=== PATIENT | female | born 1965 | race Caucasian/White ===

== ENCOUNTER 2018-11-06 15:42 | Outpatient (REF) | payer BC, SELFPAY ==
--- NOTE | 2018-11-06 15:00 | PAPFT_PTH ---
PATIENT: Juana Mann LOC: N U#:[id number] AGE/SX: 53/F ROOM: RE11/06/[address]: Chrystal Carey, PhD TYRE FITTER : 1965 BED: DIS: 11/06/2018 SPEC #: [id number] RECD: 11/07/18 13:08 STATUS: HIRAM REQ #: [id number] JERSON: 11/06/18 15:[address]: Chrystal Carey DEPT: COUNTS INCLUDE 234 BEDS AT THE [facility] Cytology RECD BY: Flakita Melo ENTERED: 11/07/18 13:08 SP TYPE: PAPFT OTHR DR: Iris Lee MD, DC Tissues: 1 - CX/ENDOCX FOR PAP SMEARS Procedures: PAP THIN PREP/UVM Screening HPV DNA PROBE Comments: [id number]
== END 2018-11-06 16:02 ==
LOC: LBN 15:42
PROVIDERS: PCP Family Medicine; Visit Provider Nurse Practitioner
DX: Z12.4 Encounter for screening for malignant neoplasm of cervix (principal); Z11.51 Encounter for screening for human papillomavirus (HPV)
CPT/HCPCS: 88142; 87624

== ENCOUNTER 2019-01-05 07:21 | Outpatient (CLI) | payer BC, SELFPAY ==
[2019-01-05 13:03] LABS: Abs Immature Grans 0.01 k/cumm (0.0-0.09); Absolute Basophil Count 0.05 k/cumm (0.0-0.2); Absolute Eosinophil Count 0.09 k/cumm (0.0-0.7); Absolute Lymphocyte Count 1.97 k/cumm (1.2-3.4); Absolute Monocyte Count 0.55 k/cumm (0.11-0.7); Absolute Neutrophil Count 4.85 k/cumm (1.2-6.7); Basophils % 0.7; Eosinophils % 1.2; HCT 44.5 % (36.0-46.0); Immature Grans % 0.1; Lymphocytes % 26.2; Mean Corp. HGB Concentration 33.7 g/dL (32.0-36.0); Mean Corpuscular Hemoglobin 30.2 pg (27.0-33.0); Mean Corpuscular Volume 89.5 fL (80-95); Mean Platelet Volume 9.2 fL (8.0-11.0); Monocytes % 7.3; Neutrophils % 64.5; Platelet Count 296 x1000/uL (130-400); RBC 4.97 m/cumm (4.00-5.20); RBC Distribution Width 13.3 % (11.7-14.6); White Blood Cell Count 7.52 k/cumm (4.4-10.8)
[2019-01-05 13:42] LABS: ESR 16 mm/hr (0-30)
[2019-01-05 14:08] LABS: ALT 54 U/L (14-59); AST 25 U/L (15-37); Albumin 4.3 g/dL (3.4-5.0); Alkaline Phosphatase 67 U/L (46-116); Bilirubin, Total 0.3 mg/dL (0.2-1.0); C-Reactive Protein 0.22 mg/dL (0.0-0.3); TSH 1.64 uIU/mL (0.36-3.74); Total Protein 7.9 g/dL (6.4-8.2); Uric Acid 5.9 mg/dL (2.6-6.0)
[2019-01-05 14:22] LABS: Cholesterol 259 mg/dL (50-200); Triglyceride 227 mg/dL (30-150); Vitamin D 25 Total 23.9 ng/ml (30-100)
[2019-01-05 14:23] LABS: Calculated LDL 167 mg/dL; HDL Cholesterol 47 mg/dL (40-60)
[2019-01-06 10:01] LABS: Measles IgG Antibody Positive
[2019-01-06 10:56] LABS: Rheumatoid Factor 8 IU/mL (<12.5)
[2019-01-06 16:00] LABS: ANA Interpretation Negative (NEGAT)
== END 2019-01-05 07:41 ==
PROVIDERS: PCP Nurse Practitioner; Visit Provider Nurse Practitioner
DX: Z00.00 Encounter for general adult medical examination without abnormal findings
CPT/HCPCS: 36415; 80061; 80076; 82306; 85027; 85652; 84443; 84550; 85025; 86038; 86140; 86431; 86765

== ENCOUNTER 2019-03-31 00:48 | Outpatient (CLI) | payer BC, SELFPAY ==
--- NOTE | 2019-03-31 16:27 | DI.DEXA_ITS ---
EXAM: XR DEXA BONE DENSITY W/WO DARNELL INDICATION: menopause Z78.0. COMPARISON: DEXA BONE DENSITY WITH DARNELL from 09/06/2015 TECHNIQUE: Lateral DARNELL image of the spine and bone mineral density measurements of the spine, left h ip and left wrist were performed. FINDINGS: The DARNELL image shows no evidence of compression fractures. The bone mineral density measurements of the lumbar spine correspond a total T-score of -1.1, in the osteopenic range. This is not significantly changed from the previous exam. The bone mineral density measurements of the left hip correspond to a total T-score of -0.7 and a fem oral neck T-score of -1.7. Total T-score has increased 8.1 percent since 2016. The bone mineral density measurements of the left wrist correspond to a total T-score of -0.6 and a T -score of the distal 3rd of -0.5. This represents a 4.7 percent decrease when compared with 2016. IMPRESSION: Stable osteopenia of the lumbar spine. Osteopenia of the left hip with stable femoral neck T-score. The total T-score has increased which could be secondary to degenerative changes around the hip. No rmal forearm bone mineral density.
== END 2019-03-31 01:08 ==
PROVIDERS: PCP Nurse Practitioner; Visit Provider Nurse Practitioner
DX: M85.88 Other specified disorders of bone density and structure, other site (principal); Z78.0 Asymptomatic menopausal state
CPT/HCPCS: 77080

== ENCOUNTER 2019-11-30 03:08 | Outpatient (CLI) | payer BC, SELFPAY ==
[2019-11-30 08:18] LABS: Hemoglobin A1C 5.5 % (<5.7)
== END 2019-11-30 03:28 ==
PROVIDERS: PCP Nurse Practitioner; Visit Provider Nurse Practitioner
DX: Z13.1 Encounter for screening for diabetes mellitus (principal)
CPT/HCPCS: 36415; 83036

== ENCOUNTER 2020-01-15 01:53 | Outpatient (CLI) | payer BC, SELFPAY ==
[2020-01-15 12:26] LABS: ALT 69 U/L (14-59); AST 29 U/L (15-37); Albumin 4.1 g/dL (3.4-5.0); Alkaline Phosphatase 68 U/L (46-116); Bilirubin, Direct 0.05 mg/dL (0.00-0.20); Bilirubin, Total 0.3 mg/dL (0.2-1.0); Total Protein 7.3 g/dL (6.4-8.2)
== END 2020-01-15 02:13 ==
PROVIDERS: PCP Nurse Practitioner; Visit Provider Dentist Oral and Maxillofacial Surgery
DX: M06.9 Rheumatoid arthritis, unspecified (principal); D89.89 Other specified disorders involving the immune mechanism, not elsewhere classified
CPT/HCPCS: 36415; 80076

== ENCOUNTER 2020-03-15 02:30 | Outpatient (CLI) | payer BC, SELFPAY ==
[2020-03-15 15:53] LABS: ALT 65 U/L (14-59); AST 34 U/L (15-37); Albumin 4.1 g/dL (3.4-5.0); Alkaline Phosphatase 74 U/L (46-116); Bilirubin, Total 0.3 mg/dL (0.2-1.0); Total Protein 7.5 g/dL (6.4-8.2)
[2020-03-15 15:58] LABS: Bilirubin, Direct < 0.05 mg/dL (0.00-0.20)
== END 2020-03-15 02:50 ==
PROVIDERS: PCP Nurse Practitioner; Visit Provider Dentist Oral and Maxillofacial Surgery
DX: M06.9 Rheumatoid arthritis, unspecified (principal); D89.89 Other specified disorders involving the immune mechanism, not elsewhere classified
CPT/HCPCS: 36415; 80076

== ENCOUNTER 2020-05-13 02:57 | Outpatient (CLI) | payer BC, SELFPAY ==
[2020-05-13 13:11] LABS: Abs Immature Grans 0.01 10^3/uL (0.0-0.06); Absolute Basophil Count 0.05 10^3/uL (0.0-0.2); Absolute Eosinophil Count 0.23 10^3/uL (0.0-0.7); Absolute Lymphocyte Count 2.29 10^3/uL (1.2-3.4); Absolute Monocyte Count 0.84 10^3/uL (0.1-0.8); Absolute Neutrophil Count 2.85 10^3/uL (1.2-6.7); Basophils % 0.8; Eosinophils % 3.7; HGB 13.5 g/dL (11.2-15.7); Immature Grans % 0.2; Lymphocytes % 36.5; MCH 29.6 pg (27.0-33.0); MCHC 33.8 % (32.0-36.0); MCV 87.7 fL (80-95); MPV 9.2 fL (8.0-11.0); Monocytes % 13.4; Neutrophils % 45.4; Nucleated RBC 0 %; Platelet Count 221 10^3/uL (130-400); RBC 4.56 10^6/uL (3.93-5.22); RDW 12.4 % (11.7-14.6); RDW-SD 39.7 fL; WBC 6.27 10^3/uL (4.4-10.8)
[2020-05-13 13:13] LABS: Bilirubin Negative (Negative); Blood Negative (Negative); Clarity Clear (Clear); Glucose Negative (Negative); Ketones Negative (Negative); Leukocyte Esterase Negative (Negative); Nitrite Negative (Negative); Specific Gravity 1.025 (1.005-1.025); Urobilinogen 0.2 EU/dL (Up TO 0.2)
[2020-05-13 13:21] LABS: Hemoglobin A1C 5.7 % (<5.7)
[2020-05-13 13:55] LABS: Magnesium 2.1 mg/dL (1.8-2.4)
== END 2020-05-13 02:58 | disposition home or self-care (01) ==
LOC: LBO 02:57
PROVIDERS: Naturopath; PCP Nurse Practitioner; Visit Provider Dentist Oral and Maxillofacial Surgery
DX: M26.629 Arthralgia of temporomandibular joint, unspecified side (principal); E78.5 Hyperlipidemia, unspecified; Z13.0 Encounter for screening for diseases of the blood and blood-forming organs and certain disorders involving the immune mechanism
CPT/HCPCS: 36415; 81003; 83036; 83735; 85025

== ENCOUNTER 2020-05-13 15:37 | Outpatient (CLI) | payer BC, SELFPAY ==
--- NOTE | 2020-05-13 15:30 | RT.EKG_ITS ---
APPROVED REPORT Exam: Resting ECG Patient Location: O HR:58 bpm ECG Measurements Heart Rate 58 AXIS MD 190 P 41 QRSd 90 QRS 25 QT 413 T 39 QTc 406 Conclusion Sinus bradycardia...rate< 60
== END 2020-05-13 15:38 | disposition home or self-care (01) ==
LOC: DI.CM 15:37
PROVIDERS: PCP Nurse Practitioner; Visit Provider Nurse Practitioner
DX: R01.1 Cardiac murmur, unspecified (principal)
CPT/HCPCS: 93010

== ENCOUNTER 2020-07-11 03:22 | Outpatient (CLI) | payer BC, SELFPAY ==
[2020-07-11 11:22] LABS: Abs Immature Grans 0.01 10^3/uL (0.0-0.06); Absolute Basophil Count 0.04 10^3/uL (0.0-0.2); Absolute Eosinophil Count 0.06 10^3/uL (0.0-0.7); Absolute Lymphocyte Count 1.77 10^3/uL (1.2-3.4); Absolute Monocyte Count 0.44 10^3/uL (0.1-0.8); Absolute Neutrophil Count 3.86 10^3/uL (1.2-6.7); Basophils % 0.6; HGB 13.4 g/dL (11.2-15.7); Immature Grans % 0.2; Lymphocytes % 28.6; MCH 29.5 pg (27.0-33.0); MCHC 33.5 % (32.0-36.0); MCV 87.9 fL (80-95); Monocytes % 7.1; Neutrophils % 62.5; Nucleated RBC 0 %; Platelet Count 265 10^3/uL (130-400); RBC 4.55 10^6/uL (3.93-5.22); RDW 12.4 % (11.7-14.6); RDW-SD 39.5 fL; WBC 6.18 10^3/uL (4.4-10.8)
[2020-07-11 11:52] LABS: Iron 83 ug/dL (50-170); Total Iron Binding Capacity 289 ug/dL (250-450); Transferrin Sat 29 % (15-50)
[2020-07-11 12:15] LABS: ALT 36 U/L (14-59); AST 24 U/L (15-37); Albumin 3.9 g/dL (3.4-5.0); Alkaline Phosphatase 80 U/L (46-116); Anion Gap 10.6 mmol/L (3-11); BUN 8 mg/dL (7-18); Bilirubin, Total 0.5 mg/dL (0.2-1.0); CO2 27.4 mmol/L (21.0-32.0); CREATININE 0.8 mg/dL (0.55-1.02); Calcium 9.6 mg/dL (8.5-10.1); Chloride 102 mmol/L (98-107); FREE T4 0.97 ng/dL (0.76-1.46); Glucose 137 mg/dL (74-106); Magnesium 1.9 mg/dL (1.8-2.4); Potassium 3.9 mmol/L (3.5-5.1); Sodium 140 mmol/L (136-145); TSH 1.02 uIU/mL (0.36-3.74); Total Protein 7.7 g/dL (6.4-8.2)
[2020-07-11 12:58] LABS: Ferritin 244 ng/mL (8-252); Folate 16.7 ng/mL (8.6-20.0); Vitamin B12 1528 pg/mL (193-986)
[2020-07-11 21:32] LABS: T3,Free 3.5 pg/mL (2.8-5.3)
== END 2020-07-11 03:23 | disposition home or self-care (01) ==
LOC: LBO 03:22
PROVIDERS: PCP Nurse Practitioner; Visit Provider Naturopath
DX: R00.0 Tachycardia, unspecified (principal); R53.83 Other fatigue
CPT/HCPCS: 36415; 80053; 82607; 82728; 82746; 83540; 83550; 83735; 84439; 84443; 84481; 85025

== ENCOUNTER 2020-10-14 02:47 | Outpatient (CLI) | payer BC, SELFPAY ==
[2020-10-14 12:10] LABS: ALT 69 U/L (14-59); AST 43 U/L (15-37); Albumin 4.1 g/dL (3.4-5.0); Alkaline Phosphatase 67 U/L (46-116); Bilirubin, Direct 0.1 mg/dL (0.0-0.2); Bilirubin, Total 0.4 mg/dL (0.2-1.0); Total Protein 7.4 g/dL (6.4-8.2)
== END 2020-10-14 02:48 | disposition home or self-care (01) ==
PROVIDERS: PCP Nurse Practitioner; Visit Provider Dentist Oral and Maxillofacial Surgery
DX: M06.9 Rheumatoid arthritis, unspecified (principal); D89.89 Other specified disorders involving the immune mechanism, not elsewhere classified
CPT/HCPCS: 36415; 80076

== ENCOUNTER 2020-12-09 10:02 | Outpatient (CLI) | payer BC, SELFPAY ==
[2020-12-09 12:39] LABS: Calculated LDL 121 mg/dL (<100); Cholesterol 191 mg/dL (<200); HDL Cholesterol 52 mg/dL (40-60); Triglyceride 90 mg/dL (<150)
== END 2020-12-09 10:03 | disposition home or self-care (01) ==
LOC: LOS 10:02
PROVIDERS: PCP Nurse Practitioner; Visit Provider Nurse Practitioner
DX: Z00.00 Encounter for general adult medical examination without abnormal findings (principal); E78.5 Hyperlipidemia, unspecified
CPT/HCPCS: 36415; 80061

== ENCOUNTER 2021-07-25 03:20 | Outpatient (CLI) | payer BC, SELFPAY ==
[2021-07-25 15:24] LABS: Abs Immature Grans 0.03 10^3/uL (0.0-0.06); Absolute Basophil Count 0.05 10^3/uL (0.0-0.2); Absolute Eosinophil Count 0.08 10^3/uL (0.0-0.7); Absolute Lymphocyte Count 2.83 10^3/uL (1.2-3.4); Absolute Monocyte Count 0.54 10^3/uL (0.1-0.8); Absolute Neutrophil Count 4.24 10^3/uL (1.2-6.7); Basophils % 0.6; HGB 13.4 g/dL (11.2-15.7); Immature Grans % 0.4; Lymphocytes % 36.4; MCH 29.5 pg (27.0-33.0); MCHC 33.5 % (32.0-36.0); MCV 88 fL (80-95); MPV 9.3 fL (8.0-11.0); Monocytes % 6.9; Neutrophils % 54.7; Platelet Count 231 10^3/uL (130-400); RBC 4.54 10^6/uL (3.93-5.22); RDW 12.2 % (11.7-14.6); RDW-SD 39.3 fL; WBC 7.77 10^3/uL (4.4-10.8)
[2021-07-25 15:39] LABS: ESR 14 mm/hr (0-30)
[2021-07-25 16:11] LABS: Iron 98 ug/dL (50-170); Total Iron Binding Capacity 335 ug/dL (250-450)
[2021-07-25 16:24] LABS: ALT 172 U/L (14-59); AST 119 U/L (15-37); Albumin 4.1 g/dL (3.4-5.0); Alkaline Phosphatase 83 U/L (46-116); Anion Gap 11.1 mmol/L (3-11); BUN 13 mg/dL (7-18); Bilirubin, Total 0.3 mg/dL (0.2-1.0); CO2 27.9 mmol/L (21.0-32.0); CREATININE 0.7 mg/dL (0.55-1.02); Calcium 9.1 mg/dL (8.5-10.1); Chloride 102 mmol/L (98-107); Ferritin 448 ng/mL (8-252); Glucose 91 mg/dL (74-106); Potassium 3.5 mmol/L (3.5-5.1); Sodium 141 mmol/L (136-145); Total Protein 7.5 g/dL (6.4-8.2)
[2021-07-25 16:41] LABS: Hemoglobin A1C 5.6 % (<5.7)
[2021-07-27 10:26] LABS: Insulin 7.6 uIU/mL (<29.0)
== END 2021-07-25 03:21 | disposition home or self-care (01) ==
LOC: LBO 03:20
PROVIDERS: PCP Nurse Practitioner; Visit Provider Naturopath
DX: M26.629 Arthralgia of temporomandibular joint, unspecified side (principal); R53.83 Other fatigue; R73.09 Other abnormal glucose
CPT/HCPCS: 36415; 80053; 85652; 82728; 83036; 83525; 83540; 83550; 85025

== ENCOUNTER 2021-09-14 14:07 | Outpatient (CLI) | payer BC, SELFPAY ==
[2021-09-14 08:57] LABS: ALT 230 U/L (14-59); AST 133 U/L (15-37); Albumin 3.7 g/dL (3.4-5.0); Alkaline Phosphatase 70 U/L (46-116); Bilirubin, Direct 0.1 mg/dL (0.0-0.2); Bilirubin, Total 0.4 mg/dL (0.2-1.0); Total Protein 7.4 g/dL (6.4-8.2)
--- OUTSIDE RECORDS SUMMARY | 2021-09-14 14:13 | XMS_ITS | Encounter Summary ---
:1965 Author Organization [facility] [place] [address] Care Team Providers Name Role Phone Iris Lee MD Primary Care Provider Reason for Referral Diagnostic Test (Routine) - Closed Specialty Diagnoses / Procedures Referred By Contact Refer red To Contact Radiology Diagnoses Encounter for screening mammogram for breast cancer Chrystal Carey APRN [facility] Rad Mammography Procedures Mammo Screening Cad and Jay Bilateral [address] [place] [address] [place] [address] Phone: Referral ID Status Reason Start Date Expiration Date Visits V isits Requested Authorized [id number] Closed Specialty 10/06/2020 04/08/2022 1 1 Service Requested Reason for Visit Diagnostic Test (Routine) - Closed Specialty Diagnoses / Procedures Referred By Contact Refer red To Contact Radiology Diagnoses Encounter for screening mammogram for breast cancer Chrystal Carey APRN [facility] Rad Mammography Procedures Mammo Screening Cad and Jay Bilateral [address] [place] [address] [place] [address] Phone: Referral ID Status Reason Start Date Expiration Date Visits V isits Requested Authorized [id number] Closed Specialty 10/06/2020 04/08/2022 1 1 Service Requested Encounter Details Date Type Department Care Team Description 02/14/2021 [facility] L, 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 [address] [address] [phone] Social History Tobacco Use Types Packs/Day Years Used Date Never Smoker Smokeless Tobacco: Never Used Alcohol Use Standard Drinks/Week Comments Yes 0 (1 standard drink = 0.6 oz pure alcoho l) Sex Assigned at Date Recorded Not on file documented as of this encounter Medications at Time of Discharge Medication Sig Dispensed Refills Start Date End Date Miscellaneous Medical Supply 0 016 MiscIndications: Chronic jaw pain, Cervicalgia cyclobenzaprine (FLEXERIL) 5 0 016 mg TabletIndications: TMJ arthritis OXYcodone (ROXICODONE) 5 mg Take 1-2 tablets by 30 tablet 0 03/21/2011 immediate release tablet mouth every 4 hours as needed for Pain. dvxrgmbtnp-pkmdbcyfhygad-hnr Take 1 tablet by 0 feine (FIORICET, ESGIC) per mouth every 4 hours tablet as needed. meclizine (ANTIVERT) 25 mg 25m.5-1 tab 0 05/02 tablet Tablet(s), PO, Three times daily PRN diaZEPam (VALIUM) 2 mg 2MG = 1 Tablet(s), 0 05/13 tablet PO, Three times daily,PRN documented as of this encounter Plan of Treatment Not on filedocumented as of this encounter Procedures Procedure Name Priority Date/Time Associated Diagnosis Comme nts MAMMO SCREENING CAD Routine 02/14/2021 1:06 PM Encounter for R esults for this AND JAY BILATERAL EST screening mammogram pr ocedure are in for breast cancer the result s section. documented in this encounter Results Mammo Screening Cad and Jay Bilateral (02/14/2021 1:06 PM EST) Anatomical Region Laterality Modality Breast Bilateral Mammography Specimen (Source) Anatomical Location Collection Method / Collectio n Time Received Time / Laterality Volume Narrative 02/14/2021 2:02 PM EST BILATERAL MAMMOGRAPHY REASON FOR EXAM: Screening TECHNIQUE: CC and MLO views were obtaine d of each breast using standard 2-D mammography as well as 3-D tomosynth esis. Computer aided detection was used. This is compared with prior images . FINDINGS: ??The breasts are heterogeneou sly dense, which may obscure small masses. There are no suspicious microcal cifications, masses, or areas of distortion. The pattern is stable. CONCLUSION: No mammographic evidence of malignancy. RECOMMENDATION: Regular screening mammograms starting be tween age 40 and 50 reduces the risk of from breast cancer. All screening tests have both risks and benefits. These risks and benefits should be assessed for each individual p atient through discussion with their provider to determine their prefer red breast cancer screening schedule. Women should report any breast changes t o a health care provider right away. Some women, because of their family hist ory, a genetic tendency, or other factors, should be screened with annual breast MRI as well as with mammograms. (The number of women who fal l into this category is very small). Patients and health care provide rs should discuss each patient? s history to decide if earlier screening a nd/or breast MRI are appropriate. Screening should continue as long as a w jason is in good health and is expected to live 10 years or longer. Screening mammography may not detect 10- 15% of breast cancers. A result letter has been sent to this pa alina by [facility]. BIRADS CATEGORY 1: NEGATIVE Electronically signed by: LEATHA LAGUNA MD Chrystal Carey APRN IMG MAMMO ORDERABLES documented in this encounter Visit Diagnoses Diagnosis Encounter for screening mammogram for br east cancer documented in this encounter Care Teams Metal Room Dental Technician Relationship Specialty Start Date End Date Iris Lee MD PCP - General 01/23/[address] [place] [address] documented as of this encounter
--- OUTSIDE RECORDS SUMMARY | 2021-09-14 14:13 | XMS_ITS | Encounter Summary ---
:1965 [place] [address] Care Team Providers Name Role Phone Iris Lee MD Primary Care Provider Encounter Details Date Type Department Care Team Description 10/11/2015 Hospital Encounter XRay at [facility] Ailin Butler, TMJ arthritis [address] [place] [address] Dr Pringle [facility] [address] RHEUMATOLOGY [place], [place] [address] (Wo rk) Social History Tobacco Use Types Packs/Day Years Used Date Never Smoker Smokeless Tobacco: Never Used Alcohol Use Standard Drinks/Week Comments Yes 0 (1 standard drink = 0.6 oz pure alcoho l) Sex Assigned at Date Recorded Not on file documented as of this encounter Medications at Time of Discharge Medication Sig Dispensed Refills Start Date End Date cyclobenzaprine (FLEXERIL) 0 6 5 mg TabletIndications: TMJ arthritis OXYcodone (ROXICODONE) 5 mg Take 1-2 tablets 30 tablet 0 immediate release tablet by mouth every 4 hours as needed for Pain. hlvytrzhpm-ixsrwrukzvusd-fq Take 1 tablet by 0 ffeine (FIORICET, ESGIC) mouth every 4 per tablet hours as needed. meclizine (ANTIVERT) 25 mg 25m.5-1 tab 0 05/02 tablet Tablet(s), PO, Three times daily PRN diaZEPam (VALIUM) 2 mg 2MG = 1 Tablet(s), 0 05/13 tablet PO, Three times daily,PRN amitriptyline (ELAVIL) 10 Take 20 mg by 0 11/16/2015 mg tablet mouth nightly. documented as of this encounter Plan of Treatment Not on filedocumented as of this encounter Procedures Procedure Name Priority Date/Time Associated Diagnosis Comme nts XR TMJ JOINTS Routine 10/11/2015 11:10 AM TMJ arthritis Result s for this EDT procedure are i n the results section . documented in this encounter Results XR TMJ Joints (Generic) (10/11/2015 11:10 AM EDT) Anatomical Region Laterality Modality N/A Digital Radiography Specimen (Source) Anatomical Location Collection Method / Collectio n Time Received Time / Laterality Volume Impressions 10/11/2015 3:22 PM EDT Closed mouth view suggests that there is incomplete reduction of the temporomandibular joint on the right lik ayde secondary to disc dislocation. The disc would be better evaluated directly with MRI. I do not see radiographic evidence of in flammatory disease. Narrative 10/11/2015 3:22 PM EDT EXAMINATION: XR TMJ JOINTS/BILAT CLINICAL HISTORY: pt w hx of tmj and rig ht sided tendon and disclocation of the disc and con't pain and stiffness bl, as sess for inflamm arthritis TECHNIQUE: Lateral images of the TMJ wer e acquired bilaterally with the mouth both open and closed. In addition Pravin view was acquired. COMPARISON: None FINDINGS: No fracture. No erosion of bone is seen. In the open mouth position there is norm al excursion of the condyle bilaterally. With close mouth positioning. There is n ormal reduction of the condyle on the left but the reduction is incomplete on the left likely related to the patient's known disc pathology. Procedure Note Maikol Walton MD - 10/11/2015Forma tting of this note might be different from the original. EXAMINATION: XR TMJ JOINTS/BILAT CLINICAL HISTORY: pt w hx of tmj and rig ht sided tendon and disclocation of the disc and con't pain and stiffness bl, as sess for inflamm arthritis TECHNIQUE: Lateral images of the TMJ wer e acquired bilaterally with the mouth both open and closed. In addition Pravin view was acquired. COMPARISON: None FINDINGS: No fracture. No erosion of bone is seen. In the open mouth position there is norm al excursion of the condyle bilaterally. With close mouth positioning. There is n ormal reduction of the condyle on the left but the reduction is incomplete on the left likely related to the patient's known disc pathology. IMPRESSION Closed mouth view suggests that there is incomplete reduction of the temporomandibular joint on the right lik ayde secondary to disc dislocation. The disc would be better evaluated directly with MRI. I do not see radiographic evidence of in flammatory disease. Ailin Butler DO IMG DX ORDERABLES documented in this encounter Visit Diagnoses Diagnosis TMJ arthritis Other specified temporomandibular joint disorders documented in this encounter Care Teams Sprayer Hand Relationship Specialty Start Date End Date Iris Lee MD PCP - General 01/23/[address] [place] [address] documented as of this encounter
--- OUTSIDE RECORDS SUMMARY | 2021-09-14 14:13 | XMS_ITS | Encounter Summary ---
:1965 Author Organization [facility] Address [address] [place] [address] Care Team Providers Name Role Phone Unavailable Primary Care Provider Unavailable Encounter Details Date Type Department Care Team Description 04/24/2006 - Hospital Encounter [facility] Chace Crouch, 04/25/2006 General Surgery Unit DMD [address] [facility] [address] [place] [address] [address] [place] [address] (Wo rk) Social History Tobacco Use Types Packs/Day Years Used Date Never Assessed Sex Assigned at Date Recorded Not on file documented as of this encounter Discharge Disposition Disposition Code Departure Means Destination Home or Self Care documented in this encounter OR Notes OR Surgeon - Chace Crouch DMD - 04/24/2006 0000 EST PROCEDURE REPORT PT TYPE: IP PT LOC: [id number] SERVICE DATE: 04/24/2006 SURGEON: Chace Crouch DMD SHERIFF'S OFFICER: Derick Parsons DMD PREOPERATIVE DIAGNOSES: 1. Anteriorly displaced disk, nonreducing, right temporomandibular joint. 2. Anteriorly displaced disk, reducing, left temporomandibular joint with joint arthralgia. 3. Bilateral temporalis tendonitis. POSTOPERATIVE DIAGNOSES: 1. Anteriorly displaced disk, nonreducing, right temporomandibular joint. 2. Anteriorly displaced disk, reducing, left temporomandibular joint with joint arthralgia. 3. Bilateral temporalis tendinitis. PROCEDURE: 1. Steroid injection, temporalis tendons bilaterally. 2. Arthroscopy, left temporomandibular joint, with lysis of adhesions, lavage of joint, and placement of intracapsular steroids. 3. Open arthroplasty with disk plication, right temporomandibular joint. ANESTHESIA: General. INDICATIONS: This 40-year-old female has had a longstanding history of temporomandibular joint problems. She was seen and evaluated by Dr. Adithya Shaw in the year 1999 and entered splint therapy, as well as other treatment modalities. She did well until July 2005, when she developed acute pain in her right temporomandibular joint and significant loss of range of motion. MRIs done at [facility] showed an anteriorly displaced disk that would not reduce in the right temporomandibular joint. In addition, the left temporomandibular joint showed a slightly anteriorly displaced disk. Due to clinical findings consisting of bilateral TMJ arthralgia, limited range of motion, and pain in hertemporalis tendon, it was decided to do an open arthroplasty of the right temporomandibular joint, do an arthroscopic procedure on the left TMJ, as well as place steroids in the temporalis tendon attachments. NARRATIVE: Under general anesthesia with nasoendotracheal intubation, attention was first directed to intraorally where 20 mg of Depo-Medrol mixed with 0.5% Marcaine without epinephrine was injected into the temporalis tendon area at the coronoid processes bilaterally. The patient was then prepped anddraped in the standard manner for preauricular approaches to the temporomandibular joints. Her left lower abdomen was also prepped in the standard manner, should a dermal harvest be necessary. Attention was first directed to the patient's left side, where 1 cc of 0.5% Marcaine without epinephrine wasinjected into the superior joint space. Using an 11-blade, a small skin incision was made at the posterolateral aspect of the TMJ, then blunt dissection carried down to the temporomandibular joint capsule. Using a 14-gauge needle attached to a syringecontaining heparinized lactated Ringer's, the needle was inserted into the superior joint space and then the joint space expanded. The arthroscopic sheath with the sharp trocar was then introduced through the blunt dissection site and with the condyle detracted anteriorly and inferiorly, the joint capsule was punctured. A blunt probe was placed in the sheath and the sheath further advanced in the joint space. The arthroscope was then placed into position, ujylcde-cuq-ozxqjew flow was established. Inspection of the joint showed normal-appearingsynovial tissues at the posterior aspect. The disk itself appeared relatively normal, although there was some evidence of some minor adhesions, both on the disk surface and along the articular remnants. Examination of the anterior compartment showed some small adhesions and the lateral pterygoid shadow was easily identified. A blunt probe was placed into the arthroscopic sheath and passed along the superior aspect of the glenoid fossa, lysing any minor adhesions. The arthroscope was then replaced inthe sheath, ddugvwl-nmp-ywyhqxv flow reestablished, and the joint thoroughly irrigated. Then, the arthroscope and 14-gauge needle were removed. The puncture sites each then had a single 6-0 Prolene suture placed. Attention was then directed to the patient's right side, where the preauricular incision was marked.The subcutaneous tissues were infiltrated with 0.5% Marcaine with 1:200,000 epinephrine. Then, usinga 15-blade, an incision was made in the preauriculararea. Small bleeders were clamped and coagulated, as well as using the electrocautery. Small bleeders coagulated directly. The skin was undermined anteriorly approximately 1.5 cm. At the superior aspect of the wound, blunt dissection was then carrieddown to the level of the temporalis fascia and then dissection carried along that plane to the area of the external auditory canal. Blunt dissection was also carried down at the posterior border of the parotideomasseteric plane, along the anterior border of the external auditory canal. A straight clamp was introduced from the superior blunt dissection site to the inferior blunt dissection site and then at its posterior border. It should be noted that when this tissue was clamped, there were no facial nerve movements. Further blunt dissection site was then used to expose the temporomandibular joint capsule. The superior temporal vein was ligated at the superior aspect of the wound, , and tied with 3-0 Vicryl ties. Transverse vessels inthe area of the joint capsule were , clamped, and coagulated. Marcaine 0.5%, 1 cc, was then injected into the superior joint space. Using a 15-blade, a horizontal incision was made along the lateral aspect of the glenoid fossa. Using tenotomyscissors, the superior joint space was entered. It was noted that the disk was markedly anteriorly and medially displaced. A Lacombe elevator was further used to break up these adhesions. Then, usingtenotomy scissors, the lateral capsular tissues were undermined, a vertical releasing incision made,and the tissue marked for later closure. Using a 15- blade, a horizontal incision was made on the condylar neck, and then using a combination of the Lacombe periosteal elevator and tenotomy scissors, the i nferiorjoint space was entered. It was noted that the condylar head was fairly intermittent. There was a small exostosis on the lateral border. Then, the disk was carefully inspected. It was noted thatthere was a distinct tear through the junctional tissuesat the posterior border. A straight clamp was introduced. A section of tissue was then removed. Using a 15-blade, an anterior capsulotomy was then completed, allowing the disk to be retracted posteriorly and laterally. Using 4-0 Vicryl sutures inan interrupted fashion, the disk was then sutured posteriorly and laterally, and then junctional sutures also placed in the tissues reapproximating the lateral attachment of the disk. With completion of closure of the inferior joint space, the mandible was rotated and translated, and the disk-condylarrelationship appeared normal and satisfactory. The joint was then thoroughly irrigated. The lateral capsular tissues reapproximated and closed with 4-0 Vicryl in an interrupted fashion. The marking suture hadbeen removed. The parotideomasseteric plane was closed using interrupted 4-0 Vicryl suture in an interrupted fashion, as well as in a continuous interlocking fashion. Subcutaneous closure was with 4-0 Vicryl in an inverted, interrupted fashion, and thenskin closed with 6-0 Prolene in a continuous noninterlocking fashion. Attention was then redirected to the patient's left side, where 20 mg of Depo- Medrol mixed with 0.5%Marcaine was injected into the superior joint space. The external auditory canal was irrigated free of all debris, then the right external auditory canal irrigated free of all debris. Triple-antibioticointment and Telfa were placed over the right preauricular excision, and following extubation, the patient returned to the recovery room in satisfactory condition, where a Jobst fascioplasty dressing was placed. I was present for the entire surgical procedure. ESTIMATED BLOOD LOSS: 10-15 cc. COMPLICATIONS: There were no complications. Signed by Chace Crouch DMD 05/20/2006 08:58 Annalise Mahoney, IVIS Chace Crouch DMD - Chace Crouch DMD P - SS Job ID: [id number] Document ID: [id number] cc: KETTY William, IVIS Parsons, KEILA Palacios cc: KETTY William, IVIS Parsons, KEILA Palacios documented in this encounter Plan of Treatment Not on filedocumented as of this encounter Visit Diagnoses Not on filedocumented in this encounter
--- OUTSIDE RECORDS SUMMARY | 2021-09-14 14:13 | XMS_ITS | Encounter Summary ---
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 kykfvqzrqs-aatraiiwafonz-jav Take 1 tablet by 0 feine (FIORICET, [...] Diagnosis Comme nts MAMMO SCREENING CAD Routine 10/05/2019 3:47 PM Encounter for R esults for this AND JAY BILATERAL EDT screening mammogram pr ocedure are in for breast cancer the result s section. documented in this encounter Results Mammo Screening Cad and Jay Bilateral (10/05/2019 3:47 PM EDT) Anatomical Region Laterality Modality Breast Bilateral Mammography Specimen (Source) Anatomical Location Collection Method / Collectio n Time Received Time / Laterality Volume Narrative 10/06/2019 8:15 AM EDT BILATERAL MAMMOGRAPHY REASON FOR EXAM: Screening TECHNIQUE: [...] letter has been sent to this pa tient by the [facility]. BIRADS CATEGORY 1: NEGATIVE Chrystal Carey APRN IMG MAMMO ORDERABLES documented in this encounter Visit Diagnoses Diagnosis Encounter for screening mammogram for br east cancer documented in this encounter Care Teams Envelope Stuffer Relationship Specialty Start Date End Date Iris Lee MD PCP - General 01/23/11 [address] [place] [address] documented as of this encounter
--- OUTSIDE RECORDS SUMMARY | 2021-09-14 14:13 | XMS_ITS | Encounter Summary ---
:1965 [address] Organization [facility] [place] [address] Care Team Providers Name Role Phone Iris Lee MD Primary Care Provider Reason for Referral Diagnostic Test (Routine) - Closed Specialty Diagnoses / Procedures Referred By Contact Refer red To Contact Radiology Diagnoses Bilateral temporomandibular joint pain Ailin Butler DO [facility] Rad Mri Procedures MRI TMJ wo Contrast (Generic) [facility] [place] [address] [place] [address] Phone: Referral ID Status Reason Start Date Expiration Date Visits V isits Requested Authorized [id number] Closed Specialty 12/14/2015 01/12/2016 1 1 Service Requested Encounter Details Date Type Department Care Team Description 12/13/2015 Orders Only Rheumatology at [facility] Ailin Butler Bilateral [facility] DO [place] temporomandibular joint [place], [place] [id number] RHEUMATOLOGY DEPT [phone] [place], [place] [address] Social History Tobacco Use Types Packs/Day Years Used Date Never Smoker Smokeless Tobacco: Never Used Alcohol Use Standard Drinks/Week Comments Yes 0 (1 standard drink = 0.6 oz pure alcoho l) Sex Assigned at Date Recorded Not on file documented as of this encounter Plan of Treatment Not on filedocumented as of this encounter Results MRI TMJ wo Contrast (Generic) (12/15/2015 9:00 AM EDT) Anatomical Region Laterality Modality Head Magnetic Resonance Specimen (Source) Anatomical Location Collection Method / Collectio n Time Received Time / Laterality Volume Impressions 12/16/2015 4:08 PM EDT IMPRESSION: 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 No intravenous contrast. COMPARISON: MRI of face of 11/25/2015. FINDINGS: There is loss of joint space and flatten ing of the condylar surface bilaterally, more extensive on the left. There is abn ormal T1 hypointense signal within the left occipital condyle consistent with t he abnormalities evident on the prior study and likely representing marrow roberto ma On the right there is anterior dislocati on of the disc with the mouth in closed position. The disc is not recaptured wit h opening of the mouth. Disc morphology is mildly abnormal taking a slightly alise bular appearance. On the left at the condyle lies along th e dorsal aspect of the disc and there is recapturing of the disc with mouth openi ng. However the disc morphology is more markedly abnormal taking a lobular appea delmi and containing internal hyperintense signal consistent with dege neration. No proliferative synovial process is dale dent Procedure Note Grabiel Ribeiro MD - 12/16/2015Format ting of this note might be different from the original. EXAMINATION: MRI TMJ WO CONTRAST (GENERI C) CLINICAL HISTORY: Pt has TMJ pain and qu estion disc dislocation, pls assess for TMJ synovitis or disc dislocation TECHNIQUE: MRI of the temporal mandibula r joints is obtained per standard protocol. No intravenous contrast. COMPARISON: MRI of face of 11/25/2015. FINDINGS: There is loss of joint space and flatten ing of the condylar surface bilaterally, more extensive on the left. There is abn ormal T1 hypointense signal within the left occipital condyle consistent with t he abnormalities evident on the prior study and likely representing marrow roberto ma On the right there is anterior dislocati on of the disc with the mouth in closed position. The disc is not recaptured wit h opening of the mouth. Disc morphology is mildly abnormal taking a slightly alise bular appearance. On the left at the condyle lies along th e dorsal aspect of the disc and there is recapturing of the disc with mouth openi ng. However the disc morphology is more markedly abnormal taking a lobular appea delmi and containing internal hyperintense signal consistent with dege neration. 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
--- OUTSIDE RECORDS SUMMARY | 2021-09-14 14:13 | XMS_ITS | Encounter Summary ---
:1965 Author Organization [facility] Address [address] [place] [address] Care Team Providers Name Role Phone Iris Lee MD Primary Care Provider Encounter Details Date Type Department Care Team Description 07/25/2021 Lab Requisition [facility] Outr Resulting Lab, Pathology & Laboratory Provider [facility] [address], [place] [id number] Social History Tobacco Use Types Packs/Day Years Used Date Never Assessed Sex Assigned at Date Recorded Not on file documented as of this encounter Plan of Treatment Not on filedocumented as of this encounter Procedures Procedure Name Priority Date/Time Associated Diagnosis Comme nts INSULIN Routine 07/25/2021 14:47 EDT Results for this procedure are i n the results section . documented in this encounter Results INSULIN (07/25/2021 14:47 EDT) Pathologist Sig nature Insulin 7.6 <29.0 uIU/mL [facility] Comment: LABORATORY SERVICES Displayed Reference Range applies to fasting specimens only. Specimen Blood - Venous blood (substance) Performing Organization Address City/State/ZIP Code Phon e Number [facility] [address] [place] [address] SERVICES documented in this encounter Visit Diagnoses Not on filedocumented in this encounter Care Teams Recovery Rn Relationship Specialty Start Date End Date Iris Lee MD PCP - General 11/04/14 [address] [place], [place] [address] documented as of this encounter
--- OUTSIDE RECORDS SUMMARY | 2021-09-14 14:13 | XMS_ITS | Encounter Summary ---
:1965 Author Organization [facility] [place] [address] Care Team Providers Name Role Phone Iris Lee MD Primary Care Provider Reason for Visit Consultation (Routine) - Specialty Diagnoses / Procedures Referred By Contact Refer red To Contact Rheumatology Diagnoses FATIGUE, JOINT PAIN Bertha Sauer, [facility] Rheumatology 5c Procedures CONSULT ND [address] [address] [address] [place], [place] [address] Referral ID Status Reason Start Date Expiration Date Visits V isits Requested Authorized [id number] 09/06/2015 09/05/2016 1 1 Encounter Details Date Type Department Care Team Description 10/11/2015 Office Visit Rheumatology [place] [facility] Ailin Butler, TMJ arthritis; [facility] Monico pepe [place] [address] [facility] [phone] RHEUMATOLOGY DEP [place], [place] [address] (Wo rk) Social History Tobacco Use Types Packs/Day Years Used Date Never Smoker Smokeless Tobacco: Never Used Alcohol Use Standard Drinks/Week Comments Yes 0 (1 standard drink = 0.6 oz pure alcoho l) Sex Assigned at Date Recorded Not on file documented as of this encounter Last Filed Vital Signs Vital Sign Reading Time Taken Comments Blood Pressure 116/74 10/11/2015 8:41 AM EDT Pulse 69 10/11/2015 8:41 AM EDT Temperature 36.7 ??C (98.1 ??F) 10/11/2015 8:41 AM EDT Respiratory Rate 18 10/11/2015 8:41 AM EDT Oxygen Saturation 100% 10/11/2015 8:41 AM EDT Inhaled Oxygen Concentration - - Weight 66.7 kg (147 lb) 10/11/2015 8:41 AM EDT Height 160 cm (5' 3) 10/11/2015 8:41 AM EDT Body Mass Index 26.04 10/11/2015 8:41 AM EDT documented in this encounter Progress Notes Ailin Butler, DO - 10/11/2015 9:00 AM EDT Rheumatology Outpatient Consultation Note Reason for Consult: The patient is seen at the request of Dr. IRIS LEE MD/Dr Shaw for evaluation and treatment of fatigue and joint pain History of Present Illness: Juana Mann is a 50 y.o. female who presents today for evaluation of fatigue, joint pain . 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 She finally got to the point wherethe jaw pain was severe enough that she sought care. She has been followed by Dr Shaw for many years and repeated imaging has shown progressive deterioration of the joint and he was concerned aboutunderlying rheumatic disesae. She also notes in 2007, she developed a tendon rupture of the right tmj w a dislocated disc and required surgery. She then presented to her naturopathic physician for further evaluation. She had labs done showing alow titer juan carlos andwas referred here. She notes aching in the am in her hands, and feet. She notes it goes away in an hour. Denies any swelling of the joints. The pip joints of the hands seem to bother her, no pain or swellin gin the MCPS She has had arthritis in her left shoulder in her 30s, she had OA, no prior injury. She notes pain in her ankles and toes, 2nd toe ip joint She notes pain in her left elbow, which is all day and worse at night. She has some lateral hip pain and hurts to lie on them. She notes some mid-back pain after her br reduction surgery, she has done massage PT and chiropracter and injections, she started accupuncture and this has helped. Meds: shay works the best Steroid cream did work but she developed rash She was on oral steroids before her surgery but this did not work, but was at the tendon rupture Rheumatic history (x) means positive Iritis Dactylitis Pleuritis Pericarditis Oral / Nasal Ulcers PE/DVT Spontaneous Discoid SLE STD Raynaud???s Psoriasis Seizures Anemia Leucopenia Thrombocytopenia Psychosis from a medical condition Health Care Maintenance Date Next Due Influenza vaccine Pneumonia vaccine TB Screen (PPD/QGA) DXA 2016-t score -0.9, HCQ Eye Exam Viral Hepatitis Screen Review of Systems: X = positive response. Comments are only made for responses that are changed fromprevious, not discussed in HPI, or otherwise require clarification. Systemic Comments 1. Generalized pain 2. Fatigue/tiredness x 3. Fevers 4. Chills 5. Night sweats X menopuase 6. Recent weight loss 7. Recent Weight gain X 10 lbs Head and neck 8. Headaches X migraines 9. Neck pain/stiffness 10. Lymphadenopathy 11. 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 Gritty eyes 14. Eye pain 15. Photophobia 16. Oral sores 17. Xerostomia 18. Jaw claudication Cardiopulmonary 19. Chest discomfort 20. Dyspnea 21. Cough 22. Hemoptysis Gastrointestinal 23. Dysphagia 24. Heartburn 25. Nausea 26. Emesis 27. Abdominal pain 28. Hematochezia 29. Diarrhea 30. Constipation Genitourinary 31. Hematuria 32. Dysuria X burning intermittent Musculoskeletal 33. Muscle weakness 34. Myalgia 35. Shoulder pain x 36. Raynaud's Neuropsychiatric 37. Paresthesia x 38. Dysesthesia 39. Dizziness/vertigo X w the jaw 40. Anxiety 41. Depression 42. Cognitive problems 43. Initial insomnia 44. Night awakenings x 45. Nonrestorative sleep x Dermatologic 46. Xerosis cutis 47. Photosensitivity 48. Rash PMHX hpl Migraine tmj bppv Depression Chicken pox -no rash, affected her kidneys (she was 5), she does not recall anything else She had recurrent UTI and pyelo until her 20s Urinary incontinence on occ Lyme disease in her 20s SurgHX Left rotator cuff br reduction bl tmj Ablation for heavy menses/fibroids Family Hx: M: mi at 41, cabg at 50, htn, dm, ashd F: htn, bladder cancer Pgm: thyroid cancer, colon cancer siblings: (-)RA, (-)lupus, (-)scleroderma, (-)sjogren's, (-)gout Social Hx: Social History Social History ??? Marital status: Spouse name: N/A ??? Number of children: N/A ??? Years of education: N/A Social History Main Topics ??? Smoking status: Never Smoker ??? Smokeless tobacco: Never Used ??? Alcohol use Yes 0 Glasses of wine, 0 Cans of beer per week ??? Drug use: No ??? Sexual activity: Not Asked Other Topics Concern ??? Exercise: Patient Reported No ??? 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 Well developed and nourished. The patient did not appear distressed or uncomfortable. The patient ambulated without difficulty or assistance. Head: Scalp: Appeared normal. Eyes: PERRL. Extraocular muscles were intact. External Eye: No hyperemia of the conjunctiva noted Sclera: Not red. Oral cavity: Buccal Mucosa showed no ulcer. Tongue did not have an ulcer. Salivary Glands: No xerostomia was observed. No parotid swelling noted. limitd opening of the oral aperature d/t pain in the tmj Pharynx: Pharynx did not have an ulcer. Lymph Nodes: Cervical, supraclavicular, submandibular, preauricular, posterior auricular and submental lymph nodes were non-palpable. Lungs: Respiration rhythm and depth was normal. Clear to auscultation without rales or wheezing. Work of breathing was not increased. Cardiovascular system: Heart Rate and Rhythm: Normal. Heart Sounds: Normal. Murmurs: No murmurs were heard. Lower Extremity Edema: Not present. Musculoskeletal system: (???NML?? means normal; No swelling, warmth, tenderness, loss of range of motion, or deformity as applicable) Hands: MCP???s: NML PIP???s: NML DIP???s: NML, full fist and claw Wrists: NML Elbows: ttp over the lateral epicondyle on the left Shoulders: NML but crepitus w motion Cervical Spine: paraspinal mm spasm Hips: ttp over bl greater trochanters Knees: NML, but crepitus w rom Ankles: NML Feet: NML, neg mtp compression Nails: No nail pitting, onycholysis or periungual erythema noted. Neurologic: gait nl, from all ext Skin: No rash seen Laboratory Data: Cbc nl crp 0.7 JUAN CARLOS 1:160 Studies: Impression/Recommendations : Juana Mann is a 50 y.o. female who presents today with tmj pain, arthralgias of the pips and a +JUAN CARLOS. She does not have any evidence of an JUAN CARLOS associated disease such as SLE, no photosens rashes, oral ulcerations, cytopenias, pg complications, serositis. Will repeat JUAN CARLOS, COLBY panel, and renal function. She denies any sicca symptoms for sjogrens, but will check ssa/b. Don't believe she has RA based on lack of synovitis and mcp and wrist involvement, but will further evaluate with RF/CCP/ESR (had nl CRP w PCM) as well as plain films of her hands. TMJ: dicussed w her inflamm diseases that can affect the TMJ include RA (usua severe, polyarticular disease, TONY, spondys-psa/reactive/as). She has lacks any enthesitis, dactylitis, iritis, IBD, inflammatory back pain. May consider HLA b27 testing depending on the evaluation. Alternatively, could simply represent OA from prior dislocation and long standing TMJ. Repeat Imaging, and will request images from Dr Shaw. Pt wishes to avoid medications, but is willing to trial supplements, will start glucosamien and chondroitin,con't omega 3. CC: IRIS LEE MD documented in this encounter Plan of Treatment Not on filedocumented as of this encounter Procedures Procedure Name Priority Date/Time Associated Comments Diagnosis EXTRACTABLE NUCLEAR Routine 10/11/2015 10:27 TMJ arthritis Res ults for this ANTIGEN (COLBY) AB AM EDT procedure a re in the results section. ANTI-CYCLIC Routine 10/11/2015 10:27 TMJ arthritis Results fo r this CITRULLINATED PEPTIDE AM EDT proced ure are in AB the results section. SEDIMENTATION RATE Routine 10/11/2015 10:27 TMJ arthritis Resu lts for this AM EDT procedure are i n the results section. RHEUMATOID FACTOR, Routine 10/11/2015 10:27 TMJ arthritis Resu lts for this QUANT AM EDT procedure are i n the results section. JUAN CARLOS Routine 10/11/2015 10:27 TMJ arthritis Results fo r this AM EDT procedure are i n the results section. TSH Routine 10/11/2015 10:27 TMJ arthritis Results fo r this AM EDT procedure are i n the results section. COMPREHENSIVE Routine 10/11/2015 10:27 TMJ arthritis Results f or this METABOLIC PANEL AM EDT procedure ar e in (NON-FASTING) the results section. documented in this encounter Results XR Shoulder Left (GENERIC) (10/11/2015 11:12 AM EDT) Anatomical Region Laterality Modality Shoulder Left Digital Radiography Specimen (Source) Anatomical Location Collection Method / Collectio n Time Received Time / Laterality Volume Impressions 10/11/2015 1:47 PM EDT Separation of the acromioclavicular joint. Narrative 10/11/2015 1:47 PM EDT EXAMINATION: XR SHOULDER LEFT CLINICAL HISTORY: pt with left shoulder pain and hx of oa at a young age nontraumatic requiring surgery, pls asse ss for any evidence of inflamm arthritis TECHNIQUE: AP, Grashey, scapular Y and a xillary of the left shoulder COMPARISON: None FINDINGS: No fracture or dislocation is seen. There is separation of the acromioclavic ular joint. Bony irregularity at the lateral aspect of the clavicle is presen t. The glenohumeral joint is intact. No ero sions are seen. Procedure Note Kenroy Kilpatrick MD - 10/11/2015 EXAMINATION: XR SHOULDER LEFT CLINICAL HISTORY: pt with left shoulder pain and hx of oa at a young age nontraumatic requiring surgery, pls asse ss for any evidence of inflamm arthritis TECHNIQUE: AP, Grashey, scapular Y and a xillary of the left shoulder COMPARISON: None FINDINGS: No fracture or dislocation is seen. There is separation of the acromioclavic ular joint. Bony irregularity at the lateral aspect of the clavicle is presen t. The glenohumeral joint is intact. No ero sions are seen. IMPRESSION Separation of the acromioclavicular join t. Ailin Butler DO IMG DX ORDERABLES XR TMJ Joints (Generic) (10/11/2015 11:10 AM [...] disease. Ailin Butler DO IMG DX ORDERABLES XR Bilateral Hands Minimum 3 Views (10/11/2015 11:10 AM EDT) Anatomical Region Laterality Modality Hand Bilateral Digital Radiography Specimen (Source) Anatomical Location Collection Method / Collectio n Time Received Time / Laterality Volume Impressions 10/11/2015 1:37 PM EDT 1. ??No arthropathy. 2. ??Benign-appearing lesion in the prox imal phalanx of the right ring finger most likely represents an enchondroma. Narrative 10/11/2015 1:37 PM EDT EXAMINATION: XR BILATERAL HANDS MINIMUM 3 VIEWS/BILAT CLINICAL HISTORY: pt with pip joint pain and an JUAN CARLOS pls assess for damage TECHNIQUE: PA, oblique, lateral and Norg aard of both hands COMPARISON: None FINDINGS: The joint spaces are intact bilaterally. No erosions are seen. There is a somewhat lobular well demarca veronica lesion located distal aspect of the proximal phalanx of the right ring finge r. There is slight endosteal scalloping but no cortical breakthrough, no periost eal reaction and no soft tissue mass is seen. This lesion does not extend all th e way to the articular surface. The matrix is fairly featureless. Procedure Note Kenroy Kilpatrick MD - 10/11/2015 EXAMINATION: XR BILATERAL HANDS MINIMUM 3 VIEWS/BILAT CLINICAL HISTORY: pt with pip joint pain and an JUAN CARLOS pls assess for damage TECHNIQUE: PA, oblique, lateral and Norg aard of both hands COMPARISON: None FINDINGS: The joint spaces are intact bilaterally. No erosions are seen. There is a somewhat lobular well demarca veronica lesion located distal aspect of the proximal phalanx of the right ring finge r. There is slight endosteal scalloping but no cortical breakthrough, no periost eal reaction and no soft tissue mass is seen. This lesion does not extend all th e way to the articular surface. The matrix is fairly featureless. IMPRESSION 1. No arthropathy. 2. Benign-appearing lesion in the proxim al phalanx of the right ring finger most likely represents an enchondroma. Ailin Butler DO IMG DX ORDERABLES TSH (10/11/2015 10:27 AM EDT) athologist Signature TSH 1.99 0.27 - 4.20 [facility] mcIU/mL [facility] Specimen Anatomical Collection Method Collection Time Receive d Time (Source) Location / / Volume Laterality Blood specimen 10/11/2015 10:27 6 (specimen) AM EDT 10:44 AM EDT Resulting Agency Comment Spec In Lab Ailin Butler DO CHEMISTRY ORDERABLES Performing Organization Address City/State/Z[place] [address] (ABNORMAL) Comprehensive metabolic panel (non-fasting) (10/11/2015 10:27 AM EDT) athologist Signature Glucose Lvl 101 65 - 199 [facility] mg/dL [facility] Comment: Diabetes: >=200 mg/dL plus symp toms BUN 15 8 - 18 mg/dL [facility] Creatinine 0.68 (L) 0.70 - 1.20 mg/dL [facility] Comment: Please note that the pediatric reference intervals supplied above were not validated at [facility]. Results from pediatri c patients should be interpreted in conjunction to the patient's age, height and muscle mass. Sodium 141 135 - 145 mmol/L [facility] Potassium 4.1 3.5 - 5.0 mmol/L [facility] Comment: Please note: ??Patients with WBC >100,00 0 may have falsely elevated Potassium levels. ??For accurate Potassium quantif ication in these patients send serum separator tube (gold top) for subsequent determinations. ??Contact the Clinical Chemistry Laboratory if there are any qu estions. Chloride 101 98 - 107 mmol/L [facility] CO2 22 22 - 31 mmol/L [facility] Anion Gap 18 (H) 5 - 15 mmol/L [facility] Calcium 9.3 8.5 - 10.5 mg/dL [facility] Total Protein 7.3 6.1 - 8.0 gm/dL [facility] Albumin 4.5 3.2 - 5.2 gm/dL [facility] AST 14 0 - 30 unit/L [facility] ALT 11 0 - 30 unit/L [facility] Alk Phos 49 40 - 104 unit/L [facility] Total Bilirubin 0.2 0.2 - 1.3 mg/dL [facility] Bili, Direct 0.1 0.0 - 0.3 mg/dL [facility] Estimated GFR >60 >=60 [facility] Comment: This estimated GFR (eGFR) value was calc ulated using the MDRD equation which has been validated on patients between t he ages of 18 and 70. The MDRD should not be used to assess kidney function in patients < 18 years of age or in patients with extremes of body mass, or in patients with acute kidney failure. This value should be multiplied by 1.2 f or patients. For further information please copy and past e the following links into your internet browser. http://[employer]/DHnkdep http://[employer]/DHMCnkf Specimen Anatomical Collection Method Collection Time Receive d Time (Source) Location / / Volume Laterality Blood specimen 10/11/2015 10:27 6 (specimen) AM EDT 10:44 AM EDT Resulting Agency Comment Spec In Lab Ailin Butler DO CHEMISTRY ORDERABLES Performing Organization Address City/State/Z[place] [address] Cyclic Citrullinated Peptide (10/11/2015 10:27 AM EDT) athologist Signature Anti-Cyc Cit <8.0 <=17.0 [facility]/mL [facility] Specimen Anatomical Collection Method Collection Time Receive d Time (Source) Location / / Volume Laterality Blood specimen 10/11/2015 10:27 6 (specimen) AM EDT 10:44 AM EDT Resulting Agency Comment Spec In Lab Ailin Butler DO CHEMISTRY ORDERABLES Performing Organization Address City/[facility]/ZIP Code Phon e Number [address] Rheumatoid factor, quant (10/11/2015 10:27 AM EDT) P athologist Signature RF <10 <=14 IU/mL [facility] Specimen Anatomical Collection Method Collection Time Receive d Time (Source) Location / / Volume Laterality Blood specimen 10/11/2015 10:27 6 (specimen) AM EDT 10:44 AM EDT Resulting Agency Comment Spec In Lab Ailin Butler DO IMMUNOLOGY ORDERABLES Performing Organization Address City/[facility]/ZIP Code Phon e Number [address] Sedimentation rate (10/11/2015 10:27 AM EDT) P athologist Signature Sed Rate 8 0 - 20 [facility] T[facility]LER mm/hr [facility] Specimen Anatomical Collection Method Collection Time Receive d Time (Source) Location / / Volume Laterality Blood specimen 10/11/2015 10:27 6 (specimen) AM EDT 10:44 AM EDT Resulting Agency Comment Spec In Lab Ailin Butler DO HEMATOLOGY ORDERABLES Performing Organization Address City/[facility]/ZIP Code Phon e Number [address] Extractable Nuclear Antigen (COLBY) Ab (10/11/2015 10:27 AM EDT) Patholo gist Method Time Signature COLBY Ab DOREEN TAYLER Test ?Result ?Flag ??Unit ??RefValue [facility] Ab to Extractable Nuclear Ag [facility] LABORATORY ??SS-A/Ro Ab, IgG, S ?<0.2 ?U -- REFERENCE VALUE -- <1.0 (Negative) ??SS-B/La Ab, IgG, S ?<0.2 ?U -- REFERENCE VALUE -- <1.0 (Negative) ??Sm Ab, IgG, S ? <0.2 ? U -- REFERENCE VALUE -- <1.0 (Negative) ??MANDREL PULLER Ab, IgG, S ?0.7 ? U -- REFERENCE VALUE -- <1.0 (Negative) ??Scl 70 Ab, IgG, S ? <0.2 ?U -- REFERENCE VALUE -- <1.0 (Negative) ??Svetlana 1 Ab, IgG, S ? <0.2 ?U -- REFERENCE VALUE -- <1.0 (Negative) Test Performed by: [address] [id number] Automation Driver: Alejandro Sharma II, M.D., Ph.D. Specimen Anatomical Collection Method Collection Time Receive d Time (Source) Location / / Volume Laterality Blood specimen 10/11/2015 10:27 6 1:19 (specimen) AM EDT PM EDT Resulting Agency Comment Spec In Lab Ailin Butler DO IMMUNOLOGY ORDERABLES Performing Organization Address City/State/ZIP [place] [address] JUAN CARLOS (10/11/2015 10:27 AM EDT) P athologist Signature JUAN CARLOS Neg Neg [facility] Specimen Anatomical Collection Method Collection Time Receive d Time (Source) Location / / Volume Laterality Blood specimen 10/11/2015 10:27 6 1:39 (specimen) AM EDT PM EDT Resulting Agency Comment Spec In Lab Ailin Butler DO IMMUNOLOGY ORDERABLES Performing Organization Address City/State/[place] [address] documented in this encounter Visit Diagnoses Diagnosis TMJ arthritis Other specified temporomandibular joint disorders JUAN CARLOS positive Other and unspecified nonspecific immuno logical findings TMJ arthritis Other specified temporomandibular joint disorders TMJ arthritis Other specified temporomandibular joint disorders TMJ arthritis Other specified temporomandibular joint disorders documented in this encounter Care Teams Manager Telecom Relationship Specialty Start Date End Date Iris Lee MD PCP - General 01/23/[address] [place] [address] documented as of this encounter
--- OUTSIDE RECORDS SUMMARY | 2021-09-14 14:13 | XMS_ITS | Encounter Summary ---
:1965 Author Organization [facility] [place] [address] Care Team Providers Name Role Phone Iris Lee MD Primary Care Provider Reason for Referral Physical Therapy (Routine) - Specialty Diagnoses / Procedures Referred By Contact Refer red To Contact Physical Therapy Diagnoses Chronic jaw pain Cervicalgia Ailin Butler DO [facility] D R [place] [address] Referral ID Status Reason Start Date Expiration Date Visits V isits Requested Authorized [id number] Evaluate and 11/16/2015 05/14/2016 12 12 Treat Diagnostic Test (Routine) - Closed Specialty Diagnoses / Procedures Referred By Contact Refer red To Contact Radiology Diagnoses Chronic jaw pain Cervicalgia Ailin Butler DO [facility] Rad Mri Procedures MRI Face With/WO Contrast [facility] [place] [address] [place] [address] Referral ID Status Reason Start Date Expiration Date Visits V isits Requested Authorized [id number] Closed Specialty 11/18/2015 12/17/2015 1 1 Service Requested Encounter Details Date Type Department Care Team Description 11/16/2015 Office Visit Rheumatology at [facility] Ailin Butler Chronic jaw pain; [facility] DO [place] [address] RHEUMATOLOGY DEP [place], [place] [address] (Wo rk) Social History Tobacco Use Types Packs/Day Years Used Date Never Smoker Smokeless Tobacco: Never Used Alcohol Use Standard Drinks/Week Comments Yes 0 (1 standard drink = 0.6 oz pure alcoho l) Sex Assigned at Date Recorded Not on file documented as of this encounter Last Filed Vital Signs Vital Sign Reading Time Taken Comments Blood Pressure 115/78 11/16/2015 10:59 AM EDT Pulse 68 11/16/2015 10:59 AM EDT Temperature 36.6 ??C (97.8 ??F) 11/16/2015 10:59 AM EDT Respiratory Rate 18 11/16/2015 10:59 AM EDT Oxygen Saturation 99% 11/16/2015 10:59 AM EDT Inhaled Oxygen Concentration - - Weight 64.4 kg (142 lb) 11/16/2015 10:59 AM EDT Height 160 cm (5' 3) 11/16/2015 10:59 AM EDT Body Mass Index 25.15 11/16/2015 10:59 AM EDT documented in this encounter Progress Notes LukeAilin dalal DO Monico - 11/16/2015 11:00 AM EDT HPI: She does not have an appt upcoming visit with dental. She last mri of her jaw was several years ago.She does have continued pain in the jaw. She also notes left shoulder pain. She notes her lateral hip pain has improved with stretches. She notes no change in low back w accupuncture and chiropracter for this. She notes aleve is working which she takes on time at night and she takes one ES tylenol during the day. She also notes neck pain for which PT was helping, but . She is using it at night. She also takes estylenol during gthe day. She does have some aching in the bl hands and feet in the am lasting several minutes. She denies anysig joint or swelling. History of Present Illness: Juana Mann is [...] She had labs done showing alow titer moise andwas referred here. She notes aching in [...] started accupuncture and this has helped. Meds: aleromel works the best Steroid cream did work [...] Rare glass of wine Physical Examination: BP 115/78 Pulse 68 Temp 36.6 ??C (97.8 ??F) Resp 18 Ht 160 cm (5' 3) Wt 64.4 kg (142 lb) SpO2 99% BMI 25.15 kg/m2 General: Alert and oriented. Well developed and nourished. The patient did not appear distressed or uncomfortable. The patient ambulated without difficulty or assistance. Head: Scalp: Appeared normal. Eyes: PERRL. Extraocular muscles were intact. External Eye: No hyperemia of the conjunctiva noted Sclera: Not red. Lungs: Respiration rhythm and depth was normal. [...] NML, full fist and claw Wrists: NML Shoulders: mild decr rom in abduction but crepitus w motion Cervical Spine: paraspinal mm spasm Knees: NML, but crepitus w rom Ankles: NML Feet: NML, neg mtp compression, some altered sensation locally over the first mtp bl Nails: No nail pitting, onycholysis or periungual erythema noted. Neurologic: gait nl, from all ext Skin: No rash seen Laboratory Data: Cbc nl crp 0.7 MOISE 1:160, repeat neg Studies: Impression/Recommendations : Juana Mann is a 50 y.o. female who presents today with tmj pain, arthralgias of the pips and a +MOISE at outside facility repeat here was negative. She does not have evidence of an active rheumatic disease at this time. She does seem to have con't tmj, related neck pain and shoulder pain. MRI of the face to further assess for changes of the TMJ given the dislocation that was reported on the x-rays. she may benefit from referral back to Oral surgery. Also placed a referral to PT for consideration of a TENS unit. She does have ac separation: refer to PT for strengthening and rom exercises Unclear as to the etiology of her hand and foot pain which is not involving the joints for a few minutes in the am. She has a normal physical exam and negative tinel and phalen's testing. She has a negssa. 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 TMJ joint space edema/enhancement repres enting nonspecific synovitis. If there is persistent clinical concern for discal displacement, arrangements can be made for the patient to return fo r additional imaging at no charge. This can be arranged by sending the a message through [facility]. Narrative 11/25/2015 1:56 PM EDT EXAMINATION: MRI FACE WITH/WO CONTRAST CLINICAL HISTORY: Patient with bl tmj pa in and recurrent dislocation and swelling wiht pain on eating, has had church rgery hx, on the right, unclear if she is still discolated or if there is any s ynoviitis or other anl there TECHNIQUE: MRI the face with and without contrast. 7 cc gadolinium was administered. COMPARISON: Plain films of the TMJ dated 10/11/2015. FINDINGS: The examination was performed as an MRI face, so dynamic imaging of the TMJ was not performed which unfortun ately precludes evaluation of disc dislocation. Bilateral TMJ osteoarthritis with joint space narrowing and subchondral edema is noted worse on the left side. There is a ssociated nonspecific edema and enhancement within the bilateral joint s paces, more prominent on the left. The condylar heads are well-seated within th e condylar fossa. No significant paranasal sinus disease. The visualized brain appears normal. Procedure Note Denny Nunez MD - 11/25/2015Formatti ng of this note might be different from the original. EXAMINATION: MRI FACE WITH/WO CONTRAST CLINICAL HISTORY: Patient with bl tmj pa in and recurrent dislocation and swelling wiht pain on eating, has had church rgery hx, on the right, unclear if she is still discolated or if there is any s ynoviitis or other anl there TECHNIQUE: MRI the face with and without contrast. 7 cc gadolinium was administered. COMPARISON: Plain films of the TMJ dated 10/11/2015. FINDINGS: The examination was performed as an MRI face, so dynamic imaging of the TMJ was not performed which unfortun ately precludes evaluation of disc dislocation. Bilateral TMJ osteoarthritis with joint space narrowing and subchondral edema is noted worse on the left side. There is a ssociated nonspecific edema and enhancement within the bilateral joint s paces, more prominent on the left. The condylar heads are well-seated within th e condylar fossa. No significant paranasal sinus disease. The visualized brain appears normal. IMPRESSION There is bilateral TMJ osteoarthritis wo rse on the left side with joint space narrowing and subchondral edema. TMJ joint space edema/enhancement repres enting nonspecific synovitis. If there is persistent clinical concern for discal displacement, arrangements can be made for the patient to return fo r additional imaging at no charge. This can be arranged by sending the a message through [facility]. Ailin Butler DO IMG MRI ORDERABLES documented in this encounter Visit Diagnoses Diagnosis Chronic jaw pain Jaw pain Cervicalgia Chronic jaw pain Jaw pain Cervicalgia documented in this encounter Care Teams Financial Services Sales Representative Relationship Specialty Start Date End Date Iris Lee MD PCP - General 01/23/[address] [place] [address] documented as of this encounter
--- OUTSIDE RECORDS SUMMARY | 2021-09-14 14:13 | XMS_ITS | Encounter Summary ---
:1965 Author Organization [facility] [place] [address] Care Team Providers Name Role Phone Iris Lee MD Primary Care Provider Encounter Details Date Type Department Care Team Description 07/25/2015 Hospital Encounter Mammography at [facility] Iris Lee, Visit for screening [facility] MD mammogram Drive [address] [place] [address] [address] [facility] 1 [address] [place], [place] [phone] [id number] Social History Tobacco Use Types Packs/Day Years [...] every 4 hours as needed for Pain. haiquicwbt-rjldwkgdxscck-ra Take 1 tablet by 0 ffeine (FIORICET, ESGIC) mouth every 4 per tablet hours as needed. meclizine (ANTIVERT) 25 mg 25m.5-1 tab 0 05/02 tablet Tablet(s), PO, Three times daily PRN diaZEPam (VALIUM) 2 mg 2MG = 1 Tablet(s), 0 05/13 tablet PO, Three times daily,PRN topiramate (TOPAMAX) 25 mg Take 25 mg by 0 10/11/2015 tablet mouth 2 times daily. ibuprofen (ADVIL;MOTRIN) Take 1 tablet by 30 tablet 12 03/2110/11/2015 800 mg tablet mouth every 8 hours. amitriptyline (ELAVIL) 10 Take 20 mg by 0 11/16/2015 mg tablet mouth nightly. SUMAtriptan (IMITREX) 100 Take 100 mg by 0 10/11/2015 mg tablet mouth as needed. ibuprofen (ADVIL;MOTRIN) 0 05/13/2009 10/11/2015 200 mg tablet cyclobenzaprine (FLEXERIL) 10MG = 1 0 0 10/11/2015 10 mg tablet Tablet(s), PO, Three times daily,PRN losartan (COZAAR) 100 mg 0 05/13/2009 10/11/2015 tablet Omeprazole 20 mg TbEC 0 05/13/200911/2015 documented as of this encounter Plan of Treatment Not on filedocumented as of this encounter Procedures Procedure Name Priority Date/Time Associated Diagnosis Comme nts MAMMO SCREENING CAD Routine 07/25/2015 2:40 PM Visit for paris allison Results for this AND MADELYN BILATERAL EDT mammogram procedure are in the results section. documented in this encounter Results Mammo Digital Bilateral Screening With CAD and Tomosynthesis (07/25/2015 2:40 PM EDT) Anatomical Region Laterality Modality Breast Bilateral Mammography Specimen (Source) Anatomical Location Collection Method / Collectio n Time Received Time / Laterality Volume Narrative 07/26/2015 12:11 PM EDT BILATERAL MAMMOGRAPHY REASON FOR EXAM: Screening [...] areas of distortion. The pattern is stable. Posts urgical changes following bilateral breast reduction are noted. CONCLUSION: No mammographic evidence of malignancy. RECOMMENDATION: The [employer] and The Society of Breast Imaging recommend annual screenin g beginning at age 40 for the general female population. Screening lenny uld continue as long as a woman is in good health and is expected to live 1 0 more years or longer. All women should be familiar with the known benefi ts, limitations, and potential harms linked to breast cancer screening. They should also know how their breasts normally look and feel and repor t any breast changes to a health care provider right away. Some women - b ecause of their family history, a genetic tendency, or certain other facto rs - should be screened with MRIs along with mammograms. (The number of wo men who fall into this category is very small.) The patient and health care provider should discuss the patient history and decide if earlier sc reening and breast MRI are appropriate. A result letter has been sent to this jasmyn fuller by the [facility]. BIRADS CATEGORY 1: NEGATIVE Iris Lee MD IMG MAMMO ORDERABLES documented in this encounter Visit Diagnoses Diagnosis Visit for screening mammogram Other screening mammogram documented in this encounter Care Teams World Designer Relationship Specialty Start Date End Date Iris Lee MD PCP - General 01/23/[address] [place] [address] documented as of this encounter
--- OUTSIDE RECORDS SUMMARY | 2021-09-14 14:13 | XMS_ITS | Encounter Summary ---
:1965 Author Organization [facility] Address [address] [place] [address] Care Team Providers Name Role Phone Unavailable Primary Care Provider Unavailable Encounter Details Date Type Department Care Team Description 07/17/2006 Results Only [facility] - Iris Lee MD Maple conversion [address] [facility] [address] [place] [address] [place], [place] [phone] (Wo rk) Social History Tobacco Use Types Packs/Day Years Used Date Never Assessed Sex Assigned at Date Recorded Not on file documented as of this encounter Plan of Treatment Not on filedocumented as of this encounter Procedures Procedure Name Priority Date/Time Associated Diagnosis Comme nts CYTOPATHOLOGY Routine 07/17/2006 0:00 EDT Results for this procedure are i n the results section . documented in this encounter Results CYTOPATHOLOGY (07/17/2006 0:00 EDT) Pathology Report: CYTOPATHOLOGY REPORT [facility] Reports generated via electronic interface contain zelda ginal data; however they are lacking the format of the original re port. Caution should be taken when reading/interpreting unfo rmatted reports. Name: ? SALVADOR MANN ? Accession #: ? [id number] : ? 1965 (Age: 40) ??F ?Collect Date: ? 07/02 Location: ? [facility] ? Receive Date : ? 07/19/2006 Provider: ?IRIS LEE MD Copy to: ? Specimen/Source: ?ThinPrep Pap Test, E ndocervix, processed on Kizoom ThinPrep Imaging System, with manual evaluation Last Menstrual Period: ? 07/11/06 Other: ? HPVA - HPV testing requested if ASC-US on the current ThinPrep Pap test. ? SPECIMEN ADEQUACY ? Satisfactory for Evaluation - transformation zone component present GENERAL CATEGORIZATION ? Other, see interpretation INTERPRETATION ? Endometrial cells present in a woman equal to o r greater than age 40. Negative for Intraepithelial Lesion. EDUCATIONAL NOTES/RECOMMENDATIONS ? Benign appearing endometrial cells on Pap tests are usually a normal finding in women with regular menstrual cycles, especially if the Pap test was collected during the first half of the menstrual cycle . There is data showing that e ndometrial cells on Pap tests may be associated with endometrial/uterine abnormal ities in post menopausal women or in perimenopausal women with abnormal bleeding. There is limited data on the significance of robyn ign endometrial cells in post menopausal women on HRT. ??Clinical correlation is rec ommended. Note: ??The Pap test is not an accurate test for the screening of endometrial lesions and should not be used as a follow up in patie nts with clinical suspicion of endometrial pathology. ? Document reviewed and electronically signed by: ? ELINA Cabrera(ASCP) ? Report Date: ??07/23/2006 11:54 End of Report Specimen Performing Organization Address City/State/ZIP Code Phon e Number [facility] [address] [place] [address] SERVICES [facility] [address] [place] [address] documented in this encounter Visit Diagnoses Not on filedocumented in this encounter
--- OUTSIDE RECORDS SUMMARY | 2021-09-14 14:13 | XMS_ITS | Encounter Summary ---
:1965 Author Organization [place] [address] Care Team Providers Name Role Phone Iris Lee MD Primary Care Provider Reason for Referral Consultation (Routine) - Canceled Specialty Diagnoses / Procedures Referred By Contact Refer red To Contact Maxillofacial Surgery Diagnoses TMJ disorder involving articular disc abnormality Ailin Butler, [facility] Maxillo Surg DO [address] [place] [address] D [facility] [place] [address] [place] [address] Phone: Fax: Referral ID Status Reason Start Date Expiration Date Visits V isits Requested Authorized [id number] Canceled Consult, 12/23/2015 12/22/2016 3 3 Test & Treat Encounter Details Date Type Department Care Team Description 12/23/2015 Orders Only Rheumatology at [facility] Ailin Butler TMJ disorder [facility] D, DO involving articular [facility] [place] [address] RHEUMATOLOGY DEP [place], [place] [address] (Wo rk) Social History Tobacco Use Types Packs/Day Years Used Date Never Smoker Smokeless Tobacco: Never Used Alcohol Use Standard Drinks/Week Comments Yes 0 (1 standard drink = 0.6 oz pure alcoho l) Sex Assigned at Date Recorded Not on file documented as of this encounter Plan of Treatment Scheduled Referrals Name Type Priority Associated Order Schedule Diagnoses Referral to Outpatient Referral Routine TMJ disorder Ordered: Maxillofacial Surgery involving articular 12/23/2015 disc abnormality documented as of this encounter Visit Diagnoses Diagnosis TMJ disorder involving articular disc ab normality 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
--- OUTSIDE RECORDS SUMMARY | 2021-09-14 14:13 | XMS_ITS | Encounter Summary ---
:1965 Author Organization [facility] Address [address] [place] [address] Care Team Providers Name Role Phone Iris Lee MD Primary Care Provider Encounter Details Date Type Department Care Team Description 09/07/2017 Historical Results [facility] - Marco A Ortega, Only [facility] Lab - Main [facility] PA-C [address] [facility] [address] [place] [address] [place], [place] [phone] Social History Tobacco Use Types Packs/Day Years Used Date Never Assessed Sex Assigned at Date Recorded Not on file documented as of this encounter Plan of Treatment Not on filedocumented as of this encounter Procedures Procedure Name Priority Date/Time Associated Comments Diagnosis PHARYNGITIS SCREEN - Routine 09/07/2017 12:18 Res ults for this [facility] EDT procedure are i n the results section. documented in this encounter Results PHARYNGITIS SCREEN - [facility] (09/07/2017 12:18 EDT) PHARYNGITIS SCREEN - [facility] PHARYNGITIS SCREEN - NO GROUP A STREP [facility] Specimen Performing Organization Address City/State/ZIP Code Phon e Number [facility] [address] [place], [place] [id number] [place] [address] LAB documented in this encounter Visit Diagnoses Not on filedocumented in this encounter Care Teams Director Of Laboratory Operations Relationship Specialty Start Date End Date Iris Lee MD PCP - General 11/04/14 [address] [place] [address] documented as of this encounter
--- OUTSIDE RECORDS SUMMARY | 2021-09-14 14:13 | XMS_ITS | Encounter Summary ---
:1965 Author Organization [facility] Address [address] [place] [address] Care Team Providers Name Role Phone Unavailable Primary Care Provider Unavailable Encounter Details Date Type Department Care Team Description 10/22/2005 Hospital Encounter [facility] - Colin, Adithya Hightower, [facility] DDS [id number] [place] [phone] (Wo rk) Social History Tobacco Use Types Packs/Day Years Used Date Never Assessed Sex Assigned at Date Recorded Not on file documented as of this encounter Discharge Disposition Disposition Code Departure Means Destination Auto Discharge documented in this encounter Plan of Treatment Not on filedocumented as of this encounter Procedures Procedure Name Priority Date/Time Associated Diagnosis Comme nts SURGICAL PATHOLOGY Routine 09/12/2007 0:00 EDT Re sults for this procedure are i n the results section. SURGICAL PATHOLOGY Routine 09/12/2007 0:00 EDT Re sults for this procedure are i n the results section. MR TMJ 10/22/2005 16:57 Results for this EDT procedure are i n the results section. documented in this encounter Results SURGICAL PATHOLOGY (09/12/2007 0:00 EDT) Pathology Report: SURGICAL PATHOLOGY REPORT [facility] Reports generated via electronic interface contain zelda ginal data; LAB however they are lacking the format of the original re port. Caution should be taken when reading/interpreting unfo rmatted reports. Name: ? FRANCISCO MANN ? Accession #: ? [id number] ? : ? 1965 (Age: 41) ??F ? Collect Date: ? 09/12/2007 ? Location: ? [facility] ? Receive Date: ? 008 ? Provider: DIANNE BRITTON MD Copy to: GORGE MOJICA MD ? Final Pathologic Diagnosis: ? Endometrium, curettage: 1. ?Secretory endometrium. 2. ? No cytologic atypia. ??See comment. Comment: ? The specimen shows ab undant secretory endometrium without cytologic atypia. Rare fragments show prominent vascular structur es raising the possibility of functional endometrial polyp s versus vigorous curettage of basalis endometrium. (Dr. Clayton)/[facility] Document reviewed and electronically signed by: GIANNA CLAYTON MD Report ??Date: 09/15/2007 17:39 By the signature above, the attending physician certif ies that he/she has personally conducted a gross and/or microscopic examin ation of the described specimens and rendered or confirmed the above diagnosi s. Specimen(s) Received: ? Endometrial curettings Clinical History: ? Menorrhagia Gross Description: ? Received in formalin labelled Latimer and endometrial curettings is a 4.0 x 2.0 x 0.5 cm aggregate of wright-white soft tissue fragments admixed with scant brown mucinous material. ??The spe cimen is entirely submitted as (A1) to (A3). ??(Poli Rose)/lgk End of Report Specimen Performing Organization Address City/State/ZIP Code Phon e Number [facility] [address] [place] [address] SERVICES [facility] [address] [place] [address] SURGICAL PATHOLOGY (09/12/2007 0:00 EDT) Pathology Report: SURGICAL PATHOLOGY REPORT ? [facility] Reports generated via electr onEyesBot interface contain original data; ? LAB however they are lacking the format of the original report. ? Caution should be taken when reading/interpreting unformatted reports. ? Name: ? FRANCISCO MANN CHEO ? Accession #: ? [id number] ? : ? 1965 (Age: 41) ??F ? Collec t Date: ? 09/12/2007 ? Location: ? [facility] ? R eceive Date: ? 09/12/2007 ? Provider: DIANNE REBA MD ? Copy to: GORGE M DOBBERTIN M D ? Final Pathologic Diagnosis: ? Endometrium, curettag e: ? 1. ?Secretory e ndometrium. ? 2. ? No cytologic atypia . ??See comment. ? Comment: ? The specimen shows ab undant secretory endometrium without cytologic atypia. Rare fragments show promine nt vascular structures raising the possibility of ?? functional endometrial polyp s versus vigorous curettage of basalis endometrium. (Dr. Clayton)/mpl ? Document reviewed and electr onically signed by: ? Gianna Clayton, ? Report ??Date: 09/15/2007 17 :39 ? By the signature above, the attending physician certifies that he/she has ? personally conducted a gross and/or microscopic examination of the described ? specimens and rendered or co nfirmed the above diagnosis. ? Specimen(s) Received: ? Endometrial curetting s ? Clinical History: ? Menorrhagia ? Gross Description: ? Received in formalin labelled Latimer and endometrial curettings is a 4.0 x 2.0 x 0.5 cm aggregate of wright-white soft tissue fragments admixed with ? scant brown mucinous materia l. ??The specimen is entirely submitted as (A1) to ?? (A3). ??(Poli Rose)/lgk ? End of Report ? Specimen Performing Organization Address City/State/ZIP Code Phon e Number [facility] [address] [place] [address] SERVICES [facility] [address] [place] [address] MR TMJ (10/22/2005 16:57 EDT) Anatomical Region Laterality Modality Other Specimen Narrative [facility] - 09/18/2008 12 :58 EDT PAIN, LIMITED ROM, JOINT SOUNDS B TMJS, RECENT EXACERLATION TEMPOROMANDIBULAR JOINTS WITHOUT CONTRAS T: ?? 10/22/05 CLINICAL HISTORY: ??Pain and limited ran ge of motion, joint sounds in bilateral temporomandibular joints. ??Re cent exacerbation. TECHNIQUE: ??Sagittal oblique T2 and pro ton density closed and open mouth views of the temporomandibular yared nts were obtained. FINDINGS: Examination of the left side shows norm al appearance of the mandibular condyle. ??The articular disc is displaced medially within the joint. ??This is best appreciated on the coronal proton density sequence. ??On open mouth views on the l eft side the disc assumes a normal position with recapture. ??On the right side the disc is anteriorly displaced on the closed mouth views; it does not recapture on open mouth views. ??The mandible cond yle is normal in appearance on the right side. ??No fluid is seen in th e temporomandibular joints. CONCLUSIONS: ??Left temporomandibular rony int disc is displaced medially on closed mouth views but recaptures in normal position on the open mouth view. ??On the right the disc is a nteriorly and medially displaced and does not recapture. D: ??10/22/05 T: ??10/23/05 /kyle Procedure Note Alfredito Olson MD - 09/18/2008 PAIN, LIMITED ROM, JOINT SOUNDS B TMJS, RECENT EXACERLATION TEMPOROMANDIBULAR JOINTS WITHOUT CONTRAS CLINICAL HISTORY: Pain and limited range of motion, joint sounds in bilateral temporomandibular joints. Rece nt exacerbation. TECHNIQUE: Sagittal oblique T2 and diana n density closed and open mouth views of the temporomandibular yared nts were obtained. FINDINGS: Examination of the left side shows norm al appearance of the mandibular condyle. The articular disc i s displaced medially within the joint. This is best appreciated on t he coronal proton density sequence. On open mouth views on the lef t side the disc assumes a normal position with recapture. On the r ight side the disc is anteriorly displaced on the closed mouth views; it does not recapture on open mouth views. The mandible condyl e is normal in appearance on the right side. No fluid is seen in the temporomandibular joints. CONCLUSIONS: Left temporomandibular join t disc is displaced medially on closed mouth views but recaptures in normal position on the open mouth view. On the right the disc is ant eriorly and medially displaced and does not recapture. /kyle Performing Organization Address City/State/ZIP Code Phon e Number [facility] [address] [facility] [address] [facility] [address] [place], [place] [address] documented in this encounter Visit Diagnoses Not on filedocumented in this encounter
--- OUTSIDE RECORDS SUMMARY | 2021-09-14 14:13 | XMS_ITS | Clinical Summary ---
:1965 Author Organization [facility] Address [address] [place] [address] Care Team Providers Name Role Phone Iris Lee MD Primary Care Provider Encounters Date Type Specialty Care Team Description 07/25/2021 Lab Requisition Clinical Laboratory Outr Resulting Lab , Provider from Last 3 Months Social History Tobacco Use Types Packs/Day Years Used Date Never Assessed Sex Assigned at Date Recorded Not on file Plan of Treatment Not on file Procedures Procedure Name Priority Date/Time Associated Diagnosis Comme nts INSULIN Routine 07/25/2021 14:47 EDT Results for this procedure are i n the results section . from Last 3 Months Results INSULIN (07/25/2021 14:47 EDT) Pathologist Sig nature Insulin 7.6 <29.0 uIU/mL [facility] Comment: LABORATORY SERVICES Displayed Reference Range applies to fasting specimens only. Specimen Blood - Venous blood (substance) Performing Organization Address City/State/ZIP Code Phon e Number [facility] [address] [place] [address] SERVICES from Last 3 Months Care Teams Supervisor Telephone Clerks Relationship Specialty Start Date End Date Iris Lee MD PCP - General 11/04/14 [address] [place] [place], [place] [address]
--- OUTSIDE RECORDS SUMMARY | 2021-09-14 14:13 | XMS_ITS | Encounter Summary ---
:1965 [place] [address] Care Team Providers Name Role Phone Iris Lee MD Primary Care Provider Encounter Details Date Type Department Care Team Description 06/06/2015 External Results Radiology Library at [facility] Provider, [place] [address] Social History Tobacco Use Types Packs/Day Years Used Date Never Smoker Smokeless Tobacco: Never Used Alcohol Use Standard Drinks/Week Comments Yes 0 (1 standard drink = 0.6 oz pure alcoho l) Sex Assigned at Date Recorded Not on file documented as of this encounter Plan of Treatment Not on filedocumented as of this encounter Procedures Procedure Name Priority Date/Time Associated Diagnosis Comme nts MAMMOGRAM SCAN Routine 12/26/2012 MAMMOGRAM SCAN Routine 10/27/2008 MAMMOGRAM SCAN Routine 10/20/2008 MAMMOGRAM SCAN Routine 03/18/2008 MAMMOGRAM SCAN Routine 09/16/2007 MAMMOGRAM SCAN Routine 09/09/2007 documented in this encounter Results Scan Doc: Mammogram (12/26/2012) Anatomical Region Laterality Modality Other Narrative This result has an attachment that is no t available. Scanning Provider MEDIA MGR SCAN EXT ORDR/RSLT Scan Doc: Mammogram (10/27/2008) Anatomical Region Laterality Modality Other Narrative This result has an attachment that is no t available. Scanning Provider MEDIA MGR SCAN EXT ORDR/RSLT Scan Doc: Mammogram (10/20/2008) Anatomical Region Laterality Modality Other Narrative This result has an attachment that is no t available. Scanning Provider MEDIA MGR SCAN EXT ORDR/RSLT Scan Doc: Mammogram (03/18/2008) Anatomical Region Laterality Modality Other Narrative This result has an attachment that is no t available. Scanning Provider MEDIA MGR SCAN EXT ORDR/RSLT Scan Doc: Mammogram (09/16/2007) Anatomical Region Laterality Modality Other Narrative This result has an attachment that is no t available. Scanning Provider MEDIA MGR SCAN EXT ORDR/RSLT Scan Doc: Mammogram (09/09/2007) Anatomical Region Laterality Modality Other Narrative This result has an attachment that is no t available. Scanning Provider MEDIA MGR SCAN EXT ORDR/RSLT documented in this encounter Visit Diagnoses Not on filedocumented in this encounter Care Teams Icing Coater Relationship Specialty Start Date End Date Iris Lee MD PCP - General 01/23/[address] [place] [address] [address] [place] [address] documented as of this encounter
--- OUTSIDE RECORDS SUMMARY | 2021-09-14 14:13 | XMS_ITS | Encounter Summary ---
:1965 [place] [address] Care Team Providers Name Role Phone Iris Lee MD Primary Care Provider Encounter Details Date Type Department Care Team Description 06/01/2015 External Results Radiology [place] [facility] [place], [place] [address] Social History Tobacco Use Types Packs/Day [...] MAMMOGRAM SCAN Routine 12/26/2012 MAMMOGRAM SCAN Routine 04/03/2010 documented in this encounter Results Scan Doc: Mammogram (12/26/2012) Anatomical Region Laterality Modality Other Narrative This result has an attachment that is no t available. Scanning Provider MEDIA MGR SCAN EXT ORDR/RSLT Scan Doc: Mammogram (04/03/2010) Anatomical Region Laterality Modality Other Narrative This result has an attachment that is no t available. Scanning Provider MEDIA MGR SCAN EXT ORDR/RSLT documented in this encounter Visit Diagnoses Not on filedocumented in this encounter Care Teams Information Technology Intern Relationship Specialty Start Date End Date Iris Lee MD PCP - General 01/23/11 [address] [place] [address] documented as of this encounter
--- OUTSIDE RECORDS SUMMARY | 2021-09-14 14:13 | XMS_ITS | Clinical Summary ---
:1965 Author Organization [facility] [place] [address] Care Team Providers Name Role Phone Iris Lee MD Primary Care Provider Allergies Active Allergy Reactions Severity Noted Date Comments Penicillins CIS - Unknown Promethazine Hcl CIS - Unkno wn Sulfa (Sulfonamide Antibiotics) CIS - Unknown Medications Medication Sig Dispensed Refills Start Date End Date Status meclizine (ANTIVERT) 25m.5-1 tab 0 05/13/2009 Active 25 mg tablet Tablet(s), PO, Three times daily PRN diaZEPam (VALIUM) 2 mg 2MG = 1 Tablet(s), 0 05/14/19 10 Active tablet PO, Three times daily,PRN butalbital-acetaminoph Take 1 tablet by 0 Active en-caffeine (FIORICET, mouth every 4 ESGIC) per tablet hours as needed. OXYcodone (ROXICODONE) Take 1-2 tablets 30 tablet 0 03/21/2011 Active 5 mg immediate release by mouth every 4 tablet hours as needed for Pain. Additional Information Patient not taking. Reported on 10/11/2015 cyclobenzaprine (FLEXERIL) 5 mg TabletIndications: TMJ 0 06/06/2015 Active arthritis Miscellaneous Medical Supply MiscIndications: Chronic jaw 0 10/17/2015 Active pain, Cervicalgia Active Problems Problem Noted Date S/P reduction mammoplasty 04/11/2011 Family History Medical History Relation Comments Breast Cancer Neg Hx Social History Tobacco Use Types Packs/Day Years Used Date Never Smoker Smokeless Tobacco: Never Used Alcohol Use Standard Drinks/Week Comments Yes 0 (1 standard drink = 0.6 oz pure alcoho l) Sex Assigned at Date Recorded Not on file Last Filed Vital Signs Vital Sign Reading [...] Mass Index 25.15 11/16/2015 10:59 AM EDT Plan of Treatment Health Maintenance Due Date Last Done Comments Covid-19 Vaccine (#1) 1970 HIV screen 09/25/1983 Hepatitis C Screening 09/25/1983 Tdap adult 1984 Tetanus vaccine 1984 HPV test 09/25/1995 PAP Smear 09/25/1995 Breast Cancer Share Decision 2005 Needed Colonoscopy 2010 Zoster vaccine (1 of 2) 09/25/2015 Advance Directive 2020 Influenza (Flu) vaccine (1 of 1 - 11/02/2021 Influenza standard series) Breast Cancer screening 02/14/2023 02/14/2021, 10/05/2019, 03/05/2017, Additional history exists Insurance Payer Benefit Plan / Subscriber ID Effective Dates Phone Addre ss Type Group [id number] 2012-Presen [phone] [address] [employer] [place] P[place] t [address] [place], [place] [address] Care Teams Director Of Integrated Marketing Relationship Specialty Start Date End Date Iris Lee MD PCP - General 11/22/[address] [facility] [address] [place] [address]
--- OUTSIDE RECORDS SUMMARY | 2021-09-14 14:13 | XMS_ITS | Encounter Summary ---
:1965 Author Organization [facility] [place] [address] Care Team Providers Name Role Phone Iris Lee MD Primary Care Provider Reason for Visit Reason Onset Date Comments Referral 12/23/2015 Encounter Details Date Type Department Care Team Description 12/23/2015 Telephone Rheumatology at [facility] [place] [address] Social History Tobacco Use Types Packs/Day Years Used Date Never Smoker Smokeless Tobacco: Never Used Alcohol Use Standard Drinks/Week Comments Yes 0 (1 standard drink = 0.6 oz pure alcoho l) Sex Assigned at Date Recorded Not on file documented as of this encounter Miscellaneous Notes Telephone Encounter - Dorcas Shaikh - 12/23/2015 9:53 AM EDT Juana is calling re: referral to oral surgery. States that the MRI showed disc degeneration. She's hoping we can put in a referral to oral surgery so she can be seen. documented in this encounter Plan of Treatment Not on filedocumented as of this encounter Visit Diagnoses Not on filedocumented in this encounter Care Teams Automotive Salesperson Relationship Specialty Start Date End Date Iris Lee MD PCP - General 01/23/[address] [place] [address] documented as of this encounter
--- OUTSIDE RECORDS SUMMARY | 2021-09-14 14:13 | XMS_ITS | Encounter Summary ---
:1965 [place] [address] Care Team Providers Name Role Phone Iris Lee MD Primary Care Provider Encounter Details Date Type Department Care Team Description 10/11/2015 Hospital Encounter XRay at [facility] Ailin Butler, TMJ arthritis [address] [place] [address] Dr [address] [facility] [phone] RHEUMATOLOGY [place], [place] [address] (Wo rk) Social History Tobacco [...] every 4 hours as needed for Pain. sxqdoibpbw-jywqfllcimhqk-ip Take 1 tablet by 0 ffeine (FIORICET, [...] Priority Date/Time Associated Diagnosis Comme nts XR SHOULDER LEFT Routine 10/11/2015 11:12 AM TMJ arthritis Res ults for this EDT procedure are i n [...] t. 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
--- OUTSIDE RECORDS SUMMARY | 2021-09-14 14:13 | XMS_ITS | Encounter Summary ---
:1965 [place] [address] Care Team Providers Name Role Phone Iris Lee MD Primary Care Provider Encounter Details Date Type Department Care Team Description 07/06/2015 External Results Radiology Library at [facility] Provider, [place] [address] Social History Tobacco Use Types Packs/Day [...] Diagnosis Comme nts MAMMOGRAM SCAN Routine 12/26/2012 documented in this encounter Results Scan Doc: Mammogram (12/26/2012) Anatomical Region Laterality Modality Other Narrative This result has an attachment that is no t available. Scanning Provider MEDIA MGR SCAN EXT ORDR/RSLT documented in this encounter Visit Diagnoses Not on filedocumented in this encounter Care Teams Supercharger Mechanic Relationship Specialty Start Date End Date Iris Lee MD PCP - General 01/23/[address] [place], [place] [address] documented as of this encounter
--- OUTSIDE RECORDS SUMMARY | 2021-09-14 14:13 | XMS_ITS | Encounter Summary ---
:1965 [place] [address] Care Team Providers Name Role Phone Iris Lee MD Primary Care Provider Encounter Details Date Type Department Care Team Description 10/11/2015 Hospital Encounter X[place] [facility] Ailin Butler, TMJ arthritis [address] [place] [address] Dr Pringle [facility] [phone] RHEUMATOLOGY [place], [place] [address] (Wo rk) Social History Tobacco [...] every 4 hours as needed for Pain. wjzgrkwcsl-vuuquliquzlkf-ie Take 1 tablet by 0 ffeine (FIORICET, [...] Priority Date/Time Associated Diagnosis Comme nts XR HANDS MIN 3 Routine 10/11/2015 11:10 AM TMJ arthritis Resul ts for this VIEWS BILAT EDT procedure are i n the results section. documented in this encounter Results XR Bilateral Hands Minimum 3 Views (10/11/2015 [...] enchondroma. 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
--- OUTSIDE RECORDS SUMMARY | 2021-09-14 14:13 | XMS_ITS | Encounter Summary ---
:1965 Author Organization [facility] [place] [address] Care Team Providers Name Role Phone Iris Lee MD Primary Care Provider Reason for Referral Diagnostic Test (Routine) - Closed Specialty Diagnoses / Procedures Referred By Contact Refer red To Contact Radiology Diagnoses Chronic jaw pain Cervicalgia Ailin Butler DO [facility] Rad Mri Procedures MRI Face With/WO Contrast [facility] [place] [address] [place] [address] Referral ID Status Reason Start Date Expiration Date Visits V isits Requested Authorized [id number] Closed Specialty 11/18/2015 12/17/2015 1 1 Service Requested Reason for Visit Diagnostic Test (Routine) - Closed Specialty Diagnoses / Procedures Referred By Contact Refer red To Contact Radiology Diagnoses Chronic jaw pain Cervicalgia Ailin Butler DO [facility] Rad Mri Procedures MRI Face With/WO Contrast [facility] [place] [address] [place] [address] Referral ID Status Reason Start Date Expiration Date Visits V isits Requested Authorized [id number] Closed Specialty 11/18/2015 12/17/2015 1 1 Service Requested Encounter Details Date Type Department Care Team Description 11/25/2015 Hospital Encounter MRI at [facility] Ailin Butler Chronic jaw pain; [facility] D, [place] [address] RHEUMATOLOGY DEPT [phone] [place], [place] [address] Social History Tobacco Use Types [...] every 4 hours as needed for Pain. sfigymqkin-bludipatkryix-tow Take 1 tablet by 0 feine (FIORICET, [...] Name Priority Date/Time Associated Diagnosis Comme nts MRI FACE WITH/WO Routine 11/25/2015 11:44 AM Chronic jaw pain Results for this CONTRAST EDT Cervicalgia procedure are i n the results section. documented in this encounter Results MRI Face With/WO Contrast [...] arranged by sending the a message through eD. Ailin Butler DO IMG MRI ORDERABLES documented in this encounter Visit Diagnoses Diagnosis Chronic jaw pain Jaw pain Cervicalgia documented in this encounter Administered Medications Inactive Administered Medications - up to 3 most recent administrations Medication Order MAR Action Action Date Dose Rate Site gadobutrol (GADAVIST) 1 mMol/mL Given 11/25/2015 11:18 AM EDT 7 mLs injection 7 mL 7 mL, Intravenous, ONCE PRN, 1 dose, Starting on Sat11/25/15 at 1030, Until Sat11/25/15 at 1118, Per Protocol, Routine documented in this encounter Care Teams Sheet Taker Relationship Specialty Start Date End Date Iris Lee MD PCP - General 01/23/[address] [place] [address] documented as of this encounter
--- OUTSIDE RECORDS SUMMARY | 2021-09-14 14:13 | XMS_ITS | Encounter Summary ---
:1965 [place] [address] Care Team Providers Name Role Phone Iris Lee MD Primary Care Provider Encounter Details Date Type Department Care Team Description 06/02/2015 External Results Radiology Library at [facility] Provider, [place] [address] Social History Tobacco Use Types Packs/Day [...] Associated Diagnosis Comme nts MAMMOGRAM SCAN Routine 09/05/2006 MAMMOGRAM SCAN Routine 09/03/2005 MAMMOGRAM SCAN Routine 07/11/2001 documented in this encounter Results Scan Doc: Mammogram (09/05/2006) Anatomical Region Laterality Modality Other Narrative This result has an attachment that is no t available. Scanning Provider MEDIA MGR SCAN EXT ORDR/RSLT Scan Doc: Mammogram (09/03/2005) Anatomical Region Laterality Modality Other Narrative This result has an attachment that is no t available. Scanning Provider MEDIA MGR SCAN EXT ORDR/RSLT Scan Doc: Mammogram (07/11/2001) Anatomical Region Laterality Modality Other Narrative This result has an attachment that is no t available. Scanning Provider MEDIA MGR SCAN EXT ORDR/RSLT documented in this encounter Visit Diagnoses Not on filedocumented in this encounter Care Teams Powder Press Operator Relationship Specialty Start Date End Date Iris Lee MD PCP - General 01/23/[address] [place] [address] documented as of this encounter
--- OUTSIDE RECORDS SUMMARY | 2021-09-14 14:13 | XMS_ITS | Encounter Summary ---
:1965 Author Organization [facility] Address [address] [place] [id number] Care Team Providers Name Role Phone Unavailable Primary Care Provider Unavailable Encounter Details Date Type Department Care Team Description 04/02/2011 Results Only [facility] Svetlana Lee MD Laboratory Services - [address] [place] [address] [address] [place] [address] [phone] (Wo rk) Social History Tobacco Use Types Packs/Day Years Used Date Never Assessed Sex Assigned at Date Recorded Not on file documented as of this encounter Plan of Treatment Not on filedocumented as of this encounter Procedures Procedure Name Priority Date/Time Associated Diagnosis Comme nts PAP TEST- RESULT Routine 04/02/2011 0:00 EST Resu lts for this ONLY procedure are i n the results section. documented in this encounter Results PAP TEST- RESULT ONLY (04/02/2011 0:00 EST) Pathology Report: CYTOPATHOLOGY REPORT [facility] Reports generated via electronic interface contain zelda ginal data; however they are lacking the format of the original re port. Caution should be taken when reading/interpreting unfo rmatted reports. Name: ? FRANCISCO MANN ? Accession #: ? [id number] ? : ? 1965 (Age: 45) ??F ?Collect Da te: ? 04/02/2011 ? Location: ? [facility] ? Receive Date: ? 012 ? Provider: GORGE LEE MD Copy to: ? Final Report SPECIMEN ADEQUACY ? Satisfactory for Evaluation - transformation zone component present GENERAL CATEGORIZATION ? Negative for Intraepithelial Lesion or Malignan cy ?? Last Menstural Period: 03/13/2011 Specimen/Source: ??Pap Test, Endocervix, ThinPrep Imag ing System with manual evaluation Document reviewed and electronically signed by: ? Alonzo López, CT(ASCP) ? Report ??Date: 04/04/2011 14:02 HPV with Pap Test ? Date Ordered: ? 04/04/2011 ? Status: ?? Signed Out ?Date Complete: ? 04/09/2011 ? By: ??S ystem Interface ? Date Reported: ? 04/09/2011 ? Interpretation RESULT: Negative for HPV types 16, 18, 31, 33, 35, 39, 45, 51, 52, 56, 58, 59, and 68. Comments Document reviewed and electronically signed by: ? System Interface ? Report date: 04/09/2011 By the signature above, the attending physician certif ies that he/she has personally conducted a gross and/or microscopic examin ation of the described specimens and rendered or confirmed the above diagnosi s. End of Report Specimen Performing Organization Address City/State/ZIP Code Phon e Number [facility] [address] [place] [address] SERVICES [facility] [address] [place] [address] documented in this encounter Visit Diagnoses Not on filedocumented in this encounter
--- OUTSIDE RECORDS SUMMARY | 2021-09-14 14:13 | XMS_ITS | Encounter Summary ---
:[address] [facility] Address [address] [place] [address] Care Team Providers Name Role Phone Unavailable Primary Care Provider Unavailable Encounter Details Date Type Department Care Team Description 07/29/2007 Results Only [facility] - Iris Lee MD Maple conversion [address] [facility] [address] [place] [address] [place], [place] [phone] (Wo rk) Social History Tobacco Use Types Packs/Day Years Used Date Never Assessed Sex Assigned at Date Recorded Not on file documented as of this encounter Plan of Treatment Not on filedocumented as of this encounter Procedures Procedure Name Priority Date/Time Associated Comments Diagnosis HPV DETECTION, HIGH Routine 07/29/2007 11:08 Resu lts for this RISK TYPES EDT procedure are i n the results section. CYTOPATHOLOGY Routine 07/29/2007 0:00 Results for this EDT procedure are i n the results section. documented in this encounter Results HUMAN PAPILLOMA VIRUS DNA TEST (07/29/2007 11:08 EDT) Specimen Description Cervix, ThinPrep [facility] vial Result Negative for HPV [facility] types 16, 18, 31, 33, 35, 39, 45, 51, 52, 56, 58, 59, and 68. Report Status Final [facility] [id number] Specimen Performing Organization Address City/State/ZIP Code Phon e Number [facility] [address] [place] [address] SERVICES [facility] [address] [place] [address] CYTOPATHOLOGY (07/29/2007 0:00 EDT) Pathology Report: CYTOPATHOLOGY REPORT [facility] Reports generated via electronic interface contain zelda ginal data; however they are lacking the format of the original re port. Caution should be taken when reading/interpreting unfo rmatted reports. Name: ? SALVADOR MANN ? Accession #: ? [id number] : ? 1965 (Age: 41) ??F ?Collect Date: ? 07/03 Location: ? [facility] ? Receive Date : ? 07/31/2007 Provider: ?IRIS LEE MD Copy to: ? Specimen/Source: ?ThinPrep Pap Test, E ndocervix, processed on Desigual ThinPrep Imaging System, with manual evaluation Last Menstrual Period: ? 07/21/07 Other: ? HPVDX - HPV testing requested regardless of diag nosis on current ThinPrep Pap test. ? SPECIMEN ADEQUACY [...] reviewed and electronically signed by: ? ELINA Baker(ASCP) ? Report Date: ??08/01/2007 15:09 End of Report Specimen Performing Organization Address City/State/ZIP Code Phon e Number [facility] [address] [place] [address] SERVICES [facility] [address] [place] [address] documented in this encounter Visit Diagnoses Not on filedocumented in this encounter
--- OUTSIDE RECORDS SUMMARY | 2021-09-14 14:13 | XMS_ITS | Encounter Summary ---
:1965 Author Organization [facility] [place] [address] Care Team Providers Name Role Phone rIis Lee MD Primary Care Provider Reason for Referral Diagnostic Test (Routine) - Closed Specialty Diagnoses / Procedures Referred By Contact Refer red To Contact Radiology Diagnoses Bilateral temporomandibular joint pain Ailin Butler DO [facility] Rad Mri Procedures MRI TMJ wo Contrast (Generic) [facility] [address] Re[address] [facility] RHEUMATOLOGY [address] [address] Phone: Referral ID Status Reason Start Date Expiration Date Visits V isits Requested Authorized [id number] Closed Specialty 12/14/2015 01/12/2016 1 1 Service Requested Reason for Visit Diagnostic Test (Routine) - Closed Specialty Diagnoses / Procedures Referred By Contact Refer red To Contact Radiology Diagnoses Bilateral temporomandibular joint pain Ailin Butler DO [facility] Rad Mri Procedures MRI TMJ wo Contrast (Generic) [facility] DR Rebollar [facility] RHEUMATOLOGY [address] [phone] Phone: Referral ID Status Reason Start Date Expiration Date Visits V isits Requested Authorized [id number] Closed Specialty 12/14/2015 01/12/2016 1 1 Service Requested Encounter Details Date Type Department Care Team Description 12/15/2015 [place] [facility] [place], Bilateral Encounter [facility] Ailin Marc DO temporomandibular joint [address] [facility] pain [place], [place] [facility] [address] RHEUMATOLOGY [phone] [place] [address] Social History Tobacco Use Types Packs/Day Years [...] every 4 hours as needed for Pain. [id number]-mazkzfijktiqq-uos Take 1 tablet by 0 feine (FIORICET, [...] Priority Date/Time Associated Diagnosis Comme nts MRI TMJ WO Routine 12/15/2015 9:00 Bilateral Results for this CONTRAST AM EDT temporomandibular joint proc edure are in pain the results section. documented in this encounter Results MRI TMJ wo Contrast [...] greater on the left Ailin Butler DO IM[facility] MRI ORDERABLES documented in this encounter Visit Diagnoses Diagnosis Bilateral temporomandibular joint pain Arthralgia of temporomandibular joint documented in this encounter Care Teams Master Printer Relationship Specialty Start Date End Date Iris Lee MD PCP - General 01/23/[address] [place] [address] documented as of this encounter
--- OUTSIDE RECORDS SUMMARY | 2021-09-14 14:13 | XMS_ITS | Encounter Summary ---
:1965 Author Organization [facility] Address [facility] [place] [address] Care Team Providers Name Role Phone Iris Lee MD Primary Care Provider Encounter Details Date Type Department Care Team Description 03/05/2017 Hospital Encounter Mamm[place] [facility] [place] Iris Lee, Encounter for [facility] screening mammogram [address] [place] [address] for breast cancer [place], [place] [address] [facility] 1 [phone] [place], [place] [phone] [address] Social History Tobacco Use Types Packs/Day Years [...] every 4 hours as needed for Pain. nkxysvdqal-jmiempzmjblmy-ebg Take 1 tablet by 0 feine (FIORICET, [...] Diagnosis Comme nts MAMMO SCREENING CAD Routine 03/05/2017 10:56 AM Encounter for Results for this AND JAY BILATERAL EST screening mammogram pr ocedure are in for breast cancer the result s section. documented in this encounter Results Mammo Screen CAD and Jay Bilat (Generic) (03/05/2017 10:56 AM EST) Anatomical Region Laterality Modality Breast Bilateral Mammography Specimen (Source) Anatomical Location Collection Method / Collectio n Time Received Time / Laterality Volume Narrative 03/05/2017 11:04 AM EST BILATERAL MAMMOGRAPHY REASON FOR EXAM: Screening [...] No mammographic evidence of malignancy. RECOMMENDATION: [employer] and The Society of [...] cancer documented in this encounter Care Teams Plasma Center Nurse Relationship Specialty Start Date End Date Iris Lee MD PCP - General 01/23/[address] [place] [address] documented as of this encounter
--- OUTSIDE RECORDS SUMMARY | 2021-09-14 14:14 | XMS_ITS | Encounter Summary ---
:1965 Author Organization [facility] [place] [address] Care Team Providers Name Role Phone Unavailable Primary Care Provider Unavailable Encounter Details Date Type Department Care Team Description 03/18/2008 Hospital Encounter Radiology [place] [facility] [place] Agustín [place] [phone] Social History Tobacco Use Types Packs/Day Years Used Date Never Assessed Sex Assigned at Date Recorded Not on file documented as of this encounter Plan of Treatment Not on filedocumented as of this encounter Procedures Procedure Name Priority Date/Time Associated Diagnosis Comme nts FILM LIBRARY Routine 03/18/2008 12:00 AM Screening Results for this STORAGE ONLY MAMMO EST procedure are in the results section. documented in this encounter Results Film Library- Storage only Mammo (03/18/2008 12:00 AM EST) Specimen (Source) Anatomical Location Collection Method / Collectio n Time Received Time / Laterality Volume Narrative REECE - 07/06/2015 9:03 AM EDT This exam is for storage only and is aut o-finalizing. [facility] ORDERABLES Performing Organization Address City/State/ZIP Code Phon e Number [place], [place] documented in this encounter Visit Diagnoses Diagnosis Screening Screening for unspecified condition documented in this encounter
--- OUTSIDE RECORDS SUMMARY | 2021-09-14 14:14 | XMS_ITS | Encounter Summary ---
:1965 Author Organization [facility] [place] [address] Care Team Providers Name Role Phone Iris Lee MD Primary Care Provider Encounter Details Date Type Department Care Team Description 03/21/2011 Hospital Encounter Outpatient Surgery Shiv Ng MD Macromastia [facility] [place] [address] [place] [address] [phone] Social History Tobacco Use Types Packs/Day Years Used Date Never Smoker Smokeless Tobacco: Never Used Alcohol Use Standard Drinks/Week Comments Yes 0 (1 standard drink = 0.6 oz pure alcoho l) Sex Assigned at Date Recorded Not on file documented as of this encounter Last Filed Vital Signs Vital Sign Reading Time Taken Comments Blood Pressure 131/80 03/21/2011 4:00 PM EST Pulse 64 03/21/2011 4:00 PM EST Temperature 36.2 ??C (97.2 ??F) 03/21/2011 3:17 PM EST Respiratory Rate 18 03/21/2011 4:00 PM EST Oxygen Saturation 98% 03/21/2011 4:00 PM EST Inhaled Oxygen Concentration - - Weight 74.8 kg (165 lb) 03/21/2011 10:18 AM EST Height - - Body Mass Index 29.23 01/23/2011 10:08 AM EST documented in this encounter Discharge Instructions Discharge Milagros Jody M, RN - 03/21/2011 3:29 PM EST General Anesthesia Discharge Instructions Go home and rest. You may be sleepy for several hours. Take it easy as sudden position changes may cause nausea. Be careful on stairs, as you may be unsteady on your feet. Do not smoke if you are alone. Follow a light to regular diet as tolerated today. If nausea occurs, start with clear liquids, and progress slowly to a regular diet. Do not drive, operate machinery, drink alcoholic beverages, or make important decisions for 24 hoursafter having general anesthesia. The medications given may change your reaction time or judgement without your awareness. IV site -- slight redness is normal, you can use warm compresses. If tenderness and redness increases or foul drainage occurs, please contact your M.D. Patients who have had endotracheal tubes. (this tube, used by the anesthesia department, is passed down your throat after you are asleep, to ensure safe air passage during your operation). A sore throat is normal due to the tube. Cold liquids or soothing lozenges will help ease the discomfort. The generalized muscle aches are due to the medication given to you just before the tube is inserted. As the medication wears off, you may develop muscle soreness, which usually goes away in 12 - 24 hours. Narcotic pain medications can cause constipation, please ask the surgeons office what they recommendfor prevention of this. Some non-pharmaceutical means of constipation prevention include increasing intake of fluids, eating more fruits and vegetables as well as fruit juices. Outpatient Surgery [place] 8:00-5:30 [facility] 24/09 ask for your doctor lubrication servicer documented in this encounter Medications at Time of Discharge Medication Sig Dispensed Refills Start Date End Date OXYcodone (ROXICODONE) 5 mg Take 1-2 tablets 30 tablet 0 immediate release tablet by mouth every 4 hours as needed for Pain. csghbqkeme-jyrovvunctmby-nt Take 1 tablet by 0 ffeine (FIORICET, ESGIC) mouth every 4 per tablet hours as needed. meclizine (ANTIVERT) 25 mg 25m.5-1 tab 0 05/02 tablet Tablet(s), PO, Three times daily PRN diaZEPam (VALIUM) 2 mg 2MG = 1 Tablet(s), 0 05/13 tablet PO, Three times daily,PRN ibuprofen (ADVIL;MOTRIN) Take 1 tablet by 30 [...] 0 05/13/200911/2015 documented as of this encounter Progress Notes Jody Mendoza RN - 03/21/2011 4:17 PM EST D/C instructions given to and reviewed with pt and pt : both demonstrate good understanding of D/C plans and follow-up; all questions answered. Pt and returned demonstration of care/stripping and emptying of KATELYN drains...documented on flow sheet. Jody Mendoza RN - 03/21/2011 3:55 PM EST Pt denies need for pain medication Jody Mendoza RN - 03/21/2011 3:55 PM EST at bedside documented in this encounter H&P Notes Daniel Ng MD - 03/21/2011 12:25 PM EST No new issues. Cleared for Or by PCP- H&P in chart. Pulm: clear CV: reg Bilateral breast hypertrophy. BBR today. Risks and benefits reviewed. documented in this encounter Miscellaneous Notes Miscellaneous - Provider, Scanning - 03/21/2011 9:25 PM EST Miscellaneous - Provider, Scanning - 03/21/2011 9:23 PM EST Op Note - Daniel Ng MD - 03/21/2011 3:05 PM EST [facility] Operative Note Patient Name: Juana Mann : [id number] MR#: [id number] Case Date: 03/21/2011 Surgeon: Surgeon(s) and Role: * DANIEL NG MD - Primary Pre-Operative Diagnosis: Macromastia Post-Operative Diagnosis: As above Proposed Procedures: Reduction Mammoplasty, Bilateral /Bilateral/Vertical Incision, Superomedial pedicle Actual Procedures: Reduction Mammoplasty, Bilateral Surgeons: Destiny Lowe Specimens, Sites, Dispositions: Specimen: Right Breast Tissue 440 g. Site: Rt Breast Disposition: Surg Path Specimen: Left Breast Tissue 410 g. Site: Lt Breast Disposition: Surg Path Complications: None EBL: 150 cc Drains: 15-James SS x 2 Indications: Juana Mann is a 45 y.o. female is a 45 y.o. year-old woman with symptomatic breast hypertrophy. She presents for reduction mammoplasty. In the holding area she was marked for a vertical incsion pattern reduction mammaplasty. All questions were answered and consent signed. Procedure: She was given a single prophylactic dose of antibiotics. The patient was brought to the Main Operating Room where she was placed supine on the Operating Room table. After the induction of general endotracheal anesthesia, the chest wall was prepared and draped. Through small stab wounds, thebreasts were infiltrated with tumescent solution of saline, epinephrine and xylocaine. The precise outline of the medial pedicle was designed and the areolar diameter was marked using a 42 mm template.Methylene blue was tattooed (using a 25 gauge needle) into the thomas anatomic landmarks and quadrants of the areolar diameter. A tourniquet was then wrapped around the base of each breast and the pediclewas deepithelialized. The remainder of the incisions were made through skin and superficial subcutaneous tissue. Beginning inferiorly, the tissue to be excised was from the pectoralis fascia and then developed contiguously with the lateral pole of the breast and a superior extension. The breast was thus lifted off of the pectoralis, with excision of excess breast tissue then superiorly, laterally, inferiorly and posteriorly. The breast wounds were then irrigated with normal saline. Hemostasis was achieved with Bovie cautery. Bilateral 19 James drains were placed and brought out through lateral stab wound incisions. Closurewas first begun by approximating the 12 o'clock position of the new NAC with a deep dermal stitch of4-0 PDS. The rest of the wound closure was achieved with buried 3-0 Vicryl and deep dermal 4-0 PDS and then a running subcuticular of 4-0 PDS followed by Dermabond. Dressings consisted of sterile gauzeand fluffs. The breasts were symmetrical at the end of the case and there was good color/perfusion of the NAC complex bilaterally. Sponge and needle counts were all correct at the end of the case. There were no intraoperative complications. The patient was awakened from anesthesia without any difficulties. OR Attestation - Daniel Ng MD - 03/21/2011 3:04 PM EST Attestation: Case Date: 03/21/2011 I performed this procedure without the involvement of a resident. DANIEL NG MD 03/21/2011 Miscellaneous - Tano Cabello - 03/21/2011 11:36 AM EST documented in this encounter Plan of Treatment Not on filedocumented as of this encounter Procedures Procedure Name Priority Date/Time Associated Diagnosis Comme nts SURGICAL PATHOLOGY Routine 03/21/2011 2:41 PM Res ults for this REPORT EST procedure are i n the results section. SPECIMEN TO Routine 03/21/2011 2:11 PM Results f or this PATHOLOGY EST procedure are i n the results section. SPECIMEN TO Routine 03/21/2011 2:10 PM Results f or this PATHOLOGY EST procedure are i n the results section. MODIFIER VERTICAL 03/21/2011 12:23 PM macromastia EST REDUCTION 03/21/2011 12:23 PM macromastia MAMMOPLASTY, JORDY EST (WRVU 16.03) documented in this encounter Results SURGICAL PATHOLOGY REPORT (03/21/2011 2:41 PM EST) [facility] Method Time Signature Surgical CERNER Pathology ? [facility] Report ? Provider: ?? DANIEL NG ? Pt. N monik: ?? JUANA MANN ? Acc #: ?[id number] ?Pt. MRN: ?[id number] ? Col Date: ?? 2 ? /Sex: ?1965,(45 years),Female ? Rec Date: ?? 03/21/2011 ? LOC: ?[facility] ? SURGICAL PATHOLOGY ? ---Pathologic Diagnosis--- ? A - Left breast, reduction mammoplasty (410 grams): ? Benign breast tissue with fibrocyst ic changes including apocrine ? cysts and fibrosis. ? B - Right breast, reduction mammoplasty (440 grams): ? Benign breast t issue with fibrocystic changes including apocrine cysts ? and fibrosis. ? CR-0 ? 03/22/11 ? OSORIO ? 03/22/11 Verified by: ? Catalina BINGHAMDonavan ? Pathologist ? (Electronic Si gnature) ? The attending pathologist whose signature appears o n this report has ? reviewed all diagnostic slides and has edited the emmanuelle ss and/or ? microscopic portion of the report in rendering the fi nal pathologic ? diagnosis. ? ---Microscopic Description--- ? Slides reviewed, microscopic description not recorded . ? ---Gross Description--- ? A - Labeled/Fixative: Left breast tissue 410 g total, fresh. ? Qty/Size/Weight: ?Multiple, 18.0 x 13.0 x 6.0 cm, 410 g. ? Tissue Description: ? ? Fibrofatty breast tissue and attached and detached, ? wright-pink skin. ?Skin: ?Unremarkable. ?Sectioning: ?Adipose and dense, davis-white, fibrous tissue. ? Sections/Processing: ??(R3) ? B - Labeled/Fixative: Right breast tissue, 440 g tota l; fresh. ? Qty/Size/Weight: ?21.0 x 16.0 x 4.0 cm, 440 g. ? Tissue Description: ? ? Fibrofatty breast tissue and attached and detached, ? wright-pink skin. ?Skin: ?Unremarkable. ?Sectioning: ?Adipose and dense, davis-white, fibrous tissue. ? Sections/Processing: ??(R3) jesse/SNS ? [facility] ? Provider: ?? DANIEL NG ? Pt. N monik: ?? JUANA MANN ? Acc #: ?[id number] ?Pt. MRN: ?[id number] ? Col Date: ?? 2 ? /Sex: ?1965,(45 years),Female ? Rec Date: ?? 03/21/2011 ? [facility] SURGICAL [facility]Y ? ---Clinical Information--- ? Specimen Submitted: ? A - Left breast tissue ? B - Right breast tissue ? Clinical History/Diagnosis: ? BBR Specimen (Source) Anatomical Collection Method Collection Time Re ceived Time Location / / Volume Laterality 03/21/2011 2:41 PM EST Daniel Ng MD PATHOLOGY/CYTOLOGY ORDERABLE S Performing Organization Address [facility]/[place] [address] CERNER MILLENNIUM Specimen to Pathology (surgical or derm) (03/21/2011 2:11 PM EST) Specimen Anatomical Collection Method Collection Time Receive d Time (Source) Location / / Volume Laterality AP Specimen 03/21/2011 2:11 PM 2 2:11 EST PM EST Narrative CERNER MILLENNIUM - 03/21/2011 2:[address] Specimen requisition ordered. ??Separate Pathology report to follow Daniel Ng MD PATHOLOGY/CYTOLOGY ORDERABLE S Performing Organization Address City/[facility]/[place] [address] CERNER MILLENNIUM Specimen to Pathology (surgical or derm) (03/21/2011 2:10 PM EST) Specimen Anatomical Collection Method Collection Time Receive d Time (Source) Location / / Volume Laterality AP Specimen 03/21/2011 2:10 PM 2 2:10 EST PM EST Narrative EWELINA LORENZANA - 03/21/2011 2:[address] Specimen requisition ordered. ??Separate Pathology report to follow Daniel Ng MD PATHOLOGY/CYTOLOGY ORDERABLE S Performing Organization Address City/State/[place] [address] EWELINA LORENZANA documented in this encounter Visit Diagnoses Diagnosis Macromastia Hypertrophy of breast documented in this encounter Administered Medications Inactive Administered Medications - up to 3 most recent administrations Medication Order MAR Action Action Date Dose Rate Site lactated ringers infusion New Bag 03/21/2011 10:30 AM 1,000 mLs 1 00 mL/hr 1,000 mL EST 1,000 mL, at 100 mL/hr, Intravenous, CONTINUOUS, Starting on Sat03/21/11 at 1030, Until Sat03/21/11 at 1922, Day of Surgery (Day of Procedure) documented in this encounter Active and Recently Administered Medications Times are shown in EST. Continuous Medication Order 03/19/2011 03/20/2011 03/21/2011 lactated ringers infusion 1,000 mL (CANCELED) 1030 (New Bag - Provider: Jody Mendoza RN) 1,000 mL, at 100 mL/hr, Intravenous, CON TINUOUS, Starting Sat03/21/11 at 1030, Until Sat03/21/11 at 1922, Day of Surgery (Day of Procedure) PRN Medication Order 03/19/2011 03/20/2011 03/21/2011 BUpivacaine (PF) (MARCAINE) 0.5 % (5 mg/mL) injection (CANCELED) 1255 (Given - Provider: Daniel Ng MD - Comment: in tumescent mixture - used ~ 300ml) ONCE PRN, Starting Sat03/21/11 at 1255, Until Sat03/21/11 at 1922, Intra- Operative (Intra-Procedure), Routine epiNEPHrine (PF) injection Soln (CANCELED) 1257 (Given - Provider: Daniel Ng MD - Comment: In tumescent mixture - used ~300ml) ONCE PRN, Starting Sat03/21/11 at 1257, Until Sat03/21/11 at 1922, Intra- Operative (Intra-Procedure), Routine methylene blue 1 % injection (CANCELED) 1500 (Given - Provider: Daniel Ng MD - Comment: used to tattoo markings) ONCE PRN, Starting Sat03/21/11 at 1500, Until Sat03/21/11 at 1921, Intra- Operative (Intra-Procedure), Routine sodium bicarbonate 8.4 % IV solution (CANCELED) 1254 (Given - Provider: Daniel Ng MD - Comment: in tumescent mixture - used ~300ml) ONCE PRN, Starting Sat03/21/11 at 1254, Until Sat03/21/11 at 1921, Intra- Operative (Intra-Procedure), Routine documented in this encounter Care Teams Captain Room Service Relationship Specialty Start Date End Date Iris Lee MD PCP - General 01/23/[address] [place] [address] [address] [place] [address] documented as of this encounter
--- OUTSIDE RECORDS SUMMARY | 2021-09-14 14:14 | XMS_ITS | Encounter Summary ---
:1965 Author Organization [facility] [place] [address] Care Team Providers Name Role Phone Iris Lee MD Primary Care Provider Reason for Visit Reason Comments Follow Up Surgery BBR Encounter Details Date Type Department Care Team Description 03/22/2011 Clinical Support Plastic Surgery at NURSE, PLASTIC [place] pat aftercare [facility] [place] SURGERY (Primary Dx) [place] [address] Social History Tobacco Use Types Packs/Day Years Used Date Never Smoker Smokeless Tobacco: Never Used Alcohol Use Standard Drinks/Week Comments Yes 0 (1 standard drink = 0.6 oz pure alcoho l) Sex Assigned at Date Recorded Not on file documented as of this encounter Last Filed Vital Signs Vital Sign Reading Time Taken Comments Blood Pressure - - Pulse - - Temperature - - Respiratory Rate - - Oxygen Saturation - - Inhaled Oxygen Concentration - - Weight - - Height 160 cm (5' 3) 03/22/2011 11:12 AM EST Body Mass Index - - documented in this encounter Progress Notes Lianna Christian RN - 03/22/2011 12:10 PM EST Reason for Visit: Postoperative Evaluation s/p bbr yesterday pt here for drain removal Subjective: Feeling well no complains of pain at present Objective: Noted both drains meet criteria for removal today. All incision lines well approximated. Mild bruising and swelling. Complications: none Assessment: No signs of infection, seroma, or hematoma. Plan: Reviewed post op instructions, including activity limitations, increase protein in the diet, signs of infection and correct phone numbers to call us for concerns. Supplies given: none VNA: none documented in this encounter Plan of Treatment Not on filedocumented as of this encounter Visit Diagnoses Diagnosis Surgery aftercare - Primary Other specified aftercare following surg juan ramon documented in this encounter Care Teams Education Trainer Relationship Specialty Start Date End Date Iris Lee MD PCP - General 01/23/[address] [place] [address] documented as of this encounter
--- OUTSIDE RECORDS SUMMARY | 2021-09-14 14:14 | XMS_ITS | Encounter Summary ---
:1965 [place] [address] Care Team Providers Name Role Phone Unavailable Primary Care Provider Unavailable Encounter Details Date Type Department Care Team Description 09/03/2005 Hospital Encounter Radiology Library at [facility] [address], [address] [place] [address] Social History Tobacco Use Types Packs/Day Years Used Date Never Assessed Sex Assigned at Date Recorded Not on file documented as of this encounter Plan of Treatment Not on filedocumented as of this encounter Procedures Procedure Name Priority Date/Time Associated Diagnosis Comme nts FILM LIBRARY Routine 09/03/2005 12:00 AM Pain Results for this STORAGE ONLY MAMMO EDT procedure are in the results section. documented in this encounter Results Film Library- Storage only Mammo (09/03/2005 12:00 AM EDT) Specimen (Source) Anatomical Location Collection Method / Collectio n Time Received Time / Laterality Volume Narrative REECE - 06/02/2015 10:19 AM EDT See PACS for result report. Dr Agustín Clemons Emani FILM LIBRARY ORDERABLES Performing Organization Address City/State/ZIP Code Phon e Number [place], [place] documented in this encounter Visit Diagnoses Diagnosis Pain Generalized pain documented in this encounter
--- OUTSIDE RECORDS SUMMARY | 2021-09-14 14:14 | XMS_ITS | Encounter Summary ---
:1965 Author Organization [facility] [place] [address] Care Team Providers Name Role Phone Thelma Coombs MD Primary Care Provider Encounter Details Date Type Department Care Team Description 04/03/2010 Hospital Encounter Radiology Library at [facility], [address] [place] [address] Social History Tobacco Use Types Packs/Day Years Used Date Never Assessed Sex Assigned at Date Recorded Not on file documented as of this encounter Medications at Time of Discharge Medication Sig Dispensed Refills Start Date End Date meclizine (ANTIVERT) 25 mg 25m.5-1 tab 0 05/02 tablet Tablet(s), PO, Three times daily PRN diaZEPam (VALIUM) 2 mg 2MG = 1 0 05/13/2009 tablet Tablet(s), PO, Three times daily,PRN ibuprofen (ADVIL;MOTRIN) 200 0 010 10/11/2015 mg tablet cyclobenzaprine (FLEXERIL) 10MG = 1 0 0 10/11/2015 10 mg tablet Tablet(s), PO, Three times daily,PRN losartan (COZAAR) 100 mg 0 05/13/2009 10/11/2015 tablet Omeprazole 20 mg TbEC 0 05/13/200911/2015 documented as of this encounter Plan of Treatment Not on filedocumented as of this encounter Procedures Procedure Name Priority Date/Time Associated Diagnosis Comme nts FILM LIBRARY Routine 04/03/2010 12:00 AM Pain Results for this STORAGE ONLY MAMMO EST procedure are in the results section. documented in this encounter Results Film Library- Storage only Mammo (04/03/2010 12:00 AM EST) Specimen (Source) Anatomical Location Collection Method / Collectio n Time Received Time / Laterality Volume Narrative [facility] - 06/01/2015 4:46 PM EDT See PACS for result report. Dr [facility] FILM LIBRARY ORDERABLES Performing Organization Address City/State/[facility] Code Phon e Number [place], [place] documented in this encounter Visit Diagnoses Diagnosis Pain Generalized pain documented in this encounter Care Teams Supervisor Mails Relationship Specialty Start Date End Date Thelma Coombs MD PCP - General 01/24/10 01/22/11 [address] [place] [address] documented as of this encounter
--- OUTSIDE RECORDS SUMMARY | 2021-09-14 14:14 | XMS_ITS | Encounter Summary ---
:1965 [place] [address] Care Team Providers Name Role Phone Iris Lee MD Primary Care Provider Encounter Details Date Type Department Care Team Description 03/21/2011 Anesthesia Event Outpatient Surgery Juana Momin MD [facility] [place] [address] [place] Aden Blackburn MD [facility] [place] [address] [place] [address] Anesthesia Record Procedure Summary Procedure Name Responsible Anesthesia Start Anesthesia Stop Time Anesthesiologist Time REDUCTION Juana Momin MD 03/21/11 1226 03/21 1521 MAMMOPLASTY, JORDY (WRVU 16.03) (Bilateral Breast) Events Date Time Event Comment 03/21/2011 1148 1226 Start 1521 Stop No medications on file. Agents No agents on file. Blood No blood administrations on file. Lines, Drains, and Airways Type Details Placement Removal Incision 03/21/11; breast 03/21/11 0000 by Sierra Coats RN PIV 03/21/11; 1100; 03/21/11; 03/21/11 1100 by Citlali 03/21/11 1708 by Reji 1708 Tana Chou RN Jody Soni RN documented in this encounter Social History Tobacco Use Types Packs/Day Years Used Date Never Smoker Smokeless Tobacco: Never Used Alcohol Use Standard Drinks/Week Comments Yes 0 (1 standard drink = 0.6 oz pure alcoho l) Sex Assigned at Date Recorded Not on file documented as of this encounter OR Notes Anesthesia Postprocedure Evaluation - Jauna Momin MD - 03/21/2011 5:07 PM EST Patient: Juana Mann Procedure(s) Performed: REDUCTION MAMMOPLASTY, JORDY; MODIFIER VERTICAL Patient location: PACU Post-op pain: Adequate analgesia Post-op nausea: no nausea or vomiting Last Vitals: Filed Vitals: 03/21/11 1600 BP: 131/80 Pulse: 64 Temp: Resp: 18 Post-op cardiovascular and respiratory status: is stable Level of consciousness: awake Complications: no apparent complications Fluid Status: normal Anesthesia Preprocedure Evaluation - Juana Momin MD - 03/21/2011 11:49 AM EST Anesthesia Evaluation Patient summary reviewed and Nursing notes reviewed No hx of anesthetic complications (Previous shoulder and jaw surgeries- GAs without complications per patient.) Airway Mallampati: II TM distance: >3 FB Neck ROM: full Comment: Limited mouth opening secondary to TMJ pain. No concern about airway. Dental Comment: Dental appliance removed. Pulmonary - normal exam Cardiovascular - normal exam (+) hypertension well controlled, Rhythm: regular Rate: normal Neuro/Psych (+) headaches, GI/Hepatic/Renal Endo/Other Abdominal Other findings: PMHx: HTN TMJ Migraine HAs HLD Macromastia Depression GERD: occasionally (PRN Tums) URI: no Tobacco: no Appropriately NPO: yes Anesthesia Plan ASA 2 General with intravenous induction Plan GA with RM- LMA. Will be gentle with opening patient's mouth secondary to TMJ pain. Plans and risks reviewed. Questions answered. Anesthetic plan and risks discussed with patient and spouse. Plan discussed with DRAINAGE DESIGN COORDINATOR and attending. documented in this encounter Miscellaneous Notes Addendum Note - Alba Schaefer - 03/22/2011 11:24 AM EST Addendum created 03/22/11 1124 by Alba Schaefer Modules edited:Anesthesia Events, Anesthesia Responsible Staff documented in this encounter Plan of Treatment Not on filedocumented as of this encounter Visit Diagnoses Not on filedocumented in this encounter Care Teams Storage Administrator Relationship Specialty Start Date End Date Iris Lee MD PCP - General 01/23/[address] [place] [address] documented as of this encounter
--- OUTSIDE RECORDS SUMMARY | 2021-09-14 14:14 | XMS_ITS | Encounter Summary ---
:1965 [place] [address] Care Team Providers Name Role Phone Iris Lee MD Primary Care Provider Encounter Details Date Type Department Care Team Description 03/21/2011 Surgery Outpatient Surgery Daniel Ng MD REDUCTION MAMMOPLASTY, [facility] JORDY (WRVU 16.03) [facility] PLASTIC SURGE [place] [id number] [place] [id number] [phone] Social History Tobacco Use Types Packs/Day Years [...] documented in this encounter Discharge Instructions Discharge InstructionsJody Mendoza RN - 03/21/2011 3:29 PM EST General [...] as well as fruit juices. [facility] 8:00-5:30 [facility] 24/09 ask for your doctor reception centre manager documented in this encounter Medications at Time of Discharge Medication Sig Dispensed Refills Start Date End Date OXYcodone (ROXICODONE) 5 mg Take 1-2 tablets 30 tablet 0 immediate release tablet by mouth every 4 hours as needed for Pain. haidjxxyfz-ihwqbiokycmpb-vy Take 1 tablet by 0 ffeine (FIORICET, [...] Ng MD - 03/21/2011 3:05 PM EST [facility] Operative Note Patient Name: Juana Mann : [id number] MR#: [id number] Case Date: 03/21/2011 Surgeon: Surgeon(s) and Role: [...] SURGICAL PATHOLOGY REPORT (03/21/2011 2:41 PM EST) [facility] Method Time Signature Surgical CERNER Pathology ? [facility] Report ? Provider: ?? DANIEL NG ? Pt. N monik: ?? JUANA MANN ? Acc #: ?[id number] ?Pt. MRN: ?[id number] ? Col Date: ?? 2 ? /Sex: [...] OSORIO ? 03/22/11 Verified by: ? Catalina BINGHAM, Donavan Marc ? Pathologist ? (Electronic Si gnature) ? [...] dense, davis-white, fibrous tissue. ? Sections/Processing: ??(R3) aje/SNS ? [facility] ? Provider: ?? DANIEL NG ? Pt. N monik: ?? JUANA MANN ? Acc #: ?[id number] ?Pt. MRN: ?[id number] ? Col Date: ?? 2 ? /Sex: [...] MD PATHOLOGY/CYTOLOGY ORDERABLE S Performing Organization Address City/[facility]/ZIP Code Phon e Number [address] CERNER MILLENNIUM Specimen to Pathology [...] MD PATHOLOGY/CYTOLOGY ORDERABLE S Performing Organization Address [facility]/[place] [address] CERNER MILLENNIUM Specimen to [...] Organization Address City/State/[place] [address] EWELINA LORENZANA documented in this encounter Visit Diagnoses Not on filedocumented in this encounter Administered Medications Inactive Administered Medications - up to 3 most recent administrations Medication Order MAR Action Action Date Dose Rate Site BUpivacaine (PF) (MARCAINE) 0.5 % Given 03/21/2011 12:55 PM EST 50 mLs (5 mg/mL) injection ONCE PRN, Starting on Sat03/21/11 at 1255, Until Sat03/21/11 at 1922, Intra-Operative (Intra-Procedure), Routine epiNEPHrine (PF) injection Soln Given 03/21/2011 12:57 PM EST 1 mL ONCE PRN, Starting on Sat03/21/11 at 1257, Until Sat03/21/11 at 1922, Intra-Operative (Intra-Procedure), Routine lactated ringers infusion 1,000 New Bag 03/21/2011 10:30 AM ES T 1,000 mLs 100 mL/hr mL 1,000 mL, at 100 mL/hr, Intravenous, CONTINUOUS, Starting on Sat03/21/11 at 1030, Until Sat03/21/11 at 1922, Day of Surgery (Day of Procedure) methylene blue 1 % injection Given 03/21/2011 3:00 PM EST 1 mL ONCE PRN, Starting on Sat03/21/11 at 1500, Until Sat03/21/11 at 1922, Intra-Operative (Intra-Procedure) sodium bicarbonate 8.4 % IV solution Given 03/21/2011 12:54 PM EST 12.5 mEq ONCE PRN, Starting on Sat03/21/11 at 1254, Until Sat03/21/11 at 1922, Intra-Operative (Intra-Procedure), Routine documented in this encounter Active and Recently Administered Medications Times are shown in EST. Continuous Medication Order 03/19/2011 03/20/2011 03/21/2011 lactated ringers infusion 1,000 mL (CANCELED) 1030 (New Bag - Provider: Jody Mendoza, RN) 1,000 mL, at 100 mL/hr, Intravenous, [...] Starting Sat03/21/11 at 1500, Until Sat03/21/11 at 1922, Intra- Operative (Intra-Procedure), Routine sodium bicarbonate 8.4 % IV solution (CANCELED) 1254 (Given - Provider: Daniel Ng MD - Comment: in tumescent mixture - used ~300ml) ONCE PRN, Starting Sat03/21/11 at 1254, Until Sat03/21/11 at 1922, Intra- Operative (Intra-Procedure), Routine documented in this encounter Care Teams Continuous Improvement Black Belt Relationship Specialty Start Date End Date Iris Lee MD PCP - General 01/23/[address] [place] [address] documented as of this encounter
--- OUTSIDE RECORDS SUMMARY | 2021-09-14 14:14 | XMS_ITS | Encounter Summary ---
:1965 Author Organization [facility] [place] [address] Care Team Providers Name Role Phone Unavailable Primary Care Provider Unavailable Encounter Details Date Type Department Care Team Description 09/09/2007 Hospital Encounter Radiology Library at [facility] [address] Agustín [place] [address] Social History Tobacco Use Types Packs/Day Years Used Date Never Assessed Sex Assigned at Date Recorded Not on file documented as of this encounter Plan of Treatment Not on filedocumented as of this encounter Procedures Procedure Name Priority Date/Time Associated Diagnosis Comme nts FILM LIBRARY Routine 09/09/2007 12:00 AM Screening Results for this STORAGE ONLY MAMMO EDT procedure are in the results section. documented in this encounter Results Film Library- Storage only Mammo (09/09/2007 12:00 AM EDT) Specimen (Source) Anatomical Location Collection Method / Collectio n Time Received Time / Laterality Volume Narrative [facility] - 07/06/2015 9:07 AM EDT This exam is for storage only and is aut o-finalizing. Dr Agustín Clemons [facility] FILM LIBRARY ORDERABLES Performing Organization Address City/State/ZIP Code Phon e Number [place], [place] documented in this encounter Visit Diagnoses Diagnosis Screening Screening for unspecified condition documented in this encounter
--- OUTSIDE RECORDS SUMMARY | 2021-09-14 14:14 | XMS_ITS | Encounter Summary ---
:1965 Author Organization [facility] Address [address] [place] [address] Care Team Providers Name Role Phone Iris Lee MD Primary Care Provider Encounter Details Date Type Department Care Team Description 12/26/2012 Hospital Encounter Radiology Library at [facility], [address] [place] [address] Social History Tobacco Use Types Packs/Day [...] every 4 hours as needed for Pain. nevaesvlud-pczouncmjyeky-ca Take 1 tablet by 0 ffeine (FIORICET, [...] Associated Diagnosis Comme nts FILM LIBRARY Routine 12/26/2012 12:00 AM Pain Results for this STORAGE ONLY MAMMO EDT procedure are in the results section. documented in this encounter Results Film Library- Storage only Mammo (12/26/2012 12:00 AM EDT) Specimen (Source) Anatomical Location Collection Method / Collectio n Time Received Time / Laterality Volume Narrative [facility] - 06/01/2015 4:45 PM EDT See PACS for result report. Dr Randolph [facility] FILM LIBRARY ORDERABLES Performing Organization Address City/State/ZIP Code Phon e Number [place], [place] documented in this encounter Visit Diagnoses Diagnosis Pain Generalized pain documented in this encounter Care Teams Scale And Skip Car Operator Relationship Specialty Start Date End Date Iris Lee MD PCP - General 01/23/[address] [place] [address] documented as of this encounter
--- OUTSIDE RECORDS SUMMARY | 2021-09-14 14:14 | XMS_ITS | Encounter Summary ---
:1965 Author Organization [facility] [place] [address] Care Team Providers Name Role Phone Iris Lee MD Primary Care Provider Reason for Visit Reason Comments Follow Up Surgery BBR Encounter Details Date Type Department Care Team Description 04/11/2011 Office Visit Plastic Surgery at Daniel Rios MD S/P reduction [facility] mammoplasty [facility] DR Monique PLASTIC SURGERY [place], [place] [phone] Social History Tobacco Use Types Packs/Day Years Used Date Never Smoker Smokeless Tobacco: Never Used Alcohol Use Standard Drinks/Week Comments Yes 0 (1 standard drink = 0.6 oz pure alcoho l) Sex Assigned at Date Recorded Not on file documented as of this encounter Patient Instructions Patient InstructionsRe Green RN - 04/11/2011 10:21 AM EST Please review your breast reduction brochure for guidance regarding post op activity restrictions. Continue taping for up to six weeks post op --> May 02. Dr. Rios would like to see you back for follow up in six weeks. Please call our office if you have any questions or concerns. The nurses line: [phone] Saturday through Saturday 8 - 5 The secretaries line: [phone] For emergencies at night or on the weekend: Call the main hospital number [phone] and ask for the Plastic Surgeon sulfonator operator. Welcome to Fanzy, your secure online access to your electronic medical record at [facility]. Using Fanzy you will be able to send messages to your providers, view your test results, renew prescriptions, schedule appointments, and much more. Follow these instructions to enter your personal Fanzy account for the first time: 1. Start your internet browser. Go to [email or web address] and click on the Fanzy link. 2. Click SIGN UP NOW to go to the NEW MEMBER SIGN UP page. 3. Enter your Fanzy Access Code exactly as it appears below. (You will not need this access code after you have completed the sign-up process.) ?? Your Fanzy Access Code: [email or web address] ?? Expires: 05/26/11 10:21 AM ?? IMPORTANT: This Access Code will on the above mentioned date. If you do not sign up beforethis date, you will need to request a new Access Code number. 4. Enter your Date of (mm/dd/yyyy) and zip code click SUBMIT to go to the next page. 5. Create a Fanzy identification (ID). This will be your Fanzy login ID and cannot be changed, so think of one that is secure and easy to remember. 6. Create a password which you can change at any time. Your password must contain six (6) letters and two (2) numbers. 7. Enter your Password Reset Question and Answer. This will be used if you forget your password. 8. Enter your e-mail address. This is used to let you know when new information is available in Fanzy. 9. Click SIGN UP to complete the process. You can now view your electronic medical record. If you have any questions about Fanzy or your Access Code, please call for [place], for [place] or for [place]. If you need technical support, please e-mail [email or web address]. Remember, myD-H is NOT for urgent needs! Always dial 911 for medical emergencies. documented in this encounter Progress Notes [facility] - 04/11/2011 10:04 AM EST PLASTIC SURGERY POST OP NOTE Daniel Rios MD Primary Care Physician: IRIS LEE MD Reason for visit: F/U status post procedure Date of surgery: 01/20/12 Procedure(s): Reduction Mammoplasty, Bilateral /Bilateral/Vertical Incision, Superomedial pedicle Complications: None reported Interval History: 3 weeks S/P BBR. She reports that she has not has any pain issues and is doing well. She has been having migraines in the past few weeks. She is very happy with the results. She notesfatigue at times. Her neck and jaw pain has improved post surgery. Meds: Current outpatient prescriptions ordered prior to encounter Medication Sig Dispense Refill ??? OXYcodone (ROXICODONE) 5 mg immediate release tablet Take 1-2 tablets by mouth every 4 hours as needed for Pain. 30 tablet 0 ??? ibuprofen (ADVIL;MOTRIN) 800 mg tablet Take 1 tablet by mouth every 8 hours. 30 tablet 12 ??? amitriptyline (ELAVIL) 10 mg tablet Take 20 mg by mouth nightly. ??? SUMAtriptan (IMITREX) 100 mg tablet Take 100 mg by mouth as needed. ??? xtgldvbesk-pzkavafkdtfnp-htgexmjr (FIORICET, ESGIC) per tablet Take 1 tablet by mouth every 4 hours as needed. ??? meclizine (ANTIVERT) 25 mg tablet 25m.5-1 tab Tablet(s), PO, Three times daily PRN ??? ibuprofen (ADVIL;MOTRIN) 200 mg tablet ??? cyclobenzaprine (FLEXERIL) 10 mg tablet 10MG = 1 Tablet(s), PO, Three times daily,PRN ??? diaZEPam (VALIUM) 2 mg tablet 2MG = 1 Tablet(s), PO, Three times daily,PRN ??? losartan (COZAAR) 100 mg tablet ??? Omeprazole 20 mg TbEC All: Penicillins, Sulfa (sulfonamide antibiotics) and Promethazine hcl Examination: Gen: WDWN, NAD Neuro: Alert, oriented, follows, Ambulates. Breasts: Incision: CDI, healing well. Symmetric. The L breast inferior incision is redundant with a dogear. There is no palpable fat necrosis. The nipples are viable. No collection, no erythema, no evidence of cellulitis. Some mild skin irritation from tape. Impression: Juana Mann is a 45 y.o. female was seen today for follow-up after the above procedure. Please see the operative note for details. She is doing well without complaints. She has a small fold ofskin under the left breast that should settle down but it can be removed in the future if it becomesproblematic for her. She has good symmetry and is healing well. 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 She does heavy lifting and to this end should refrain from this until 6 weeks. Plan: 1. F/U in 6 weeks 2. Photos will be taken at next visit I, Heaven Goodwin am acting as scribe for Dr Rios. All work documented was performed by Dr Rios. documented in this encounter Plan of Treatment Not on filedocumented as of this encounter Visit Diagnoses Diagnosis S/P reduction mammoplasty Other plastic surgery for unacceptable c osmetic appearance documented in this encounter Care Teams Children'S Nursery Assistant Relationship Specialty Start Date End Date Iris Lee MD PCP - General 01/23/[address] [place] [address] documented as of this encounter
--- OUTSIDE RECORDS SUMMARY | 2021-09-14 14:14 | XMS_ITS | Encounter Summary ---
:1965 [place] [address] Care Team Providers Name Role Phone Unavailable Primary Care Provider Unavailable Encounter Details Date Type Department Care Team Description 09/05/2006 Hospital Encounter Radiology Library [place] [facility], [address] [place] [address] Social History Tobacco Use Types Packs/Day Years Used Date Never Assessed Sex Assigned at Date Recorded Not on file documented as of this encounter Plan of Treatment Not on filedocumented as of this encounter Procedures Procedure Name Priority Date/Time Associated Diagnosis Comme nts FILM LIBRARY Routine 09/05/2006 12:00 AM Pain Results for this STORAGE ONLY MAMMO EDT procedure are in the results section. documented in this encounter Results Film Library- Storage only Mammo (09/05/2006 12:00 AM EDT) Specimen (Source) Anatomical Location Collection Method / Collectio n Time Received Time / Laterality Volume Narrative [facility] - 06/02/2015 10:17 AM EDT See PACS for result report. Dr Agustín Clemons E[facility] FILM LIBRARY ORDERABLES Performing Organization Address City/State/ZIP Code Phon e Number [place], [place] documented in this encounter Visit Diagnoses Diagnosis Pain Generalized pain documented in this encounter
--- OUTSIDE RECORDS SUMMARY | 2021-09-14 14:14 | XMS_ITS | Encounter Summary ---
:1965 Author Organization [facility] Address [address] [place] [place] [address] Care Team Providers Name Role Phone Iris Lee MD Primary Care Provider Encounter Details Date Type Department Care Team Description 05/04/2015 Hospital Encounter Radiology Library at [facility], [place] [address] [place] [address] Social History Tobacco Use Types Packs/Day [...] every 4 hours as needed for Pain. cwkeaehhbp-nzhkouddhasfp-vi Take 1 tablet by 0 ffeine (FIORICET, [...] Associated Diagnosis Comme nts FILM LIBRARY Routine 05/04/2015 12:00 AM Pain Results for this STORAGE ONLY MR EST procedure ar e in BREAST the results section. documented in this encounter Results Film Library- Storage only MR Breast (05/04/2015 12:00 AM EST) Specimen (Source) Anatomical Location Collection Method / Collectio n Time Received Time / Laterality Volume Narrative [facility] - 06/01/2015 9:51 PM EDT See PACS for result report. Dr Agustín Clemons [facility] FILM LIBRARY ORDERABLES Performing Organization Address City/State/ZIP Code Phon e Number [place], [place] documented in this encounter Visit Diagnoses Diagnosis Pain Generalized pain documented in this encounter Care Teams Bulk Station Agent Relationship Specialty Start Date End Date Iris Lee MD PCP - General 01/23/[address] [place] [address] documented as of this encounter
--- OUTSIDE RECORDS SUMMARY | 2021-09-14 14:14 | XMS_ITS | Encounter Summary ---
:1965 Author Organization [place] [address] Care Team Providers Name Role Phone Unavailable Primary Care Provider Unavailable Encounter Details Date Type Department Care Team Description 10/27/2008 Hospital Encounter Radiology Library at [facility] [address] [place]ustín [place] [address] Social History Tobacco Use Types Packs/Day Years Used Date Never Assessed Sex Assigned at Date Recorded Not on file documented as of this encounter Plan of Treatment Not on filedocumented as of this encounter Procedures Procedure Name Priority Date/Time Associated Diagnosis Comme nts FILM LIBRARY Routine 10/27/2008 12:00 AM Screening Results for this STORAGE ONLY MAMMO EDT procedure are in the results section. documented in this encounter Results Film Library- Storage only Mammo (10/27/2008 12:00 AM EDT) Specimen (Source) Anatomical Location Collection Method / Collectio n Time Received Time / Laterality Volume Narrative [facility] - 07/06/2015 8:58 AM EDT This exam is for storage only and is aut o-finalizing. Dr Agustín Clemons [facility] FILM LIBRARY ORDERABLES Performing Organization Address City/State/ZIP Code Phon e Number [place], [place] documented in this encounter Visit Diagnoses Diagnosis Screening Screening for unspecified condition documented in this encounter
--- OUTSIDE RECORDS SUMMARY | 2021-09-14 14:14 | XMS_ITS | Encounter Summary ---
:1965 Author Organization [facility] [address] Care Team Providers Name Role Phone Unavailable Primary Care Provider Unavailable Encounter Details Date Type Department Care Team Description 09/16/2007 Hospital Encounter Radiology Library at [facility] Dr Agustín [place] [address] Social History Tobacco Use Types Packs/Day Years Used Date Never Assessed Sex Assigned at Date Recorded Not on file documented as of this encounter Plan of Treatment Not on filedocumented as of this encounter Procedures Procedure Name Priority Date/Time Associated Diagnosis Comme nts FILM LIBRARY Routine 09/16/2007 12:00 AM Screening Results for this STORAGE ONLY MAMMO EDT procedure are in the results section. documented in this encounter Results Film Library- Storage only Mammo (09/16/2007 12:00 AM EDT) Specimen (Source) Anatomical Location Collection Method / Collectio n Time Received Time / Laterality Volume Narrative [facility] - 07/06/2015 9:04 AM EDT This exam is for storage only and is aut o-finalizing. Dr Agustín Clemons IME[facility] FILM LIBRARY ORDERABLES Performing Organization Address City/State/ZIP Code Phon e Number [place], [place] documented in this encounter Visit Diagnoses Diagnosis Screening Screening for unspecified condition documented in this encounter
--- OUTSIDE RECORDS SUMMARY | 2021-09-14 14:14 | XMS_ITS | Encounter Summary ---
:1965 Author Organization [facility] [place] [address] Care Team Providers Name Role Phone Iris Lee MD Primary Care Provider Reason for Visit Reason Comments Advice Only BBR Encounter Details Date Type Department Care Team Description 01/23/2011 Office Visit Plastic Surgery at [facility], MD Kelsey Levi (Primary [facility] Dx) [facility] [place] PLASTIC SURGERY [place] [phone] Social History Tobacco Use Types Packs/Day Years Used Date Never Smoker Smokeless Tobacco: Never Used Alcohol Use Standard Drinks/Week Comments Yes 0 (1 standard drink = 0.6 oz pure alcoho l) Sex Assigned at Date Recorded Not on file documented as of this encounter Last Filed Vital Signs Vital Sign Reading Time Taken Comments Blood Pressure 130/84 01/23/2011 10:08 AM EST Pulse - - Temperature - - Respiratory Rate - - Oxygen Saturation - - Inhaled Oxygen Concentration - - Weight 74.8 kg (165 lb) 01/23/2011 10:08 AM EST Height 160 cm (5' 3) 01/23/2011 10:08 AM EST Body Mass Index 29.23 01/23/2011 10:08 AM EST documented in this encounter Patient Instructions Patient InstructionsGianna Louis RN - 01/23/2011 10:59 AM EST Welcome to [employer], your secure online access to your electronic medical record at [facility]. Using [employer] you will be able to send messages to your providers, view your test results, renew prescriptions, schedule appointments, and much more. Follow these instructions to enter your personal [employer] account for the first time: 1. Start your internet browser. Go to [email or web address] and click on the [employer] link. 2. Click SIGN UP NOW to go to the NEW MEMBER SIGN UP page. 3. Enter your [employer] Access Code exactly as it appears below. (You will not need this access code after you have completed the sign-up process.) ?? Your [employer] Access Code: [email or web address] ?? Expires: 03/09/11 10:59 AM ?? IMPORTANT: This Access Code will on the above mentioned date. If you do not sign up beforethis date, you will need to request a new Access Code number. 4. Enter your Date of (mm/dd/yyyy) and zip code click SUBMIT to go to the next page. 5. Create a [employer] identification (ID). This will be your [employer] login ID and cannot be changed, so [...] know when new information is available in [employer]. 9. Click SIGN UP to complete the process. You can now view your electronic medical record. If you have any questions about [employer] or your Access Code, please call for [place], for [place] or for [place]. If you need technical support, please e-mail [email or web address]. Remember, [employer] is NOT for urgent needs! Always dial 911 for medical emergencies. Written and verbal preoperative instructions were given at this visit. Please review the written information prior to your procedure and contact us with any questions. documented in this encounter Progress Notes Daniel Rios MD - 01/23/2011 11:23 AM EST PLASTIC SURGERY CONSULTATION PCP: IRIS LEE MD Referring Physician: None Reason for office visit: Symptomatic macromastia HPI: Juana Mann is a 45 y.o. female is a 45 y.o. old woman who presents today for evaluation of symptomatic macromastia. She is unaccompanied for today???s visit. She reports that she has thefollowing physical or psychosocial symptoms: neck pain and shoulder pain. She notes getting fatigues and deep shoulder grooves. She has been dealing with this for years and only after her mother and sisters had surgery did she consider it. She has tried the following conservative measures, for at least 6 months, to help alleviate her symptoms: xx Physical therapy xx Weight loss Custom bras xx NSAID's Chiropractice treatment Narcotic pain meds xx Other-massage xx Pilates Her most recent mammogram was 03/2010 in [facility] and was normal. Past Medical History Diagnosis Date ??? TMJ arthritis ??? HTN (hypertension) ??? Migraines ??? Back pain Past Surgical History Procedure Date ??? Shoulder surgery ??? Temporomandibular joint surgery History Social History ??? Marital Status: Spouse Name: N/A Number of Children: N/A ??? Years of Education: N/A Occupational History ??? Not on file. Social History Main Topics ??? Smoking status: Never Smoker ??? Smokeless tobacco: Never Used ??? Alcohol Use: No ??? Drug Use: No ??? Sexually Active: Not on file Other Topics Concern ??? Not on file Social History Narrative ??? No narrative on file FH: no fam history of breast cancer. Notes several family members with macromastia. 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 meclizine (ANTIVERT) 25 mg tablet 25m.5-1 tab Tablet(s), PO, Three times daily PRN ??? ibuprofen (ADVIL;MOTRIN) 200 mg tablet ??? cyclobenzaprine (FLEXERIL) 10 mg tablet 10MG = 1 Tablet(s), PO, Three times daily,PRN ??? diaZEPam (VALIUM) 2 mg tablet 2MG = 1 Tablet(s), PO, Three times daily,PRN ??? losartan (COZAAR) 100 mg tablet ??? Omeprazole 20 mg TbEC Allergies: Penicillins, Sulfa (sulfonamide antibiotics) and Promethazine hcl (She was cautioned to avoid taking aspirin or NSAIDs for at least two weeks prior to surgery if possible to lessen the risk of bleeding. If an analgesic were required, Tylenol would be the drug of choice.) EXAMINATION: Vitals 01/23/2011 SYSTOLIC 130 DIASTOLIC 84 HEIGHT 5' 3 WEIGHT 165 lb BODY MASS INDEX 29.24 kg/m2 Bra size: 38 DD Goal cup size: B-C General: On my examination today, the patient appears to be in good health. Her emotional outlook ispositive and she asked appropriate questions throughout the visit. Musculoskeletal: Her back is straight without evidence of kyphosis. BREAST MEASUREMENTS RIGHT LEFT Ptosis III III SN-N (cm) 32.5 32 IMF-N (cm) 15 15 NAC elevat (cm) 6.5 5.5 Masses - - Shoulder grooves + + Rash - - Axillary rolls + + Surgical Scars - - Breast Vol (estimate in cc) 950 950 Resection (estimate in gms) 450 450 Resp: Regular rate, no stridor, no tachypnea, no wheezing Abd: Rotund, soft NTND Extrem: wwp, no c/e/e ASSESSMENT: Symptomatic bilateral breast hypertrophy with significant neck pain and shoulder pain. Refractory toconservative therapy. Recent diagnosis of HTN, will ask for medical clearance. PLAN: Bilateral breast reduction is indicated for relief of her breast-related symptoms. We spent 40 minutes of this 45 minute visit discussing her treatment options and possible complications. She was provided with an ASPS brochure and informed consent on breast reduction. The procedure of breast reductionwas discussed in detail and it was emphasized that I cannot guarantee a specific requested size. Shewatched the informational video that included graphic images of excellent, average and poor results.It reviews the surgical risks, alternate skin incisions and pedicle versus free nipple graft techniques. It also discusses the option of volume reduction by liposuction alone, which does not alter the nipple-areolar complex position. It talks about the impact of this surgery on decreasing breast cancer risk. We reviewed the timing of surgery relative to weight fluctuations and I've advised that surgery is best done at a realistic chcf stable weight. We talked about the outpatient nature of the surgery,drains, postoperative recovery, and time required off work. She has been referred to [email or web address] online and provided with my e-mail address. The following risks were reviewed in the video or in our discussion: Liposuction: minimal risks but swelling for several months is to be expected. Disadvantage is that not as much lifting is achieved. We talked about the sometimes need to increase the length of the inframammary fold incision and do a direct excision of tissue if we cannot meet our planned volume of resection. Surgical Risks which are greater with open reduction: bleeding with risk of hematoma (<5%); numbness, which may be temporary or permanent; scarring, including abnormal scarring; infection (5-10%); fat necrosis resulting in a breast mass and possible need for revision. I stressed the likelihood of minor problems with delayed wound healing (~30%) and the rare complication of nipple areolar necrosis.She is also aware that there may be some residual pain after the surgery and that there may possiblybe some asymmetry. Vertical or Lollipop Incision: Less scarring on breast, but slightly greater risk for delayed healing and desire for scar revision. (She was informed that her insurer might not cover secondary revisions for scarring or asymmetry.) [place] or [place] Pattern Incision: More scarring on breast, but lower risk for scar revision. (She wasinformed that her insurer might not cover secondary revisions for scarring or asymmetry.) Pedicle Technique: volume of reduction may be limited by need to provide an adequate blood supply tothe nipple. There is a very small risk of nipple loss. Most women (~60%) will be able to breast-feed. Free Nipple Graft: The grafts will initially have no sensation and once fully healed may not respondto temperature and touch as they do now. She has also a been informed that they may not look entirely normal and may have patchy hypopigmentation. She will not be able to breast feed with this technique. After fully discussing the options, she has opted to pursue a: XXX Bilateral Breast Reduction Vertical Pedicle Bilateral Breast Reduction Villalba Pedicle Bilateral Breast Reduction Villalba FNG She would like to proceed with surgery and I will inform her PCP of this plan. Gianna Louis, RN - 01/23/2011 11:14 AM EST Pre-Op Teaching for Surgery Surgery:BBR Written and verbal pre-operative instructions given and reviewed with patient. Patient was advised to discontinue use of NSAIDS and aspirin products 14 days prior to surgery unless otherwise advised by patient's PCP/Security Advisor for cardiac symptoms, to perform the pre-op scrub, and coordinate ride home following surgery. Discussed and answered all questions including post op course and activity limitations. Photos taken with signed consent. Patient was told to call the clinic for any questions or concerns prior to surgery. documented in this encounter Miscellaneous Notes Miscellaneous - Garcia Palomo - 04/19/2011 5:41 PM EST Miscellaneous - Garcia Palomo - 01/31/2011 9:09 AM EST documented in this encounter Plan of Treatment Not on filedocumented as of this encounter Visit Diagnoses Diagnosis Macromastia - Primary Hypertrophy of breast documented in this encounter Care Teams Oracle Sql Developer Relationship Specialty Start Date End Date Iris Lee MD PCP - General 01/23/[address] [place] [address] documented as of this encounter
--- OUTSIDE RECORDS SUMMARY | 2021-09-14 14:14 | XMS_ITS | Encounter Summary ---
:1965 Author Organization [facility] [place] [address] Care Team Providers Name Role Phone Iris Lee MD Primary Care Provider Encounter Details Date Type Department Care Team Description 01/23/2011 Clinical Support Plastic Surgery at [facility] [place] [facility] ([facility]ERY Cancelled) [place] [address] Social History Tobacco Use Types Packs/Day Years [...] on filedocumented in this encounter Care Teams Professional Security Officer Relationship Specialty Start Date End Date Iris Lee MD PCP - General 01/23/[address] [place] [address] documented as of this encounter
--- OUTSIDE RECORDS SUMMARY | 2021-09-14 14:14 | XMS_ITS | Encounter Summary ---
:1965 Author Organization [facility] [place] [address] Care Team Providers Name Role Phone Unavailable Primary Care Provider Unavailable Encounter Details Date Type Department Care Team Description 10/20/2008 Hospital Encounter Radiology Library at [facility] Dr Agustín [place] [phone] Social History Tobacco Use Types Packs/Day Years Used Date Never Assessed Sex Assigned at Date Recorded Not on file documented as of this encounter Plan of Treatment Not on filedocumented as of this encounter Procedures Procedure Name Priority Date/Time Associated Diagnosis Comme nts FILM LIBRARY Routine 10/20/2008 12:00 AM Screening Results for this STORAGE ONLY MAMMO EDT procedure are in the results section. documented in this encounter Results Film Library- Storage only Mammo (10/20/2008 12:00 AM EDT) Specimen (Source) Anatomical Location Collection Method / Collectio n Time Received Time / Laterality Volume Narrative REECE - 07/06/2015 9:00 AM EDT This exam is for storage only and is aut o-finalizing. Dr Agustín Clemons IMEmani FILM LIBRARY ORDERABLES Performing Organization Address City/State/ZIP Code Phon e Number [place], [place] documented in this encounter Visit Diagnoses Diagnosis Screening Screening for unspecified condition documented in this encounter
--- OUTSIDE RECORDS SUMMARY | 2021-09-14 14:15 | XMS_ITS ---
:1965 External Reference #:[id number] Author Care Team Providers Name Role Phone Bertha Sauer Primary Care Provider Unavailable Allergies None recorded. Medications Name Status Start Date Stop Date ? ? azithromycin 200 mg/5 mL oral suspension Active ? Not available lmpctrxviu-sqavblcvoiuru-ivvetgye 50 mg-325 mg-40 mg Completed ? 04/22/2020 tablet carisoprodol 250 mg tablet Completed ? 05/10 carisoprodol 350 mg tablet Active ? Not a vailable TAKE 1 TABLET BY MOUTH THREE TIMES DAILY AND AT BEDTIME compound drug Completed ? 12/06/2015 compounded medication Active ? Not availa ble cardio-vh 1 cap at noght Crestor 20 mg tablet Completed ? 04/22/2020 Take 1 tablet every day by oral route for 90 days. I am Rx Crestor instead of Statin to av oid possible glucose impairment side effect- it is pending at [address] based on lipid levels in 6 weeks. cyclobenzaprine 10 mg tablet Active ? Not available TAKE ONE TABLET BY MOUTH THREE TIMES A DAY NEEDED FOR MUSCLE SPASM cyclobenzaprine 5 mg tablet Completed ? 04/04 diazepam 2 mg tablet Completed ? 04/18/2016 doxepin 10 mg capsule Completed ? 04/28/2020 TK 1 C PO HS doxycycline hyclate 100 mg capsule Active ? Not available doxycycline hyclate 50 mg capsule Active ? Not available estradiol 10 mcg vaginal tablet Active ? Not available Estring 2 mg (7.5 mcg/24 hour) vaginal ring Completed ? 04/28/2020 INSERT 1 RING VAGINALLY EVERY 3 MONTHS fluconazole 150 mg tablet Completed ? 2015 losartan 50 mg tablet Completed ? 07/14/2015 meclizine 25 mg tablet Active ? Not avail able ondansetron 4 mg disintegrating tablet Active ? Not available oxycodone 5 mg tablet Completed ? 04/18/2016 oxycodone 5 mg/5 mL oral solution Active ? Not available piroxicam 20 mg capsule Active ? Not avai lable TAKE ONE CAPSULE BY MOUTH EVERY DAY ropinirole 1 mg tablet Completed ? 1 TAKE 1 TABLET BY MOUTH EVERY NIGHT 2 TO 3 HOURS BEFORE BEDTIME simvastatin 20 mg tablet Active ? Not kervin ilable sumatriptan 100 mg tablet Active ? Not av ailable TAKE 1 TABLET BY MOUTH 1 TIME sumatriptan 50 mg tablet Completed ? 021 tramadol 50 mg tablet Completed ? 04/22/2020 trazodone 50 mg tablet Completed ? 1 TK 1 T PO QHS PRF [employer] zolpidem 5 mg tablet Completed ? 04/28/2020 TK 1 TO 2 TS PO THE NIGHT OF THE SLEEP STUDY IF NEEDED Notes: most Rx are as needed Problems Name Status Onset Date Source ? Migraine Active 08/05/2000 ? 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 Hyperlipoproteinemia Active 08/05/2009 ? Benign Hypertension Active 08/06/2015 ? Nausea Active 08/04/2020 ? Dietary Management Surveillance Active 08/04/2020 ? Heart Murmur Active 08/02/2021 ? Elevated Liver Enzymes Level Active 08/02/2021 ? Procedures Date Name Performed by ? 03/14/2011 Breast Surgery Information not avai lable 04/23/2007 Arthroscopic Surgery Information not kervin ilable 07/14/2015 Bone Density Study Xray [facility] [address] [place], [place] [address] (Work Place) 08/09/2021 US, Echocardiogram Information not avai lable Results Lab Results Date Name Specimen Result Interpretation Description Value Range Status Address ? 04/26/2016 Magnesium, RBCs ? Magnesium, 1.7 1.5-3.1 Fin al [facility] RBC RBCs mmol/L mmol/L Diagnostic s: [address] [place], [facility] 04/26/2016 Iron + serum ? Iron 174 50-212 Final [facility] Total ug/dL ug/dL Diagnostic s: Iron-bindin [address] [place], ([place]), [facility] rel Serum ? ? serum ? Transferrin 269.5 203.0-[address] mg/dL 2.0 Diagnostic s: mg/dL [address] [place], [facility] ? ? serum ? Tibc 385.4 250.0-45 [facility] ug/dL 0.0 Diagnostic s: ug/dL [address] [place] ? ? serum ? Uibc 211.4 155.0-35 [facility] ug/dL 5.0 Diagnostic s: ug/dL [address] [place], [place] ? ? serum ? %Saturation 45.1 % 14.0-50. Final [facility] 0 % Diagnostic s: [address] [place], [place] 04/26/2016 Lipid serum High Chol 254 <200 [facility] Panel, mg/dL mg/dL Diagnostic s: Serum [address] [place], [place] ? ? serum ? Trig 97 <149 [facility] mg/dL mg/dL Diagnostic s: [address] [place], [place] ? ? serum High Ldl 184.2 <99.0 [facility] mg/dL mg/dL Diagnostic s: [address] [place], [facility] [place] ? ? serum ? Hdl 50 >39 [facility] mg/dL mg/dL Diagnostic s: [address] [place], [place] ? ? serum ? LDL/HDL 3.7 ? [facility] ratio Diagnostic s: [address] [place], [place] ? ? serum ? Trig/hdl 1.9 <2.0 [facility] ratio ratio Diagnostic s: [address] [place], [facility] [place] ? ? serum ? Chol/hdl 5.1 ? [facility] ratio Diagnostic s: [address] [place], [facility] [place] ? ? serum ? Vldl 19.4 <30.0 [facility] mg/dL mg/dL Diagnostic s: [address] [place], [facility] [place] 04/26/2016 Progesteron serum ? Progesterone 1.49 ? F inal [facility] e, Serum NG/mL Diagnost ics: [address] [place], [facility] [place] 04/26/2016 Testosteron serum Low Testosterone 3.6 9.0-55.0 [facility] e, Free + NG/dL NG/dL Diagnos tics: Total, [address] [place], [place] ? ? serum ? Shbg 110.8 30.0-135 [facility] nmol/L .0 Diagnostic s: nmol/L [address] [place], [facility] ? ? serum Low Testosterone, 0.03 0.11-0.5 [facility] Free (C) NG/dL 8 NG/dL Diagnos tics: [address] [place], [facility] 04/26/2016 TSH, Serum serum ? Tsh 2.41 0.27-4.2 [facility] or Plasma uIU/mL 0 uIU/mL Diagn ostics: [address] [place], [facility] 04/26/2016 T3, Free, serum ? Free T3 2.65 2.00-4.9 [facility] Serum or pg/mL 0 pg/mL Diagnos tics: Plasma [address] [place], [facility] 04/26/2016 T4, Total, serum ? Total T4 7.9 5.0-12.5 [place] [facility] Serum ug/dL ug/dL Diagnostic s: [address] [place], [facility] 04/26/2016 T3, Total, serum ? Total T3 1.23 0.80-1.8 [place] [facility] Serum NG/mL 0 NG/mL Diagnosti cs: [address] [place], [facility] 04/26/2016 Dhea, Serum Serum ? Dehydroepiand 1.410 0.630-4 . [facility] rosterone by NG/mL 700 Diag nostics: Tms NG/mL [address] [place], [facility] 04/26/2016 Estrogen Serum ? Estradiol by 48.2 ? [place] [facility] Fraction Tms pg/mL Diagnost ics: Panel, [address] [place] , Plasma [facility] ? ? Serum ? Estrone by 27.3 ? [facility] Tms pg/mL Diagnostic s: [address] [place], [facility] ? ? Serum ? Estrogens 75.5 ? Final [facility] Total pg/mL Diagnostic s: Calculation [address] [place] [address], [facility] 04/26/2016 HbA1C wholebloo ? Hgb a1C 5.1 % 4.0-5.7 [facility] (Hemoglobin d % Diagn ostics: a1C), Blood [address] [place] [address], [facility] 04/26/2016 CBC W/ Auto wholebloo ? White Blood 6.8 4.0-10 .5 [facility] Diff d Cell Count 10^3/uL 10^3/uL Diag nostics: [address] [place], [place] ? ? wholebloo ? Red Blood 4.85 4.20-5.4 Final [facility] d Cell Count 10^6/uL 0 Diagn ostics: 10^6/uL [address] [place], [place] ? ? wholebloo ? Hemoglobin 14.7 12.5-16. [facility] d g/dL 0 g/dL Diagnostic s: [address] [place], [place] ? ? wholebloo ? Hematocrit 43.7 % 37.0-47. [facility] d 0 % Diagnostic s: [address] [place], [place] ? ? wholebloo ? Mean Cell 90 fL 78-100 Final [facility] d Volume fL Diagnostic s: [address] [place], [place] ? ? wholebloo ? Mean Cell 30.2 pg 27.0-31. [facility] d Hemoglobin 0 pg Diagno stics: [address] [place], [place] ? ? wholebloo ? Mean Cell 33.6 32.0-36. Final [facility] d Hemoglobin g/dL 0 g/dL Diagno stics: Concentration [address] [place], [place] ? ? wholebloo ? Red Cell 13.3 % 11.5-14. Final [facility] d Distribution 0 % Diag nostics: Width [address] [place], [place] ? ? wholebloo ? Platelet 297 150-450 Final [facility] d Count 10^3/uL 10^3/uL Diagnost ics: [address] [place], [place] ? ? wholebloo ? Mean Platelet 8.3 fL 6.8-10.2 [place] [facility] d Volume fL Diagnostic s: [address] [place], [place] ? ? wholebloo ? Neutrophil 60.9 % 50.0-70. [facility] d Percent 0 % Diagnosti cs: [address] [place], [place] ? ? wholebloo ? Absolute 4.1 1.5-6.6 Final [facility] d Neutrophil 10^3/uL 10^3/uL Diag nostics: [address] [place], [place] ? ? wholebloo ? Lymphocyte 30.2 % 18.0-42. [facility] Percent 0 % Diagnosti cs: [address] [place], [place] ? ? wholebloo ? Absolute 2.1 0.8-4.8 Final [facility] Lymphocyte 10^3/uL 10^3/uL Diag nostics: [address] [place], [place] ? ? wholebloo ? Monocyte 6.8 % 2.0-11.0 Final [facility] d Percent % Diagnosti cs: [address] [place], [place] ? ? wholebloo ? Absolute 0.50 0.00-0.9 Final [facility] d Monocyte 10^3/uL 0 Diagnos tics: 10^3/uL [address] [place], [place] ? ? wholebloo ? Eosinophil 1.4 % 0.0-5.0 Final M [facility] d Percent % Diagnosti cs: [address] [place], [place] ? ? wholebloo ? Absolute 0.1 0.0-0.5 Final [facility] d Eosinophil 10^3/uL 10^3/uL Diag nostics: [address] [place], [place] ? ? wholebloo ? Basophil 0.7 % 0.0-2.0 Final [facility] d Percent % Diagnosti cs: [address] [place], [place] ? ? wholebloo ? Basophil 0.00 0.00-0.3 Final Me [facility]cy d Absolute 10^3/uL 0 Diagnos tics: 10^3/uL [address] [place], [place] Past Encounters 08/02/2021 Heart Murmur; Elevated Liver Enzymes Lev el; Benign Hypertension Bertha Sauer, ND: [address] [facility] [place] [address], Ph. [phone] 05/11/2021 Temporomandibular Utwep-lzzb-yselubznbhg Syndrome; Fatigue; Vaginal Dryness Bertha Sauer ND: [address] [place] [address], Ph. [phone] 07/27/2020 Nausea; Dietary Management Surveillance; High Hemoglobin a1C Level; Hyperlipoproteinemia Bertha Sauer, ND: [address] [facility], [place] [address], Ph. [phone] 07/07/2020 Tachycardia; Fatigue; Hyperlipidemia Bertha Sauer, ND: [address] [place] [place] [address], Ph. [phone] 04/28/2020 Dietary Management Surveillance; Temporo mandibular Orpma-dvgi-xqphkyzlwqv Syndrome; Hyperlipidemia Bertha Sauer, ND: [address] [place] [place] [address], Ph. [phone] Social History Tobacco Smoking Status Never Smoker Vaccine List Vaccine Type Hep A, adult 09/01/2012 09/15/2012 Td (adult) 09/01/2012 09/16/2019 Plan of Care Patient Instructions 1. stop statin- elevated liver enzymes 2. Ip6 1 [id number] 3. lipotropic complex 1 cap 3xday 4. continue with htn px at night with 1 magnesium- and take another magnesium in am 5. echocardiogram for heart murmur- prob need pror apprival- they will call to schedule 6. BP less than 105 /60 then reduce dose of rauwolfia 7. retest in 6 weeks- ferritin, lipid, l iver panel 8. puregenomics b complex 1/day with sherman d not at night 9. abdominal ultrasound if pain or liver enxymes continue to be high 1. wobenzyme -PS 1 tab 2-3 times a day 2. osteopenia- bone builder 1 cap 3xday 3. cbc ointment level 5- rub into jaw an d neck daily 4. Magnesium taurate 60-180 cap bottles- 1 cap 2xday 5. lower ferritin if still elevated- 6. Doctors Data hormone testing- read in structions in kit- collect on suggested days- if still questions call and leave a message at the office [place]- find another alternative- do f ood elimination- DAIRY FREE to start: new shake- soy, bone broth, rice, almond ? vanilla- blend with 1 tsp flax oil, strawberry, avacado, other berries? fres h are starting to come out at stores/4 corners has strawberries DAIRY free-protein powder: pure paleomea l vanilla herb tincture- liver suport berberine 1 cap in am and pm for blood s ugar support- best with a little food/shake retest a1c, - 2-3 months pay attention to carbs- in diet LABS- FASTING FROM NIGHT BEFORE start hypericum 30c 2-3 pellets 2-3 mauricio es a day until finish bottle try mixing some powders into ensure- get ensure plus- with ifber or try gluce rna talk to Dr. Goins about Doxy and heart racing and nausea- RECHARGE- for eletrolyte Rj- drops for nausea test heartrate- when you feel it racing ther-biotic complete 2 caps in evening o r break it up = continue A and D drops, fish oils, PRESURGERYPRE SURGERY PROTOCOL 1-2 WEEK PREP: ? HIGH PROTEIN DIET: may want to get thi s through cool whey/pea protein powder 30gms 2 xday *If you were already eating a large plan t based diet with adequate nutrition for at least 1 month prior to surgery you may not need this extra supplementation. It aims to reduce the time it takes to heal ? Vitamin C- buffered c powder-2,000 mg/ day ? Liquid Zinc- 1 serving 3xday ? Vitamin A-mulsion 1 drop/day ? Flaxseed meal (freshly ground 1 tbsp/d ay) AVOID FOR ONE WEEK PRIOR : St.Mcallister Wort , Valerian, kava kava, ginseng (panax ginseng and panax cinquefolium), skullcap, passionflower, hops, melatonin, inositol, NO, 5HTP, Cannabis AVOID potential bleeding and clotting is sues ?: 1 week prior as well garlic, gingko, ginseng, bromelain, Mirella min K, alex, rehmannia, rj, ligusticum, atractylodes, reishi, cordyceps, co-enzyme q10, resveratrol, green tea EGCG Vitamin C and E at high does pose risk f or bleeding. SO IF YOU ARE TAKING HIGH DOSES FOR ANOTHER CONDITION 1 week proir cut back to 2000mg Vit C and no Vit E Avoid [place], licorice root POST SURGERY WOUND HEALING PLAN: Arnica, [place] 30c potency 2-3 harrison ets 3xday until finish bottles *Bromelain powder- take on EMPTY STOMACH not with protein powder- 45 minutes away from *Annatto E drops- 1 drops/serving 2xday *Vitamin a mulsion 4 drops/day for 2 wee ks then 2 drops a day for 1 week then 1 drop a day as a daily vitamin *Liquid Zinc 1 serving 3 xday for 2 week s then 1 serving 2xday for 2-3 month or as a daily *Pro-omega liquid- 1 tablespoon or servi ng size/2x day for 1 month or longer Vitamin C- 6,000 mg/day up to bowel tole delmi for 3 weeks- buffered powder form each scoop is more than 2000mg- decrease by 1000mg if diarrhea occurs- or call if diarrhea occurs to get advice on hot to make changes to this dose - Cool Whey Protein powder daily- 1-2 scoo ps--and healthy plant based, grain, fresh fruit diet, NO SALT- RESTRICTION FOLLOWED WILL SPE ED RECOVERY/HEALING of SURGERY WOUNDS this means no eating out as it is imposs ible to control salt intake in prepared foods--everything from scratch POST SURGERY WOUND HEALING PLAN: Arnica, [place] 30c potency 2-3 harrison ets 3xday until finish bottles enzflame- powder for bromelain and infla mmation *Ultra gamma E 1 cap/day *Vitamin a mulsion 4 drops/day for 2 wee ks then 2 drops a day for 1 week then 1 drop a day as a daily vitamin *liquid zinc pure encap-\caps 2xday for 2 weeks then 1 cap 2xday for 2-3 month or as a daily pro-omega liquid Vitamin C- 2,000mg- 6,000 mg/day up to b owel tolerance for 3 weeks- buffered powder form gets higher doses or use capsule of 1000mg each - Protein powder WHEY COOL-has lowest amou nt of sodium compared to all other brands!! daily- 1-2 scoops--and healthy plant based, grain, fresh fruit diet, SALT- RESTRICTION -IF FOLLOWED WILL SP EED RECOVERY/HEALING of SURGERY WOUNDS this means no eating out as it is imposs ible to control salt intake in prepared foods--everything from scratch, no added salt, choose products for liquid diet that are no sodium or very low Reminders Provider Appointments None recorded. ? ? Lab None recorded. ? ? Referral None recorded. ? ? Procedures None recorded. ? ? Surgeries None recorded. ? ? Imaging None recorded. ? ? Vitals 08/02/2021 12:15PM ESTABLISHED PATIENT 45 Height Blood Pressure 5 ft 4 in 130/80 mm[Hg] 05/11/2021 12:30PM ESTABLISHED PATIENT 45 Height Weight BMI Blood Pressure 5 ft 4 in 158 lbs 15.52 oz 27.3 kg/m2 130/88 mm[Hg] 07/07/2020 11:15AM ESTABLISHED PATIENT 45 Height Weight BMI 5 ft 4 in 156 lbs 26.8 kg/m2 04/28/2020 11:00AM ESTABLISHED PATIENT 60 Height Weight BMI Blood Pressure 5 ft 4 in 168 lbs 16 oz 29 kg/m2 112/78 mm[Hg] 07/18/2016 11:15AM ESTABLISHED PATIENT 45 Height Weight BMI Blood Pressure 5 ft 4 in 167 lbs 28.7 kg/m2 120/84 mm[Hg] 04/18/2016 01:30PM ESTABLISHED PATIENT 45 Height Weight BMI 5 ft 4 in 160 lbs 16 oz 27.6 kg/m2 12/06/2015 09:00AM ESTABLISHED PATIENT 45 Height Weight BMI Blood Pressure 5 ft 4 in 140 lbs 16 oz 24.2 kg/m2 (1) 110/88 mm[H g] (2) 108/78 mm[Hg ] 10/04/2015 01:45PM ESTABLISHED PATIENT 45 Height Weight BMI Blood Pressure 5 ft 4 in 147 lbs 25.2 kg/m2 100/70 mm[Hg] 08/04/2015 02:15PM ESTABLISHED PATIENT 45 Height Weight BMI Blood Pressure 5 ft 4 in 139 lbs 16 oz 24 kg/m2 120/70 mm[Hg] 07/14/2015 12:30PM NEW PATIENT 90 Height Weight BMI Blood Pressure 5 ft 4 in 140 lbs 16 oz 24.2 kg/m2 140/90 mm[Hg]
--- OUTSIDE RECORDS SUMMARY | 2021-09-14 14:15 | XMS_ITS | Encounter Summary ---
:1965 External Reference #:[id number] Author Reason for Visit None recorded. Assessment and Plan Assessment Note I spent a total of 45 minutes face to f precious time with this patient and 35 of that time was spent in counseling and coordin ation of care with that patient as described in the progress note and /or: recommende d diagnostic studies, recommended diagnostic studies,for htn risk factor reduction, a nd instructions for treatment and follow-up. Review of 1. Heart murmur ? heart murmur: care instructions ? US, echocardiogram 2. Elevated liver enzymes level ? hepatic function panel, serum 3. Benign hypertension Discussion Note: None recorded. Plan of Care Patient Instructions 1. stop statin- elevated liver enzymes 2. Ip6 1 [id number] 3. lipotropic complex 1 cap 3xday 4. [...] or liver enxymes continue to be high Reminders Provider Appointments None recorded. ? ? Lab Hepatic Function Panel, 08/02/2021 [facility] Lab Referral None recorded. ? ? Procedures None recorded. ? ? Surgeries None recorded. ? ? Imaging US, Echocardiogram 08/09/2021 ? Medications Name Start Date ? ? azithromycin 200 mg/5 mL oral suspension ? carisoprodol 350 mg tablet ? TAKE 1 TABLET BY MOUTH THREE TIMES DAILY AND AT BEDTI ME compounded medication ? cardio-vh 1 cap at nog cyclobenzaprine 10 mg tablet ? TAKE ONE TABLET BY MOUTH THREE TIMES A DAY NEEDED FOR MUSCLE SPASM doxycycline hyclate 100 mg capsule ? TAKE ONE CAPSULE BY MOUTH EVERY DAY doxycycline hyclate 50 mg capsule ? TAKE ONE CAPSULE BY MOUTH EVERY DAY estradiol 10 mcg vaginal tablet ? INSERT TWO TABLETS IN VAGINALLY AT BEDTIME THREE TIME S PER WEEK meclizine 25 mg tablet ? ondansetron 4 mg disintegrating tablet ? oxycodone 5 mg/5 mL oral solution ? piroxicam 20 mg capsule ? TAKE ONE CAPSULE BY MOUTH EVERY DAY simvastatin 20 mg tablet ? TAKE ONE TABLET BY MOUTH EVERY DAY sumatriptan 100 mg tablet ? TAKE 1 TABLET BY MOUTH 1 TIME Notes: most Rx are as needed Medications Administered None recorded. Vitals Height Blood Pressure 5 ft 4 in 130/80 mm[Hg] Results Lab Results None recorded. Allergies None recorded. Problems Name Status Onset Date Source ? Migraine Active 08/05/2000 ? 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 Hyperlipoproteinemia Active 08/05/2009 ? Benign Hypertension Active 08/06/2015 ? Nausea Active 08/04/2020 ? Dietary Management Surveillance Active 08/04/2020 ? Heart Murmur Active 08/02/2021 ? Elevated Liver Enzymes Level Active 08/02/2021 ? Procedures Date Name Performed by ? 03/14/2011 Breast Surgery Information not avai lable 04/23/2007 Arthroscopic Surgery Information not kervin ilable Vaccine List Vaccine Type Hep A, adult 09/01/2012 09/15/2012 Td (adult) 09/01/2012 09/16/2019 Social History Tobacco Smoking Status Never Smoker What type of diet are you following? REGULAR Do you have difficulty walking or climbing N stairs? What is your parents' marital status? Are you currently employed? Y Are you able to care for yourself? Y Marital status Do you have any siblings? Three How much tobacco do you chew? none What is your relationship status? Animal exposure? Y What is your level of alcohol consumption? Occasional Education 12 Frequent air travel N Are you deaf or do you have serious difficulty N hearing? Are you passively exposed to smoke? N Number of sexual partners 1 Legally blind in one or both eyes? N What is the name of your school? [employer] Do you have difficulty dressing or bathing? N How many children do you have? 4 Are you blind or do you have difficulty seeing? N Do you have difficulty doing errands alone? N General stress level Medium What is your exercise level? Moderate Have there been any changes to your family or N social situation? Live alone or with others? with others Are you sexually active? Y Do you have difficulty concentrating, N remembering or making decisions? What types of sporting activities do you Biking, hiking, sno wshoe, Pilates participate in? Hard of hearing or deaf in one or both ears? N What is your level of caffeine consumption? 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 Past Encounters 08/02/2021 Heart Murmur; Elevated Liver Enzymes Lev el; Benign Hypertension Bertha Sauer, [place]: [address] , [place] [address], Ph. [phone] History of Present Illness Note: <div>her bp suddenly went up- </div><div>she had an appt in [facility] emergency room and that set everything off- </div><div> statin drug</div><div> she wakes with having to urinate- she sleep well last night</div><div>
</div><div>she wakes at 2:#-right sided back pain </div><div>
</div><div>neurohome- </div><div> her liver enzymes are levated- </div><div>she has been on statin since surgery for bone growth and healing- </div><div>
</div><div>she has had some salt like taco salad- </div><div> doesnt eat just plain doritos- </div><div> some tenderness </div><div>no nausea no vomiting- </div><div>no pale stools</div><div>
</div><div>she has been on anti-inflaamatory diet and liked it- </div><div>
</div><div>on exam she has some abdominal tenderness on right side and referred pain down to appendix</div><div>
</div><div>cardio-vh has caused low plse 40's and she had to be really careful</div><div>she was taking 2 caps /day cardio-vh an dit was climbing htn was not coming- </div&gt ;<div>her numbers 157/110</div><div> she reports she has had EKG and stress test but no echo every done she hdoes have a murmur</div><div>
</div><div>no carotid in screening through [facility]</div><div>
</div> Review of Systems None recorded. Physical Exam ? General Adult Exam Reported By: Patient Constitutional: General Appearance: healthy- appearing, well-nourished, well-developed. Level of Dis tress: NAD. Ambulation: ambulating normally Psychiatric: Insight: good judgement. Men clyde Status: active and alert, normal mood, normal affect. Orienta tion: to time, to place, to person. Memory: recent memory normal , remote memory normal Head: Head: normocephalic, atrauma tic ENMT: Ears: no lesions on external ear, EACs clear, TMs clear, TM mobility normal. Hearing: no hearing loss. Nose: no lesions on external nose, nares patent, no septal geoff ation, nasal passages clear, no sinus tenderness, no nasal dischar ge. Lips, Teeth, and Gums: no mouth or lip ulcers, no bleeding gums , normal dentition. Oropharynx: moist mucous membranes, no erythem a, no exudates, tonsils not enlarged Neck: Neck: supple, trachea midlin e, no masses, FROM. Lymph Nodes: no cervical LAD, no supraclavic ular LAD, no axillary LAD, no inguinal LAD. Thyroid: no enlargement , non-tender, no nodules Lungs: Respiratory effort: no dyspn ea. Percussion: no dullness, flatness, or hyperresonance. Auscultation : breath sounds normal, good air movement, CTA except as note d, no wheezing, no rales/crackles, no rhonchi Cardiovascular: Heart Auscultation: RRR, mur mur. Neck vessels: no carotid bruits. Pulses including femoral / p edal: normal throughout Abdomen: Bowel Sounds: increased Notes: <div>heart murmur</div><div>
</div>
== END 2021-09-14 14:08 | disposition home or self-care (01) ==
LOC: LBO 14:09
PROVIDERS: PCP Nurse Practitioner; Visit Provider Naturopath
DX: R74.01 Elevation of levels of liver transaminase levels (principal)
CPT/HCPCS: 36415; 80076

== ENCOUNTER 2021-09-20 01:37 | Outpatient (CLI) | payer BC, SELFPAY ==
[2021-09-20 10:50] LABS: Iron 150 ug/dL (50-170); Total Iron Binding Capacity 350 ug/dL (250-450); Transferrin Sat 43 % (15-50)
[2021-09-20 14:11] LABS: Ferritin 283 ng/mL (8-252)
[2021-09-26 10:38] LABS: Specimen WB Whole Blood
== END 2021-09-20 01:38 | disposition home or self-care (01) ==
LOC: LBO 01:38
PROVIDERS: PCP Nurse Practitioner; Visit Provider Naturopath
DX: R77.8 Other specified abnormalities of plasma proteins (principal)
CPT/HCPCS: 36415; 81256; 82728; 83540; 83550

== ENCOUNTER 2021-10-31 15:23 | Outpatient (REF) | payer BC, SELFPAY | END 2021-10-31 15:24 | disposition home or self-care (01) | LOC: LBN 15:23 | PROVIDERS: PCP Nurse Practitioner; Visit Provider Nurse Practitioner Family | DX: J02.9 Acute pharyngitis, unspecified (principal) | CPT/HCPCS: 87070 ==

== ENCOUNTER 2022-06-01 01:40 | Outpatient (CLI) | payer BC, SELFPAY ==
[2022-06-01 10:26] LABS: Iron 148 ug/dL (50-170)
[2022-06-01 10:30] LABS: HCT 42.5 % (36.0-46.0); HGB 14.3 g/dL (11.2-15.7); MCHC 33.6 % (32.0-36.0); MCV 89 fL (80-95); Platelet Count 188 10^3/uL (130-400); RBC 4.77 10^6/uL (3.93-5.22); RDW 12.7 % (11.7-14.6); RDW-SD 41.9 fL; WBC 5.76 10^3/uL (4.4-10.8)
[2022-06-01 10:32] LABS: Hemoglobin A1C 5.7 % (<5.7)
[2022-06-01 10:37] LABS: ALT 211 U/L (14-59); AST 172 U/L (15-37); Albumin 4.1 g/dL (3.4-5.0); Alkaline Phosphatase 71 U/L (46-116); Anion Gap 8.1 mmol/L (3-11); BUN 13 mg/dL (7-18); Bilirubin, Total 0.6 mg/dL (0.2-1.0); CO2 27.9 mmol/L (21.0-32.0); CREATININE 0.8 mg/dL (0.55-1.02); Calcium 9.3 mg/dL (8.5-10.1); Calculated LDL 173 mg/dL (<100); Chloride 104 mmol/L (98-107); Cholesterol 238 mg/dL (<200); Estimated GFR 86.42 (mL/min/1.73m2); Ferritin 313 ng/mL (8-252); Glucose 104 mg/dL (74-106); HDL Cholesterol 48 mg/dL (40-60); Potassium 3.9 mmol/L (3.5-5.1); Sodium 140 mmol/L (136-145); Total Protein 7.9 g/dL (6.4-8.2); Triglyceride 85 mg/dL (<150)
[2022-06-01 12:13] LABS: Lab Add On Test DONE
[2022-06-01 12:37] LABS: Bilirubin, Direct 0.1 mg/dL (0.0-0.2)
== END 2022-06-01 01:41 | disposition home or self-care (01) ==
LOC: LOS 01:40
PROVIDERS: PCP Nurse Practitioner Family; Visit Provider Nurse Practitioner Family
DX: E78.5 Hyperlipidemia, unspecified (principal); R73.03 Prediabetes; R79.89 Other specified abnormal findings of blood chemistry
CPT/HCPCS: 36415; 80053; 80061; 85027; 82248; 82728; 83036; 83540

== ENCOUNTER 2022-07-31 04:18 | Outpatient (CLI) | payer BC, SELFPAY ==
[2022-07-31 12:46] LABS: ALT 195 U/L (14-59); AST 87 U/L (15-37); Alkaline Phosphatase 67 U/L (46-116); Anion Gap 6.1 mmol/L (3-11); BUN 13 mg/dL (7-18); Bilirubin, Total 0.6 mg/dL (0.2-1.0); CO2 27.9 mmol/L (21.0-32.0); CREATININE 0.8 mg/dL (0.55-1.02); Calcium 9.3 mg/dL (8.5-10.1); Chloride 104 mmol/L (98-107); Estimated GFR 86.42 (mL/min/1.73m2); Ferritin 202 ng/mL (8-252); Glucose 99 mg/dL (74-106); Potassium 3.9 mmol/L (3.5-5.1); Sodium 138 mmol/L (136-145); Total Protein 8.2 g/dL (6.4-8.2)
== END 2022-07-31 04:19 | disposition home or self-care (01) ==
LOC: LOS 04:18
PROVIDERS: PCP Nurse Practitioner Family; Visit Provider Naturopath
DX: R77.8 Other specified abnormalities of plasma proteins (principal); R74.01 Elevation of levels of liver transaminase levels
CPT/HCPCS: 36415; 80053; 82728

== ENCOUNTER 2022-11-07 11:10 | Outpatient (CLI) | payer BC, SELFPAY ==
[2022-11-07 12:33] LABS: ALT 70 U/L (14-59); AST 50 U/L (15-37); Albumin 4.1 g/dL (3.4-5.0); Alkaline Phosphatase 71 U/L (46-116); Amylase 35 U/L (25-115); Anion Gap 8.5 mmol/L (3-11); BUN 9 mg/dL (7-18); Bilirubin, Total 0.6 mg/dL (0.2-1.0); CO2 26.5 mmol/L (21.0-32.0); CREATININE 0.8 mg/dL (0.55-1.02); Calcium 9.3 mg/dL (8.5-10.1); Chloride 101 mmol/L (98-107); Estimated GFR 85.89 (mL/min/1.73m2); Glucose 94 mg/dL (74-106); Lipase 50 U/L (16-77); Potassium 3.9 mmol/L (3.5-5.1); Sodium 136 mmol/L (136-145); Total Protein 7.9 g/dL (6.4-8.2)
== END 2022-11-07 11:11 | disposition home or self-care (01) ==
LOC: LOS 11:10
PROVIDERS: PCP Nurse Practitioner Family; Referring Provider Family Medicine; Visit Provider Family Medicine
DX: K75.81 Nonalcoholic steatohepatitis (NASH) (principal); R10.12 Left upper quadrant pain; Z00.00 Encounter for general adult medical examination without abnormal findings
CPT/HCPCS: 36415; 80053; 83690; 82150

== ENCOUNTER 2023-04-17 15:23 | Emergency (ER) | payer BC, SELFPAY ==
[2023-04-17] VITALS (76 sets, daily range): BP systolic 67–183; BP diastolic 47–131; PULSE 61–118; RESP 10–26; TEMP 36.7; O2SAT 90–100
--- NOTE | 2023-04-17 15:30 | DI.CT_ITS ---
Exam(s) CT CHEST PE CTA EXAM: CT CHEST PE CTA CLINICAL HISTORY: chest pain, HTN, exogenous estrogen use. TECHNIQUE: Imaging Protocol: Axial CT angiography was performed with multi-slice acquisition and mu lti-planar and/or 3D reconstructions. CONTRAST MATERIAL: Intravenous: Omnipaque 350 contrast volume:63 mL COMPARISON: No exams were available for comparison FINDINGS: Tracheobronchial tree: Patent where visualized. Pulmonary parenchyma: There is poor inspiration. No focal consolidating infiltrates are present. No architectural distortion. Pulmonary Arteries: No evidence of filling defect to suggest pulmonary emboli. Mediastinum and Eva: No dominant adenopathy or fluid collection. The esophagus is unremarkable. Visualized thyroid gland: Unremarkable. Pleura: No effusion or pneumothorax. Heart: The heart is not dilated. Coronary artery calcification is present. There is a small pericard ial effusion. Aorta: Thoracic aorta non-dilated. No evidence of dissection. Mild atherosclerosis. Upper abdomen: Unremarkable. Soft tissues: Unremarkable. Bones: Within normal limits for the patient's age. IMPRESSION: 1. No evidence of pulmonary embolism, thoracic aortic dissection or aneurysm. 2. Findings were discussed with the emergency department at 4:24 p.m. on 04/17/2023. RADIATION DOSE DELIVERED: 410.18mGy.cm Total DLP DATA REPOSITORY: All CT scans at this facility are submitted to the National Radiology Data Registry (NRDR) Dose Index Registry (DIR) with the [employer] (ACR). RADIATION OPTIMIZATION: All CT scans at this facility use at least one of these dose optimization te chniques: automated exposure control; mA and/or kV adjustment per patient size (includes targeted exa ms where dose is matched to clinical indication); or iterative reconstruction.
--- NOTE | 2023-04-17 15:30 | RT.EKG_ITS ---
APPROVED REPORT Exam: Resting ECG Reason for Exam: Chest Pain Patient Location: E HR:105 bpm ECG Measurements Heart Rate 105 AXIS VA 171 P 55 QRSd 79 QRS 21 QT 345 T -23 QTc 456 Conclusion Sinus tachycardia...rate> 99 Nonspecific repol abnormality, diffuse leads...ST dep, T flat/neg, ant/lat/inf sinus tachycardia, normal axis, t wave inversions st depressions II III aVF, st depressions V3-V6
--- NOTE | 2023-04-17 15:49 | W.ED.GENAD ---
HPI General Date/Time Provider Initiated Documentation: 04/17/23 15:25. HPI Narrative: 57-year-old female history of hypertension, presents with 2 hours of nonexertional anterior chest pain rating to left arm, patient appears uncomfortable, took Shannen-[place] for aspirin content before arrival, denies nausea diaphoresis shortness of breath denies history of coronary disease or thromboembolic disease. Related Data Home Medications Medication Instructions Recorded Confirmed meclizine 25 mg tablet (Motion 25 mg PO BID PRN #50 tab-caps 06/06/15 04/17/23 Sickness (meclizine)) magnesium oxide 250 mg PO DAILY PRN 12/09/20 04/17/23 estradiol 0.01% (0.1 mg/gram) 0.25 appful vaginal .COMPLEX #42.5 01/23/22 04/17/23 vaginal cream grams estradiol 10 mcg vaginal tablet 10 mcg vaginal .COMPLEX #40 tabs 01/23/22 04/17/23 Previous Rx's Medication Instructions Recorded estradiol 0.01% (0.1 mg/gram) 0.25 appful vaginal .COMPLEX #42.5 01/23/22 vaginal cream grams estradiol 10 mcg vaginal tablet 10 mcg vaginal .COMPLEX #40 tabs 01/23/22 Allergies Allergy/AdvReac Type Severity Reaction Status Date / Time meperidine Allergy Severe Other (See Verified 04/17/23 16:13 Comment) promethazine Allergy Intermediate HIVES Verified 04/17/23 16:13 Penicillins Allergy Unknown Other (See Verified 04/17/23 16:13 Comment) Sulfa (Sulfonamide Allergy Unknown Other (See Verified 04/17/23 16:13 Antibiotics) Comment) lisinopril AdvReac Intermediate COUGH Verified 04/17/23 16:13 General Stated Complaint: Chest Pain COURTNEY: 2 Review of Systems Narrative: Review of Systems Constitutional: negative Eyes: negative ENT: negative Cardiovascular: Chest pain Respiratory: negative Gastrointestinal: negative : negative Musculoskeletal: negative Skin: negative Neurologic: negative Psych: negative Exam Narrative Exam Narrative: Physical Examination General: alert, awake, appears uncomfortable HEENT: normocephalic, atraumatic; PERRL, EOM intact, conjunctiva normal; no nasal discharge; moist mucous membranes, oral and pharyngeal mucosa normal, tolerating secretions Neck: supple, trachea midline; full ROM Chest: normal to inspection Respiratory: normal respiratory effort, speaking in full sentences, clear to auscultation, no wheezing, rales or rhonchi Cardiac: regular rate, regular rhythm, S1S2 intact, no murmurs rubs or gallops GI: abdomen soft, non-tender, non-distended; no palpable mass or hepatosplenomegaly Skin: no lesions, rashes or trauma appreciated Neuro: AAOx3, normal speech, moving all extremities Extremities: No peripheral edema Psych: Appropriate mood and affect Course Vital Signs Vital signs: Vital Signs Temperature 36.7 C 04/17/23 15:31 Pulse 111 H 04/17/23 15:31 Respiratory Rate 18 04/17/23 15:31 Blood Pressure 182/131 H 04/17/23 15:31 Pulse Oximetry 100 04/17/23 15:31 Temperature 36.7 C 04/17/23 15:31 Pulse 111 H 04/17/23 15:31 Respiratory Rate 18 04/17/23 15:31 Blood Pressure 182/131 H 04/17/23 15:31 Pulse Oximetry 100 04/17/23 15:31 Pain Level 7 04/17/23 15:31 Medical Decision Making 57-year-old female presents with acute onset chest pain approximately 2 hours ago nonexertional rating to left shoulder and arm, no associate diaphoresis nausea vomiting or shortness of breath, no to be tachycardic and hypertensive in arrival, appears uncomfortable, took Shannen-[place] for aspirin content before arrival, no history of coronary disease or thromboembolic disease; EKG sinus tachycardia normal axis normal intervals consider inferior l to inversions lead III aVF with ST depressions lateral leads, must consider ACS versus PE patient is on exogenous estrogen, versus aortic pathology; will obtain stat CT PE, labs, EKG, troponin, analgesia with fentanyl Zofran close reassessment of symptoms 16: 56 patient resting more comfortably. Blood pressure downtrending 150s/90s after analgesia. Did not want to administer nitroglycerin as patient has inferior lateral ischemic pattern. CT chest negative for PE or thoracic aortic pathology. High clinical suspicion for NSTEMI given initial presentation and initial troponin as well as EKG. Family has extensive family history of cardiac disease. Patient also is prediabetic with hypertension and hyperlipidemia. Discussed case with [facility] however they have expressed that they are at capacity but will run the case by medical office worker business applications developer. If denied [facility] will place call to [facility]. 17: 43 discussed case with cardiology team at [facility] who after reviewing availability has excepted patient for transfer tomorrow. Agrees with starting heparin loading Plavix and high-dose statin. Encouraged nitro as needed for pain. Will discuss with hospitalist plan to either admit until transfer or keep in emergency department until transfer. 18: 34 patient did have hypotensive event in response to nitro administration, as low as 60s systolic. Responded to Trendelenburg and 500 cc crystalloid bolus. Mentating normally. Chest pain-free. 19: 15 patient resting comfortably chest pain-free. Blood pressure 114/84 HR 69 20: 29 patient having increased chest pain. Stat EKG obtained showing biphasic ST segment in V2 T wave inversion V3; flattening of T waves inferior laterally with ST segment returning to baseline in inferior lateral leads. Touch base with [facility] cardiology team who is considering allowing patient to come ED to ED, checking with administrators on-call regarding such a transfer. 22: 33 patient still with chest pain, repeat EKG unchanged. Troponin now over 6000 again I called transfer center to close the loop regarding potential ED to ED transfer; I was alerted that they forgot to call me back and the transfer was approved at 9 PM. Patient will go emergency department emergency department accepting physician Dr. Zimmerman. Patient remains hemodynamically stable. Will continue with analgesia. Heparin running Quality:SDOH Health Related Social Needs: No Data to Display PFSH All Active Problems (Updated 04/17/23 @ 22:37 by Milo Cueto MD) Non-ST elevation AK (NSTEMI) (Acute) Gallbladder polyp (Acute) Nonalcoholic steatohepatitis (CAMARA) (Acute) Beau's lines of nails (Acute) left thumb Elevated ferritin (Acute) Pre-diabetes (Acute) Osteopenia (Acute) Benign paroxysmal positional vertigo (Acute) intermittent Essential hypertension (Acute 12/19/12) off meds after weight loss Hyperlipidemia (Acute) Migraine (Acute) only one in 2020 Vaginal atrophy (Acute 01/07/17) Medical History (Updated 04/17/23 @ 22:37 by Milo Cueto MD) COVID-19 (~02/13/22) Elevated C-reactive protein (11/17/07) Cardiac murmur Chondromalacia of patella Pilonidal cyst (12/06/14) TMJ (temporomandibular joint disorder) (11/19/13) [facility] now seeing Dr 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 Paternal Grandmother , age 94 No problems noted. Sister No problems noted. Son No problems noted. Son No problems noted. Daughter No problems noted. Daughter No problems noted. 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 Caregiver/Support person: No Household members: spouse and other Details: 2 clients live 1/2 the month with them Housing: house Communication Needs: None Do you need help understanding health information?: Never Pets and animals: Yes Pets and animals: cat(s), dog(s) and other Details: bunny Sexually active: Yes Do you think of yourself as: straight/heterosexual Current gender identity: female What is your relationship status?: How often do you talk on the phone with friends or family?: three or more times per week How often do you get together with friends or relatives?: three or more times per week How often do you attend latter-day or buddhist services?: 4 or more times per year Panel score (0-1 are the most socially isolated patients): 3 Dolly/Orthodoxy: Christianity Special dolly needs: No Seatbelt use: always Helmet use: Yes Helmet use: always Drive intox or ride w/intox bus driver school: No Discharge Plan Disposition Patient Disposition: Transfer-Acute Inpatient Care Specific Acute Inpt Facility: [facility] Condition: Stable Discharge Details Chief Complaint: Chest Pain Clinical Impression: Non-ST elevation AK (NSTEMI) Primary Care Provider: Ricardo Rdz ED Provider: Milo Cueto Home Meds and New Rx's Prescriptions: No Action estradiol 0.01 % (0.1 mg/gram) cream 0.25 appful vaginal .COMPLEX Qty: 42.5 2RF Rx Instructions: 0.25 appful vaginally three times weekly to your vulva; estradiol 10 mcg tablet 10 mcg vaginal .COMPLEX Qty: 40 3RF Rx Instructions: 10 mcg vaginally three times a week; meclizine [Motion Sickness (meclizine)] 25 MG tablet 25 mg PO BID PRNQty: 50 magnesium oxide 250 mg magnesium tablet 250 mg PO DAILY PRN
[2023-04-17 15:57] LABS: Abs Immature Grans 0.02 10^3/uL (0.0-0.06); Absolute Basophil Count 0.05 10^3/uL (0.0-0.2); Absolute Eosinophil Count 0.05 10^3/uL (0.0-0.7); Absolute Lymphocyte Count 3.13 10^3/uL (1.2-3.4); Absolute Monocyte Count 0.59 10^3/uL (0.1-0.8); Absolute Neutrophil Count 4.01 10^3/uL (1.2-6.7); Basophils % 0.6; Eosinophils % 0.6; HCT 39.8 % (36.0-46.0); HGB 13.7 g/dL (11.2-15.7); Immature Grans % 0.3; Lymphocytes % 39.9; MCH 28.7 pg (27.0-33.0); MCHC 34.4 % (32.0-36.0); MCV 83 fL (80-95); MPV 9.4 fL (8.0-11.0); Monocytes % 7.5; Neutrophils % 51.1; Platelet Count 212 10^3/uL (130-400); RBC 4.77 10^6/uL (3.93-5.22); RDW 13.2 % (11.7-14.6); RDW-SD 40.8 fL; WBC 7.85 10^3/uL (4.4-10.8)
[2023-04-17] MEDS: Omnipaque 350 MG/ML 100 ML BTL IJ (15:59)
[2023-04-17] MEDS: Normal Saline - Diluent 50 ML VIAL IJ (16:00)
[2023-04-17] MEDS: Ondansetron 4 MG/2 ML VIAL IVP (16:06)
[2023-04-17] MEDS: fentaNYL 100 MCG/2 ML VIAL 50 MCG IVP ×3 (16:06→22:45)
[2023-04-17 16:10] LABS: PTT Activated 26.8 sec (23.6-32.8); Prothrombin Time 10.3 sec (9.1-11.1)
[2023-04-17 16:20] LABS: ALT 40 U/L (14-59); AST 27 U/L (15-37); Albumin 4.2 g/dL (3.4-5.0); Alkaline Phosphatase 78 U/L (46-116); Anion Gap 15.8 mmol/L (3-11); BUN 10 mg/dL (7-18); Bilirubin, Total 0.5 mg/dL (0.2-1.0); CO2 24.2 mmol/L (21.0-32.0); CREATININE 0.7 mg/dL (0.55-1.02); Calcium 9.5 mg/dL (8.5-10.1); Chloride 100 mmol/L (98-107); Estimated GFR 100.81 (mL/min/1.73m2); Glucose 110 mg/dL (74-106); NT-proBNP 81 pg/mL (<300); Sodium 140 mmol/L (136-145); Total Protein 8.2 g/dL (6.4-8.2)
[2023-04-17 16:21] LABS: Potassium 2.9 mmol/L (3.5-5.1)
[2023-04-17 16:22] LABS: Troponin I 112 ng/L (< or =60)
[2023-04-17] MEDS: POTASSIUM CHLORIDE 10 MEQ/100 ML BAG 100 MEQ IVPB (16:46)
--- NOTE | 2023-04-17 17:15 | RT.EKG_ITS ---
APPROVED REPORT Exam: Resting ECG Reason for Exam: chest pain Patient Location: E HR:77 bpm ECG Measurements Heart Rate 77 AXIS WA 162 P 42 QRSd 81 QRS 10 QT 392 T 47 QTc 444 Conclusion Sinus rhythm...normal P axis, V-rate 60- 99 Nonspecific T abnormalities, anterior leads...T <-0.10mV, V2-V4 sinus rhythm, biphasic v2 flat ts v3 v4
[2023-04-17] MEDS: Atorvastatin 40 MG TAB 80 MG PO (17:45)
[2023-04-17] MEDS: nitroGLYcerin 0.4 MG TAB SL (17:45)
[2023-04-17] MEDS: Clopidogrel 300 MG TAB PO (17:45)
[2023-04-17] MEDS: Normal Saline 500 ML 1000 ML IV (18:25)
[2023-04-17] MEDS: Heparin in 0.45% NaCl 25,000 UNIT/250 ML BAG 7.75 UNIT IV (18:35)
[2023-04-17 19:18] LABS: Troponin I 2439 ng/L (< or =60)
--- NOTE | 2023-04-17 20:15 | RT.EKG_ITS ---
APPROVED REPORT Exam: Resting ECG Reason for Exam: chest pain Patient Location: E HR:84 bpm ECG Measurements Heart Rate 84 AXIS MT 159 P 42 QRSd 83 QRS 7 QT 403 T 40 QTc 476 Conclusion Sinus rhythm...normal P axis, V-rate 60- 99 Nonspecific T abnormalities, anterior leads...T <-0.10mV, V2-V4 sinu rhtyhm, normal axis, biphasic V2, t wave inver V3, flattened t waves laterally
--- NOTE | 2023-04-17 22:00 | NUR.NOTE ---
Nursing Note: Patient complaining of headache and pain in jaw. Provider aware.
--- NOTE | 2023-04-17 22:15 | RT.EKG_ITS ---
APPROVED REPORT Exam: Resting ECG Reason for Exam: chest pain Patient Location: E HR:87 bpm ECG Measurements Heart Rate 87 AXIS VT 167 P 34 QRSd 81 QRS 8 QT 380 T 46 QTc 457 Conclusion Sinus rhythm...normal P axis, V-rate 60- 99 sinus rhythm, biphasic v2, flattening of t waves lateral leads
[2023-04-17 22:29] LABS: Troponin I 6288 ng/L (< or =60)
== END 2023-04-17 23:48 | disposition short-term general hospital (02) ==
PROVIDERS: Emergency Provider Emergency Medicine; PCP Nurse Practitioner Family
DX: I21.4 Non-ST elevation (NSTEMI) myocardial infarction (principal); E87.6 Hypokalemia; I10 Essential (primary) hypertension; E78.5 Hyperlipidemia, unspecified
CPT/HCPCS: 71275; 80053; 93005; 96365; 96375; 96376; 99285; 83880; 84484; 85025; 85610; 85730; 93010; J1644; J2405; J3010; J3480; J3490

== ENCOUNTER 2023-04-23 22:17 | Observation (INO) | payer BC, SELFPAY ==
[2023-04-23] VITALS (39 sets, daily range): BP systolic 132–151; BP diastolic 92–105; PULSE 93–115; RESP 16–27; O2SAT 94–98
--- NOTE | 2023-04-23 22:15 | RT.EKG_ITS ---
APPROVED REPORT Exam: Resting ECG Reason for Exam: short of breath Patient Location: E HR:110 bpm ECG Measurements Heart Rate 110 AXIS OH 158 P 28 QRSd 82 QRS 7 QT 304 T [id number] QTc 412 Conclusion Sinus tachycardia...rate> 99 Probable left atrial enlargement...P >50mS, <-0.10mV V1 Probable left ventricular hypertrophy...multiple LVH criteria 5 days sp CABG after AMI Sinus tach, ST elevation in V1-V3 and T wave inversion in V4-V5 T wave flattening in II, aVL. slight st deprin I. Normal axis. Changed from previous but consistent with recent NM and bypass grafting.
--- NOTE | 2023-04-23 22:15 | DI.RAD_ITS ---
Exam(s) XR PORTABLE CHEST AP EXAM: XR PORTABLE CHEST AP CLINICAL HISTORY: shortness of breath. TECHNIQUE: 2D digital imaging was performed. COMPARISON: No exams were available for comparison FINDINGS: Single AP portable view. Sternotomy wires and evidence of CABG noted Heart size is upper normal. The mediastinum is not widened. There is infiltrate in the left lower lobe retrocardiac region. Also blunting of left costophrenic a ngle indicating small left pleural effusion. Right lung is clear. No pulmonary edema. IMPRESSION: Left lower lobe infiltrate and small left pleural effusion. Sternotomy. CABG. No pulmonary edema. DATA REPOSITORY: RADIATION DOSE DELIVERED:
[2023-04-23 22:53] LABS: Abs Immature Grans 0.05 10^3/uL (0.0-0.06); Absolute Basophil Count 0.05 10^3/uL (0.0-0.2); Absolute Eosinophil Count 0.21 10^3/uL (0.0-0.7); Absolute Lymphocyte Count 2.34 10^3/uL (1.2-3.4); Absolute Neutrophil Count 6.16 10^3/uL (1.2-6.7); Basophils % 0.5; Eosinophils % 2.2; HCT 34.4 % (36.0-46.0); HGB 11.6 g/dL (11.2-15.7); Immature Grans % 0.5; Lymphocytes % 24.3; MCH 28.8 pg (27.0-33.0); MCHC 33.7 % (32.0-36.0); MCV 85 fL (80-95); MPV 9.4 fL (8.0-11.0); Monocytes % 8.3; Neutrophils % 64.2; Platelet Count 260 10^3/uL (130-400); RBC 4.03 10^6/uL (3.93-5.22); RDW 13.9 % (11.7-14.6); RDW-SD 43.3 fL; WBC 9.61 10^3/uL (4.4-10.8)
--- NOTE | 2023-04-23 22:55 | ED.GENADUL_ITS ---
Discharge Plan Disposition Patient Disposition: Admit to [facility] Condition: Stable Discharge Details Clinical Impression: Shortness of breath, Essential hypertension, Vaginal atrophy, Pre-diabetes, Non-ST elevation WV (NSTEMI), Hyperlipidemia, Atelectasis of both lungs Admit Date/Time: 04/24/23 02:40 Admit Provider: Jose Ramos Attending Provider: Jose Ramos Primary Care Provider: Ricardo Rdz ED Provider: Pamela Gaston Discharge Data Discharge Date/Time-TO BE ENTERED AT DEPARTURE: 04/24/23 04:04 HPI General Mode of arrival: EMS . Date/Time Provider Initiated Documentation: 04/23/23 22:19 . Limitations to Documentation: no limitations . Information obtained by: patient, family (Daughter and ), EMS, RN notes reviewed and old records reviewed . HPI Narrative: Time seen was on arrival in bed 2. The patient is a 57-year-old female who was discharged from [facility] today after bypass grafting on the after presenting here with chest pain on 17 April. The patient tells me that she did have an WV and her symptoms were chest pain radiating to her neck. She states she has been short of breath since her surgery but she has had worsening shortness of breath since she was discharged today. She states she is not having any severe chest pain but her shortness of breath is worse with recumbency. She denies any unilateral leg swelling or pain. She has no history of thromboembolic disease. She has not had a productive cough fever or chills. No URI symptoms. She did have a small right-sided pleural effusion and did have a drain in the right posterior chest, which was removed prior to her discharge. She has no history of asthma or other pulmonary disease. She did tell me she was diagnosed with an acute myocardial infarction prior to her bypass grafting. On arrival her sats were 94% but her and daughter requested that she be placed on pacer pads and given supplemental oxygen. She has no history of syncope. No fevers or chills. No productive cough. Related Data Home Medications Medication Instructions Recorded Confirmed meclizine 25 mg tablet (Motion 25 mg PO BID PRN #50 tab-caps 06/06/15 04/24/23 Sickness (meclizine)) magnesium oxide 250 mg PO DAILY PRN 12/09/20 04/24/23 aspirin 81 mg chewable tablet 81 mg PO DAILY 04/24/23 04/24/23 atorvastatin 80 mg tablet 80 mg PO DAILY 04/24/23 04/24/23 estradiol 0.01% (0.1 mg/gram) 1 appful vaginal .2-3 times per 04/24/23 04/24/23 vaginal cream week isosorbide mononitrate 30 mg 30 mg PO DAILY 04/24/23 04/24/23 tablet,extended release 24 hr metoprolol tartrate 25 mg tablet 25 mg PO BID 04/24/23 04/24/23 tramadol 50 mg tablet 50 - 100 mg (1 - 2 x 50 mg) PO Q6H 04/24/23 PRN PRN pain #40 tabs Previous Rx's Medication Instructions Recorded tramadol 50 mg tablet 50 - 100 mg (1 - 2 x 50 mg) PO Q6H 04/24/23 PRN PRN pain #40 tabs Allergies Allergy/AdvReac Type Severity Reaction Status Date / Time meperidine Allergy Severe Other (See Verified 04/23/23 22:29 Comment) promethazine Allergy Intermediate HIVES Verified 04/23/23 22:29 Penicillins Allergy Unknown Other (See Verified 04/23/23 22:29 Comment) Sulfa (Sulfonamide Allergy Unknown Other (See Verified 04/23/23 22:29 Antibiotics) Comment) lisinopril AdvReac Intermediate COUGH Verified 04/23/23 22:29 General Stated Complaint: SOB COURTNEY: 2 Review of Systems Narrative: see hpi Exam Narrative Exam Narrative: The patient is a well-developed well-nourished female who is alert and oriented holding a red hard pillow to her chest. She appears mildly dyspneic at rest but is able to speak in full sentences. She is hypertensive and slightly tachycardic. Her respiratory rate was 16. Her room air O2 sat was 94%. Her GCS is 15. Const General: cooperative, well developed, well groomed, anxious, not diaphoretic, not ill appearing, does not appear intoxicated, not lethargic and well hydrated Nutritional Appearance: average body habitus and well nourished Orientation: alert, awake and oriented x3 HENMT Head: normal to inspection, normocephalic and atraumatic Ears: hearing grossly normal bilaterally and external ears normal General nose exam: external nose normal, nares normal and no nasal discharge Face and sinus: normal facial exam and face symmetric Mouth: oral mucosae normal and lip normal Throat: posterior oropharynx normal and uvula midline Eyes General: appearance normal, both eyes and all related structures Eyelids: eyelids normal Conjunctivae: conjunctival abnormality (Slightly pale) bilaterally Sclera: sclerae normal Cornea: corneas normal Pupils: PERRL EOM: EOM intact bilaterally and No nystagmus Other: Conjunctiva slightly pale Neck Neck: full ROM, no lymphadenopathy, no meningeal signs, trachea midline and supple Lymphatic: no lymphadenopathy noted Other: There is a area on her right neck which appears consistent with a right central IJ line. No JVD. Trachea is midline. No cricoid tenderness Chest Other: Her chest reveals a well-healing midline sternotomy scar, there are 2 sutures in the bilateral inferior anterior chest wall, consistent to chest tubes. There is a well-healing surgical incision with a suture in place on the right posterior thorax. All her wounds appear to be healing well, without discharge, erythema or fluctuance. Resp Other: The patient appears mildly dyspneic and tachypneic at rest. Her lungs are clear to auscultation without wheezing rales or rhonchi. There is no dullness to percussion. Cardio Jugular venous pressure: no JVD Palpation: normal PMI Rate: regular rate Rhythm: regular rhythm Heart Sounds: S1 normal, S2 normal, no gallops, no murmurs and no rubs Pulses: normal peripheral pulses GI Inspection: non-distended Palpation: soft, no hepatosplenomegaly, no guarding and nontender Auscultation: normal bowel sounds General: No CVA tenderness Back/Spine/Pelvis Back: no CVA tenderness and No back tenderness Cervical Spine: normal cervical lordosis, cervical ROM normal, No cervical muscular tenderness, No pain with cervical ROM, No cervical spinal tenderness and No step off deformity Thoracic/Lumbar Spine: thoracic and lumbar spine normal to inspection, No thoracic spinal tenderness and No lumbar spinal tenderness Skin General skin exam: no rashes or lesions noted, turgor normal, no petechiae and no purpura Lesions: no lesions Rashes: no rashes Other: See above her descriptions of her surgical incisions. Neuro General: patient alert, patient awake, patient oriented x3, moves all extremities, no meningeal signs, no focal motor deficits and CN's II-XI intact bilaterally Cranial Nerves: CN's II-XI intact bilaterally, PERRL, accommodation normal, EOM intact bilaterally, no nystagmus, facial strength normal, tongue midline, hearing normal and no nystagmus Cognition: normal cognition Speech: speech normal Motor: muscle tone normal throughout and strength 5/5 throughout Sensory Exam: no sensory deficits noted Pupils: Normal pupillary reactivity/response: bilateral Extrem General: normal to inspection, full ROM, capillary refill normal, no clubbing, cyanosis or edema and no calf tenderness Other: No Homans' sign to cords. No significant asymmetric swelling. Psych Appearance: grossly normal Affect: normal affect Attitude: cooperative Thought Process: normal Thought Content: normal Insight: insight good Judgment: judgment good Other: The patient appears to have capacity make medical decisions. Course 23:35 patient and her family were upset because the patient was left without a callbell by the nursing staff. She tells me she has had 2 syncopal episodes since she was here. She has been on a sample clerk throughout her stay and there was no arrhythmia or change in her blood pressure. It sounded as though her episodes lasted a few seconds. I explained to them that I have already spoken with her cardiothoracic surgeon Dr. Johnson and that he did not recommend a CT scan initially.. The daughter requested that the pacer pads be put on which the nursing staff complied with. She has been in a regular rhythm and has not gotten hypotensive since she has been here. The family was reque sting that she be transferred to [facility]. I explained that Dr. Johnson did not feel that was necessary at this time but I told him I would call him back after all the ancillary services had been resulted. I told them that he felt she could be discharged home if her workup was unremarkable and he would be able to follow-up with her this week at [facility]. Her daughter stated she did not feel comfortable with this and I advised that we get the workup complete and then I would contact Dr. Johnson and disposition would be determined thereafter. 23:44 PM the patient has very small pleural effusions not large enough to account for her shortness of breath and we will order a CT scan of her chest to rule out PE. I am concerned that her family is upset. I do not see an indication for external pacer pads which are very expensive and for which I do not see an indication at this time. The family also demanded that a crash cart be taken with the patient to CT scanning. The 1:30 AM I have reviewed the patient's results of the CT scan. The patient states she has been using her incentive spirometer but has not been able to use it effectively because she feels dyspneic. We do not have a respiratory therapist available to do pulmonary toilet here tonight. We will take her off her oxygen for 15 or 20 minutes to evaluate whether she has an oxygen requirement. If her sat is greater than 92% we will admit her overnight. Her daughter tells me she is not comfortable taking her home. I will update Dr. Johnson after that. 2:29 AM I have spoken with Dr. Johnson and told about the results of the CT and the O2 sat of 91%. He agreed with the plan to admit overnight with pulmonary toilet. He wanted her to get her Imdur and baby aspirin 3:36 AM I have spoken with Dr. Veloz on the hospitalist. He agreed with the plan to admit to telemetry. I told him that Dr. Johnson. Call him in between cases tomorrow morning with an update. I have updated the patient who agrees with the plan to admit. I will write admitting orders. Consultations Consultation #1: Dr. Johnson cardiothoracic surgery at [facility]. He said that she had a very small pleural effusion. He said she would have an abnormal troponin. He had no further recommendation but agreed with the workup for PE. I did speak with Dr. Johnson again after the patient's CT scan and blood work has been resulted. I informed him of my plan to admit the patient and he said he would call the hospitalist in the morning between cases to discuss her case. I spoke with the hospitalist who agreed to admit her and did write holding orders. Vital Signs Vital signs: Vital Signs Pulse 115 H 04/23/23 22:26 Respiratory Rate 16 04/23/23 22: Blood Pressure 148/105 H 04/23/23 22: Pulse Oximetry 94 04/23/23 22: Pulse 115 H 04/23/23 22:26 Respiratory Rate 16 04/23/23 22: Blood Pressure 148/105 H 04/23/23 22:26 Blood Pressure Position Sitting 04/23/23 22:26 Pulse Oximetry 94 04/23/23 22:26 Oxygen Delivery Method Room Air 04/23/23 22:26 Oxygen Flow Rate 0 04/23/23 22:26 Pain Level 2 04/23/23 22:26 Lab/Test Results Lab/Test Results: Laboratory Tests Range/Units 04/23/23 22:44 WBC (4.4-10.8) 10^3/uL 9.61 RBC (3.93-5.22) 10^6/uL 4.03 Hgb (11.2-15.7) g/dL 11.6 Hct (36.0-46.0) % 34.4 L MCV (80-95) fL 85 MCH (27.0-33.0) pg 28.8 MCHC (32.0-36.0) % 33.7 RDW (11.7-14.6) % 13.9 Plt Count (130-400) 10^3/uL 260 MPV (8.0-11.0) fL 9.4 Immature Gran % 0.5 Neutrophils % 64.2 Lymphocytes % 24.3 Monocytes % 8.3 Eosinophils % 2.2 Basophils % 0.5 Nucleated RBC % (0.0-0.3) % 0.0 Absolute Neutrophils (1.2-6.7) 10^3/uL 6.16 Absolute Lymphocytes (1.2-3.4) 10^3/uL 2.34 Absolute Monocytes (0.1-0.8) 10^3/uL 0.80 Absolute Eosinophils (0.0-0.7) 10^3/uL 0.21 Absolute Basophils (0.0-0.2) 10^3/uL 0.05 Medical Decision Making This is a 57-year-old female who recently had an acute myocardial infarction after experiencing chest pain radiating to her neck. She was seen here and transferred to [facility] on April 17 and is status post coronary artery bypass grafting with a ASHBY on April 19, who was discharged this afternoon and who presents with shortness of breath. She certainly could have a PE and I will obtain a D-dimer though this will likely be abnormal as will her troponin and EKG because of her recent surgery and WV. Other considerations are atelectasis. She has not been using her incentive spirometer because she finds it difficult to take a deep breath. She does not have pleuritic chest pain or asymmetric extremity pain or edema. We will also check her for COVID flu and RSV. I do not hear Rales and she does not have dullness to percussion but she certainly could have a recurrent pleural effusion or recurrent pneumothorax. She could also be anemic. She does appear quite anxious. I do not believe she had a syncopal episode in the emergency department though she endorses 2 of them. Since she has been on the monitor and has not had any arrhythmias or change in her blood pressure it seems unlikely that this was physiologic syncope. Her family has been challenging to deal with dictating her care while she is here. They seem to understand that we cannot transfer her without an accepting physician and there is no indication for that currently. We will check her CBC for leukocytosis anemia and left shift. We will check a complete metabolic panel to evaluate for electrolyte abnormality renal function, liver function and glucose. I will check a troponin though I believe it will be elevated. Her EKG is abnormal but that is to be expected following her recent WV and bypass grafting. I plan to consult cardiothoracic surgery at [facility] and send them copies of her EKG and radiographs. Differential Diagnosis Differential Diagnosis: PE, atelectasis, URI, pleural effusion, pneumothorax Medical Records Medical records reviewed: Yes I reviewed the patient's medical records. Imaging Data Radiologic Study: Imaging: CT Scan (CTA chest) Radiologist's impression: The rad impression: 1. no pulmonary embolism. 2. Bilateral small pleural effusions with lower lobe atelectasis, larger on the left side. 3. Post CABG Lab Data Lab results reviewed: Yes I reviewed the patient's lab results. Lab results narrative: Normal white count. Slightly decreased hematocrit at 34.4. Normal differential. Normal INR. Slightly elevated PTT. Elevated D-dimer. Normal electrolytes, normal renal function, mild elevation of glucose mild hypomagnesemia mild elevation of troponin consistent with recent anion bypass, negative COVID flu and RSV, normal proBNP. ECG Data Attestation: I personally reviewed and interpreted this ECG (s) as follows: Prior ECG tracings: available for review Quality:SDOH Health Related Social Needs: No Data to Display Critical Care Time Critical Care Time Critical Care Time: Yes Total Critical Care Time: 68 Attestation: This includes time at the bedside, including multiple reassessments and discussions with patient and patient's family. This includes review of labs and radiographs and interpretation of EKG. This includes consultation x 2 with cardiothoracic surgery at [facility] and with the hospitalist here. It also includes writing admission orders. PFSH All Active Problems Bilateral pleural effusion (Acute) Musculoskeletal chest pain (Acute) Atelectasis (Acute) Coronary artery disease (Chronic) S/P CABG (coronary artery bypass graft) (Acute) Atelectasis of both lungs (Acute) Shortness of breath (Acute) Non-ST elevation WV (NSTEMI) (Acute) Gallbladder polyp (Acute) Nonalcoholic steatohepatitis (CAMARA) (Acute) Beau's lines of nails (Acute) left thumb Elevated ferritin (Acute) Pre-diabetes (Acute) Osteopenia (Acute) Benign paroxysmal positional vertigo (Acute) intermittent Essential hypertension (Acute 12/19/12) off meds after weight loss Hyperlipidemia (Acute) Migraine (Acute) only one in 2020 Vaginal atrophy (Acute 01/07/17) Medical History COVID-19 (~02/13/22) Elevated C-reactive protein (11/17/07) Cardiac murmur Chondromalacia of patella Pilonidal cyst (12/06/14) TMJ (temporomandibular joint disorder) (11/19/13) July 2020-[facility]; s/p surgeries now seeing Dr Dari Noguera, 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 Paternal Grandmother , age 94 No problems noted. Sister No problems noted. Son No problems noted. Son No problems noted. Daughter No problems noted. Daughter No problems noted. 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 Caregiver/Support person: No Household members: spouse and other Details: 2 clients live 1/2 the month with them Housing: house Communication Needs: None Do you need help understanding health information?: Never Pets and animals: Yes Pets and animals: cat(s), dog(s) and other Details: bunny Sexually active: Yes Do you think of yourself as: straight/heterosexual Current gender identity: female What is your relationship status?: How often do you talk on the phone with friends or family?: three or more times per week How often do you get together with friends or relatives?: three or more times per week How often do you attend anabaptist or buddhist services?: 4 or more times per year Panel score (0-1 are the most socially isolated patients): 3 Dolly/Synagogue: [employer] Special dolly needs: No Seatbelt use: always Helmet use: Yes Helmet use: always Drive intox or ride w/intox hole digger truck driver: No
--- NOTE | 2023-04-23 23:09 | DI.VRAD_ITS ---
PROCEDURE INFORMATION: Exam: XR Chest Exam date and time: 04/23/2023 10:49 PM Age: 57 years old Clinical indication: Shortness of breath; Prior surgery; Surgery date: <1 month; Surgery type: Cabg 8 days ago; Patient HX: SOB TECHNIQUE: Imaging protocol: Radiologic exam of the chest. Views: 1 view. COMPARISON: CT CHEST PE CTA 04/17/2023 3:57 PM FINDINGS: Lungs: There is retrocardiac consolidation/collapse. Pleural spaces: Blunting of bilateral costophrenic angles suggestive of small bilateral effusions. Heart/Mediastinum: Post CABG. Mild cardiomegaly. Bones/joints: Mild degenerative disease of the right acromioclavicular joint. Post left distal claviculectomy. IMPRESSION: Post CABG. Retrocardiac consolidation/collapse. Small bilateral pleural effusions. Dictated and Authenticated by: Reg Gutiérrez MD. Ordering:GUS Santiago MD
[2023-04-23 23:12] LABS: ALT 30 U/L (14-59); AST 27 U/L (15-37); Albumin 3.5 g/dL (3.4-5.0); Alkaline Phosphatase 72 U/L (46-116); Anion Gap 12.4 mmol/L (3-11); BUN 8 mg/dL (7-18); Bilirubin, Total 0.5 mg/dL (0.2-1.0); CO2 23.6 mmol/L (21.0-32.0); CREATININE 0.7 mg/dL (0.55-1.02); Calcium 9.6 mg/dL (8.5-10.1); Chloride 104 mmol/L (98-107); Estimated GFR 100.81 (mL/min/1.73m2); Glucose 122 mg/dL (74-106); Magnesium 1.8 mg/dL (1.8-2.4); Potassium 3.5 mmol/L (3.5-5.1); Sodium 140 mmol/L (136-145)
[2023-04-23 23:17] LABS: Troponin I 296 ng/L (< or =60)
[2023-04-23 23:32] LABS: PTT Activated 22.3 sec (23.6-32.8); Prothrombin Time 9.9 sec (9.1-11.1)
[2023-04-23 23:49] LABS: D-Dimer 3976 ng/mlFEU (<500)
[2023-04-24] VITALS (112 sets, daily range): BP systolic 104–144; BP diastolic 71–95; PULSE 91–115; RESP 11–31; TEMP 37.3–37.6; O2SAT 90–97
--- NOTE | 2023-04-24 | DI.CT_ITS ---
Exam(s) CT CHEST PE CTA EXAM: CT CHEST PE CTA CLINICAL HISTORY: shortness of breath s/p CABG. TECHNIQUE: Imaging Protocol: CT angiography of the chest was performed using pulmonary embolus diana col. Multi planar reconstructions were performed. CONTRAST MATERIAL: Intravenous: Omnipaque 350 Contrast volume: 100 cc COMPARISON: CT CT CHEST PE CTA from 04/17/2023 FINDINGS: CHEST: PULMONARY ARTERIES: There are no intraluminal filling defects to suggest acute pulmonary emboli. LUNGS: Small bilateral pleural effusions are noted, left larger than right and associated with some v olume loss in the basal segments of the lower lobes bilaterally, more so on the left side.. Spina mi ld increased markings in the lung bases are noted. No findings in the trachea and mainstem bronchi. MEDIASTINUM: There is no hilar nor mediastinal adenopathy. CARDIAC: Recent appearing sternotomy.CABG. Diameter of thoracic aorta is within normal limits. No d issection. There is no significant shift of the interventricular septum. PARTIALLY VISUALIZED UPPERMOST ABDOMEN: No obvious findings OSSEOUS: Recent sternotomy. No fractures. No significant osseous lesions.. IMPRESSION: 1. No evidence of acute pulmonary emboli. No evidence of pulmonary infarction.Small pleural effusion s lung, left side larger than right side and there is bilateral volume loss in the basal segments of both lower lobes. 2. Recent sternotomy/CABG. 3. No evidence of aortic dissection nor pericardial effusion. RADIATION DOSE DELIVERED: 423.38mGy.cm Total DLP DATA REPOSITORY: All CT scans at this facility are submitted to the National Radiology Data Registry (NRDR) Dose Index Registry (DIR) with the [employer] (ACR). RADIATION OPTIMIZATION: All CT scans at this facility use at least one of these dose optimization te chniques: automated exposure control; mA and/or kV adjustment per patient size (includes targeted exa ms where dose is matched to clinical indication); or iterative reconstruction.
[2023-04-24 00:13] LABS: COVID-19 PCR Negative (Negative); Influenza A PCR Negative (Negative); Influenza B PCR Negative (Negative); RSV PCR Negative (Negative)
--- NOTE | 2023-04-24 00:13 | NUR.NOTE ---
Nursing Note:Family requested the pt have the code cart next to the pt and on the pacer pads, the family is concerned, Nursing equipment records supervisor spoke to family about there concerns. assisted to the bedside commode
[2023-04-24] MEDS: Normal Saline Flush 10 ML SYR IVP ×2 (00:28→08:19)
[2023-04-24 00:29] LABS: Troponin I 264 ng/L (< or =60)
[2023-04-24 00:29] LABS: Source Nasopharynx
[2023-04-24] MEDS: Omnipaque 350 MG/ML 100 ML BTL IJ (00:29)
[2023-04-24] MEDS: Normal Saline - Diluent 50 ML VIAL IJ (00:31)
--- NOTE | 2023-04-24 01:15 | DI.VRAD_ITS ---
PROCEDURE INFORMATION: Exam: CTA Chest With Contrast Exam date and time: 04/24/2023 12:32 AM Age: 57 years old Clinical indication: Shortness of breath; Prior surgery; Surgery date: 3-7 days post-operative; Patient HX: SOB S/P cabg TECHNIQUE: Imaging protocol: Computed tomographic angiography of the chest with contrast. Exam focused on the arteries. 3D rendering (Not supervised by radiologist): MIP and/or 3D reconstructed images were created by the technologist. Radiation optimization: All CT scans at this facility use at least one of these dose optimization techniques: automated exposure control; mA and/or kV adjustment per patient size (includes targeted exams where dose is matched to clinical indication); or iterative reconstruction. Contrast material: OMNIPAQUE 350; Contrast volume: 85 ml; Contrast route: INTRAVENOUS (IV); COMPARISON: CT CHEST PE CTA 04/17/2023 3:57 PM FINDINGS: Pulmonary arteries: Normal. No pulmonary emboli. Aorta: Unremarkable. No aortic aneurysm. No aortic dissection. Lungs: Calcified granulomas in the right upper lobe. Pleural spaces: There are bilateral pleural effusions with lower lobe atelectasis, larger on the left side. Heart: Unremarkable. No cardiomegaly. No pericardial effusion. Coronary arteries: Post CABG. There are moderate coronary calcifications. Lymph nodes: Unremarkable. No enlarged lymph nodes. Bones/joints: There is a minimal curvature of the upper thoracic spine convex to the left. Soft tissues: Unremarkable. IMPRESSION: 1. No pulmonary embolism. 2. Bilateral small pleural effusions with lower lobe atelectasis, larger on the left side. 3. Post CABG. Dictated and Authenticated by: Reg Gutiérrez MD. Ordering:GUS Santaigo MD
[2023-04-24 02:08] LABS: Troponin I 272 ng/L (< or =60)
--- NOTE | 2023-04-24 03:26 | NUR.NOTE ---
Nursing Note: Late entry The pts family member were upset with the lack of care that the pt was getting stating that she needed to be placed on the code cart at all times, the pt told staff that after she had x-ray they left her alone in the room and that she had been sitting on the side of the bed and passed out numerous times. Staff had spoken to the pt and the pt stated she felt weak and that she was feeling faint but she wanted to stay sitting on the side of the bed for her breathing. This nurse stated that the pt should be sitting up in the bed with rails up if she feels faint. the pt was anxious and stated that she could not take a deep breath and that [place] [facility] [place] to walk but she did not feel that she could walk far and decided that she should not walk anyplace. the pts family became concerned when the pt went to CT, they requested the code cart was to go with her. Staff reassured that the pt was stable and that there was a code cart in CT if needed and that she would be with an ICU nurse. This nurse stayed with the pt and family and reeducated the pt on incentive spirometer and the goals on how often to use it. The pts family member stated that she will not feel safe if the pt was to go home and that she would not take her home. The nursing cold rolling supervisor and MD spoke to the pt. POC: admit
--- NOTE | 2023-04-24 04:35 | W.PM.HP.N ---
Date of service: 04/24/23 Time of Service: 04:35 Assessment and Plan Assessment and plan (1) Shortness of breath: Status: Acute Assessment and plan: I agree with the assessment of Dr. Gaston in consultation with the CT surgery team that the shortness of breath is likely attributable to her atelectasis, though the reason progression in her symptoms after discharge isn't totally clear. CT is reassuring that no focal infection or PE, d-dimer elevated related to her surgery. Will monitor on telemetry and get pulmonary toilet when respiratory therapy available to help. (2) Coronary artery disease: Status: Chronic Assessment and plan: Continue aspirin, atorvastatin, isosorbide per CT surgery team. EKG does not suggest a new or evolving process. Troponins were high but not dynamic, which is attributable to her recent CABG. (3) S/P CABG (coronary artery bypass graft): Status: Acute Assessment and plan: As above, expect he surgeon to reach out ot hospitalist team during day to update any recommendations. (4) Nonalcoholic steatohepatitis (CAMARA): Status: Acute Assessment and plan: Her admission labs are not c/w active liver inflammation or fibrosis. (5) DVT prophylaxis: Status: Acute Assessment and plan: mechanical prophylaxis and ambulation (6) Discharge planning issues: Status: Acute Assessment and plan: discharge pending evolution of her symptoms, should make plan with her cardiac/CT surgery team prior to discharge. History of Present Illness History of Present Illness Chief Complaint: short of breath Narrative: 57 yo female who initially presented 04/17/23 with chest pain and was diagnosed with NSTEMI, underwent CABG at [facility] 04/19 and was discharged 04/23, presenting on the evening of her discharge with increasing difficulty breathing. She states she had been breathing better gradually, but was getting worse again at home. Feels like she just can't get a full breath. Worse lying back, better when sitting up with shoulders back. She states she had fluid drained from the right lower lung before she left but they didn't get a lot out, feels like this is the area of the problem. She hasn't had fevers, nasal congestion, cough or sputum production. No leg pain or swelling. She has pulling in her chest at the incision, but no increase in chest pain associated with the shortness of breath, no palpitaitons. There is note that the patient's family reported syncopal episodes in the ED but the patient does not endorse loosing consciousness, and no events were noted on cafeteria monitor or by nursing. She states she feels okay other than not being able to get a full breath. Review of Systems Constitutional Constitutional: Denies anorexia, Denies chills, Denies fever(s) and Denies poor appetite Eyes Eyes: Denies change in vision and Denies irritation ENT Ears, Nose, Mouth, and Throat: Denies dizziness, Denies nasal congestion, Denies nasal discharge and Denies sore throat Cardiovascular Cardiovascular: Denies leg edema, Denies palpitations and Reports orthopnea Respiratory Respiratory: Denies cough, Denies excessive phlegm production and Denies wheezing Gastrointestinal Gastrointestinal: Denies abdominal pain, Denies melena, Denies hematochezia, Denies heartburn, Reports loose stools, Denies nausea and Denies vomiting Genitourinary Genitourinary: Denies hematuria, Denies dysuria and Denies urinary incontinence Integumentary/Breasts Skin/Breast: Denies rash and Denies skin ulcer Neurologic Neurologic: Denies confusion, Denies dizziness, Denies localized weakness and Denies sensory deficit Psychiatric Psychiatric: Denies confusion and Denies mood swings Endocrine Endocrine: Denies palpitations Hematologic/Lymphatic Hematologic/Lymphatic: Denies easy bleeding Allergic/Immunologic Allergic/Immunologic: Denies wheezing PFSH All Active Problems (Updated 04/24/23 @ 05:01 by Jose Ramos) Discharge planning issues (Acute) DVT prophylaxis (Acute) Coronary artery disease (Chronic) S/P CABG (coronary artery bypass graft) (Acute) Atelectasis of both lungs (Acute) Shortness of breath (Acute) Non-ST elevation [place] (NSTEMI) (Acute) Gallbladder polyp (Acute) Nonalcoholic steatohepatitis (CAMARA) (Acute) Beau's lines of nails (Acute) left thumb Elevated ferritin (Acute) Pre-diabetes (Acute) Osteopenia (Acute) Benign paroxysmal positional vertigo (Acute) intermittent Essential hypertension (Acute 12/19/12) off meds after weight loss Hyperlipidemia (Acute) Migraine (Acute) only one in 2020 Vaginal atrophy (Acute 01/07/17) Medical History COVID-19 (~02/13/22) Elevated C-reactive protein (11/17/07) Cardiac murmur Chondromalacia of patella Pilonidal cyst (12/06/14) TMJ (temporomandibular joint disorder) (11/19/13) [facility] s[facility]p surgeries now seeing Dr Dari Noguera, 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 Paternal Grandmother , age 94 No problems noted. Sister No problems noted. Son No problems noted. Son No problems noted. Daughter No problems noted. Daughter No problems noted. 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 Caregiver/Support person: No Household members: spouse and other Details: 2 clients live 1/2 the month with them Housing: house Communication Needs: None Do you need help understanding health information?: Never Pets and animals: Yes Pets and animals: cat(s), dog(s) and other Details: bunny Sexually active: Yes Do you think of yourself as: straight/heterosexual Current gender identity: female What is your relationship status?: How often do you talk on the phone with friends or family?: three or more times per week How often do you get together with friends or relatives?: three or more times per week How often do you attend taoism or nondenominational services?: 4 or more times per year Panel score (0-1 are the most socially isolated patients): 3 Dolly/Anabaptist: Latter-Day Special dolly needs: No Seatbelt use: always Helmet use: Yes Helmet use: always Drive intox or ride w/intox 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 Meds Allergies and Home Medications Allergies Allergy/AdvReac Type Severity Reaction Status Date / Time meperidine Allergy Severe Other (See Verified 04/23/23 22:29 Comment) promethazine Allergy Intermediate HIVES Verified 04/23/23 22:29 Penicillins Allergy Unknown Other (See Verified 04/23/23 22:29 Comment) Sulfa (Sulfonamide Allergy Unknown Other (See Verified 04/23/23 22:29 Antibiotics) Comment) lisinopril AdvReac Intermediate COUGH Verified 04/23/23 22:29 Home Medications Medication Instructions Recorded Confirmed Type meclizine 25 mg tablet (Motion 25 mg PO BID PRN #50 tab-caps 06/06/15 04/24/23 History Sickness (meclizine)) magnesium oxide 250 mg PO DAILY PRN 12/09/20 04/24/23 History estradiol 10 mcg vaginal tablet 10 mcg vaginal .COMPLEX #40 tabs 01/23/22 04/17/23 Rx cyclobenzaprine 10 mg tablet 10 mg PO TID PRN muscle spasm #30 04/19/23 04/24/23 Rx tabs aspirin 81 mg chewable tablet 81 mg PO DAILY 04/24/23 04/24/23 History atorvastatin 80 mg tablet 80 mg PO DAILY 04/24/23 04/24/23 History estradiol 0.01% (0.1 mg/gram) 1 appful vaginal 04/24/23 History vaginal cream isosorbide mononitrate 30 mg 30 mg PO DAILY 04/24/23 04/24/23 History tablet,extended release 24 hr metoprolol tartrate 25 mg tablet 25 mg PO BID 04/24/23 04/24/23 History Exam Narrative Exam Narrative: GEN: Alert and oriented, pleasant and cooperative, gives linear history. Mildly dyspneic after speaking or moving in bed during the interview, but able to speak in full sentance and sit herself on the side of the bed. HEENT: Head atraumatic. Conjunctiva clear, no icterus. PEERL, EOMI. no rhinorrhea. MMM, OP benign. Neck is supple with no masses or lymphadenopathy, trachea midline LUNGS: Initially absent breath sounds right base more than left, after sitting up and breathing deep I heard some crackles in this area. No wheeze. effort as above CV: RRR with no murmurs, gallops, or rubs. ABD: +BS, soft, NT/ND EXT: no cyanosis, clubbing, or edema. no leg/calf tenderness with palpation. MSK: No joint redness or swelling NEURO: CN 2-12 grossly intact. Normal movement of 4 extremities. Normal speech and coordination SKIN: No rashes or open wounds. sternotomy scare clean, dry, intact PSYCH: slightly anxious mood and affect Results Imaging Chest x-ray: report reviewed (Post CABG. Retrocardiac consolidation/collapse. Small bilateral pleural effusions. ) and image reviewed CT scan - chest: report reviewed (1. No pulmonary embolism. 2. Bilateral small pleural effusions with lower lobe atelectasis, larger on the left side. 3. Post CABG. ) EKG: report reviewed and image reviewed (sinus tachycardia rate 110, LVH) Labs 04/23/23 22:44 04/23/23 22:44 Labs: Laboratory Results - last 24 hr 04/23/23 04/23/23 04/23/23 22:44 22:46 23:09 WBC 9.61 RBC 4.03 Hgb 11.6 Hct 34.4 L MCV 85 MCH 28.8 MCHC 33.7 RDW 13.9 Plt Count 260 MPV 9.4 Immature Gran % 0.5 Neutrophils % 64.2 Lymphocytes % 24.3 Monocytes % 8.3 Eosinophils % 2.2 Basophils % 0.5 Nucleated RBC % 0.0 Absolute Neutrophils 6.16 Absolute Lymphocytes 2.34 Absolute Monocytes 0.80 Absolute Eosinophils 0.21 Absolute Basophils 0.05 PT 9.9 INR 1.0 APTT 22.3 L D-Dimer 3976 H Sodium 140 Potassium 3.5 Chloride 104 Carbon Dioxide 23.6 Anion Gap 12.4 H BUN 8 Creatinine 0.7 Est GFR (CKD-EPI 2020) 100.81 Glucose 122 H Calcium 9.6 Magnesium 1.8 Total Bilirubin 0.5 AST 27 ALT 30 Alkaline Phosphatase 72 Troponin I 296 H* Total Protein 8.0 Albumin 3.5 COVID-19 Source Nasopharynx SARS-CoV-2 (PCR) Negative Influenza Type A (PCR) Negative Influenza Type B (PCR) Negative RSV (PCR) Negative 04/23/23 04/24/23 23:55 01:40 WBC RBC Hgb Hct MCV MCH MCHC RDW Plt Count MPV Immature Gran % Neutrophils % Lymphocytes % Monocytes % Eosinophils % Basophils % Nucleated RBC % Absolute Neutrophils Absolute Lymphocytes Absolute Monocytes Absolute Eosinophils Absolute Basophils PT INR APTT D-Dimer Sodium Potassium Chloride Carbon Dioxide Anion Gap BUN Creatinine Est GFR (CKD-EPI 2020) Glucose Calcium Magnesium Total Bilirubin AST ALT Alkaline Phosphatase Troponin I 264 H* 272 H* Total Protein Albumin COVID-19 Source SARS-CoV-2 (PCR) Influenza Type A (PCR) Influenza Type B (PCR) RSV (PCR) Last Vital Signs Temp 37.5 C 04/24/23 04:20 Pulse 99 H 04/24/23 04:20 Resp 18 04/24/23 04:20 BP 141/95 H 04/24/23 04:20 Pulse Ox 97 04/24/23 04:20 Time Spent Time spent with Patient: 55-74 minutes Time was spent: preparing to see the patient(eg.review tests), obtaining and/or reviewing separately otained hiistory, ordering medications,tests, procedures, referring, communicating with other health day care home mother, indepentently interpreting results and counseling the patient
[2023-04-24] MEDS: Acetaminophen 325 MG TAB PO ×2 (04:44→11:27)
[2023-04-24] MEDS: Metoprolol 25 MG TAB PO (08:18)
[2023-04-24] MEDS: Isosorbide Mononitrate 30 MG TABCR PO (08:18)
[2023-04-24] MEDS: Aspirin 81 MG CHEW PO (08:19)
--- NOTE | 2023-04-24 09:21 | PDOC.CMIN ---
Date of service: 04/24/23 Time of Service: 09:21 Care Management Initial Assmt Initial Assessment REASON FOR HOSPITALIZATION:: shortness of breath PREVIOUS FUNCTIONAL STATUS/SOCIAL/FAMILY SUPPORTS:: Juana lives in a single family home in [place], [place]. with her Aden. 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 She is independent at baseline and is able to perform her ADLs and IADLs. Juana was just discharged from [facility] yesterday following a CABG procedure and had home health ordered for wound care and PT but it had not been initiated yet. CURRENT FUNCTIONAL STATUS:: Juana was sitting up in a chair visiting with her family when CM met with her. She was pleasant and engaged well with CM. She informed CM that she is feeling much better and that her breathing is back to baseline. She is no longer requiring supplemental oxygen and will likely be discharged later today. Juana and her family reported an incident that occurred while she was in the ED last night. She was told that a report would be filed and requested to see the report. CM reported the incident to the Patient Experience Officer via voicemail. CM also informed the family that it was possible that they would not be able to receive a copy of the report as they are generally confidential but that they could discuss that with Patient Experience. ADVANCE DIRECTIVES:: On file. Aden BE Has patient been provided with info about the portal/API?: Yes Did the patient sign up for the portal?: Yes CODE STATUS:: Full Code INSURANCE COVERAGE / FINANCIAL ISSUES:: BC/BS out of state CURRENT HOME/COMMUNITY SERVICES/EQUIPMENT:: none PRIMARY CARE PHYSICIAN:: Ricardo Kumar POTENTIAL DISCHARGE NEEDS:: follow up with PCP and plan of care PATIENT/FAMILY EDUCATION NEEDS:: Review of discharge instructions, activity, limitations, follow up plan, discuss Ask Me Three TRANSPORTATION:: via private vehicle with family PLAN:: Anticipate Juana will be discharged home with no new services, She will follow up with her community providers and plan of care and transport with family. PFSH All Active Problems (Updated 04/24/23 @ 05:01 by Jose Ramos) Discharge planning issues (Acute) DVT prophylaxis (Acute) Coronary artery disease (Chronic) S/P CABG (coronary artery bypass graft) (Acute) Atelectasis of both lungs (Acute) Shortness of breath (Acute) Non-ST elevation [place] (NSTEMI) (Acute) Gallbladder polyp (Acute) Nonalcoholic steatohepatitis (CAMARA) (Acute) Beau's lines of nails (Acute) left thumb Elevated ferritin (Acute) Pre-diabetes (Acute) Osteopenia (Acute) Benign paroxysmal positional vertigo (Acute) intermittent Essential hypertension (Acute 12/19/12) off meds after weight loss Hyperlipidemia (Acute) Migraine (Acute) only one in 2020 Vaginal atrophy (Acute 01/07/17) Medical History COVID-19 (~02/13/22) Elevated C-reactive protein (11/17/07) Cardiac murmur Chondromalacia of patella Pilonidal cyst (12/06/14) TMJ (temporomandibular joint disorder) (11/19/13) July 2020-[facility]; s/p surgeries now seeing Dr Dari Noguera, 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 Surgical History History of mandibular surgery 06/22 Rotator Cuff Repair (~2004) LEFT Family History Mother Diabetes Essential hypertension Dementia Depression Heart disease Hyperlipidemia Myocardial infarction Father , age 72 Essential hypertension Hyperlipidemia Bladder cancer Sister Essential hypertension Endometrial cancer Brother Essential hypertension Maternal Grandfather , age 78 Essential hypertension Heart disease Paternal Grandfather Heart disease Maternal Grandmother , age 76 No problems noted. Paternal Grandmother , age 94 No problems noted. Sister No problems noted. Son No problems noted. Son No problems noted. Daughter No problems noted. Daughter No problems noted. 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 Caregiver/Support person: No Household members: spouse and other Details: 2 clients live 1/2 the month with them Housing: house Communication Needs: None Do you need help understanding health information?: Never Pets and animals: Yes Pets and animals: cat(s), dog(s) and other Details: bunny Sexually active: Yes Do you think of yourself as: straight/heterosexual Current gender identity: female What is your relationship status?: How often do you talk on the phone with friends or family?: three or more times per week How often do you get together with friends or relatives?: three or more times per week How often do you attend worship or episcopal services?: 4 or more times per year Panel score (0-1 are the most socially isolated patients): 3 Dolly/Adventist: Congregation Special dolly needs: No Seatbelt use: always Helmet use: Yes Helmet use: always Drive intox or ride w/intox charter and tour bus 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
[2023-04-24 12:19] LABS: Anion Gap 10.6 mmol/L (3-11); BUN 8 mg/dL (7-18); CO2 26.4 mmol/L (21.0-32.0); CREATININE 0.8 mg/dL (0.55-1.02); Calcium 9.7 mg/dL (8.5-10.1); Chloride 100 mmol/L (98-107); Estimated GFR 85.89 (mL/min/1.73m2); Glucose 129 mg/dL (74-106); Magnesium 1.7 mg/dL (1.8-2.4); Potassium 3.5 mmol/L (3.5-5.1); Sodium 137 mmol/L (136-145)
[2023-04-24] MEDS: Potassium Chloride 20 MEQ TABCR 40 MEQ PO (16:43)
[2023-04-24] MEDS: traMADol 50 MG TAB 100 MG PO (16:43)
[2023-04-24] MEDS: MAGNESIUM SULFATE 2 GM/50 ML BAG IVPB (16:53)
--- NOTE | 2023-04-24 17:46 | DSE_ITS ---
Date of service: 04/24/23 Time of Service: 17:47 DS: Diagnosis Discharge Diagnosis (1) Acute respiratory failure with hypoxia: Status: Resolved (2) Atelectasis: Status: Acute (3) Musculoskeletal chest pain: Status: Acute Asessment and Plan: post CABG (4) Bilateral pleural effusion: Status: Acute Asessment and Plan: small (5) Shortness of breath: Status: Acute (6) Coronary artery disease: Status: Chronic (7) S/P CABG (coronary artery bypass graft): Status: Acute (8) Nonalcoholic steatohepatitis (CAMARA): Status: Acute Discharge Plan Disposition Patient Disposition: Home W/Home Health Services Condition: Stable Discharge Details Reason For Visit: Shortness of breath, s/p CABG Admit Date/Time: 04/24/23 02:40 Admit Provider: Jose Ramos Attending Provider: Jose Ramos [facility]: Ms Mann is a 57 year old female with PMHx of recent CABG (04/15/23), d/c'ed from [facility] yesterday, as well as h/o HTN, hyperlipidemia, prediabetes, CAMARA, who was a patient on [facility] hospitalist service today for acute hypoxic respiratory failure associated with musculoskeletal chest pain and atelectasis following CABG. PE and pneumonia were ruled out. There was no clinical evidence of CHF. The patient worked with pulmonary toilet and was initiated on tramadol for pain control. She was able to weaned off of oxygen to RA and did not require oxygen on exercise oximetry. SHe is being discharged home today with instructions to astrid ray using IS. She should follow up with CT surgery as well as with her PCP on discharge. She is being discharged home with new home health nursing and PT. Care for patient as well as completion of her discharge summary on day of discharge took 45 minutes. Home Meds and New Rx's Prescriptions: New tramadol 50 mg Tablet 50 - 100 mg PO Q6H PRN MDD 400 mg PRN (Reason: pain) Qty: 40 0RF Continued meclizine [Motion Sickness (meclizine)] 25 MG tablet 25 mg PO BID PRNQty: 50 magnesium oxide 250 mg magnesium tablet 250 mg PO DAILY PRN aspirin 81 mg tablet,chewable 81 mg PO DAILY atorvastatin 80 mg tablet 80 mg PO DAILY isosorbide mononitrate 30 mg tablet extended release 24 hr 30 mg PO DAILY metoprolol tartrate 25 mg tablet 25 mg PO BID estradiol 0.01 % (0.1 mg/gram) cream 1 appful vaginal .2-3 times per week Hold Instructions: Pt Stopped/Never Started Rx Instructions: 2 g vaginally daily. Skips first week of the month. Discontinued cyclobenzaprine 10 mg tablet 10 mg PO TID PRN (Reason: muscle spasm) Qty: 30 0RF Discharge Instructions Instructions: Tramadol (By mouth), How to Use an Incentive Spirometer (DC), Atelectasis (DC) Additional Instructions: Continue to work with incentive spirometry. Return to the hospital with any fever, bleeding, chest pain, or worsening shortness of breath. Follow up with cardiothoracic surgery as scheduled. Follow up with your PCP In 1-2 weeks. Referrals: Ricardo Rdz MEDICAL PHYSICS PROFESSOR [Primary Care Provider] - Activity:: Activity as Tolerated Equipment/Supplies:: No Equipment Needed Diet:: heart healthy Discharge Orders Discharge Orders: Discharge Order (Routine); Ordered 04/24/23 Ordered By: Vannesa Marino DS: Summary Time Spent with Patient providing and/or coordinating discharge services: Greater than 30 minutes Status at Discharge Functional status at discharge: independent ambulation Overall status at discharge: patient is back to baseline Mental Status: mental status grossly normal Speech and Movement: speech and movement normal Mood: congruent mood Affect: normal affect Quality:SDOH Health Related Social Needs: No Data to Display Exam Narrative Exam Narrative: General: a pleasant middle-aged female who is working with IS, on RA, visibly uncomfortable HEENT: EOMI, MMM Heart: RRR, no m/r/g Lungs: Diminished breath sounds at B bases Abdomen: soft, nontender, nondistended Extremities: no edema BLEs Psych Mental Status: mental status grossly normal Speech and Movement: speech and movement normal Mood: congruent mood Affect: normal affect DS: Data Vitals/I&O Vitals and I&O: Vital Signs Temperature 37.6 C H 04/24/23 14:46 Temperature Source Tympanic 04/24/23 14:46 Pulse 107 H 04/24/23 14:46 Pulse Rhythm Regular 04/24/23 15:30 Respiratory Rate 16 04/24/23 14:46 Respiratory Effort Normal 04/24/23 15:30 Respiratory Depth Shallow 04/24/23 15:30 Respiratory Pattern Normal 04/24/23 15:30 Blood Pressure 104/71 04/24/23 14:46 Blood Pressure Position Sitting 04/23/23 22:26 Pulse Oximetry 94 04/24/23 14:46 Oxygen Delivery Method Room Air 04/24/23 14:46 Oxygen Flow Rate 0 04/24/23 14:46 Pain Level 8 04/24/23 16:43 Comment nurse notified about pulse and BP 04/24/23 07:32 Intake & Output 04/23/23 04/24/23 04/24/23 23:59 11:59 23:59 Intake Total 360 / 360 Output Total 925 / 925 Balance -925 / -565 360 / -565 Weight 65.272 kg 63.4 kg Intake: Oral 360 / 360 Output: Urine 925 / 925 Other: Urine Color Yellow Urine Appearance Clear Clear Urine Odor Normal Voiding Methods Toilet Data Completed and Pending Completed studies during hospitalization [Text1]: CXR: Left lower lobe infiltrate and small left pleural effusion. Sternotomy. CABG. No pulmonary edema. CTA chest: 1. No evidence of acute pulmonary emboli. No evidence of pulmonary infarction.Small pleural effusions lung, left side larger than right side and there is bilateral volume loss in the basal segments of both lower lobes. 2. Recent sternotomy/CABG. 3. No evidence of aortic dissection nor pericardial effusion. Labs on day of discharge: Labs from last 24 hours 04/24/23 04/24/23 04/24/23 12:05 02:50 01:40 WBC RBC Hgb Hct MCV MCH MCHC RDW Plt Count MPV Immature Gran % Neutrophils % Lymphocytes % Monocytes % Eosinophils % Basophils % Nucleated RBC % Absolute Neutrophils Absolute Lymphocytes Absolute Monocytes Absolute Eosinophils Absolute Basophils PT INR APTT D-Dimer Sodium 137 Potassium 3.5 Chloride 100 Carbon Dioxide 26.4 Anion Gap 10.6 BUN 8 Creatinine 0.8 Est GFR (CKD-EPI 2020) 85.89 Glucose 129 H Calcium 9.7 Magnesium 1.7 L Total Bilirubin AST ALT Alkaline Phosphatase Troponin I Cancelled 272 H* Total Protein Albumin COVID-19 Source SARS-CoV-2 (PCR) Influenza Type A (PCR) Influenza Type B (PCR) RSV (PCR) 04/23/23 04/23/23 04/23/23 23:55 23:09 22:46 WBC RBC Hgb Hct MCV MCH MCHC RDW Plt Count MPV Immature Gran % Neutrophils % Lymphocytes % Monocytes % Eosinophils % Basophils % Nucleated RBC % Absolute Neutrophils Absolute Lymphocytes Absolute Monocytes Absolute Eosinophils Absolute Basophils PT 9.9 INR 1.0 APTT 22.3 L D-Dimer 3976 H Sodium Potassium Chloride Carbon Dioxide Anion Gap BUN Creatinine Est GFR (CKD-EPI 2020) Glucose Calcium Magnesium Total Bilirubin AST ALT Alkaline Phosphatase Troponin I 264 H* Total Protein Albumin COVID-19 Source Nasopharynx SARS-CoV-2 (PCR) Negative Influenza Type A (PCR) Negative Influenza Type B (PCR) Negative RSV (PCR) Negative 04/23/23 22:44 WBC 9.61 RBC 4.03 Hgb 11.6 Hct 34.4 L MCV 85 MCH 28.8 MCHC 33.7 RDW 13.9 Plt Count 260 MPV 9.4 Immature Gran % 0.5 Neutrophils % 64.2 Lymphocytes % 24.3 Monocytes % 8.3 Eosinophils % 2.2 Basophils % 0.5 Nucleated RBC % 0.0 Absolute Neutrophils 6.16 Absolute Lymphocytes 2.34 Absolute Monocytes 0.80 Absolute Eosinophils 0.21 Absolute Basophils 0.05 PT INR APTT D-Dimer Sodium 140 Potassium 3.5 Chloride 104 Carbon Dioxide 23.6 Anion Gap 12.4 H BUN 8 Creatinine 0.7 Est GFR (CKD-EPI 2020) 100.81 Glucose 122 H Calcium 9.6 Magnesium 1.8 Total Bilirubin 0.5 AST 27 ALT 30 Alkaline Phosphatase 72 Troponin I 296 H* Total Protein 8.0 Albumin 3.5 COVID-19 Source SARS-CoV-2 (PCR) Influenza Type A (PCR) Influenza Type B (PCR) RSV (PCR) PFSH All Active Problems (Updated 04/24/23 @ 17:59 by Vannesa Marino MD) Bilateral pleural effusion (Acute) Musculoskeletal chest pain (Acute) Atelectasis (Acute) Discharge planning issues (Acute) DVT prophylaxis (Acute) Coronary artery disease (Chronic) S/P CABG (coronary artery bypass graft) (Acute) Atelectasis of both lungs (Acute) Shortness of breath (Acute) Non-ST elevation NM (NSTEMI) (Acute) Gallbladder polyp (Acute) Nonalcoholic steatohepatitis (CAMARA) (Acute) Beau's lines of nails (Acute) left thumb Elevated ferritin (Acute) Pre-diabetes (Acute) Osteopenia (Acute) Benign paroxysmal positional vertigo (Acute) intermittent Essential hypertension (Acute 12/19/12) off meds after weight loss Hyperlipidemia (Acute) Migraine (Acute) only one in 2020 Vaginal atrophy (Acute 01/07/17) Medical History COVID-19 (~02/13/22) Elevated C-reactive protein (11/17/07) Cardiac murmur Chondromalacia of patella Pilonidal cyst (12/06/14) TMJ (temporomandibular joint disorder) (11/19/13) July 2020-[facility]; s/p surgeries now seeing Dr Dari Noguera, 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, [place] 12/2020[facility] Surgical History History of mandibular surgery 06/22 Rotator Cuff Repair (~2004) LEFT Family History Mother Diabetes Essential hypertension Dementia Depression Heart disease Hyperlipidemia Myocardial infarction Father , age 72 Essential hypertension Hyperlipidemia Bladder cancer Sister Essential hypertension Endometrial cancer Brother Essential hypertension Maternal Grandfather , age 78 Essential hypertension Heart disease Paternal Grandfather Heart disease Maternal Grandmother , age 76 No problems noted. Paternal Grandmother , age 94 No problems noted. Sister No problems noted. Son No problems noted. Son No problems noted. Daughter No problems noted. Daughter No problems noted. 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 Caregiver/Support person: No Household members: spouse and other Details: 2 clients live 1/2 the month with them Housing: house Communication Needs: None Do you need help understanding health information?: Never Pets and animals: Yes Pets and animals: cat(s), dog(s) and other Details: bunny Sexually active: Yes Do you think of yourself as: straight/heterosexual Current gender identity: female What is your relationship status?: How often do you talk on the phone with friends or family?: three or more times per week How often do you get together with friends or relatives?: three or more times per week How often do you attend taoism or hinduism services?: 4 or more times per year Panel score (0-1 are the most socially isolated patients): 3 Dolly/Uatsdin: Synagogue Special dolly needs: No Seatbelt use: always Helmet use: Yes Helmet use: always Drive intox or ride w/intox electric lift truck driver: No Time Spent with Patient Time Spent with Patient: 45-69 minutes Time was spent: preparing to see the patient(eg.review tests), obtaining and/or reviewing separately otained hiistory, ordering medications,tests, procedures, referring, communicating with other health career consultant, indepentently interpreting results, counseling the patient and care coordination
--- NOTE | 2023-04-24 18:13 | PDOC.HHF2F_ITS ---
Home Health Referral Home Health Orders Clinical synopsis of why skilled professionals are needed: Ms Mann is a 57 year old female with PMHx of recent CABG (04/15/23), d/c'ed from [facility] yesterday, as well as h/o HTN, hyperlipidemia, prediabetes, CAMARA, who was a patient on [facility] hospitalist service today for acute hypoxic respiratory failure associated with musculoskeletal chest pain and atelectasis following CABG. PE and pneumonia were ruled out. There was no clinical evidence of CHF. The patient worked with pulmonary toilet and was initiated on tramadol for pain control. She was able to weaned off of oxygen to RA and did not require oxygen on exercise oximetry. SHe is being discharged home today with instructions to continue using IS. She should follow up with CT surgery as well as with her PCP on discharge. She is being discharged home with new home health nursing and PT. Medical diagnosis necessitation home health referral: CAD s/p CABG, deconditioning Registered Nurse: Check all that apply Instruct on new or changed medication(s)/assess compliance: Ordered Physical Therapist: Check all that apply Increase strength & endurance for safe mobility at home: Ordered To design/establish home maintenance program: Ordered Fall reduction therapy program for patient with history of frequent falls: Ordered Home safety evaluation and teaching/gait training including stair management (if applicable): Ordered Home Bound Status Requires the aid of supportive device (check all that apply): Other Assistance of another person (Describe assistance and medical necessity): currently on medical therapy preventing driving (tramadol), recovering from CABG Describe why leaving home would require a considerable and taxing effort: Requires frequent rest periods Encounter Date and Reason: I certify that a FTF encounter for this patient was performed on April 24, 2023 and that such encounter was related to the primary reason the patient requires home health services. The encounter was conducted in the following manner: * By me as the certifying physician, TUTOR COORDINATOR, PA or * By an inpatient physician, TUTOR COORDINATOR or PA during an inpatient stay who communicated findings to me, Certification And Authentication I certify that I composed the above information based on my clinical judgment relating to this patient's medical condition and, if applicable, clinical findings communicated to me by the NPP or inpatient physician who performed the FTF encounter. Name of Provider that will be monitoring home health services: Ricardo Kumar
--- NOTE | 2023-04-25 14:06 | W.ED.FU ---
Date of service: 04/24/23 Time of Service: 04:25 Follow Up Plan: I did not include on my original chart the portable chest x-ray which was done and in interpreted by Princess dahl. I reviewed it myself but the Princess dahl impression was: Post CABG. Retrocardiac consolidation/collapse. Small bilateral pleural effusions.
== END 2023-04-24 18:46 | disposition home health service (06) ==
LOC: ER 04-24 02:50 → MS 04-24 04:03
PROVIDERS: Internal Medicine; Admitting Provider Family Medicine; Emergency Provider Emergency Medicine Emergency Medical Services; PCP Nurse Practitioner Family; Visit Provider Family Medicine
DX: J98.11 Atelectasis (principal); J96.01 Acute respiratory failure with hypoxia; J90 Pleural effusion, not elsewhere classified; I25.10 Atherosclerotic heart disease of native coronary artery without angina pectoris; Z95.1 Presence of aortocoronary bypass graft; K75.81 Nonalcoholic steatohepatitis (NASH); I10 Essential (primary) hypertension; E78.5 Hyperlipidemia, unspecified; R73.03 Prediabetes; R07.89 Other chest pain; Z79.899 Other long term (current) drug therapy
CPT/HCPCS: 00123; 36415; 71275; 80048; 80053; 87637; 93005; 94618; 96365; 96366; 99285; 71045; 83735; 84484; 85025; 85379; 85610; 85730; 93010; 99234; G0378; J3475; J3490

== ENCOUNTER 2023-05-22 13:00 | Outpatient (RCR) | payer BC, SELFPAY ==
--- NOTE | 2023-05-24 14:42 | NUR.NOTE ---
Patient presented to CR today at 1300. She reported saying she had SOB since Saturday night but reports it was bothersome to seek out emergent care. On assessment, she was in no acute distress, was not diaphoretic. Vital Signs were 106/70, HR 116, and SpO2 90-92% on RA. Encouraged Olive to call her PCP as she did not want to go to the ED at this time. Her PCP did not answer so encouraged her to go to urgent care to be evaluated. She denies CP, dizziness, or any other symptoms at this time.
== END 2023-06-02 23:59 | disposition home or self-care (01) ==
LOC: CR 13:00
PROVIDERS: PCP Nurse Practitioner Family; Visit Provider Internal Medicine Cardiovascular Disease
DX: I25.10 Atherosclerotic heart disease of native coronary artery without angina pectoris (principal); Z51.89 Encounter for other specified aftercare
CPT/HCPCS: S9472

== ENCOUNTER 2023-05-24 13:41 | Outpatient (CLI) | payer BC, SELFPAY ==
--- NOTE | 2023-05-24 13:30 | RT.EKG_ITS ---
APPROVED REPORT Exam: Resting ECG Reason for Exam: pain Patient Location: O HR:115 bpm ECG Measurements Heart Rate 115 AXIS LA 157 P 24 QRSd 82 QRS 14 QT 309 T 171 QTc 428 Conclusion Sinus tachycardia...rate> 99 Abnrm T, consider ischemia, anterolateral lds...T <-0.20mV, I aVL V2-V6 No change compared to one from [facility] 05/21/2023
--- NOTE | 2023-05-27 09:12 | NUR.NOTE ---
Nursing Note: Patient called stating she would absent from CR. Notes she was diagnosed with a pericardial effusion in ED on 05/23/33. See ED note for more info. Patient notes she would like to wait until she has been seen by PCP to return to CR. Notes she has an apt on 06/04/23. Patient was given Dr. Smith office number to contact to establish cardiology F/U. Denies futher questions/concerns.
== END 2023-05-24 13:42 | disposition home or self-care (01) ==
LOC: DI.CM 13:42
PROVIDERS: PCP Nurse Practitioner Family; Visit Provider Physician Assistant
DX: R06.02 Shortness of breath (principal)
CPT/HCPCS: 93010

== ENCOUNTER 2023-05-24 14:06 | Emergency (ER) | payer BC, SELFPAY ==
--- NOTE | 2023-05-24 14:00 | RT.EKG_ITS ---
APPROVED REPORT Exam: Resting ECG Reason for Exam: Chest pain Patient Location: E HR:113 bpm ECG Measurements Heart Rate 113 AXIS AZ 154 P 70 QRSd 81 QRS 52 QT 343 T 126 QTc 470 Conclusion Sinus tachycardia...rate> 99 Abnrm T, consider ischemia, anterolateral lds...T <-0.20mV, I aVL V2-V6 ST elevation, consider inferior injury...ST >0.08mV, II III aVF
[2023-05-24 14:05] VITALS: BP 119/95; PULSE 120; RESP 16; TEMP 37.1; O2SAT 95
--- NOTE | 2023-05-24 14:15 | DI.CT_ITS ---
Exam(s) CT CHEST PE CTA EXAM: CT CHEST PE CTA CLINICAL HISTORY: chest pain and dyspnea, recent cabg. TECHNIQUE: Imaging Protocol: Axial CT angiography was performed with multi-slice acquisition and mu lti-planar reconstructions as well as axial, coronal and sagittal MIP reconstructions. CONTRAST MATERIAL: Intravenous: Omnipaque 350 Contrast volume:100 ml COMPARISON: CT CT CHEST PE CTA from 04/17/[address] CHEST PE CTA from 04/24/2023 FINDINGS: Pulmonary Arteries: No evidence of filling defect to suggest pulmonary emboli. Tracheobronchial tree: No mucous plugging. Mediastinum and Eva: No dominant adenopathy or fluid collection. Pulmonary parenchyma: No consolidation or dominant measurable mass. Mild respiratory motion and expir atory changes. Mild basilar atelectasis, improvement from prior. Pleura: Trace bilateral pleural effusions, decreasing from prior. Heart: Edwin small pericardial effusion, seen at the inferior right heart border, new from prior. The heart is mildly dilated. Status post CABG. Aorta: Thoracic aorta non-dilated. No dissection. Upper abdomen: No acute findings. Bones: Median sternotomy again noted. No surrounding hematoma. Tubes, Catheters, and Lines: None Soft tissues: Unremarkable. IMPRESSION: No evidence of pulmonary embolism. New small pericardial effusion. Status post recent CABG. Improvement in pleural effusions and basilar atelectasis. Findings called to Dr. Menendez of the emergency department. RADIATION DOSE DELIVERED: Total DLP DATA REPOSITORY: All CT scans at this facility are submitted to the National Radiology Data Registry (NRDR) Dose Index Registry (DIR) with the [employer] (ACR). RADIATION OPTIMIZATION: All CT scans at this facility use at least one of these dose optimization te chniques: automated exposure control; mA and/or kV adjustment per patient size (includes targeted exa ms where dose is matched to clinical indication); or iterative reconstruction.
[2023-05-24 14:16] LABS: Abs Immature Grans 0.08 10^3/uL (0.0-0.06); Absolute Basophil Count 0.07 10^3/uL (0.0-0.2); Absolute Eosinophil Count 0.01 10^3/uL (0.0-0.7); Absolute Lymphocyte Count 1.58 10^3/uL (1.2-3.4); Absolute Monocyte Count 1.17 10^3/uL (0.1-0.8); BE (Venous) 1 mmol/L (-2-3); Basophils % 0.5; Eosinophils % 0.1; HCO3 (Venous) 25 mmol/L (23-28); HCT 37.4 % (36.0-46.0); HGB 11.9 g/dL (11.2-15.7); Immature Grans % 0.6; Lymphocytes % 11.2; MCH 27.9 pg (27.0-33.0); MCHC 31.8 % (32.0-36.0); MCV 88 fL (80-95); MPV 9.1 fL (8.0-11.0); Monocytes % 8.3; Neutrophils % 79.3; O2 Sat (Venous) 47 %; Platelet Count 253 10^3/uL (130-400); RBC 4.27 10^6/uL (3.93-5.22); RDW 13.1 % (11.7-14.6); RDW-SD 42.3 fL; TCO2 (Venous) 23 mmol/L (24-29); pCO2 (Venous) 36 mmHg (41-51); pH (Venous) 7.45 (7.31-7.41); pO2 (Venous) 23 mmHg
[2023-05-24 14:17] LABS: Absolute Neutrophil Count 11.18 10^3/uL (1.2-6.7)
[2023-05-24 14:17] LABS: Source Nasal/Nares
--- NOTE | 2023-05-24 14:19 | ED.GENADUL_ITS ---
Discharge Plan Disposition Patient Disposition: Home Condition: Stable Discharge Details Clinical Impression: S/P CABG (coronary artery bypass graft), Chest pain Primary Care Provider: Ricardo Rdz ED Provider: Aden Menendez Home Meds and New Rx's Prescriptions: Continued tramadol 50 mg tablet 50 - 100 mg PO Q6H PRN MDD 400 mg PRN (Reason: pain) Qty: 40 0RF meclizine [Motion Sickness (meclizine)] 25 MG tablet 25 mg PO BID PRNQty: 50 magnesium oxide 250 mg magnesium tablet 250 mg PO DAILY PRN aspirin 81 mg tablet,chewable 81 mg PO DAILY atorvastatin 80 mg tablet 80 mg PO DAILY isosorbide mononitrate 30 mg tablet extended release 24 hr 30 mg PO DAILY metoprolol tartrate 25 mg tablet 25 mg PO BID estradiol 0.01 % (0.1 mg/gram) cream 1 appful vaginal .2-3 times per week Hold Instructions: Pt Stopped/Never Started Rx Instructions: 2 g vaginally daily. Skips first week of the month. Discharge Instructions Additional Instructions: Your blood work did not show any concerning findings. CAT scan showed improved atelectasis. You do have a's very small pericardial effusion which is an after bypass. This usually goes away on its own with time Follow-up with your primary care provider within 1 to 2 weeks symptoms continue If you feel more ill, have severe worsening pain or difficulty breathing return to the emergency department for reevaluation HPI General Date/Time Provider Initiated Documentation: 05/24/23 14:07 . Limitations to Documentation: no limitations . Information obtained by: patient . History of Present Illness 57 year old F presents to the emergency department with the chief complaint of Chest pain and shortness of breath, described as moderate, Quality is described as aching, and is localized to the chest. Patient reports radiation to back. Patient started experiencing this day(s) (2) and it has been intermittent. No relieving factors improve symptom(s), No exacerbating factors reported . Patient notes cough; denies fever/chills. Patient did receive the following treatments prior to arrival, none Related Data Home Medications Medication Instructions Recorded Confirmed meclizine 25 mg tablet (Motion 25 mg PO BID PRN #50 tab-caps 06/06/15 05/24/23 Sickness (meclizine)) magnesium oxide 250 mg PO DAILY PRN 12/09/20 05/24/23 aspirin 81 mg chewable tablet 81 mg PO DAILY 04/24/23 05/24/23 atorvastatin 80 mg tablet 80 mg PO DAILY 04/24/23 05/24/23 estradiol 0.01% (0.1 mg/gram) 1 appful vaginal .2-3 times per 04/24/23 05/24/23 vaginal cream week isosorbide mononitrate 30 mg 30 mg PO DAILY 04/24/23 05/24/23 tablet,extended release 24 hr metoprolol tartrate 25 mg tablet 25 mg PO BID 04/24/23 05/24/23 tramadol 50 mg tablet 50 - 100 mg (1 - 2 x 50 mg) PO Q6H 05/06/23 05/24/23 PRN PRN pain #40 tabs Previous Rx's Medication Instructions Recorded tramadol 50 mg tablet 50 - 100 mg (1 - 2 x 50 mg) PO Q6H 05/06/23 PRN PRN pain #40 tabs Allergies Allergy/AdvReac Type Severity Reaction Status Date / Time meperidine Allergy Severe Other (See Verified 05/24/23 14:50 Comment) promethazine Allergy Intermediate HIVES Verified 05/24/23 14:50 Penicillins Allergy Unknown Other (See Verified 05/24/23 14:50 Comment) Sulfa (Sulfonamide Allergy Unknown Other (See Verified 05/24/23 14:50 Antibiotics) Comment) lisinopril AdvReac Intermediate COUGH Verified 05/24/23 14:50 General Stated Complaint: Chest Pain COURTNEY: 3 Review of Systems All systems reviewed & are unremarkable except as noted in HPI and below Constitutional Constitutional: Denies chills, Denies fever(s) and Denies weakness Cardiovascular Cardiovascular: Reports chest pain and Reports dyspnea Respiratory Respiratory: Reports cough and Reports dyspnea Gastrointestinal Gastrointestinal: Denies abdominal pain, Denies nausea and Denies vomiting Musculoskeletal Musculoskeletal: Denies joint swelling Neurologic Neurologic: Denies weakness Exam Const General: no acute distress Orientation: alert HENKS Head: normal to inspection Ears: external ears normal General nose exam: external nose normal Mouth: moist mucous membranes Eyes General: appearance normal, both eyes and all related structures Neck Neck: normal visual inspection Resp Effort & Inspection: normal respiratory effort and able to speak in complete sentences Auscultation: clear to auscultation bilaterally Cardio Jugular venous pressure: no JVD Rate: regular rate Skin General skin exam: no rashes or lesions noted Neuro General: patient alert and patient oriented x3 Extrem General: normal to inspection Psych Mental Status: mental status grossly normal Course Vital Signs Vital signs: Vital Signs Temperature 37.1 C 05/24/23 14:05 Pulse 120 H 05/24/23 14:05 Respiratory Rate 16 05/24/23 14:05 Blood Pressure 119/95 H 05/24/23 14:05 Pulse Oximetry 95 05/24/23 14:05 Temperature 37.1 C 05/24/23 14:05 Temperature Source Tympanic 05/24/23 14:05 Pulse 120 H 05/24/23 14:05 Respiratory Rate 16 05/24/23 14:05 Respiratory Effort Short of Breath 05/24/23 14:10 Respiratory Depth Normal 05/24/23 14:10 Blood Pressure 119/95 H 05/24/23 14:05 Pulse Oximetry 95 05/24/23 14:05 Oxygen Delivery Method Nasal Cannula 05/24/23 14:05 Oxygen Flow Rate 2 05/24/23 14:05 Pain Level 1 05/24/23 14:05 Lab/Test Results Lab/Test Results: Laboratory Tests Range/Units 05/24/23 05/24/23 14:11 14:14 WBC (4.4-10.8) 10^3/uL 14.10 H RBC (3.93-5.22) 10^6/uL 4.27 Hgb (11.2-15.7) g/dL 11.9 Hct (36.0-46.0) % 37.4 MCV (80-95) fL 88 MCH (27.0-33.0) pg 27.9 MCHC (32.0-36.0) % 31.8 L RDW (11.7-14.6) % 13.1 Plt Count (130-400) 10^3/uL 253 MPV (8.0-11.0) fL 9.1 Immature Gran % 0.6 Neutrophils % 79.3 Lymphocytes % 11.2 Monocytes % 8.3 Eosinophils % 0.1 Basophils % 0.5 Nucleated RBC % (0.0-0.3) % 0.0 Absolute Neutrophils (1.2-6.7) 10^3/uL 11.18 H Absolute Lymphocytes (1.2-3.4) 10^3/uL 1.58 Absolute Monocytes (0.1-0.8) 10^3/uL 1.17 H Absolute Eosinophils (0.0-0.7) 10^3/uL 0.01 Absolute Basophils (0.0-0.2) 10^3/uL 0.07 VBG pH (7.31-7.41) 7.45 H VBG pCO2 (41-51) mmHg 36 L VBG pO2 mmHg 23 VBG HCO3 (23-28) mmol/L 25 VBG Total CO2 (24-29) mmol/L 23 L VBG O2 Saturation % 47 VBG Base Excess (-2-3) mmol/L 1 COVID-19 Source Nasal/Nares Medical Decision Making 57-year-old female who underwent CABG last month, it was admitted the following day at [facility] for shortness of breath and hypoxia in the setting of atelectasis, who comes in with several days of anterior chest wall pain and pain with deep breaths. Denies any high fevers, has a dry cough. She is alert and oriented x 4 speaking clear sentences on arrival, room air sat is 91%. She has clear lung sounds, no JVD, no leg swelling or calf tenderness. A bedside ultrasound has likely small pericardial effusion and has normal-appearing EF. Given her recent surgery and complaints will obtain CBC, CMP, troponin, and CTA of the chest to evaluate for PE, pneumonia, atelectasis, pneumothorax. Imaging shows improved pleural effusions and atelectasis seen on previous CT, has a very small pericardial effusion not unexpected after CABG. She is stable, on room air is 94%, heart rate is 98, she feels well otherwise and has a stable blood pressure. I suspect she was not taking deep breaths due to her likely musculoskeletal chest pain similar to when she was here last. Will obtain delta troponin. Patient stable and feels better, has been able to eat and feels significantly improved. Speaking in full sentences in no distress room air saturation 94%. Delta troponin negative discussed results with patient, given reassuring workup feel she is stable for discharge and can follow-up with her primary care provider, return precautions given Differential Diagnosis Differential Diagnosis: Chest wall pain, pneumonia, pneumothorax, pulmonary embolism Medical Records Medical records reviewed: Yes I reviewed the patient's medical records. Imaging Data Radiologic Study: Attestation: I personally reviewed and interpreted this imaging study as follows: Imaging: CT Scan Radiologist's impression: IMPRESSION: No evidence of pulmonary embolism. New small pericardial effusion. Status post recent CABG. Improvement in pleural effusions and basilar atelectasis. Lab Data Lab results reviewed: Yes I reviewed the patient's lab results. ECG Data Attestation: I personally reviewed and interpreted this ECG (s) as follows: Prior ECG tracings: available for review Interpretation: Sinus tachycardia, rate of 113, SD 154, no STEMI, stable T wave inversions from prior EKG. Quality:SDOH Health Related Social Needs: No Data to Display PFSH All Active Problems (Updated 05/24/23 @ 16:28 by Aden Menendez MD) Chest pain (Acute) Bilateral pleural effusion (Acute) Musculoskeletal chest pain (Acute) Atelectasis (Acute) Coronary artery disease (Chronic) S/P CABG (coronary artery bypass graft) (Acute) Atelectasis of both lungs (Acute) Non-ST elevation NH (NSTEMI) (Acute) Gallbladder polyp (Acute) Nonalcoholic steatohepatitis (CAMARA) (Acute) Beau's lines of nails (Acute) left thumb Elevated ferritin (Acute) Pre-diabetes (Acute) Osteopenia (Acute) Benign paroxysmal positional vertigo (Acute) intermittent Essential hypertension (Acute 12/19/12) off meds after weight loss Hyperlipidemia (Acute) Migraine (Acute) only one in 2020 Vaginal atrophy (Acute 01/07/17) Medical History COVID-19 (~02/13/22) Elevated C-reactive protein (11/17/07) Cardiac murmur Chondromalacia of patella Pilonidal cyst (12/06/14) TMJ (temporomandibular joint disorder) (11/19/13) July 2020-[facility]; s/p surgeries now seeing Dr Dari Noguera, [employer], [place]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 Paternal Grandmother , age 94 No problems noted. Sister No problems noted. Son No problems noted. Son No problems noted. Daughter No problems noted. Daughter No problems noted. 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 Caregiver/Support person: No Household members: spouse and other Details: 2 clients live 1/2 the month with them Housing: house Communication Needs: None Do you need help understanding health information?: Never Pets and animals: Yes Pets and animals: cat(s), dog(s) and other Details: bunny Sexually active: Yes Do you think of yourself as: straight/heterosexual Current gender identity: female What is your relationship status?: How often do you talk on the phone with friends or family?: three or more times per week How often do you get together with friends or relatives?: three or more times per week How often do you attend scientologist or yazdanism services?: 4 or more times per year Panel score (0-1 are the most socially isolated patients): 3 Dolly/Samaritan: Sabianist Special dolly needs: No Seatbelt use: always Helmet use: Yes Helmet use: always Drive intox or ride w/intox locomotive driver: No POCUS Exam (ED) Limited Cardiac Exam DATE OF EXAM: 05/24/23 TIME OF EXAM: 14:05 PROVIDER THAT PERFORMED THE STUDY: Aden Menendez REASON FOR EXAM: Dyspnea VISUALIZED STRUCTURES: Four Chambers VIEW OBTAINED: Parasternal long-axis PERTINENT FINDINGS/IMPRESSION: Pericardial effusion (small); No LV dysfunction and No RV dilation Exam complete
[2023-05-24 14:31] LABS: PTT Activated 28.7 sec (23.6-32.8); Prothrombin Time 10.4 sec (9.1-11.1)
[2023-05-24] MEDS: HYDROmorphone 2 MG/ML SYR 0.5 MG IVP (14:31)
[2023-05-24 14:49] LABS: ALT 24 U/L (14-59); AST 24 U/L (15-37); Albumin 3.7 g/dL (3.4-5.0); Alkaline Phosphatase 92 U/L (46-116); Anion Gap 12.3 mmol/L (3-11); BUN 13 mg/dL (7-18); CO2 22.7 mmol/L (21.0-32.0); CREATININE 0.7 mg/dL (0.55-1.02); Calcium 9.7 mg/dL (8.5-10.1); Chloride 99 mmol/L (98-107); Estimated GFR 100.81 (mL/min/1.73m2); Glucose 121 mg/dL (74-106); Lipase 34 U/L (16-77); Magnesium 1.9 mg/dL (1.8-2.4); NT-proBNP 235 pg/mL (<300); Potassium 4.2 mmol/L (3.5-5.1); Sodium 134 mmol/L (136-145); Total Protein 8.4 g/dL (6.4-8.2); Troponin I < 50 ng/L (< or =60)
[2023-05-24 14:58] LABS: COVID-19 PCR Negative (Negative)
[2023-05-24] MEDS: Normal Saline - Diluent 50 ML VIAL IJ (15:06)
[2023-05-24] MEDS: Omnipaque 350 MG/ML 100 ML BTL IJ (15:07)
[2023-05-24 17:09] LABS: Troponin I < 50 ng/L (< or =60)
== END 2023-05-24 18:03 | disposition home or self-care (01) ==
PROVIDERS: Emergency Provider Emergency Medicine; PCP Nurse Practitioner Family
DX: R07.9 Chest pain, unspecified (principal); R06.02 Shortness of breath; I10 Essential (primary) hypertension; I25.10 Atherosclerotic heart disease of native coronary artery without angina pectoris; Z95.1 Presence of aortocoronary bypass graft; Z11.52 Encounter for screening for COVID-19; Z79.82 Long term (current) use of aspirin; R00.0 Tachycardia, unspecified
CPT/HCPCS: 36415; 71275; 80053; 82805; 83690; 87635; 93005; 93308; 96374; 99285; 83735; 83880; 84484; 85025; 85610; 85730; 93010; 99284; J1170; J3490

== ENCOUNTER 2023-06-04 11:59 | Outpatient (REF) | payer BC, SELFPAY ==
--- NOTE | 2023-06-04 12:15 | PAPFT_PTH ---
PATIENT: Juana Mann LOC: [facility] U#:[id number] AGE/SX: 57/F ROOM: RE06/04/[address]: Ricardo Almonte DNP : 1965 BED: DIS: 06/04/2023 SPEC #: [id number] RECD: 06/05/23 12:56 STATUS: HIRAM REQ #: [id number] JERSON: 06/04/23 12:[address]: Ricardo Rdz DEPT: [facility] Cytology RECD BY: Flakita Melo Tissues: 1 - CX/ENDOCX FOR PAP SMEARS Procedures: PAP THIN PREP/UVM Screening HPV DNA PROBE Comments: [id number]
[2023-06-04 20:50] LABS: Hemoglobin A1C 5.8 % (<5.7)
[2023-06-04 21:00] LABS: Anion Gap 13.4 mmol/L (3-11); BUN 13 mg/dL (7-18); CO2 26.6 mmol/L (21.0-32.0); CREATININE 0.8 mg/dL (0.55-1.02); Calcium 9.3 mg/dL (8.5-10.1); Chloride 100 mmol/L (98-107); Estimated GFR 85.89 (mL/min/1.73m2); Glucose 90 mg/dL (74-106); Sodium 140 mmol/L (136-145); TSH (W/Ref FT4) 0.91 uIU/mL (0.36-3.74)
== END 2023-06-04 12:00 | disposition home or self-care (01) ==
LOC: LBN 11:59
PROVIDERS: PCP Nurse Practitioner Family; Visit Provider Nurse Practitioner Family
DX: R73.03 Prediabetes (principal); I10 Essential (primary) hypertension; E78.5 Hyperlipidemia, unspecified
CPT/HCPCS: 80048; 88142; 83036; 84443; 87624

== ENCOUNTER 2023-06-17 06:12 | Outpatient (CLI) | payer BC, SELFPAY ==
--- NOTE | 2023-07-30 12:55 | W.NUTRFU ---
Date of service: 06/17/23 Time of Service: 09:00 Nutrition Note NOTE: Had brief nutrition appt with Juana today regarding her referral for nutirtion mgt for predaibetes and CAMARA. We focused on a couple topics today: -ADDED Sugar - reviewed goal to keep consistently <40g per day (<30 ideally) for help with fatty liver - also suggested she discussed milk thistle with provider to help prevent scarring. We reviewed how to find and track added sugar intake and that 1tsp sweetener will be 4g added sugar. -Fiber - reviewed goal of substituting more plant protein for animal protein to decrease fiber and negative health effects of too much animal protein. Reviewed sources of fiber and how to get needs met throughout the day by planning for 3 meals and 1-2 PLANNED snacks per day. Reviewed refinement of starch and how less processed versions will result in lower glycemic index and more fiber. discussed carb counting and trying to limit carbs to 160g and that this is added sugar, natural sugar, fiber and starches together. We reviewed 15g servings sizes and goal to have about 10 servings per day. We looked at some easy ways to be consistent with menu planning to meed her carb and protein goals. She took my contact info should she like to get more into menu planning or need any further resources or follow up appts. Time Spent in Nutritional Counseling and Treatment: 30 minutes
== END 2023-06-17 06:13 | disposition home or self-care (01) ==
PROVIDERS: PCP Nurse Practitioner Family; Visit Provider Dietitian, Registered
DX: R73.03 Prediabetes (principal); K75.81 Nonalcoholic steatohepatitis (NASH); Z71.3 Dietary counseling and surveillance
CPT/HCPCS: 00123; 97802

== ENCOUNTER 2023-07-01 08:07 | Outpatient (RCR) | payer BC, SELFPAY | END 2023-07-02 23:59 | disposition home or self-care (01) | LOC: CR 08:07 | PROVIDERS: PCP Nurse Practitioner Family; Visit Provider Internal Medicine Cardiovascular Disease | DX: I25.10 Atherosclerotic heart disease of native coronary artery without angina pectoris (principal); Z51.89 Encounter for other specified aftercare | CPT/HCPCS: S9472 ==

== ENCOUNTER 2023-07-19 07:49 | Outpatient (RCR) | payer BC, SELFPAY | END 2023-08-02 23:59 | disposition home or self-care (01) | LOC: CR 07:49 | PROVIDERS: PCP Nurse Practitioner Family; Visit Provider Internal Medicine Cardiovascular Disease | DX: I25.10 Atherosclerotic heart disease of native coronary artery without angina pectoris (principal); Z95.1 Presence of aortocoronary bypass graft; Z51.89 Encounter for other specified aftercare | CPT/HCPCS: S9472 ==

== ENCOUNTER 2023-09-25 21:51 | Inpatient (IN) | payer BC, SELFPAY ==
[2023-09-25] VITALS (23 sets, daily range): BP systolic 137–152; BP diastolic 99–111; PULSE 87–97; RESP 10–22; TEMP 37.1; O2SAT 93–98
--- NOTE | 2023-09-25 21:45 | RT.EKG_ITS ---
APPROVED REPORT Exam: Resting ECG Reason for Exam: Patient Location: E HR:90 bpm ECG Measurements Heart Rate 90 AXIS CO 169 P 42 QRSd 78 QRS 37 QT 351 T 187 QTc 429 Conclusion Sinus rhythm...normal P axis, V-rate 60- 99 Repol abnrm suggests ischemia, diffuse leads...ST-T neg, ant/lat/inf Physician: inferior and lateral depressions appear new. No STEMI
--- NOTE | 2023-09-25 22:00 | DI.RAD_ITS ---
Exam(s) XR PORTABLE CHEST AP EXAM: XR PORTABLE CHEST AP CLINICAL HISTORY: left upper chest pain TECHNIQUE: 2D digital imaging was performed of the chest. One image was obtained. An AP view was ob tained. COMPARISON: CR,XR XR PORTABLE CHEST AP from 04/23/2023 FINDINGS: MEDIASTINUM: Normal. HEART: Normal. Status post CABG. PULMONARY VASCULATURE: Normal. LUNGS: No focal infiltrate. PLEURAL SPACE: No pleural effusion or pneumothorax. BONE:Within normal limits for the patient's age. OTHER FINDINGS:Normal. IMPRESSION: No focal consolidating infiltrates. DATA REPOSITORY: RADIATION DOSE DELIVERED:
[2023-09-25 22:21] LABS: Abs Immature Grans 0.03 10^3/uL (0.0-0.06); Absolute Basophil Count 0.06 10^3/uL (0.0-0.2); Absolute Eosinophil Count 0.13 10^3/uL (0.0-0.7); Absolute Lymphocyte Count 2.85 10^3/uL (1.2-3.4); Absolute Monocyte Count 0.53 10^3/uL (0.1-0.8); Absolute Neutrophil Count 4.83 10^3/uL (1.2-6.7); Basophils % 0.7 %; Eosinophils % 1.5 %; HCT 41.8 % (36.0-46.0); HGB 13.5 g/dL (11.2-15.7); Immature Grans % 0.4 %; Lymphocytes % 33.8 %; MCH 26.9 pg (27.0-33.0); MCHC 32.3 % (32.0-36.0); MCV 83 fL (80-95); MPV 9.4 fL (8.0-11.0); Monocytes % 6.3 %; Neutrophils % 57.3 %; Platelet Count 259 10^3/uL (130-400); RBC 5.02 10^6/uL (3.93-5.22); RDW 15.3 % (11.7-14.6); WBC 8.43 10^3/uL (4.4-10.8)
[2023-09-25] MEDS: nitroGLYcerin 2% 1 INCH/1 GM PKT 0.5 GM TP ×2 (22:26→23:15)
[2023-09-25] MEDS: Aspirin 81 MG CHEW 324 MG CH (22:26)
[2023-09-25 22:40] LABS: PTT Activated 26.6 sec (23.6-32.8); Prothrombin Time 9.6 sec (9.1-11.1)
[2023-09-25 22:42] LABS: ALT 43 U/L (14-59); AST 35 U/L (15-37); Albumin 4.1 g/dL (3.4-5.0); Alkaline Phosphatase 119 U/L (46-116); Anion Gap 11.6 mmol/L (3-11); BUN 14 mg/dL (7-18); Bilirubin, Total 0.39 mg/dL (0.2-1.0); CO2 28.4 mmol/L (21.0-32.0); Chloride 101 mmol/L (98-107); Glucose 145 mg/dL (74-106); Magnesium 1.8 mg/dL (1.8-2.4); NT-proBNP 112 pg/mL (<300); Potassium 3.2 mmol/L (3.5-5.1); Sodium 141 mmol/L (136-145); Total Protein 8.5 g/dL (6.4-8.2)
[2023-09-25 22:43] LABS: Troponin I 507 ng/L (< or =60)
--- NOTE | 2023-09-25 22:46 | ED.GENADUL_ITS ---
Discharge Plan Disposition Patient Disposition: Admit to [facility] Condition: Improving Discharge Details Chief Complaint: Chest Pain Clinical Impression: Unstable angina, Non-ST elevation AR (NSTEMI) Primary Care Provider: Ricardo Rdz ED Provider: Jaxon Gutierres Home Meds and New Rx's Prescriptions: No Action magnesium citrate 125 mg capsule 125 mg PO DAILY aspirin [Courtney Low Dose Aspirin] 81 mg tablet,delayed release (DR/EC) 81 mg PO DAILY lidocaine 5 % adhesive patch,medicated 1 patch topical DAILY Qty: 30 6RF Rx Instructions: leave on most painful area for up to 12 hrs meclizine [Motion Sickness (meclizine)] 25 MG tablet 25 mg PO BID PRNQty: 50 atorvastatin 80 mg tablet 80 mg PO DAILY isosorbide mononitrate 30 mg tablet extended release 24 hr 30 mg PO DAILY metoprolol tartrate 25 mg tablet 25 mg PO BID estradiol 0.01 % (0.1 mg/gram) cream 1 appful vaginal .2-3 times per week Rx Instructions: 2 g vaginally daily. Skips first week of the month. HPI General Date/Time Provider Initiated Documentation: 09/25/23 22:01 . HPI Narrative: 58-year-old female with a past medical history of TMJ, hypertension, high cholesterol, previous coronary artery disease with 2-3 vessel bypass about 6 months ago at [facility], who takes a daily aspirin, atorvastatin, and metoprolol, presents today for evaluation of chest discomfort. Patient states that about 1 week ago she developed a mild left-sided chest tightness, it was improved when she twisted around, or took a Flexeril, however throughout the week she gradually had worsening of this pain, it became achy, tight and notably heavy. It was worse with every bit of activity and physical exertion, and improved with rest. However over the last 24 to 36 hours the pain would not go away with rest and seem to be present at all times. She denies any tearing or ripping sensation. She does not smoke. She has been taking her daily aspirin. She states that this feels similar to her previous heart attack. No other complaints at this time. She denies any recent significant weight gain, she denies any long trips surgeries or procedures. No history of blood clots. Family history is positive for MIs. Related Data Home Medications ?Medication ?Instructions ?Recorded ?Confirmed meclizine 25 mg tablet (Motion 25 mg PO BID PRN #50 tab-caps 06/06/15 09/25/23 Sickness (meclizine)) atorvastatin 80 mg tablet 80 mg PO DAILY 04/24/23 09/25/23 estradiol 0.01% (0.1 mg/gram) 1 appful vaginal .2-3 times per 04/24/23 09/25/23 vaginal cream week isosorbide mononitrate 30 mg 30 mg PO DAILY 04/24/23 09/25/23 tablet,extended release 24 hr metoprolol tartrate 25 mg tablet 25 mg PO BID 04/24/23 09/25/23 magnesium citrate 125 mg capsule 125 mg PO DAILY 06/04/23 09/25/23 aspirin 81 mg tablet,delayed 81 mg PO DAILY 09/10/23 09/25/23 release (Courtney Low Dose Aspirin) lidocaine 5 % topical patch 1 patch topical DAILY #30 ea 09/10/23 09/25/23 Previous Rx's ?Medication ?Instructions ?Recorded lidocaine 5 % topical patch 1 patch topical DAILY #30 ea 09/10/23 Allergies Allergy/AdvReac Type Severity Reaction Status Date / Time meperidine Allergy Severe Other (See Verified 09/25/23 22:07 Comment) promethazine Allergy Intermediate HIVES Verified 09/25/23 22:07 Penicillins Allergy Unknown Other (See Verified 09/25/23 22:07 Comment) Sulfa (Sulfonamide Allergy Unknown Other (See Verified 09/25/23 22:07 Antibiotics) Comment) lisinopril AdvReac Intermediate COUGH Verified 09/25/23 22:07 General Stated Complaint: Chest Pain COURTNEY: 2 Review of Systems All systems reviewed & are unremarkable except as noted in HPI and below Exam Narrative Exam Narrative: 1.Const: Well-nourished, Well-developed, appearing stated age 2.Eyes: PERRL, no conjunctival injection, and symmetrical lids. 3.ENT: Atraumatic external nose and ears. Moist MM. Neck: Symmetric, trachea midline, No thyromegaly. 4.CVS: +S1/S2, No murmurs or gallops. Peripheral pulses 2+ and equal in all extremities. Brisk capillary refill in all extremities. No reproducible chest wall tenderness. No rash. No signs of trauma. Radial pulses +2 bilaterally. 5.RESP: Unlabored respiratory effort. Clear to auscultation bilaterally. No wheezes rales or rhonchi 6.GI: Soft, Nontender/Nondistended, No hepatosplenomegaly. No guarding or rebound. 7.MSK: Normocephalic/Atraumatic, Extremities w/o deformity or ttp No cyanosis or clubbing, Normal movement of all extremities. No calf tenderness or swelling or edema. 8.Skin: Warm, Dry. No rashes or lesions. 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 Sensation grossly intact, no focal neurologic deficits. 10.Psych: (AAO) x3. Appropriate mood and affect Course Vital Signs Vital signs: Vital Signs Temperature 37.1 C 09/25/23 21:53 Pulse 89 09/25/23 21:53 Respiratory Rate 12 09/25/23 21:53 Blood Pressure 152/109 H 09/25/23 21:53 Pulse Oximetry 98 09/25/23 21:53 Temperature 37.1 C 09/25/23 21:53 Temperature Source Tympanic 09/25/23 21:53 Pulse 89 09/25/23 21:53 Respiratory Rate 18 09/25/23 22:03 Respiratory Effort Normal, Non-Labored 09/25/23 22:03 Respiratory Depth Normal 09/25/23 22:03 Respiratory Pattern Normal 09/25/23 22:03 Blood Pressure 152/109 H 09/25/23 21:53 Blood Pressure Position Sitting 09/25/23 21:53 Pulse Oximetry 98 09/25/23 21:53 Oxygen Delivery Method Room Air 09/25/23 21:53 Oxygen Flow Rate 0 09/25/23 21:53 Pain Level 4 09/25/23 21:53 Lab/Test Results Lab/Test Results: Laboratory Tests Range/Units 09/25/23 21:59 WBC (4.4-10.8) 10^3/uL 8.43 RBC (3.93-5.22) 10^6/uL 5.02 Hgb (11.2-15.7) g/dL 13.5 Hct (36.0-46.0) % 41.8 MCV (80-95) fL 83 MCH (27.0-33.0) pg 26.9 L MCHC (32.0-36.0) % 32.3 RDW (11.7-14.6) % 15.3 H Plt Count (130-400) 10^3/uL 259 MPV (8.0-11.0) fL 9.4 Immature Gran % % 0.4 Neutrophils % % 57.3 Lymphocytes % % 33.8 Monocytes % % 6.3 Eosinophils % % 1.5 Basophils % % 0.7 Nucleated RBC % (0.0-0.3) % 0.0 Absolute Neutrophils (1.2-6.7) 10^3/uL 4.83 Absolute Lymphocytes (1.2-3.4) 10^3/uL 2.85 Absolute Monocytes (0.1-0.8) 10^3/uL 0.53 Absolute Eosinophils (0.0-0.7) 10^3/uL 0.13 Absolute Basophils (0.0-0.2) 10^3/uL 0.06 PT (9.1-11.1) sec 9.6 INR (0.9-1.1) 1.0 APTT (23.6-32.8) sec 26.6 Sodium (136-145) mmol/L 141 Potassium (3.5-5.1) mmol/L 3.2 L Chloride (98-107) mmol/L 101 Carbon Dioxide (21.0-32.0) mmol/L 28.4 Anion Gap (3-11) mmol/L 11.6 H BUN (7-18) mg/dL 14 Creatinine (0.55-1.02) mg/dL 1.0 Est GFR (CKD-EPI 2020) (mL/min/1.73m2) 65.30 Glucose (74-106) mg/dL 145 H Calcium (8.5-10.1) mg/dL 9.0 Magnesium (1.8-2.4) mg/dL 1.8 Total Bilirubin (0.2-1.0) mg/dL 0.39 AST (15-37) U/L 35 ALT (14-59) U/L 43 Alkaline Phosphatase (46-116) U/L 119 H Troponin I (< or =60) ng/L 507 H* NT-Pro-B Natriuret Pep (<300) pg/mL 112 Total Protein (6.4-8.2) g/dL 8.5 H Albumin (3.4-5.0) g/dL 4.1 Medical Decision Making 58-year-old female with a past medical history of TMJ, hypertension, high cholesterol, previous coronary artery disease with 2-3 vessel bypass about 6 months ago at [facility], who takes a daily aspirin, atorvastatin, and metoprolol, presents today for evaluation of chest discomfort. Patient states that about 1 week ago she developed a mild left-sided chest tightness, it was improved when she twisted around, or took a Flexeril, however throughout the week she gradually had worsening of this pain, it became achy, tight and notably heavy. It was worse with every bit of activity and physical exertion, and improved with rest. However over the last 24 to 36 hours the pain would not go away with rest and seem to be present at all times. She denies any tearing or ripping sensation. She does not smoke. She has been taking her daily aspirin. She states that this feels similar to her previous heart attack. No other complaints at this time. She denies any recent significant weight gain, she denies any long trips surgeries or procedures. No history of blood clots. Family history is positive for MIs. Exam demonstrates well-appearing female, vital signs stable aside for hypertension. No calf tenderness, pulses are equal bilaterally. Symptoms appear inconsistent with dissection. Symptoms appear unlikely to be related to pulmonary embolism. Differential is highest for unstable angina. She seems to have a gradual progression of her symptomatology and especially with her history this is very concerning for me. Patient is very hesitant for nitroglycerin use as she got significantly hypotensive on her last use at her previous visit. We will give a small amount of Nitropaste and gradually slowly monitor. I will evaluate for cardiac concerns, monitor closely and reassess. EKG does not show any evidence of STEMI but does show diffuse depressions in the lateral leads and some in the inferior leads which certainly could be secondary to a cardiac etiology of the acute nature. 11:33 PM Laboratory workup has returned, no white count bandemia or left shift. Platelets normal. Electrolytes stable, renal function normal, proBNP normal, troponin 507. Bedside POCUS was performed, patient does demonstrate evidence of notable hypokinesis at the apex, review of prior echo from [facility] reveals that this is a bit chronic. No evidence of significant other wall motion abno rmalities at this time though. With the patient's elevated troponin, her concerning history, we will give 600 Plavix, will heparinize, she does have improvement of her pain with the nitro ointment, we will transition to a titratable nitro drip. I did contact [facility] and discussed the case with , he agrees with the assessment and plan. He recommends transfer. Unfortunately they do not have beds and they are wait listing until tomorrow. Patient will be transferred at that time per [facility], under the admitting physician of . Will contact [facility] hospitalist for admission to the ICU here in the meantime. Patient remains hemodynamically stable. Discussed the case with the hospitalist Dr. Ramos, he agrees with the assessment and plan. I have extensively reviewed the treatment plan with the patient. I have addressed all patient concerns at this time. I have also discussed the plan with the admitting physician and they agree with the current assessment and plan and have agreed to assume responsibility for the patient. All parties demonstrate verbal understanding and agreement with our assessment and plan at this time. The documentation in this chart was dictated using [email or web address] dictation software. Please excuse any dictation errors. FINDINGS: Lungs: Mild hyperinflation without airspace consolidation. Pleural spaces: No pleural effusion. No pneumothorax. Heart/Mediastinum: CABG. No significant cardiomegaly. Bones/joints: Median sternotomy wires. Chronic appearing osteolysis of the distal left clavicle, similar to prior. IMPRESSION: 1. Mild hyperinflation without airspace consolidation. 2. Additional chronic findings as described. Thank you for allowing us to participate in the care of your patient. Dictated and Authenticated by: Lucero Thompson MD 09/25/2023 11:21 PM Eastern Time ([place] & [place]) Quality:SDOH Health Related Social Needs: No Data to Display Critical Care Time Critical Care Time Critical Care Time: Yes Total Critical Care Time: 45 Attestation: Upon my evaluation, this patient had a high probability of imminent or life- threatening deterioration, which required my direct attention, intervention, and personal management. I have personally provided 45 minutes of critical care time exclusive of time spent on separately billable procedures. Time includes review of laboratory data, radiology results, discussion with consultants, and monitoring for potential decompensation. Interventions were performed as documented. [facility] All Active Problems (Updated 09/25/23 @ 23:56 by Jaxon Gutierres DO) Non-ST elevation AR (NSTEMI) (Acute) Unstable angina (Acute) TMJ arthralgia (Acute) Bilateral pleural effusion (Acute) Musculoskeletal chest pain (Acute) Atelectasis (Acute) Coronary artery disease (Chronic) S/P CABG (coronary artery bypass graft) (Acute) Atelectasis of both lungs (Acute) Non-ST elevation AR (NSTEMI) (Acute) Gallbladder polyp (Acute) Nonalcoholic steatohepatitis (CAMARA) (Acute) Beau's lines of nails (Acute) left thumb Elevated ferritin (Acute) Pre-diabetes (Acute) Osteopenia (Acute) Benign paroxysmal positional vertigo (Acute) intermittent Essential hypertension (Acute 12/19/12) off meds after weight loss Hyperlipidemia (Acute) Migraine (Acute) only one in 2020 Vaginal atrophy (Acute 01/07/17) Medical History COVID-19 (~02/13/22) Elevated C-reactive protein (11/17/07) Cardiac murmur Chondromalacia of patella Pilonidal cyst (12/06/14) TMJ (temporomandibular joint disorder) (11/19/13) July 2020-[facility]; s/p surgeries now 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 Paternal Grandmother , age 94 No problems noted. Sister No problems noted. Son No problems noted. Son No problems noted. Daughter No problems noted. Daughter No problems noted. 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 Housing: house Communication Needs: None Do you need help understanding health information?: Never Pets and animals: Yes Pets and animals: cat(s), dog(s) and other Details: bunny Sexually active: Yes Do you think of yourself as: straight/heterosexual Current gender identity: female What is your relationship status?: How often do you talk on the phone with friends or family?: three or more times per week How often do you get together with friends or relatives?: three or more times per week How often do you attend advent or quaker services?: 4 or more times per year Panel score (0-1 are the most socially isolated patients): 3 Dolly/Jewish: Anabaptist Special dolly needs: No Seatbelt use: always Helmet use: Yes Helmet use: always Drive 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
--- NOTE | 2023-09-25 23:21 | DI.VRAD_ITS ---
PROCEDURE INFORMATION: Exam: XR Chest Exam date and time: 09/25/2023 22:28 Age: 58 years old Clinical indication: Pain; Left-sided; Additional info: Left upper chest pain TECHNIQUE: Imaging protocol: Radiologic exam of the chest. Views: 1 view. COMPARISON: CT CHEST PE CTA 05/24/2023 15:15 FINDINGS: Lungs: Mild hyperinflation without airspace consolidation. Pleural spaces: No pleural effusion. No pneumothorax. Heart/Mediastinum: CABG. No significant cardiomegaly. Bones/joints: Median sternotomy wires. Chronic appearing osteolysis of the distal left clavicle, similar to prior. IMPRESSION: 1. Mild hyperinflation without airspace consolidation. 2. Additional chronic findings as described. Dictated and Authenticated by: Lucero Thompson MD. Ordering:CHRISTINA Coates MD
[2023-09-25] MEDS: Clopidogrel 300 MG TAB PO ×2 (23:23→23:37)
[2023-09-25] MEDS: Ondansetron 4 MG/2 ML VIAL (23:23)
[2023-09-25] MEDS: Heparin in 0.45% NaCl 25,000 UNIT/250 ML BAG 8.5 UNIT IV (23:29)
[2023-09-26] VITALS (57 sets, daily range): BP systolic 73–140; BP diastolic 57–103; PULSE 67–113; RESP 12–27; TEMP 37–37.2; O2SAT 90–99
[2023-09-26] MEDS: nitroGLYcerin in D5W 50 MG/250 ML BTL 7.5 MG IV (00:07)
--- NOTE | 2023-09-26 00:08 | HPE_ITS ---
Date of service: 09/25/23 Time of Service: 11:40 Assessment and Plan Assessment and plan (1) Non-ST elevation DC (NSTEMI): Status: Acute Assessment and plan: Patient with known CAD presenting with classic pattern of unstable angina and assessment consistent with NSTEMI with ischemic EKG changes and elevated troponins along wih her pain. Case was reviewed with [facility] cardiology who agreed with heparin drip and high dose clopidogrel loading. She has been accepted by cardiology service Dr. Leyva but there will not be a bed available until tomorrow, admitting for initial medical management at [facility]. Per [facility] report, finding of apical hypokenesis not new. She still has some discomfort that initially imrpoved with NTG paste so starting NGT drip. Holding isosorbide orally. She doesn't tolerate morphine with itching, has tolerated fentanyl, I wrote for low dose if pain not improving on NTG drip Continue aspirin and high intensity statin. Monitor in ICU due to vasoactive infusion. (2) Essential hypertension: Status: Acute Assessment and plan: Continue outpatient medication. BP is a little high now but should improve with NTG drip. History of Present Illness History of Present Illness Chief Complaint: chest pain Narrative: 58 yo F with CAD s/p NSTEMI and CABG at [facility] in April 2023 who presented to the emergency room today with progressive chest pain and elevated blood pressure. Patient states the pain started about a week ago as she was going to bed. She thought it was muscular, took a flexiril and slept and felt better. During the course of the week she had recurrence of the pain, with the pain occuring regularly with exertion such as walking up the stairs. This morning she felt well and did pilates class, but the pain came on this afternoon and was not abetting despite rest, full dose aspirin, heat, and cyclobenzaprine. She took her blood pressure and found it was 140s/100s consistently, when it was running 120/80, and she decided to come in. The pain is left sided, feels like a muscle spasm with aching into the left neck and arm. This is similar to the pain she had with her DC in April. Pain lasting for 1-2 hours at a time. Rest and heat, acetaminophen, and aspirin seemed to help some. Pain made it difficult to take a breath, but is not associated with diaphoresis, nausea, palpitations, or lightheadedness. Of note she was seen by her PCP 09/09 and asked for lidocaine patches for left sided shoulder and jaw pain. She takes her medicaitons regularly on a phone alarm. She has not changed medication or suppluments. She has been trying to eat a Mediterranean diet. Today she was at her own birthday constitution party, smoked meats were served, but she didn't feel well enough to eat much. 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 Review of Systems All systems reviewed & are unremarkable except as noted in HPI and below Cardiovascular Cardiovascular: Reports as per HPI, Denies leg edema and Denies orthopnea Integumentary/Breasts Skin/Breast: Denies non-healing lesions and Reports rash (mild poisin danika left arm, itchy) Hematologic/Lymphatic Hematologic/Lymphatic: Denies easy bleeding PFSH All Active Problems (Updated 09/26/23 @ 00:32 by Jose Ramos) Non-ST elevation DC (NSTEMI) (Acute) Unstable angina (Acute) TMJ arthralgia (Acute) Musculoskeletal chest pain (Acute) Coronary artery disease (Chronic) S/P CABG (coronary artery bypass graft) (Acute) Non-ST elevation DC (NSTEMI) (Acute) Gallbladder polyp (Acute) Nonalcoholic steatohepatitis (CAMARA) (Acute) Beau's lines of nails (Acute) left thumb Elevated ferritin (Acute) Pre-diabetes (Acute) Osteopenia (Acute) Benign paroxysmal positional vertigo (Acute) intermittent Essential hypertension (Acute 12/19/12) off meds after weight loss Hyperlipidemia (Acute) Migraine (Acute) only one in 2020 Vaginal atrophy (Acute 01/07/17) Medical History COVID-19 (~02/13/22) Elevated C-reactive protein (11/17/07) Cardiac murmur Chondromalacia of patella Pilonidal cyst (12/06/14) TMJ (temporomandibular joint disorder) (11/19/13) July 2020-[facility]; s/p surgeries now seeing Dr Dari Noguera, hall coordinator, [place]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 Paternal Grandmother , age 94 No problems noted. Sister No problems noted. Son No problems noted. Son No problems noted. Daughter No problems noted. Daughter No problems noted. 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 Housing: house Communication Needs: None Do you need help understanding health information?: Never Pets and animals: Yes Pets and animals: cat(s), dog(s) and other Details: bunny Sexually active: Yes Do you think of yourself as: straight/heterosexual Current gender identity: female What is your relationship status?: How often do you talk on the phone with friends or family?: three or more times per week How often do you get together with friends or relatives?: three or more times per week How often do you attend religious or buddhist services?: 4 or more times per year Panel score (0-1 are the most socially isolated patients): 3 Dolly/Roman Catholic: Muslim Special dolly needs: No Seatbelt use: always Helmet use: Yes Helmet use: always Drive intox or ride w/intox car pick up driver: No Do you feel safe at home: Yes Do you feel safe in your relationship?: Yes Meds Allergies and Home Medications Allergies Allergy/AdvReac Type Severity Reaction Status Date / Time meperidine Allergy Severe Other (See Verified 09/25/23 22:07 Comment) promethazine Allergy Intermediate HIVES Verified 09/25/23 22:07 Penicillins Allergy Unknown Other (See Verified 09/25/23 22:07 Comment) Sulfa (Sulfonamide Allergy Unknown Other (See Verified 09/25/23 22:07 Antibiotics) Comment) lisinopril AdvReac Intermediate COUGH Verified 09/25/23 22:07 Home Medications ?Medication ?Instructions ?Recorded ?Confirmed ?Type meclizine 25 mg tablet (Motion 25 mg PO BID PRN #50 tab-caps 06/06/15 09/25/23 History Sickness (meclizine)) atorvastatin 80 mg tablet 80 mg PO DAILY 04/24/23 09/25/23 History estradiol 0.01% (0.1 mg/gram) 1 appful vaginal .2-3 times per 04/24/23 09/25/23 History vaginal cream week isosorbide mononitrate 30 mg 30 mg PO DAILY 04/24/23 09/25/23 History tablet,extended release 24 hr metoprolol tartrate 25 mg tablet 25 mg PO BID 04/24/23 09/25/23 History magnesium citrate 125 mg capsule 125 mg PO DAILY 06/04/23 09/25/23 History aspirin 81 mg tablet,delayed 81 mg PO DAILY 09/10/23 09/25/23 History release (Courtney Low Dose Aspirin) lidocaine 5 % topical patch 1 patch topical DAILY #30 ea 09/10/23 09/25/23 Rx Exam Narrative Exam Narrative: GEN: Alert and oriented x 4, pleasant and cooperative, gives linear history. No acute distress at rest. HEENT: Head atraumatic. Conjunctiva clear, no icterus. PEERL, EOMI. no rhinorrhea. MMM, OP benign. Neck is supple with no masses or lymphadenopathy, trachea midline LUNGS: CTAB with normal effort CV: RRR with no murmurs, gallops, or rubs. No elevatoin JVP ABD: active bowel sounds, soft, nontender and nondistended. No masses. EXT: no cyanosis, clubbing, or edema, legs not tender MSK: No joint redness or swelling NEURO: CN 2-12 grossly intact. Normal movement of 4 extremities. Normal speech and coordination. No tremor SKIN: Dry pink excoriated patches left arm (thinks this is poisin danika), othewise no rashes or open wounds. PSYCH: normal mood and affect, normal thought process Results Imaging Chest x-ray: report reviewed and image reviewed (No congestion or infiltrate, no cardiomegaly) Additional studies: See ED note re: cardiac POCUS, apical hypokenesis noted, similar to previous per report from [facility] EKG: report reviewed and image reviewed (NSR, nl axis, intervals, 1-[address] depression inferior (2,3,aVF) and lateral (V4-V6)) Labs 09/25/23 21:59 09/25/23 21:59 Labs: Laboratory Results - last 24 hr 09/25/23 21:59 WBC 8.43 RBC 5.02 Hgb 13.5 Hct 41.8 MCV 83 MCH 26.9 L MCHC 32.3 RDW 15.3 H Plt Count 259 MPV 9.4 Immature Gran % 0.4 Neutrophils % 57.3 Lymphocytes % 33.8 Monocytes % 6.3 Eosinophils % 1.5 Basophils % 0.7 Nucleated RBC % 0.0 Absolute Neutrophils 4.83 Absolute Lymphocytes 2.85 Absolute Monocytes 0.53 Absolute Eosinophils 0.13 Absolute Basophils 0.06 PT 9.6 INR 1.0 APTT 26.6 Sodium 141 Potassium 3.2 L Chloride 101 Carbon Dioxide 28.4 Anion Gap 11.6 H BUN 14 Creatinine 1.0 Est GFR (CKD-EPI 2020) 65.30 Glucose 145 H Calcium 9.0 Magnesium 1.8 Total Bilirubin 0.39 AST 35 ALT 43 Alkaline Phosphatase 119 H Troponin I 507 H* NT-Pro-B Natriuret Pep 112 Total Protein 8.5 H Albumin 4.1 Last Vital Signs Temp 37.1 C 09/25/23 21:53 Pulse 92 H 09/25/23 23:31 Resp 14 09/25/23 23:40 BP 137/104 H 09/25/23 23:31 Pulse Ox 97 09/25/23 23:40 Time Spent Time spent with Patient: 55-74 minutes Time was spent: preparing to see the patient(eg.review tests), obtaining and/or reviewing separately otained hiistory, ordering medications,tests, procedures, referring, communicating with other health career development facilitator, indepentently interpreting results, counseling the patient and care coordination
--- NOTE | 2023-09-26 00:41 | W.PCEDHO ---
Registration Status: Primary Language: Preferred Language: ED Information & Data Chief Complaint Chest Pain 09/25/23 22:49 Triage Note chest pain started approx 09/25/23 21:53 one week ago, comes and goes , worse with exertion. Center of chest, left arm, jaw. Has been treating with Flexeril (which she takes for muscle spasms of neck) and heating pad. Denies diaphoresis, dizziness. Hx of ND, states this feels the same Medical / Surgical History (Last Reviewed 09/26/23 @ 00:18 by Jose Ramos) COVID-19 (~02/13/22) Elevated C-reactive protein (11/17/07) Cardiac murmur Chondromalacia of patella Pilonidal cyst (12/06/14) TMJ (temporomandibular joint disorder) (11/19/13) (Last Reviewed 09/26/23 @ 00:18 by Jose Ramos) History of mandibular surgery Rotator Cuff Repair (~2004) Most Recent Vital Signs Temperature 37.1 C 09/25/23 21:53 Temperature Source Tympanic 09/25/23 21:53 Pulse 92 H 09/25/23 23:31 Pulse 87 09/25/23 23:40 Respiratory Rate 14 09/25/23 23:40 Respiratory Effort Normal, Non-Labored 09/25/23 22:03 Respiratory Depth Normal 09/25/23 22:03 Respiratory Pattern Normal 09/25/23 22:03 Blood Pressure 137/104 H 09/25/23 23:31 Blood Pressure Mean 113 09/25/23 23:31 Blood Pressure Position Sitting 09/25/23 21:53 Pulse Oximetry 97 09/25/23 23:40 Oxygen Delivery Method Room Air 09/25/23 21:53 Oxygen Flow Rate 0 09/25/23 21:53 Pain Level 4 09/25/23 21:53 Allergies meperidine Allergy (Severe, Verified 09/25/23 22:07) Other (See Comment) . promethazine Allergy (Intermediate, Verified 09/25/23 22:07) HIVES Penicillins Allergy (Unknown, Verified 09/25/23 22:07) Other (See Comment) When she was a child unknown reaction Sulfa (Sulfonamide Antibiotics) Allergy (Unknown, Verified 09/25/23 22:07) Other (See Comment) hives lisinopril Adverse Reaction (Intermediate, Verified 09/25/23 22:07) COUGH Precautions Isolation Standard precaution 09/25/23 22:03 Active Medications Generic Name Dose Route Start Last Admin Trade Name Roberto PRN Reason Stop Dose Admin Heparin Sodium/Sodium Chloride 25,000 unit in 250 mls @ 8.5 mls/hr 09/25/23 23:15 09/25/23 23:29 IV 850 units/hr INFUSION IVA 8.5 mls/hr Administration Protocol 850 UNITS/HR Nitroglycerin/Dextrose 50 mg in 250 mls @ 7.5 mls/hr 09/25/23 23:45 09/26/23 00:07 IV 25 mcg/min INFUSION IVA 7.5 mls/hr Administration Protocol 25 MCG/MIN IV IV Catheter Type [Left Peripheral IV Antecubital] IV Catheter Type [Right Peripheral IV Antecubital] IV Catheter Gauge [Left 18 Antecubital] IV Catheter Gauge [Right 18 Antecubital] Diet Orders Category Date Time Status Heart Healthy Eating [DIET] Nutrition 09/26/23 Breakfast Active Diagnostics 09/26/23 09/25/23 Range/Units 01:14 21:59 WBC 8.43 (4.4-10.8) 10^3/uL RBC 5.02 (3.93-5.22) 10^6/uL Hgb 13.5 (11.2-15.7) g/dL Hct 41.8 (36.0-46.0) % MCV 83 (80-95) fL MCH 26.9 L (27.0-33.0) pg MCHC 32.3 (32.0-36.0) % RDW 15.3 H (11.7-14.6) % Plt Count 259 (130-400) 10^3/uL MPV 9.4 (8.0-11.0) fL Immature Gran % 0.4 % Neutrophils % 57.3 % Lymphocytes % 33.8 % Monocytes % 6.3 % Eosinophils % 1.5 % Basophils % 0.7 % Nucleated RBC % 0.0 (0.0-0.3) % Absolute Neutrophils 4.83 (1.2-6.7) 10^3/uL Absolute Lymphocytes 2.85 (1.2-3.4) 10^3/uL Absolute Monocytes 0.53 (0.1-0.8) 10^3/uL Absolute Eosinophils 0.13 (0.0-0.7) 10^3/uL Absolute Basophils 0.06 (0.0-0.2) 10^3/uL PT 9.6 (9.1-11.1) sec INR 1.0 (0.9-1.1) APTT 26.6 (23.6-32.8) sec Sodium 141 (136-145) mmol/L Potassium 3.2 L (3.5-5.1) mmol/L Chloride 101 (98-107) mmol/L Carbon Dioxide 28.4 (21.0-32.0) mmol/L Anion Gap 11.6 H (3-11) mmol/L BUN 14 (7-18) mg/dL Creatinine 1.0 (0.55-1.02) mg/dL Est GFR (CKD-EPI 2020) 65.30 (mL/min/1.73m2) Glucose 145 H (74-106) mg/dL Calcium 9.0 (8.5-10.1) mg/dL Magnesium 1.8 (1.8-2.4) mg/dL Total Bilirubin 0.39 (0.2-1.0) mg/dL AST 35 (15-37) U/L ALT 43 (14-59) U/L Alkaline Phosphatase 119 H (46-116) U/L Troponin I Pending 507 H* (< or =60) ng/L NT-Pro-B Natriuret Pep 112 (<300) pg/mL Total Protein 8.5 H (6.4-8.2) g/dL Albumin 4.1 (3.4-5.0) g/dL Intake and Output - 24 Hour Total 09/25/23 21:51 thru 09/25/23 21:53 Weight 69.853 kg Falls Risk Assessment History of Falls No History 09/25/23 22:03 Contributing Factors No Factors 09/25/23 22:03 Ambulatory Aids Independent 09/25/23 22:03 Tubes/Lines None 09/25/23 22:03 Gait Evaluation No gait disturbance 09/25/23 22:03 Fall Total Score 0 09/25/23 22:03 Level of Risk Standard/Low Risk 09/25/23 22:03 v v v v v v v v v Sending and/or Receiving Nurses: Please use comment section below to note any information pertinent to the patient hand-off not included above. Information / Comments: Report received from: Valerie CORTÉS
[2023-09-26 01:26] LABS: Troponin I 2972 ng/L (< or =60)
[2023-09-26] MEDS: POTASSIUM CHLORIDE 10 MEQ/100 ML BAG 100 MEQ IVINF (02:07)
[2023-09-26] MEDS: fentaNYL 100 MCG/2 ML VIAL 25 MCG IVP (02:49)
[2023-09-26] MEDS: POTASSIUM CHLORIDE 20 MEQ, POTASSIUM CHLORIDE 10 MEQ 30 MEQ PO (04:07)
[2023-09-26 04:51] LABS: Troponin I 5999 ng/L (< or =60)
--- NOTE | 2023-09-26 06:15 | RT.EKG_ITS ---
APPROVED REPORT Exam: Resting ECG Reason for Exam: STEMI Patient Location: I HR:98 bpm ECG Measurements Heart Rate 98 AXIS LA 160 P 30 QRSd 79 QRS 16 QT 373 T 112 QTc 477 Conclusion Sinus rhythm...normal P axis, V-rate 60- 99 Nonspecific T abnrm, anterolateral leads...T <-0.10mV, I aVL V2-V6
[2023-09-26 06:51] LABS: PTT Activated 41.1 sec (23.6-32.8)
[2023-09-26 07:05] LABS: Anion Gap 9.1 mmol/L (3-11); BUN 12 mg/dL (7-18); CO2 26.9 mmol/L (21.0-32.0); CREATININE 0.9 mg/dL (0.55-1.02); Calcium 8.7 mg/dL (8.5-10.1); Chloride 105 mmol/L (98-107); Glucose 123 mg/dL (74-106); Potassium 3.5 mmol/L (3.5-5.1); Sodium 141 mmol/L (136-145)
[2023-09-26 07:06] LABS: Troponin I 7179 ng/L (< or =60)
[2023-09-26 07:17] LABS: Calculated LDL 55 mg/dL (<100); Cholesterol 108 mg/dL (<200); HDL Cholesterol 44 mg/dL (40-60); Triglyceride 49 mg/dL (<150)
[2023-09-26] MEDS: Acetaminophen 325 MG TAB PO (07:17)
[2023-09-26] MEDS: Aspirin E.C. 81 MG TABEC PO (08:18)
[2023-09-26] MEDS: Metoprolol 12.5 MG TAB 25 MG PO (08:18)
--- NOTE | 2023-09-26 09:51 | PDOC.CMIN ---
Date of service: 09/26/23 Time of Service: 09:51 Care Management Initial Assmt Advance Directives Advance Directives: Do you have an Advance Directive: Y 03/03/20 13:22 AD On File at [facility]: Y 03/03/20 13:22 Date Asked 09/25/23 09/25/23 22:01 AD Date Reviewed 04/24/23 04/24/23 07:55 COLST On File at [facility] COLST Date Scanned Code Status Resuscitation Status Full Code Care Team Visit Care Team Role Provider Type Ricardo Kumar NP Primary Care Provider NURSE PRACTITIONER Jaxon Gutierres DO Emergency Provider [facility] STAFF PHYSICIAN Jose Ramos Admit Provider [facility] STAFF PHYSICIAN Attending Provider [facility] All Active Problems (Updated 09/26/23 @ 00:32 by Jose Ramos) Non-ST elevation CT (NSTEMI) (Acute) Unstable angina (Acute) TMJ arthralgia (Acute) Musculoskeletal chest pain (Acute) Coronary artery disease (Chronic) S/P CABG (coronary artery bypass graft) (Acute) Non-ST elevation CT (NSTEMI) (Acute) Gallbladder polyp (Acute) Nonalcoholic steatohepatitis (CAMARA) (Acute) Beau's lines of nails (Acute) left thumb Elevated ferritin (Acute) Pre-diabetes (Acute) Osteopenia (Acute) Benign paroxysmal positional vertigo (Acute) intermittent Essential hypertension (Acute 12/19/12) off meds after weight loss Hyperlipidemia (Acute) Migraine (Acute) only one in 2020 Vaginal atrophy (Acute 01/07/17) Medical History COVID-19 (~02/13/22) Elevated C-reactive protein (11/17/07) Cardiac murmur Chondromalacia of patella Pilonidal cyst (12/06/14) TMJ (temporomandibular joint disorder) (11/19/13) July 2020-[facility]; s/p surgeries now seeing Dr Dari Noguera, academic registrar, [place]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 Paternal Grandmother , age 94 No problems noted. Sister No problems noted. Son No problems noted. Son No problems noted. Daughter No problems noted. Daughter No problems noted. 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 Housing: house Communication Needs: None Do you need help understanding health information?: Never Pets and animals: Yes Pets and animals: cat(s), dog(s) and other Details: bunny Sexually active: Yes Do you think of yourself as: straight/heterosexual Current gender identity: female What is your relationship status?: How often do you talk on the phone with friends or family?: three or more times per week How often do you get together with friends or relatives?: three or more times per week How often do you attend taoist or tenriism services?: 4 or more times per year Panel score (0-1 are the most socially isolated patients): 3 Dolly/Baptism: Latter-Day Special dolly needs: No Seatbelt use: always Helmet use: Yes Helmet use: always Drive intox or ride w/intox superintendent drivers: No Do you feel safe at home: Yes Do you feel safe in your relationship?: Yes SDOH(Care Management) Screening Will the Patient Participate in the Screening?: Yes Do you worry about having a steady place to live?: no Problems where you live: no known problems In the past 12 months, have you had to go without electric, gas, oil or water in your home?: no Have you or anyone in your house had to go without enough food to eat?: no Has lack of transportation kept you from medical appointments or from doing things needed for daily living?: no Has anyone in your support network made you feel unsafe for any reason?: no
--- NOTE | 2023-09-26 11:31 | DSE_ITS ---
Date of service: 09/26/23 Time of Service: 11:32 DS: Diagnosis Discharge Diagnosis (1) Non-ST elevation KS (NSTEMI): Status: Acute (2) Essential hypertension: Status: Acute Discharge Plan Disposition Patient Disposition: Transfer-Acute Inpatient Care Specific Acute Inpt Facility: [facility] Condition: Good Discharge Details Reason For Visit: Unstable angina Admit Date/Time: 09/26/23 00:20 Admit Provider: Jose Ramos Attending Provider: Jose Ramos Primary Care Provider: Ricardo Rdz Hospital Course Hospital Course: Patient initially presented with chest pain that was found to be secondary to an NSTEMI with elevated troponin as high as about [address] depressions in anterior lateral leads. [facility] cardiology was consulted and recommended initiation of 325 aspirin which was given upon arrival to the emergency department, heparin drip, and loading dose of Plavix. Additionally, patient did require nitro drip which did eventually result in resolution of chest pain. Ultimately was determined that she was stable for discharge to [facility] cardiology for left heart catheterization. Home Meds and New Rx's Prescriptions: No Action magnesium citrate 125 mg capsule 125 mg PO DAILY aspirin [Courtney Low Dose Aspirin] 81 mg tablet,delayed release (DR/EC) 81 mg PO DAILY lidocaine 5 % adhesive patch,medicated 1 patch topical DAILY Qty: 30 6RF Rx Instructions: leave on most painful area for up to 12 hrs meclizine [Motion Sickness (meclizine)] 25 MG tablet 25 mg PO BID PRNQty: 50 atorvastatin 80 mg tablet 80 mg PO DAILY isosorbide mononitrate 30 mg tablet extended release 24 hr 30 mg PO DAILY metoprolol tartrate 25 mg tablet 25 mg PO BID estradiol 0.01 % (0.1 mg/gram) cream 1 appful vaginal .2-3 times per week Rx Instructions: 2 g vaginally daily. Skips first week of the month. Discharge Instructions Activity:: Activity as Tolerated Equipment/Supplies:: No Equipment Needed Diet:: As Tolerated Discharge Orders Discharge Orders: Discharge Order (Routine); Ordered 09/26/23 Ordered By: Doug Peoples DS: Summary Time Spent with Patient providing and/or coordinating discharge services: Greater than 30 minutes Status at Discharge Functional status at discharge: independent ambulation Overall status at discharge: patient is back to baseline Mental Status: mental status grossly normal Speech and Movement: speech and movement normal Mood: congruent mood Affect: normal affect Quality:SDOH Health Related Social Needs: No Data to Display Exam Narrative Exam Narrative: well appearing female laying in bed in no acute distress, AOx4, heart RRR, lungs CTAB, abdomen soft, non-tender, non-distended Psych Mental Status: mental status grossly normal Speech and Movement: speech and movement normal Mood: congruent mood Affect: normal affect DS: Data Vitals/I&O Vitals and I&O: Vital Signs Temperature 99.0 F 09/26/23 10:52 Temperature Source Temporal Artery Scan 09/26/23 08:00 Pulse 79 09/26/23 10:52 Pulse 80 09/26/23 10:52 Respiratory Rate 17 09/26/23 10:52 Respiratory Effort Normal 09/26/23 08:00 Respiratory Depth Normal 09/26/23 08:00 Respiratory Pattern Normal 09/26/23 08:00 Blood Pressure 108/84 09/26/23 10:52 Blood Pressure Mean 92 09/26/23 10:52 Blood Pressure Position Sitting 09/25/23 21:53 Pulse Oximetry 95 09/26/23 10:52 Oxygen Delivery Method Room Air 09/26/23 08:00 Oxygen Flow Rate 0 09/26/23 08:00 Pain Level 2 09/26/23 08:00 Intake & Output 09/25/23 09/26/23 09/26/23 17:59 05:59 17:59 Intake Total 158.500 / 158.500 95.283 / 95.283 Output Total 800 / 800 750 / 750 Balance -641.500 / -641.500 -654.717 / -654.717 Weight 156 lb 11.979 oz Intake: IV 158.500 / 158.500 95.283 / 95.283 Output: Urine 800 / 800 750 / 750 Other: Urine Color Pale Pale Yellow Yellow Urine Appearance Clear Clear Urine Odor None None Voiding Methods Bedside Commode Bedside Commode Data Completed and Pending Labs on day of discharge: Labs from last 24 hours 09/26/23 09/26/23 09/26/23 13:00 05:40 03:50 WBC RBC Hgb Hct MCV MCH MCHC RDW Plt Count MPV Immature Gran % Neutrophils % Lymphocytes % Monocytes % Eosinophils % Basophils % Nucleated RBC % Absolute Neutrophils Absolute Lymphocytes Absolute Monocytes Absolute Eosinophils Absolute Basophils PT INR APTT Pending 41.1 H Sodium 141 Potassium 3.5 Chloride 105 Carbon Dioxide 26.9 Anion Gap 9.1 BUN 12 Creatinine 0.9 Est GFR (CKD-EPI 2020) 74.10 Glucose 123 H Calcium 8.7 Magnesium Total Bilirubin AST ALT Alkaline Phosphatase Troponin I 7179 H* 5999 H* NT-Pro-B Natriuret Pep Total Protein Albumin Triglycerides 49 Total Cholesterol 108 LDL Cholesterol, Calc 55 HDL Cholesterol 44 09/26/23 09/25/23 01:00 21:59 WBC 8.43 RBC 5.02 Hgb 13.5 Hct 41.8 MCV 83 MCH 26.9 L MCHC 32.3 RDW 15.3 H Plt Count 259 MPV 9.4 Immature Gran % 0.4 Neutrophils % 57.3 Lymphocytes % 33.8 Monocytes % 6.3 Eosinophils % 1.5 Basophils % 0.7 Nucleated RBC % 0.0 Absolute Neutrophils 4.83 Absolute Lymphocytes 2.85 Absolute Monocytes 0.53 Absolute Eosinophils 0.13 Absolute Basophils 0.06 PT 9.6 INR 1.0 APTT 26.6 Sodium 141 Potassium 3.2 L Chloride 101 Carbon Dioxide 28.4 Anion Gap 11.6 H BUN 14 Creatinine 1.0 Est GFR (CKD-EPI 2020) 65.30 Glucose 145 H Calcium 9.0 Magnesium 1.8 Total Bilirubin 0.39 AST 35 ALT 43 Alkaline Phosphatase 119 H Troponin I 2972 H* 507 H* NT-Pro-B Natriuret Pep 112 Total Protein 8.5 H Albumin 4.1 Triglycerides Total Cholesterol LDL Cholesterol, Calc HDL Cholesterol PFSH All Active Problems (Updated 09/26/23 @ 00:32 by Jose Ramos) Non-ST elevation KS (NSTEMI) (Acute) Unstable angina (Acute) TMJ arthralgia (Acute) Musculoskeletal chest pain (Acute) Coronary artery disease (Chronic) S/P CABG (coronary artery bypass graft) (Acute) Non-ST elevation KS (NSTEMI) (Acute) Gallbladder polyp (Acute) Nonalcoholic steatohepatitis (CAMARA) (Acute) Beau's lines of nails (Acute) left thumb Elevated ferritin (Acute) Pre-diabetes (Acute) Osteopenia (Acute) Benign paroxysmal positional vertigo (Acute) intermittent Essential hypertension (Acute 12/19/12) off meds after weight loss Hyperlipidemia (Acute) Migraine (Acute) only one in 2020 Vaginal atrophy (Acute 01/07/17) Medical History COVID-19 (~02/13/22) Elevated C-reactive protein (11/17/07) Cardiac murmur Chondromalacia of patella Pilonidal cyst (12/06/14) TMJ (temporomandibular joint disorder) (11/19/13) July 2020-[facility]; s/p surgeries now seeing Dr Dari Noguera, guidance counselor, [place] 12/2020- [facility] Surgical History History of mandibular surgery 06/22 Rotator Cuff Repair (~2004) LEFT Family History Mother Diabetes Essential hypertension Dementia Depression Heart disease Hyperlipidemia Myocardial infarction Father , age 72 Essential hypertension Hyperlipidemia Bladder cancer Sister Essential hypertension Endometrial cancer Brother Essential hypertension Maternal Grandfather , age 78 Essential hypertension Heart disease Paternal Grandfather Heart disease Maternal Grandmother , age 76 No problems noted. Paternal Grandmother , age 94 No problems noted. Sister No problems noted. Son No problems noted. Son No problems noted. Daughter No problems noted. Daughter No problems noted. 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 Housing: house Communication Needs: None Do you need help understanding health information?: Never Pets and animals: Yes Pets and animals: cat(s), dog(s) and other Details: bunny Sexually active: Yes Do you think of yourself as: straight/heterosexual Current gender identity: female What is your relationship status?: How often do you talk on the phone with friends or family?: three or more times per week How often do you get together with friends or relatives?: three or more times per week How often do you attend denominational or zoroastrianism services?: 4 or more times per year Panel score (0-1 are the most socially isolated patients): 3 Dolly/Buddhism: [employer] Special dolly needs: No Seatbelt use: always Helmet use: Yes Helmet use: always Drive intox or ride w/intox wagon driver: No Do you feel safe at home: Yes Do you feel safe in your relationship?: Yes Time Spent with Patient Time Spent with Patient: <45 minutes Time was spent: preparing to see the patient(eg.review tests), obtaining and/or reviewing separately otained hiistory, ordering medications,tests, procedures, referring, communicating with other health direct support professional caregiver, indepentently interpreting results, counseling the patient and care coordination
[2023-09-26 13:10] LABS: PTT Activated 84.1 sec (23.6-32.8)
--- NOTE | 2023-09-26 14:32 | CHAPLAIN ---
I met with Juana before she was transferred to [facility] with cardiac issues, and gave her a comfort shawl to take with her. Juana said her will follow her to [facility].
--- NOTE | 2023-09-26 16:11 | CMDISCH_ITS ---
Date of service: 09/26/23 Time of Service: 11:00 LACE Index Scoring Tool Questions: Length of Stay (in days): 1 Was the patient admitted via the E.D.?: Yes Comorbidities: Previous M.I. E.D. Visits: 4 Answers: Total Score: 9 Risk of Readmission: Low Risk Care Management Discharge Plan Reason for Hospitalization: Unstable Angina Discharge Plan: Patient transferred to [facility], transported via [facility]. Patient/Family Education Needs: Review transfer instructions. Discuss ask me three. SDOH Health Related Social Needs: No Data to Display
== END 2023-09-26 13:25 | disposition short-term general hospital (02) | DRG 282 ==
LOC: ER 09-26 00:35 → ICU 09-26 01:13
PROVIDERS: Family Medicine; Admitting Provider Family Medicine; Emergency Provider Student in an Organized Health Care Education/Training Program; PCP Nurse Practitioner Family; Visit Provider Family Medicine
DX: I21.4 Non-ST elevation (NSTEMI) myocardial infarction (principal); I10 Essential (primary) hypertension; I25.10 Atherosclerotic heart disease of native coronary artery without angina pectoris; Z95.1 Presence of aortocoronary bypass graft; K75.81 Nonalcoholic steatohepatitis (NASH); R73.03 Prediabetes; E78.5 Hyperlipidemia, unspecified; M85.80 Other specified disorders of bone density and structure, unspecified site
CPT/HCPCS: 00123; 36415; 80048; 80053; 80061; 93005; 93308; 96365; 96366; 96367; 96375; 99291; 71045; 83735; 83880; 84484; 85025; 85610; 85730; 93010; 99234; J1644; J2305; J2405; J3010; J3480; J3490

== ENCOUNTER → 2023-10-03 10:07 | Emergency (ER) | payer BC, SELFPAY ==
[2023-10-03] VITALS (20 sets, daily range): BP systolic 91–107; BP diastolic 61–90; PULSE 77–98; RESP 11–25; TEMP 36.9; O2SAT 97
--- NOTE | 2023-10-03 10:15 | DI.CT_ITS ---
Exam(s) CT LOWER EXTREMITY LT CTA EXAM: CT LOWER EXTREMITY LT CTA CLINICAL HISTORY: L groin pain at cath site, hematoma v aneurysm. TECHNIQUE: Imaging Protocol: Axial computed tomography images with coronal and sagittal reformatted images were created and reviewed. Images performed during arterial phase. Field of view includes mi dportion of kidneys through the upper tibia and fibula. CONTRAST MATERIAL: Intravenous: Omnipaque 350 Contrast volume:100 mL contrast route:IV - Oral: / no COMPARISON: No exams were available for comparison FINDINGS: Vasculature: Minimal atherosclerotic changes in the aorta and branch vessels. No evidence of aneurys m or significant stenosis. There no evidence left groin pseudoaneurysm or contrast extravasation. N o drainable fluid collection. Soft tissue edema in this region. Bladder: No gross wall thickening. No stones.No evidence of mass. Bowel: No obstruction or bowel wall thickening. Mild diverticulosis of the sigmoid. Peritoneal cavity: No ascites, collection or mesenteric inflammatory response. Reproductive: Unremarkable. Bones: No acute findings. Soft tissues: No left groin region thought tissue edema. No focal collection. IMPRESSION: Soft tissue edema in the left groin region. No evidence of hematoma or aneurysm. RADIATION DOSE DELIVERED: Total DLP DATA REPOSITORY: All CT scans at this facility are submitted to the National Radiology Data Registry (NRDR) Dose Index Registry (DIR) with the [employer] (ACR). RADIATION OPTIMIZATION: All CT scans at this facility use at least one of these dose optimization te chniques: automated exposure control; mA and/or kV adjustment per patient size (includes targeted exa ms where dose is matched to clinical indication); or iterative reconstruction.
--- NOTE | 2023-10-03 10:31 | W.ED.GENAD ---
Discharge Plan Disposition Patient Disposition: Home Condition: Improving Discharge Details Chief Complaint: Vascular Clinical Impression: Groin pain Primary Care Provider: Ricardo Rdz ED Provider: Milo Cueto Home Meds and New Rx's Prescriptions: No Action magnesium citrate 125 mg capsule 125 mg PO DAILY aspirin [Courtney Low Dose Aspirin] 81 mg tablet,delayed release (DR/EC) 81 mg PO DAILY lidocaine 5 % adhesive patch,medicated 1 patch topical DAILY Qty: 30 6RF Rx Instructions: leave on most painful area for up to 12 hrs meclizine [Motion Sickness (meclizine)] 25 MG tablet 25 mg PO BID PRNQty: 50 clopidogrel 75 mg tablet 75 mg PO DAILY Rx Instructions: [place] [facility] [place] dapagliflozin propanediol 10 mg tablet 10 mg PO DAILY Rx Instructions: [place] [facility] [place] losartan 25 mg tablet 25 mg PO DAILY Rx Instructions: per [facility] [place] metoprolol succinate 50 mg tablet extended release 24 hr 50 mg PO DAILY Rx Instructions: per [facility] [place] spironolactone 25 mg tablet 12.5 mg PO DAILY Rx Instructions: per [facility] [place] atorvastatin 80 mg tablet 80 mg PO DAILY estradiol 0.01 % (0.1 mg/gram) cream 1 appful vaginal .2-3 times per week Rx Instructions: 2 g vaginally daily. Skips first week of the month. Discharge Instructions Instructions: Cardiac Catheterization (DC), Wound Care for Arterial Puncture (DC) Additional Instructions: Please follow with your primary care and community support specialist. Please return to the emergency department any worsening symptoms HPI General Date/Time Provider Initiated Documentation: 10/03/23 10:15. HPI Narrative: 58-year-old female recent cardiac catheterization through left groin for NSTEMI with stent placement presents with left groin discomfort and palpable mass in her groin. Denies chest pain or shortness of breath. Related Data Home Medications ?Medication ?Instructions ?Recorded ?Confirmed meclizine 25 mg tablet (Motion 25 mg PO BID PRN #50 tab-caps 06/06/15 10/03/23 Sickness (meclizine)) atorvastatin 80 mg tablet 80 mg PO DAILY 04/24/23 10/03/23 estradiol 0.01% (0.1 mg/gram) 1 appful vaginal .2-3 times per 04/24/23 10/03/23 vaginal cream week magnesium citrate 125 mg capsule 125 mg PO DAILY 06/04/23 10/03/23 aspirin 81 mg tablet,delayed 81 mg PO DAILY 09/10/23 10/03/23 release (Courtney Low Dose Aspirin) lidocaine 5 % topical patch 1 patch topical DAILY #30 ea 09/10/23 10/03/23 clopidogrel 75 mg tablet 75 mg PO DAILY 10/02/23 10/03/23 dapagliflozin propanediol 10 mg 10 mg PO DAILY 10/02/23 10/03/23 tablet losartan 25 mg tablet 25 mg PO DAILY 10/02/23 10/03/23 metoprolol succinate 50 mg 50 mg PO DAILY 10/02/23 10/03/23 tablet,extended release 24 hr spironolactone 25 mg tablet 12.5 mg PO DAILY 10/02/23 10/03/23 Previous Rx's ?Medication ?Instructions ?Recorded lidocaine 5 % topical patch 1 patch topical DAILY #30 ea 09/10/23 Allergies Allergy/AdvReac Type Severity Reaction Status Date / Time meperidine Allergy Severe Other (See Verified 10/03/23 10:12 Comment) promethazine Allergy Intermediate HIVES Verified 10/03/23 10:12 Penicillins Allergy Unknown Other (See Verified 10/03/23 10:12 Comment) Sulfa (Sulfonamide Allergy Unknown Other (See Verified 10/03/23 10:12 Antibiotics) Comment) lisinopril AdvReac Intermediate COUGH Verified 10/03/23 10:12 General Stated Complaint: Vascular COURTNEY: 3 Exam Narrative Exam Narrative: Alert oriented interactive no acute distress Moist mucous membranes tongue secretions normal voice Lungs clear bilaterally no wheezes rales or rhonchi appreciated Normal heart sounds no murmurs rubs or gallops Abdomen soft nontender nondistended, noticeable ecchymosis in the lower abdominal wall Left lower extremity: Arterial puncture site clean dry intact, strong left femoral pulse, palpable mass subcutaneous medial to left femoral pulse tender to touch nonfluctuant, warm well-perfused extremity sensate mobile Alert oriented interactive moving all extremities without issue ambulatory without assistance Course Vital Signs Vital signs: Vital Signs Temperature 36.9 C 10/03/23 10:13 Pulse 98 H 10/03/23 10:13 Respiratory Rate 16 10/03/23 10:13 Blood Pressure 96/76 L 10/03/23 10:13 Pulse Oximetry 97 10/03/23 10:13 Temperature 36.9 C 10/03/23 10:13 Temperature Source Temporal Artery Scan 10/03/23 10:13 Pulse 98 H 10/03/23 10:13 Respiratory Rate 16 10/03/23 10:13 Respiratory Effort Normal, Non-Labored 10/03/23 10:16 Blood Pressure 96/76 L 10/03/23 10:13 Blood Pressure Position Sitting 10/03/23 10:13 Pulse Oximetry 97 10/03/23 10:13 Oxygen Delivery Method Room Air 10/03/23 10:13 Oxygen Flow Rate 0 10/03/23 10:13 Pain Level 8 10/03/23 10:13 Comment with movement/sitting 10/03/23 10:13 Medical Decision Making 58-year-old female presents with left groin pain after recent cardiac catheterization, arterial puncture site left groin, noticeable ecchymosis in region including left groin and left lower abdominal wall, palpable mass medial to strong left femoral pulse, nonfluctuant no purulence no induration no erythema no lymphangitic streaking, no crepitus, neurovascular exam of extremity intact no cardiopulmonary symptomatology at this time patient endorses that her blood pressure runs low at baseline, no chest pain or shortness of breath, no presyncope, consider localized hematoma versus aneurysm versus pseudoaneurysm of femoral artery lower suspicion for abscess. Will obtain CTA left lower extremity patient does not want any medication for analgesia or anti-inflammatory. 12: 19 resting comfortably no acute distress hemodynamically stable. No evidence of aneurysm or pseudoaneurysm. Likely localized edema secondary to recent catheterization. No evidence of infection. Patient follows up closely Quality:SDOH Health Related Social Needs: No Data to Display PFSH All Active Problems (Updated 10/03/23 @ 12:21 by Milo Cueto MD) Groin pain (Acute) Non-ST elevation [place] (NSTEMI) (Acute) Unstable angina (Acute) TMJ arthralgia (Acute) Musculoskeletal chest pain (Acute) Coronary artery disease (Chronic) S/P CABG (coronary artery bypass graft) (Acute) Non-ST elevation CA (NSTEMI) (Acute) Gallbladder polyp (Acute) Nonalcoholic steatohepatitis (CAMARA) (Acute) Beau's lines of nails (Acute) left thumb Elevated ferritin (Acute) Pre-diabetes (Acute) Osteopenia (Acute) Benign paroxysmal positional vertigo (Acute) intermittent Essential hypertension (Acute 12/19/12) off meds after weight loss Hyperlipidemia (Acute) Migraine (Acute) only one in 2020 Vaginal atrophy (Acute 01/07/17) Medical History COVID-19 (~02/13/22) Elevated C-reactive protein (11/17/07) Cardiac murmur Chondromalacia of patella Pilonidal cyst (12/06/14) TMJ (temporomandibular joint disorder) (11/19/13) [facility]p [facility] now seeing Dr Dari Noguera, rvda master certified rv technician, [place] 12/[address]- [facility] Surgical History History of mandibular surgery 06/22 Rotator Cuff Repair (~2004) LEFT Family History Mother Diabetes Essential hypertension Dementia Depression Heart disease Hyperlipidemia Myocardial infarction Father , age 72 Essential hypertension Hyperlipidemia Bladder cancer Sister Essential hypertension Endometrial cancer Brother Essential hypertension Maternal Grandfather , age 78 Essential hypertension Heart disease Paternal Grandfather Heart disease Maternal Grandmother , age 76 No problems noted. Paternal Grandmother , age 94 No problems noted. Sister No problems noted. Son No problems noted. Son No problems noted. Daughter No problems noted. Daughter No problems noted. 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 Housing: house Communication Needs: None Do you need help understanding health information?: Never Pets and animals: Yes Pets and animals: cat(s), dog(s) and other Details: bunny Sexually active: Yes Do you think of yourself as: straight/heterosexual Current gender identity: female What is your relationship status?: How often do you talk on the phone with friends or family?: three or more times per week How often do you get together with friends or relatives?: three or more times per week How often do you attend mandaen or yazdanism services?: 4 or more times per year Panel score (0-1 are the most socially isolated patients): 3 Dolly/Voodoo: Catholic Special dolly needs: No Seatbelt use: always Helmet use: Yes Helmet use: always Drive intox or ride w/intox class c driver: No Do you feel safe at home: Yes Do you feel safe in your relationship?: Yes
[2023-10-03 10:43] LABS: Abs Immature Grans 0.02 10^3/uL (0.0-0.06); Absolute Basophil Count 0.06 10^3/uL (0.0-0.2); Absolute Eosinophil Count 0.12 10^3/uL (0.0-0.7); Absolute Lymphocyte Count 1.59 10^3/uL (1.2-3.4); Absolute Monocyte Count 0.47 10^3/uL (0.1-0.8); Absolute Neutrophil Count 3.61 10^3/uL (1.2-6.7); HCT 38.3 % (36.0-46.0); HGB 12.4 g/dL (11.2-15.7); Immature Grans % 0.3 %; Lymphocytes % 27.1 %; MCH 27.4 pg (27.0-33.0); MCHC 32.4 % (32.0-36.0); MCV 85 fL (80-95); MPV 9.5 fL (8.0-11.0); Neutrophils % 61.6 %; Platelet Count 290 10^3/uL (130-400); RBC 4.53 10^6/uL (3.93-5.22); RDW 15.4 % (11.7-14.6); RDW-SD 47.1 fL; WBC 5.87 10^3/uL (4.4-10.8)
[2023-10-03 11:02] LABS: PTT Activated 25.2 sec (23.6-32.8); Prothrombin Time 9.8 sec (9.1-11.1)
[2023-10-03 11:03] LABS: ALT 43 U/L (14-59); AST 36 U/L (15-37); Albumin 4.1 g/dL (3.4-5.0); Alkaline Phosphatase 101 U/L (46-116); Anion Gap 8.6 mmol/L (3-11); BUN 12 mg/dL (7-18); Bilirubin, Total 0.69 mg/dL (0.2-1.0); CO2 28.4 mmol/L (21.0-32.0); Calcium 10.1 mg/dL (8.5-10.1); Chloride 102 mmol/L (98-107); Glucose 120 mg/dL (74-106); Potassium 3.7 mmol/L (3.5-5.1); Sodium 139 mmol/L (136-145); Total Protein 8.5 g/dL (6.4-8.2)
[2023-10-03] MEDS: Omnipaque 350 MG/ML 100 ML BTL IJ (11:11)
[2023-10-03] MEDS: Normal Saline - Diluent 50 ML VIAL IJ (11:22)
[2023-10-03] MEDS: Normal Saline Flush 10 ML SYR IVP (11:24)
== END | disposition home or self-care (01) ==
LOC: ER 12:21 → RED 12:33
PROVIDERS: Emergency Provider Emergency Medicine; PCP Nurse Practitioner Family
DX: R10.12 Left upper quadrant pain (principal); Z98.61 Coronary angioplasty status
CPT/HCPCS: 36415; 73706; 80053; 99285; 85025; 85610; 85730; 99283; J3490

== ENCOUNTER 2023-10-12 16:53 | Inpatient (IN) | payer BC, SELFPAY ==
[2023-10-12] VITALS (68 sets, daily range): BP systolic 96–122; BP diastolic 59–94; PULSE 63–97; RESP 10–28; TEMP 36.7; O2SAT 91–98
--- NOTE | 2023-10-12 16:45 | RT.EKG_ITS ---
APPROVED REPORT Exam: Resting ECG Reason for Exam: chest pain Patient Location: E HR:79 bpm ECG Measurements Heart Rate 79 AXIS DE 166 P 35 QRSd 84 QRS 29 QT 427 T 175 QTc 489 Conclusion Sinus rhythm...normal P axis, V-rate 60- 99 Abnrm T, probable ischemia, anterolateral lds...T <-0.50mV, I aVL V2-V6 sinus rhtyhm, normal axis, deep inverted t waves anterior lateral leads
--- NOTE | 2023-10-12 17:00 | DI.RAD_ITS ---
Exam(s) XR PORTABLE CHEST AP EXAM: XR PORTABLE CHEST AP CLINICAL HISTORY: chest pain. TECHNIQUE: 2D digital imaging was performed. COMPARISON: CR,XR XR PORTABLE CHEST AP from 09/25/2023 FINDINGS: Single AP portable view. Sternotomy wires/CABG again noted. Heart size is upper normal. The mediastinum is not widened. Lungs are clear. No infiltrates nor obvious pleural effusions. No pulmonary edema. IMPRESSION: No acute pulmonary findings on this single AP portable view of the chest. Previous sternotomy/CABG. No pulmonary edema. DATA REPOSITORY: RADIATION DOSE DELIVERED:
[2023-10-12] MEDS: Aspirin 81 MG CHEW 324 MG CH (17:11)
[2023-10-12 17:15] LABS: Abs Immature Grans 0.03 10^3/uL (0.0-0.06); Absolute Basophil Count 0.07 10^3/uL (0.0-0.2); Absolute Eosinophil Count 0.06 10^3/uL (0.0-0.7); Absolute Lymphocyte Count 2.24 10^3/uL (1.2-3.4); Absolute Neutrophil Count 6.87 10^3/uL (1.2-6.7); Basophils % 0.7 %; Eosinophils % 0.6 %; HCT 36.6 % (36.0-46.0); Immature Grans % 0.3 %; Lymphocytes % 22.9 %; MCH 27.9 pg (27.0-33.0); MCHC 32.8 % (32.0-36.0); MCV 85 fL (80-95); MPV 9.3 fL (8.0-11.0); Monocytes % 5.1 %; Neutrophils % 70.4 %; Platelet Count 279 10^3/uL (130-400); RDW 15.4 % (11.7-14.6); RDW-SD 48.1 fL; WBC 9.77 10^3/uL (4.4-10.8)
[2023-10-12 17:29] LABS: PTT Activated 25.9 sec (23.6-32.8); Prothrombin Time 10.1 sec (9.1-11.1)
--- NOTE | 2023-10-12 17:34 | ED.GENADUL_ITS ---
Discharge Plan Disposition Patient Disposition: Admit to [facility] Condition: Stable Discharge Details Chief Complaint: Chest Pain Clinical Impression: Unstable angina Primary Care Provider: Ricardo Rdz ED Provider: Milo Cueto Home Meds and New Rx's Prescriptions: No Action magnesium citrate 125 mg capsule 125 mg PO DAILY lidocaine 5 % adhesive patch,medicated 1 patch topical DAILY Qty: 30 6RF Rx Instructions: leave on most painful area for up to 12 hrs Zyrtec 10 mg capsule 10 mg PO DAILY PRN famotidine [Pepcid AC] 20 mg tablet 20 mg PO DAILY atorvastatin 80 mg tablet 80 mg PO DAILY Qty: 90 3RF clopidogrel 75 mg tablet 75 mg PO DAILY Qty: 90 3RF Rx Instructions: For 1 year dapagliflozin propanediol 10 mg tablet 10 mg PO DAILY Qty: 90 3RF losartan 25 mg tablet 25 mg PO DAILY Qty: 90 3RF metoprolol succinate 50 mg tablet extended release 24 hr 50 mg PO DAILY Qty: 90 3RF spironolactone 25 mg tablet 12.5 mg PO DAILY Qty: 45 3RF aspirin [Courtney Low Dose Aspirin] 81 mg tablet,delayed release (DR/EC) 81 mg PO DAILY Qty: 90 3RF meclizine [Motion Sickness (meclizine)] 25 MG tablet 25 mg PO BID PRNQty: 50 estradiol 0.01 % (0.1 mg/gram) cream 1 appful vaginal .2-3 times per week Rx Instructions: 2 g vaginally daily. Skips first week of the month. HPI General Date/Time Provider Initiated Documentation: 10/12/23 16:58 . HPI Narrative: 58-year-old female history of coronary disease multiple bypasses and stents in the past most recent stenting in September presents with anterior chest pain over the last day nonexertional. Slight lightheadedness. Related Data Home Medications ?Medication ?Instructions ?Recorded ?Confirmed meclizine 25 mg tablet (Motion 25 mg PO BID PRN #50 tab-caps 06/06/15 10/12/23 Sickness (meclizine)) estradiol 0.01% (0.1 mg/gram) 1 appful vaginal .2-3 times per 04/24/23 10/12/23 vaginal cream week magnesium citrate 125 mg capsule 125 mg PO DAILY 06/04/23 10/12/23 lidocaine 5 % topical patch 1 patch topical DAILY #30 ea 09/10/23 10/12/23 aspirin 81 mg tablet,delayed 81 mg PO DAILY #90 tabs 10/07/23 10/12/23 release (Courtney Low Dose Aspirin) atorvastatin 80 mg tablet 80 mg PO DAILY #90 tabs 10/07/23 10/12/23 cetirizine 10 mg capsule (Zyrtec) 10 mg PO DAILY PRN 10/07/23 10/12/23 clopidogrel 75 mg tablet 75 mg PO DAILY #90 tabs 10/07/23 10/12/23 dapagliflozin propanediol 10 mg 10 mg PO DAILY #90 tabs 10/07/23 10/12/23 tablet famotidine 20 mg tablet (Pepcid AC) 20 mg PO DAILY 10/07/23 10/12/23 losartan 25 mg tablet 25 mg PO DAILY #90 tabs 10/07/23 10/12/23 metoprolol succinate 50 mg 50 mg PO DAILY #90 tabs 10/07/23 10/12/23 tablet,extended release 24 hr spironolactone 25 mg tablet 12.5 mg (1/2 x 25 mg) PO DAILY #45 10/07/23 10/12/23 tabs Previous Rx's ?Medication ?Instructions ?Recorded lidocaine 5 % topical patch 1 patch topical DAILY #30 ea 09/10/23 aspirin 81 mg tablet,delayed 81 mg PO DAILY #90 tabs 10/07/23 release (Courtney Low Dose Aspirin) atorvastatin 80 mg tablet 80 mg PO DAILY #90 tabs 10/07/23 clopidogrel 75 mg tablet 75 mg PO DAILY #90 tabs 10/07/23 dapagliflozin propanediol 10 mg 10 mg PO DAILY #90 tabs 10/07/23 tablet losartan 25 mg tablet 25 mg PO DAILY #90 tabs 10/07/23 metoprolol succinate 50 mg 50 mg PO DAILY #90 tabs 10/07/23 tablet,extended release 24 hr spironolactone 25 mg tablet 12.5 mg (1/2 x 25 mg) PO DAILY #45 10/07/23 tabs Allergies Allergy/AdvReac Type Severity Reaction Status Date / Time meperidine Allergy Severe Other (See Verified 10/12/23 17:04 Comment) promethazine Allergy Intermediate HIVES Verified 10/12/23 17:04 Penicillins Allergy Unknown Other (See Verified 10/12/23 17:04 Comment) Sulfa (Sulfonamide Allergy Unknown Other (See Verified 10/12/23 17:04 Antibiotics) Comment) lisinopril AdvReac Intermediate COUGH Verified 10/12/23 17:04 General Stated Complaint: Chest Pain COURTNEY: 2 Exam Narrative Exam Narrative: Alert oriented interactive Moist mucous membranes tongue secretions normal speech Normal heart sounds no murmurs rubs or gallops Lungs clear bilaterally no wheezes rales or rhonchi No appreciable peripheral edema Alert oriented moving all extremities with out deficit Course Vital Signs Vital signs: Vital Signs Temperature 36.7 C 10/12/23 16:56 Pulse 83 10/12/23 16:56 Respiratory Rate 18 10/12/23 16:56 Blood Pressure 122/80 10/12/23 16:56 Pulse Oximetry 96 10/12/23 16:56 Temperature 36.7 C 10/12/23 16:56 Temperature Source Oral 10/12/23 16:56 Pulse 83 10/12/23 16:56 Respiratory Rate 18 10/12/23 16:56 Blood Pressure 122/80 10/12/23 16:56 Pulse Oximetry 96 10/12/23 16:56 Lab/Test Results Lab/Test Results: Laboratory Tests Range/Units 10/12/23 17:00 WBC (4.4-10.8) 10^3/uL 9.77 RBC (3.93-5.22) 10^6/uL 4.30 Hgb (11.2-15.7) g/dL 12.0 Hct (36.0-46.0) % 36.6 MCV (80-95) fL 85 MCH (27.0-33.0) pg 27.9 MCHC (32.0-36.0) % 32.8 RDW (11.7-14.6) % 15.4 H Plt Count (130-400) 10^3/uL 279 MPV (8.0-11.0) fL 9.3 Immature Gran % % 0.3 Neutrophils % % 70.4 Lymphocytes % % 22.9 Monocytes % % 5.1 Eosinophils % % 0.6 Basophils % % 0.7 Nucleated RBC % (0.0-0.3) % 0.0 Absolute Neutrophils (1.2-6.7) 10^3/uL 6.87 H Absolute Lymphocytes (1.2-3.4) 10^3/uL 2.24 Absolute Monocytes (0.1-0.8) 10^3/uL 0.50 Absolute Eosinophils (0.0-0.7) 10^3/uL 0.06 Absolute Basophils (0.0-0.2) 10^3/uL 0.07 PT (9.1-11.1) sec 10.1 INR (0.9-1.1) 1.0 APTT (23.6-32.8) sec 25.9 Medical Decision Making 58-year-old female history of coronary disease prior stenting and CABG presents with nonexertional anterior chest pain over the last day, EKG showing deep T wave inversions anterior leads concerning for ACS versus unstable angina most also consider vasospasm. Lower suspicion for aortic pathology PE pneumothorax or pneumonia. Stat chest x-ray, aspirin, patient is already taken her Plavix and statin, remains hemodynamically stable in no respiratory distress. Pending x-ray and initial troponin will consult with [facility] cardiology 18: 13 still with anterior chest discomfort left anterior chest wall, first troponin negative mildly elevated BNP to over 900, x-ray clear no respiratory distress, given ischemic pattern EKG change from most recent I have contacted [facility] for cardiology consultation awaiting callback 21: 03 discussed case with clinical nurse educator at [facility] who has accepted patient for transfer, currently listing until tomorrow, recommending starting heparin drip. Treating for presumptive unstable angina the plan will be to perform either provocative testing or cardiac catheterization when patient is transferred to [facility] tomorrow. Currently resting comfortably hemodynamically stable. Adjusted blood pressure cuff systolic blood pressure 102. 22: 27 rest comfortably no acute distress. Patient mated here at [facility], listed for transfer to [facility] when bed is available. Quality:[facility] Health Related Social Needs: No Data to Display [facility] All Active Problems (Updated 10/12/23 @ 22:28 by Milo Cueto MD) Unstable angina (Acute) Ischemic cardiomyopathy (Acute) Groin pain (Acute) Non-ST elevation [place] (NSTEMI) (Acute ~09/2023) 04/17/23 and 09/25/23 Unstable angina (Acute) TMJ arthralgia (Acute) Musculoskeletal chest pain (Acute) Coronary artery disease (Chronic) CABG x 3 04/2023, BONILLA to LAD 09/2023 Non-ST elevation NJ (NSTEMI) (Acute) Gallbladder polyp (Acute) Nonalcoholic steatohepatitis (CAMARA) (Acute) Beau's lines of nails (Acute) left thumb Elevated ferritin (Acute) Pre-diabetes (Acute) Osteopenia (Acute) Benign paroxysmal positional vertigo (Acute) intermittent Essential hypertension (Acute 12/19/12) off meds after weight loss Hyperlipidemia (Acute) Migraine (Acute) only one in 2020 Vaginal atrophy (Acute 01/07/17) Medical History (Updated 10/12/23 @ 22:28 by Milo Cueto MD) COVID-19 (~02/13/22) Elevated C-reactive protein (11/17/07) Cardiac murmur Chondromalacia of patella Pilonidal cyst (12/06/14) TMJ (temporomandibular joint disorder) (11/19/13) July 2020-[facility]; s/p surgeries now seeing Dr Dari Noguera, 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, [place] 12/2020- [facility] Surgical History (Updated 10/07/23 @ 11:01 by Daniela Fishman NP) S/P CABG x 3 (04/19/23) History of mandibular surgery 06/22 Rotator Cuff Repair (~2004) LEFT Family History Mother Diabetes Essential hypertension Dementia Depression Heart disease Hyperlipidemia Myocardial infarction Father , age 72 Essential hypertension Hyperlipidemia Bladder cancer Sister Essential hypertension Endometrial cancer Brother Essential hypertension Maternal Grandfather , age 78 Essential hypertension Heart disease Paternal Grandfather Heart disease Maternal Grandmother , age 76 No problems noted. Paternal Grandmother , age 94 No problems noted. Sister No problems noted. Son No problems noted. Son No problems noted. Daughter No problems noted. Daughter No problems noted. 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 Housing: house Communication Needs: None Do you need help understanding health information?: Never Pets and animals: Yes Pets and animals: cat(s), dog(s) and other Details: bunny Sexually active: Yes Do you think of yourself as: straight/heterosexual Current gender identity: female What is your relationship status?: How often do you talk on the phone with friends or family?: three or more times per week How often do you get together with friends or relatives?: three or more times per week How often do you attend episcopal or sabianist services?: 4 or more times per year Panel score (0-1 are the most socially isolated patients): 3 Dolly/Mu-Ism: Voodoo Special dolly needs: No Seatbelt use: always Helmet use: Yes Helmet use: always Drive 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
[2023-10-12 17:39] LABS: ALT 43 U/L (14-59); AST 42 U/L (15-37); Alkaline Phosphatase 91 U/L (46-116); Anion Gap 10.3 mmol/L (3-11); BUN 13 mg/dL (7-18); Bilirubin, Total 0.36 mg/dL (0.2-1.0); CO2 26.7 mmol/L (21.0-32.0); Calcium 9.1 mg/dL (8.5-10.1); Chloride 101 mmol/L (98-107); Glucose 132 mg/dL (74-106); Magnesium 2.1 mg/dL (1.8-2.4); NT-proBNP 909 pg/mL (<300); Potassium 3.9 mmol/L (3.5-5.1); Sodium 138 mmol/L (136-145); Total Protein 7.8 g/dL (6.4-8.2)
[2023-10-12 17:43] LABS: TSH (W/Ref FT4) 2.85 uIU/mL (0.36-3.74); Troponin I < 50 ng/L (< or =60)
[2023-10-12 19:29] LABS: *AMPHETAMINES SCREEN URINE Negative (Negative); *BARBITURATES SCREEN URINE Negative (Negative); *BENZODIAZEPINES SCREEN URINE Negative (Negative); Cannabinoids THC Negative (Negative); Cocaine Screen,Urine Negative (Negative); METHADONE URINE SCREEN Negative (Negative); OPIATES URINE SCREEN Negative (Negative)
[2023-10-12 19:30] LABS: Tricyclic Antidepressants Negative (Negative)
[2023-10-12 20:19] LABS: Troponin I < 50 ng/L (< or =60)
[2023-10-12] MEDS: Heparin in 0.45% NaCl 25,000 UNIT/250 ML BAG 8.65 UNIT IV (21:36)
[2023-10-13] VITALS (12 sets, daily range): BP systolic 100–116; BP diastolic 70–80; PULSE 57–74; RESP 12–20; TEMP 36.4–36.7; O2SAT 92–98
--- NOTE | 2023-10-13 00:05 | HPE_ITS ---
Date of service: 10/13/23 Time of Service: 00:05 Assessment and Plan Assessment and plan (1) Unstable angina: Start date: 10/13/23 Start time: 00:19 Status: Acute Assessment and plan: The patient is a 58 y/o C F w/ PMH CAD s/p CABG x3 (04/2023) w/ repeat stent x1 in failed bypass on 09/27/23 who comes to the ER today due to acute onset of persistent left sided chest pain at rest which began on 10/11/23 at 6pm which is concerning for unstable angina. She is hemodynamically stable. Her EKG does show deep TWI on V2/3/4/5 which was not present on prior EKG on 09/26/23. The ER has followed up w/ [facility] cardiology who did note that these TWI were present on her most recent discharge. Her troponin is negative x2. The plan is to transfer to [facility] Cardiology w/ the accepting physician being Dr. Waleska Ordonez. -Cont w/ ASA 81mg daily, Plavix 75mg daily, Metoprolol 50mg ER and Lipitor 80mg daily -Start Heparin gtt -Transfer to [facility] Cardiology is pending (2) Hyperlipidemia: Status: Acute Assessment and plan: -Cont w/ Lipitor 80mg daily (3) Hypertension: Status: Chronic Assessment and plan: Cont w/ Metoprolol 50mg ER Cont w/ Aldactone 25mg daily (4) Diabetes: Status: Chronic Assessment and plan: Cont w/ Dapagliflozine 10mg daily History of Present Illness History of Present Illness Chief Complaint: chest pain Narrative: The patient is a 58 y/o C F w/ PMH CAD s/p CABG x3 (04/2023) w/ repeat stent x1 in failed bypass on 09/27/23 who comes to the ER today due to acute onset of persistent left sided chest pain which began on 10/11/23 at 6pm. She recent got back from a vacation in [place] and was unpacking her luggage when her symptoms began w/ abrupt onset. It was located on the left side and did radiate up the ipsilateral neck. She described this as a constant achy heavy sensation which has continued to persist until her treatment in the ER. She did not have any symptoms radiating to her upper extremities. She did not take any NTG due to issues w/ hypotension but did take Tylenol PM and Lidocaine patch which brought temporary relief. She did not have any issues w/ palpitations, coughing, wheezing, dyspnea, orthopnea, dizziness, weight gain or lower extremity edema. She has taken her medications on a regular basis. Since her recent stent placement this has been the first episode of chest pain. Review of Systems Constitutional Constitutional: Denies fever(s), Denies headache(s), Denies night sweats and Denies weight loss Eyes Eyes: Denies diplopia and Denies eye pain ENT Ears, Nose, Mouth, and Throat: Denies dysphagia, Denies vertigo, Denies dizziness, Denies dry mouth, Denies headache(s), Denies nasal congestion, Denies tinnitus and Denies sore throat Cardiovascular Cardiovascular: Reports chest pain at rest, Denies syncope, Denies rapid heart rate, Denies irregular heart rhythm, Denies lightheadedness, Denies palpitations, Denies dyspnea, Denies dyspnea on exertion, Denies orthopnea and Denies paroxysmal nocturnal dyspnea Respiratory Respiratory: Denies cough, Denies dyspnea, Denies dyspnea on exertion and Denies wheezing Gastrointestinal Gastrointestinal: Denies abdominal pain, Denies melena, Denies hematochezia, Denies dysphagia and Denies vomiting Genitourinary Genitourinary: Denies dysuria and Denies pelvic pain Musculoskeletal Musculoskeletal: Denies arthralgias Neurologic Neurologic: Denies behavioral changes, Denies vertigo, Denies dizziness, Denies syncope, Denies headache(s), Denies localized weakness and Denies memory loss Psychiatric Psychiatric: Denies behavioral changes and Denies memory loss Endocrine Endocrine: Denies palpitations Allergic/Immunologic Allergic/Immunologic: Denies wheezing PFSH All Active Problems (Updated 10/13/23 @ 00:26 by Cecilio Duvall MD) Diabetes (Chronic) Hypertension (Chronic) Unstable angina (Acute) Ischemic cardiomyopathy (Acute) Groin pain (Acute) Non-ST elevation [place] (NSTEMI) (Acute ~09/2023) 04/17/23 and 09/25/23 Unstable angina (Acute) TMJ arthralgia (Acute) Musculoskeletal chest pain (Acute) Coronary artery disease (Chronic) CABG x 3 04/2023, BONILLA to LAD 09/2023 Non-ST elevation [place] (NSTEMI) (Acute) Gallbladder polyp (Acute) Nonalcoholic steatohepatitis (CAMARA) (Acute) Beau's lines of nails (Acute) left thumb Elevated ferritin (Acute) Pre-diabetes (Acute) Osteopenia (Acute) Benign paroxysmal positional vertigo (Acute) intermittent Essential hypertension (Acute 12/19/12) off meds after weight loss Hyperlipidemia (Acute) Migraine (Acute) only one in 2020 Vaginal atrophy (Acute 01/07/17) Medical History (Updated 10/13/23 @ 00:26 by Cecilio Duvall MD) COVID-19 (~02/13/22) Elevated C-reactive protein (11/17/07) Cardiac murmur Chondromalacia of patella Pilonidal cyst (12/06/14) TMJ (temporomandibular joint disorder) (11/19/13) July 2020-[facility]; s/p surgeries now seeing Dr Dari Noguera, research consultant, [place] 12/2020- [facility] Surgical History (Updated 10/07/23 @ 11:01 by Daniela Fishman NP) S/P CABG x 3 (04/19/23) History of mandibular surgery 06/22 Rotator Cuff Repair (~2004) LEFT Family History Mother Diabetes Essential hypertension Dementia Depression Heart disease Hyperlipidemia Myocardial infarction Father , age 72 Essential hypertension Hyperlipidemia Bladder cancer Sister Essential hypertension Endometrial cancer Brother Essential hypertension Maternal Grandfather , age 78 Essential hypertension Heart disease Paternal Grandfather Heart disease Maternal Grandmother , age 76 No problems noted. Paternal Grandmother , age 94 No problems noted. Sister No problems noted. Son No problems noted. Son No problems noted. Daughter No problems noted. Daughter No problems noted. 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 Housing: house Communication Needs: None Do you need help understanding health information?: Never Pets and animals: Yes Pets and animals: cat(s), dog(s) and other Details: bunny Sexually active: Yes Do you think of yourself as: straight/heterosexual Current gender identity: female What is your relationship status?: How often do you talk on the phone with friends or family?: three or more times per week How often do you get together with friends or relatives?: three or more times per week How often do you attend nondenominational or protestant services?: 4 or more times per year Panel score (0-1 are the most socially isolated patients): 3 Dolly/Congregational: Spiritism Special dolly needs: No Seatbelt use: always Helmet use: Yes Helmet use: always Drive intox or ride w/intox 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 Do you feel safe at home: Yes Do you feel safe in your relationship?: Yes Meds Allergies and Home Medications Allergies Allergy/AdvReac Type Severity Reaction Status Date / Time meperidine Allergy Severe Other (See Verified 10/12/23 17:04 Comment) promethazine Allergy Intermediate HIVES Verified 10/12/23 17:04 Penicillins Allergy Unknown Other (See Verified 10/12/23 17:04 Comment) Sulfa (Sulfonamide Allergy Unknown Other (See Verified 10/12/23 17:04 Antibiotics) Comment) lisinopril AdvReac Intermediate COUGH Verified 10/12/23 17:04 Home Medications ?Medication ?Instructions ?Recorded ?Confirmed ?Type meclizine 25 mg tablet (Motion 25 mg PO BID PRN #50 tab-caps 06/06/15 10/12/23 History Sickness (meclizine)) estradiol 0.01% (0.1 mg/gram) 1 appful vaginal .2-3 times per 04/24/23 10/12/23 History vaginal cream week magnesium citrate 125 mg capsule 125 mg PO DAILY 06/04/23 10/12/23 History lidocaine 5 % topical patch 1 patch topical DAILY #30 ea 09/10/23 10/12/23 Rx aspirin 81 mg tablet,delayed 81 mg PO DAILY #90 tabs 10/07/23 10/12/23 Rx release (Courtney Low Dose Aspirin) atorvastatin 80 mg tablet 80 mg PO DAILY #90 tabs 10/07/23 10/12/23 Rx cetirizine 10 mg capsule (Zyrtec) 10 mg PO DAILY PRN 10/07/23 10/12/23 History clopidogrel 75 mg tablet 75 mg PO DAILY #90 tabs 10/07/23 10/12/23 Rx dapagliflozin propanediol 10 mg 10 mg PO DAILY #90 tabs 10/07/23 10/12/23 Rx tablet famotidine 20 mg tablet (Pepcid AC) 20 mg PO DAILY 10/07/23 10/12/23 History losartan 25 mg tablet 25 mg PO DAILY #90 tabs 10/07/23 10/12/23 Rx metoprolol succinate 50 mg 50 mg PO DAILY #90 tabs 10/07/23 10/12/23 Rx tablet,extended release 24 hr spironolactone 25 mg tablet 12.5 mg (1/2 x 25 mg) PO DAILY #45 10/07/23 10/12/23 Rx tabs Exam Const General: cooperative, healthy appearing, comfortable, no acute distress and well developed Nutritional Appearance: average body habitus Orientation: awake and oriented x3 HENMT Head: normal to inspection and atraumatic Ears: hearing grossly normal bilaterally General nose exam: external nose normal Face and sinus: normal facial exam Mouth: oral mucosae normal Eyes General: appearance normal, both eyes and all related structures Alignment and Position: alignment normal Eyelids: eyelids normal Neck Neck: normal visual inspection, full ROM and no lymphadenopathy Chest Chest: normal inspection of the chest Resp Effort & Inspection: normal respiratory effort and able to speak in complete sentences Auscultation: clear to auscultation bilaterally Cardio Jugular venous pressure: no JVD Palpation: normal PMI Rate: regular rate Rhythm: regular rhythm Heart Sounds: S1 normal GI Inspection: normal to inspection Palpation: soft Percussion: normal to percussion Auscultation: normal bowel sounds Skin General skin exam: no rashes or lesions noted and elasticity normal Neuro General: patient alert, patient awake and patient oriented x3 Cranial Nerves: CN's II-XI intact bilaterally Cognition: normal cognition Speech: speech normal Extrem General: normal to inspection and full ROM Results Labs 10/12/23 17:00 10/12/23 17:00 Labs: Laboratory Results - last 24 hr 10/12/23 10/12/23 10/12/23 17:00 17:10 19:05 WBC 9.77 RBC 4.30 Hgb 12.0 Hct 36.6 MCV 85 MCH 27.9 MCHC 32.8 RDW 15.4 H Plt Count 279 MPV 9.3 Immature Gran % 0.3 Neutrophils % 70.4 Lymphocytes % 22.9 Monocytes % 5.1 Eosinophils % 0.6 Basophils % 0.7 Nucleated RBC % 0.0 Absolute Neutrophils 6.87 H Absolute Lymphocytes 2.24 Absolute Monocytes 0.50 Absolute Eosinophils 0.06 Absolute Basophils 0.07 PT 10.1 INR 1.0 APTT 25.9 Sodium 138 Potassium 3.9 Chloride 101 Carbon Dioxide 26.7 Anion Gap 10.3 BUN 13 Creatinine 1.0 Est GFR (CKD-EPI 2020) 65.30 Glucose 132 H Calcium 9.1 Magnesium 2.1 Total Bilirubin 0.36 AST 42 H ALT 43 Alkaline Phosphatase 91 Troponin I < 50 NT-Pro-B Natriuret Pep 909 H Total Protein 7.8 Albumin 4.0 TSH 2.85 Urine Opiates Screen Negative Urine Methadone Screen Negative Ur Barbiturates Screen Negative Ur Tricyclics Screen Negative Ur Amphetamines Screen Negative U Benzodiazepines Scrn Negative Urine Cocaine Screen Negative Ur THC Screen Negative ABO/Rh A Positive Antibody Screen NEGATIVE 10/12/23 19:57 WBC RBC Hgb Hct MCV MCH MCHC RDW Plt Count MPV Immature Gran % Neutrophils % Lymphocytes % Monocytes % Eosinophils % Basophils % Nucleated RBC % Absolute Neutrophils Absolute Lymphocytes Absolute Monocytes Absolute Eosinophils Absolute Basophils PT INR APTT Sodium Potassium Chloride Carbon Dioxide Anion Gap BUN Creatinine Est GFR (CKD-EPI 2020) Glucose Calcium Magnesium Total Bilirubin AST ALT Alkaline Phosphatase Troponin I < 50 NT-Pro-B Natriuret Pep Total Protein Albumin TSH Urine Opiates Screen Urine Methadone Screen Ur Barbiturates Screen Ur Tricyclics Screen Ur Amphetamines Screen U Benzodiazepines Scrn Urine Cocaine Screen Ur THC Screen ABO/Rh Antibody Screen Last Vital Signs Temp 36.7 C 10/12/23 16:56 Pulse 66 10/12/23 22:01 Resp 13 10/12/23 22:10 BP 100/74 10/12/23 22:01 Pulse Ox 96 10/12/23 22:10 Time Spent Time spent with Patient: 40-54 minutes Time was spent: preparing to see the patient(eg.review tests), obtaining and/or reviewing separately otained hiistory, ordering medications,tests, procedures, referring, communicating with other health healthcare architect and indepentently interpreting results
--- NOTE | 2023-10-13 00:53 | W.PC.ACHO ---
Registration Status: Primary Language: Preferred Language: ED Information & Data Chief Complaint Chest Pain 10/12/23 17:59 Chief Complaint Chest Pain 10/12/23 17:37 Triage Note left chest pain to the back, 10/12/23 16:56 fatigue HX MD Medical / Surgical History (Last Reviewed 09/26/23 @ 00:18 by Jose Ramos) COVID-19 (~02/13/22) Elevated C-reactive protein (11/17/07) Cardiac murmur Chondromalacia of patella Pilonidal cyst (12/06/14) TMJ (temporomandibular joint disorder) (11/19/13) (Last Updated 10/07/23 @ 11:01 by Dnaiela Fishman NP) S/P CABG x 3 (04/19/23) History of mandibular surgery Rotator Cuff Repair (~2004) Most Recent Vital Signs Temperature 36.7 C 10/12/23 16:56 Temperature Source Oral 10/12/23 16:56 Pulse 61 10/13/23 00:31 Pulse 73 10/13/23 00:40 Respiratory Rate 20 10/13/23 00:40 Respiratory Effort Normal 10/12/23 17:59 Respiratory Depth Normal 10/12/23 17:59 Respiratory Pattern Normal 10/12/23 17:59 Blood Pressure 100/70 10/13/23 00:31 Blood Pressure Mean 79 10/13/23 00:31 Pulse Oximetry 94 10/13/23 00:40 Allergies meperidine Allergy (Severe, Verified 10/12/23 17:04) Other (See Comment) . promethazine Allergy (Intermediate, Verified 10/12/23 17:04) HIVES Penicillins Allergy (Unknown, Verified 10/12/23 17:04) Other (See Comment) When she was a child unknown reaction Sulfa (Sulfonamide Antibiotics) Allergy (Unknown, Verified 10/12/23 17:04) Other (See Comment) hives lisinopril Adverse Reaction (Intermediate, Verified 10/12/23 17:04) COUGH Active Medications Generic Name Dose Route Start Last Admin Trade Name Freq PRN Reason Stop Dose Admin Heparin Sodium/Sodium Chloride 25,000 unit in 250 mls @ 8.65 mls/hr 10/12/23 21:00 10/12/23 21:51 IV 865 units/hr INFUSION IVA 8.65 mls/hr Titration Protocol 865 UNITS/HR IV IV Catheter Type [Right Saline Lock Antecubital] IV Catheter Gauge [Right 18 Antecubital] Diagnostics 10/12/23 10/12/23 10/12/23 Range/Units 19:57 19:05 17:10 WBC (4.4-10.8) 10^3/uL RBC (3.93-5.22) 10^6/uL Hgb (11.2-15.7) g/dL Hct (36.0-46.0) % MCV (80-95) fL MCH (27.0-33.0) pg MCHC (32.0-36.0) % RDW (11.7-14.6) % Plt Count (130-400) 10^3/uL MPV (8.0-11.0) fL Immature Gran % % Neutrophils % % Lymphocytes % % Monocytes % % Eosinophils % % Basophils % % Nucleated RBC % (0.0-0.3) % Absolute Neutrophils (1.2-6.7) 10^3/uL Absolute Lymphocytes (1.2-3.4) 10^3/uL Absolute Monocytes (0.1-0.8) 10^3/uL Absolute Eosinophils (0.0-0.7) 10^3/uL Absolute Basophils (0.0-0.2) 10^3/uL PT (9.1-11.1) sec INR (0.9-1.1) APTT (23.6-32.8) sec Sodium (136-145) mmol/L Potassium (3.5-5.1) mmol/L Chloride (98-107) mmol/L Carbon Dioxide (21.0-32.0) mmol/L Anion Gap (3-11) mmol/L BUN (7-18) mg/dL Creatinine (0.55-1.02) mg/dL Est GFR (CKD-EPI 2020) (mL/min/1.73m2) Glucose (74-106) mg/dL Calcium (8.5-10.1) mg/dL Magnesium (1.8-2.4) mg/dL Total Bilirubin (0.2-1.0) mg/dL AST (15-37) U/L ALT (14-59) U/L Alkaline Phosphatase (46-116) U/L Troponin I < 50 (< or =60) ng/L NT-Pro-B Natriuret Pep (<300) pg/mL Total Protein (6.4-8.2) g/dL Albumin (3.4-5.0) g/dL TSH (0.36-3.74) uIU/mL Urine Opiates Screen Negative (Negative) Urine Methadone Screen Negative (Negative) Ur Barbiturates Screen Negative (Negative) Ur Tricyclics Screen Negative (Negative) Ur Amphetamines Screen Negative (Negative) U Benzodiazepines Scrn Negative (Negative) Urine Cocaine Screen Negative (Negative) Ur THC Screen Negative (Negative) ABO/Rh A Positive Antibody Screen NEGATIVE 10/12/23 Range/Units 17:00 WBC 9.77 (4.4-10.8) 10^3/uL RBC 4.30 (3.93-5.22) 10^6/uL Hgb 12.0 (11.2-15.7) g/dL Hct 36.6 (36.0-46.0) % MCV 85 (80-95) fL MCH 27.9 (27.0-33.0) pg MCHC 32.8 (32.0-36.0) % RDW 15.4 H (11.7-14.6) % Plt Count 279 (130-400) 10^3/uL MPV 9.3 (8.0-11.0) fL Immature Gran % 0.3 % Neutrophils % 70.4 % Lymphocytes % 22.9 % Monocytes % 5.1 % Eosinophils % 0.6 % Basophils % 0.7 % Nucleated RBC % 0.0 (0.0-0.3) % Absolute Neutrophils 6.87 H (1.2-6.7) 10^3/uL Absolute Lymphocytes 2.24 (1.2-3.4) 10^3/uL Absolute Monocytes 0.50 (0.1-0.8) 10^3/uL Absolute Eosinophils 0.06 (0.0-0.7) 10^3/uL Absolute Basophils 0.07 (0.0-0.2) 10^3/uL PT 10.1 (9.1-11.1) sec INR 1.0 (0.9-1.1) APTT 25.9 (23.6-32.8) sec Sodium 138 (136-145) mmol/L Potassium 3.9 (3.5-5.1) mmol/L Chloride 101 (98-107) mmol/L Carbon Dioxide 26.7 (21.0-32.0) mmol/L Anion Gap 10.3 (3-11) mmol/L BUN 13 (7-18) mg/dL Creatinine 1.0 (0.55-1.02) mg/dL Est GFR (CKD-EPI 2020) 65.30 (mL/min/1.73m2) Glucose 132 H (74-106) mg/dL Calcium 9.1 (8.5-10.1) mg/dL Magnesium 2.1 (1.8-2.4) mg/dL Total Bilirubin 0.36 (0.2-1.0) mg/dL AST 42 H (15-37) U/L ALT 43 (14-59) U/L Alkaline Phosphatase 91 (46-116) U/L Troponin I < 50 (< or =60) ng/L NT-Pro-B Natriuret Pep 909 H (<300) pg/mL Total Protein 7.8 (6.4-8.2) g/dL Albumin 4.0 (3.4-5.0) g/dL TSH 2.85 (0.36-3.74) uIU/mL Urine Opiates Screen (Negative) Urine Methadone Screen (Negative) Ur Barbiturates Screen (Negative) Ur Tricyclics Screen (Negative) Ur Amphetamines Screen (Negative) U Benzodiazepines Scrn (Negative) Urine Cocaine Screen (Negative) Ur THC Screen (Negative) ABO/Rh Antibody Screen Intake and Output - 24 Hour Total 10/12/23 16:53 thru 10/12/23 21:51 Intake Total 2.163 Balance 2.163 Weight 71.894 kg Intake: IV 2.163 Falls Risk Assessment History of Falls No History 10/12/23 17:59 Contributing Factors No Factors 10/12/23 17:59 Ambulatory Aids Independent 10/12/23 17:59 Tubes/Lines None 10/12/23 17:59 Cognition No cognitive impairment 10/12/23 17:59 Fall Total Score 0 10/12/23 17:59 Level of Risk Standard/Low Risk 10/12/23 17:59 Problems (Last Reviewed 09/26/23 @ 00:18 by Jose Ramos) Diabetes (Chronic) Hypertension (Chronic) Unstable angina (Acute) Hyperlipidemia (Acute) v v v v v v v v v Sending and/or Receiving Nurses: Please use comment section below to note any information pertinent to the patient hand-off not included above. Information / Comments: Pt history of CAD is being admitted for chest pain, unstable angina. Pt is showing VT wave inversions. She is scheduled for transfer to [facility] for tomorrow. Hemodynamically stable. IV R AC. LOC x4, pleasant BP 100/70 at 0030, heart rate 62 Heparin running at 865 unit/hr Report received from:Tanika
[2023-10-13 03:50] LABS: PTT Activated 75.4 sec (23.6-32.8)
[2023-10-13] MEDS: Aspirin E.C. 81 MG TABEC PO (08:10)
[2023-10-13] MEDS: Losartan 25 MG TAB PO (08:10)
[2023-10-13] MEDS: Spironolactone 25 MG TAB 12.5 MG PO (08:10)
[2023-10-13] MEDS: Metoprolol CR 50 MG TABCR PO (08:10)
[2023-10-13] MEDS: Famotidine 20 MG TAB PO (08:10)
[2023-10-13] MEDS: Lidocaine 5% Patch 1 PATCH TP (08:11)
[2023-10-13] MEDS: Clopidogrel 75 MG TAB PO (08:19)
[2023-10-13 09:54] LABS: PTT Activated 51.7 sec (23.6-32.8)
--- NOTE | 2023-10-13 10:45 | RT.EKG_ITS ---
APPROVED REPORT Exam: Resting ECG Reason for Exam: unstable angina, ongoing intermittent pain Patient Location: I HR:68 bpm ECG Measurements Heart Rate 68 AXIS AZ 172 P 35 QRSd 74 QRS 20 QT 394 T 157 QTc 420 Conclusion Sinus rhythm...normal P axis, V-rate 60- 99 Abnrm T, consider ischemia, anterolateral lds...T <-0.20mV, I aVL V2-V6
[2023-10-13 11:37] LABS: Troponin I < 50 ng/L (< or =60)
[2023-10-13] MEDS: Acetaminophen 500 MG TAB 1000 MG PO (12:12)
[2023-10-13] MEDS: traMADol 50 MG TAB PO (14:33)
--- NOTE | 2023-10-13 14:33 | W.PM.DS.N ---
Date of service: 10/13/23 Time of Service: 14:33 DS: Diagnosis Discharge Diagnosis (1) Unstable angina: Status: Acute (2) Hyperlipidemia: Status: Acute (3) Hypertension: Status: Chronic (4) Diabetes: Status: Chronic Discharge Plan Disposition Patient Disposition: Transfer-Acute Inpatient Care Specific Acute Inpt Facility: [facility] Condition: Fair Discharge Details Reason For Visit: Unstable Angina Admit Date/Time: 10/13/23 00:03 Admit Provider: Cecilio Duvall Attending Provider: Cecilio Duvall Primary Care Provider: Ricardo Rdz Hospital Course Hospital Course: 58 yo F with known CAD s/p CABG x3 (04/2023) w/ repeat stent x1 in failed bypass on 09/27/23 who was admitted 10/11 due to acute onset of persistent left sided chest pain concerning for unstable angina. Her EKG showed diffuse T-wave inversions which were new since her last EKG here but similar to EKG at time of [place] [facility] [place]. Her troponins were not elevated. She was treated with heparin drip, ASA, clopidogrel. She was still getting intermittent pain off/on, though repeat EKG did not change 10/13/23 prior to transfer. Her pain was treated with acetaminophen and she did get a dose of tramadol. She was accepted [place] [facility] Gerard Ordonez on admission and was transferred 10/12 when a bed became available. Home Meds and New Rx's Prescriptions: No Action magnesium citrate 125 mg capsule 125 mg PO DAILY lidocaine 5 % adhesive patch,medicated 1 patch topical DAILY Qty: 30 6RF Rx Instructions: leave on most painful area for up to 12 hrs Zyrtec 10 mg capsule 10 mg PO DAILY PRN famotidine [Pepcid AC] 20 mg tablet 20 mg PO DAILY atorvastatin 80 mg tablet 80 mg PO DAILY Qty: 90 3RF clopidogrel 75 mg tablet 75 mg PO DAILY Qty: 90 3RF Rx Instructions: For 1 year dapagliflozin propanediol 10 mg tablet 10 mg PO DAILY Qty: 90 3RF losartan 25 mg tablet 25 mg PO DAILY Qty: 90 3RF metoprolol succinate 50 mg tablet extended release 24 hr 50 mg PO DAILY Qty: 90 3RF spironolactone 25 mg tablet 12.5 mg PO DAILY Qty: 45 3RF aspirin [Courtney Low Dose Aspirin] 81 mg tablet,delayed release (DR/EC) 81 mg PO DAILY Qty: 90 3RF meclizine [Motion Sickness (meclizine)] 25 MG tablet 25 mg PO BID PRNQty: 50 estradiol 0.01 % (0.1 mg/gram) cream 1 appful vaginal .2-3 times per week Rx Instructions: 2 g vaginally daily. Skips first week of the month. Discharge Instructions Activity:: Activity as Tolerated Equipment/Supplies:: No Equipment Needed Diet:: Low Sodium Discharge Orders Discharge Orders: Discharge Order (Routine); Ordered 10/13/23 Ordered By: Jose Ramos DS: Summary Time Spent with Patient providing and/or coordinating discharge services: Greater than 30 minutes Status at Discharge Functional status at discharge: independent ambulation Overall status at discharge: patient is not back to baseline Mental Status: mental status grossly normal Speech and Movement: speech and movement normal Mood: congruent mood Affect: normal affect Quality:SDOH Health Related Social Needs: No Data to Display Exam Narrative Exam Narrative: GEN: alert and oriented, NAD Lungs: CTAB, normal effort CV: RRR, no murmurs, gallops, or rubs EXT: no cyanosis or edema, non-tender Psych Mental Status: mental status grossly normal Speech and Movement: speech and movement normal Mood: congruent mood Affect: normal affect DS: Data Vitals/I&O Vitals and I&O: Vital Signs Temperature 36.5 C 10/13/23 07:24 Temperature Source Temporal Artery Scan 10/13/23 07:24 Pulse 71 10/13/23 07:24 Pulse Rhythm Regular 10/13/23 08:00 Pulse 73 10/13/23 00:40 Respiratory Rate 16 10/13/23 07:24 Respiratory Effort Normal, Non-Labored 10/13/23 08:00 Respiratory Depth Normal 10/13/23 08:00 Respiratory Pattern Normal 10/13/23 08:00 Blood Pressure 104/74 10/13/23 07:24 Blood Pressure Mean 79 10/13/23 00:31 Pulse Oximetry 98 10/13/23 07:24 Oxygen Delivery Method Room Air 10/13/23 08:00 Oxygen Flow Rate 0 10/13/23 08:00 Pain Level 5 10/13/23 12:12 Intake & Output 10/12/23 10/13/23 10/13/23 23:59 11:59 23:59 Intake Total 2.163 / 2.163 593.038 / 593.038 Balance 2.163 / 2.163 593.038 / 593.038 Weight 71.894 kg 68.45 kg Intake: IV 2.163 / 2.163 113.038 / 113.038 Oral 480 / 480 Other: Urine Color Yellow Urine Appearance Clear Urine Odor Normal Comment Pt voiding ad kristi in toilet. No hat. Pt denies /GI sx. Voiding Methods Toilet Data Completed and Pending Labs on day of discharge: Labs from last 24 hours 10/13/23 10/13/23 10/13/23 15:30 11:15 09:35 WBC RBC Hgb Hct MCV MCH MCHC RDW Plt Count MPV Immature Gran % Neutrophils % Lymphocytes % Monocytes % Eosinophils % Basophils % Nucleated RBC % Absolute Neutrophils Absolute Lymphocytes Absolute Monocytes Absolute Eosinophils Absolute Basophils PT INR APTT Pending 51.7 H Sodium Potassium Chloride Carbon Dioxide Anion Gap BUN Creatinine Est GFR (CKD-EPI 2020) Glucose Calcium Magnesium Total Bilirubin AST ALT Alkaline Phosphatase Troponin I < 50 NT-Pro-B Natriuret Pep Total Protein Albumin TSH Urine Opiates Screen Urine Methadone Screen Ur Barbiturates Screen Ur Tricyclics Screen Ur Amphetamines Screen U Benzodiazepines Scrn Urine Cocaine Screen Ur THC Screen ABO/Rh Antibody Screen 10/13/23 10/12/23 10/12/23 03:30 19:57 19:05 WBC RBC Hgb Hct MCV MCH MCHC RDW Plt Count MPV Immature Gran % Neutrophils % Lymphocytes % Monocytes % Eosinophils % Basophils % Nucleated RBC % Absolute Neutrophils Absolute Lymphocytes Absolute Monocytes Absolute Eosinophils Absolute Basophils PT INR APTT 75.4 H Sodium Potassium Chloride Carbon Dioxide Anion Gap BUN Creatinine Est GFR (CKD-EPI 2020) Glucose Calcium Magnesium Total Bilirubin AST ALT Alkaline Phosphatase Troponin I < 50 NT-Pro-B Natriuret Pep Total Protein Albumin TSH Urine Opiates Screen Negative Urine Methadone Screen Negative Ur Barbiturates Screen Negative Ur Tricyclics Screen Negative Ur Amphetamines Screen Negative U Benzodiazepines Scrn Negative Urine Cocaine Screen Negative Ur THC Screen Negative ABO/Rh Antibody Screen 10/12/23 10/12/23 17:10 17:00 WBC 9.77 RBC 4.30 Hgb 12.0 Hct 36.6 MCV 85 MCH 27.9 MCHC 32.8 RDW 15.4 H Plt Count 279 MPV 9.3 Immature Gran % 0.3 Neutrophils % 70.4 Lymphocytes % 22.9 Monocytes % 5.1 Eosinophils % 0.6 Basophils % 0.7 Nucleated RBC % 0.0 Absolute Neutrophils 6.87 H Absolute Lymphocytes 2.24 Absolute Monocytes 0.50 Absolute Eosinophils 0.06 Absolute Basophils 0.07 PT 10.1 INR 1.0 APTT 25.9 Sodium 138 Potassium 3.9 Chloride 101 Carbon Dioxide 26.7 Anion Gap 10.3 BUN 13 Creatinine 1.0 Est GFR (CKD-EPI 2020) 65.30 Glucose 132 H Calcium 9.1 Magnesium 2.1 Total Bilirubin 0.36 AST 42 H ALT 43 Alkaline Phosphatase 91 Troponin I < 50 NT-Pro-B Natriuret Pep 909 H Total Protein 7.8 Albumin 4.0 TSH 2.85 Urine Opiates Screen Urine Methadone Screen Ur Barbiturates Screen Ur Tricyclics Screen Ur Amphetamines Screen U Benzodiazepines Scrn Urine Cocaine Screen Ur THC Screen ABO/Rh A Positive Antibody Screen NEGATIVE PFSH All Active Problems (Updated 10/13/23 @ 00:26 by Cecilio Duvall MD) Diabetes (Chronic) Hypertension (Chronic) Unstable angina (Acute) Ischemic cardiomyopathy (Acute) Groin pain (Acute) Non-ST elevation DE (NSTEMI) (Acute ~09/2023) 04/17/23 and 09/25/23 Unstable angina (Acute) TMJ arthralgia (Acute) Musculoskeletal chest pain (Acute) Coronary artery disease (Chronic) CABG x 3 04/2023, BONILLA to LAD 09/2023 Non-ST elevation DE (NSTEMI) (Acute) Gallbladder polyp (Acute) Nonalcoholic steatohepatitis (CAMARA) (Acute) Beau's lines of nails (Acute) left thumb Elevated ferritin (Acute) Pre-diabetes (Acute) Osteopenia (Acute) Benign paroxysmal positional vertigo (Acute) intermittent Essential hypertension (Acute 12/19/12) off meds after weight loss Hyperlipidemia (Acute) Migraine (Acute) only one in 2020 Vaginal atrophy (Acute 01/07/17) Medical History (Updated 10/13/23 @ 00:26 by Cecilio Duvall MD) COVID-19 (~02/13/22) Elevated C-reactive protein (11/17/07) Cardiac murmur Chondromalacia of patella Pilonidal cyst (12/06/14) TMJ (temporomandibular joint disorder) (11/19/13) [facility] now seeing Dr Dari Noguera, material assembler, [place] 12/2020- doing great Surgical History (Updated 10/07/23 @ 11:01 by Daniela Fishman NP) S/P CABG x 3 (04/19/23) History of mandibular surgery 06/22 Rotator Cuff Repair (~2004) LEFT Family History Mother Diabetes Essential hypertension Dementia Depression Heart disease Hyperlipidemia Myocardial infarction Father , age 72 Essential hypertension Hyperlipidemia Bladder cancer Sister Essential hypertension Endometrial cancer Brother Essential hypertension Maternal Grandfather , age 78 Essential hypertension Heart disease Paternal Grandfather Heart disease Maternal Grandmother , age 76 No problems noted. Paternal Grandmother , age 94 No problems noted. Sister No problems noted. Son No problems noted. Son No problems noted. Daughter No problems noted. Daughter No problems noted. 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 Housing: house Communication Needs: None Do you need help understanding health information?: Never Pets and animals: Yes Pets and animals: cat(s), dog(s) and other Details: bunny Sexually active: Yes Do you think of yourself as: straight/heterosexual Current gender identity: female What is your relationship status?: How often do you talk on the phone with friends or family?: three or more times per week How often do you get together with friends or relatives?: three or more times per week How often do you attend uatsdin or mu-ism services?: 4 or more times per year Panel score (0-1 are the most socially isolated patients): 3 Dolly/Yazdanism: Mandaen Special dolly needs: No Seatbelt use: always Helmet use: Yes Helmet use: always Drive intox or ride w/intox entry driver operator: No Do you feel safe at home: Yes Do you feel safe in your relationship?: Yes Time Spent with Patient Time Spent with Patient: <45 minutes Time was spent: preparing to see the patient(eg.review tests), obtaining and/or reviewing separately otained hiistory, ordering medications,tests, procedures, referring, communicating with other health memory care director, indepentently interpreting results, counseling the patient and care coordination
--- NOTE | 2023-10-13 17:41 | PDOC.CMPRO ---
Date of service: 10/13/23 Time of Service: 17:41 Care Management Progress Note Progress Note Text Progress Note Text: Juana was accepted for transfer at [facility] for further management of her symptoms; she transported via EMS, coordinated by RN records supervisor. No care management concerns were noted by staff. SDOH(Care Management) Screening Will the Patient Participate in the Screening?: Yes Do you worry about having a steady place to live?: yes Problems where you live: no known problems In the past 12 months, have you had to go without electric, gas, oil or water in your home?: no Have you or anyone in your house had to go without enough food to eat?: no Has lack of transportation kept you from medical appointments or from doing things needed for daily living?: no Has anyone in your support network made you feel unsafe for any reason?: no Health Related Social Needs Health related social needs: housing instability, housed, with risk of homelessness(Z59.811)
--- NOTE | 2023-10-13 18:42 | NUR.NOTE ---
Nursing Note: this RN monitored patient on route to [facility]. Uneventful transfer. Patient happily talked with this RN and EMT entire ride . VS 1550: BP 113/77 Pulse 77 SPo2 95% Ra 1623: BP 119/78 Pulse 81 SPo2 96%RA 1645 BP 129/80 Pulse 74 Spo2 95% RA
--- NOTE | 2023-10-14 07:38 | NUR.NOTE ---
Nursing Note: Accessed chart for SQSS investigation.
== END 2023-10-13 15:47 | disposition short-term general hospital (02) | DRG 282 ==
LOC: ER 10-13 00:08 → MS 10-13 01:18
PROVIDERS: Family Medicine; Admitting Provider Student in an Organized Health Care Education/Training Program; Emergency Provider Emergency Medicine; PCP Nurse Practitioner Family; Visit Provider Student in an Organized Health Care Education/Training Program
DX: I25.110 Atherosclerotic heart disease of native coronary artery with unstable angina pectoris; I21.4 Non-ST elevation (NSTEMI) myocardial infarction; E78.5 Hyperlipidemia, unspecified; I10 Essential (primary) hypertension; E11.9 Type 2 diabetes mellitus without complications; Z95.1 Presence of aortocoronary bypass graft; Z95.5 Presence of coronary angioplasty implant and graft; I25.5 Ischemic cardiomyopathy; K75.81 Nonalcoholic steatohepatitis (NASH); M85.80 Other specified disorders of bone density and structure, unspecified site
CPT/HCPCS: 00123; 36415; 80053; 80307; 86850; 86900; 86901; 93005; 96365; 96366; 99285; 71045; 83735; 83880; 84443; 84484; 85025; 85610; 85730; 93010; 99234; J1644

== ENCOUNTER 2023-11-01 08:19 | Outpatient (RCR) | payer BC, SELFPAY ==
--- NOTE | 2023-10-16 12:07 | NUR.NOTE ---
Nursing Note: Patient seen today for initial CR intake. Nursing noted patient did not fill out final question on PHQ-9 regarding thought of being better off or hurting yourself. Discussed this with patient and she made statements that she felt she would be better off and that the next time this happens might as well lay in bed and let it happen. When asked if patient had a plan and noted that she would not do it because she would not do that to her daughter. Patient informed nurse would be relaying info to her PCP regarding these statements and PHQ-9 score. Patient stated understanding. Spoke patient's provider Ricardo Almonte directly and relayed all above.
== END 2023-11-02 23:59 | disposition home or self-care (01) ==
LOC: CR 08:19
PROVIDERS: PCP Nurse Practitioner Family; Visit Provider Internal Medicine Cardiovascular Disease
DX: I21.4 Non-ST elevation (NSTEMI) myocardial infarction (principal); Z51.89 Encounter for other specified aftercare
CPT/HCPCS: S9472

== ENCOUNTER 2023-12-02 08:07 | Outpatient (RCR) | payer BC, SELFPAY | END 2023-12-02 23:59 | disposition home or self-care (01) | LOC: CR 08:07 | PROVIDERS: PCP Nurse Practitioner Family; Visit Provider Internal Medicine Cardiovascular Disease | DX: I21.4 Non-ST elevation (NSTEMI) myocardial infarction (principal); Z51.89 Encounter for other specified aftercare | CPT/HCPCS: S9472 ==

== ENCOUNTER 2023-12-27 08:05 | Outpatient (RCR) | payer BC, SELFPAY | END 2024-01-02 23:59 | disposition home or self-care (01) | LOC: CR 08:05 | PROVIDERS: PCP Nurse Practitioner Family; Visit Provider Internal Medicine Cardiovascular Disease | DX: I21.4 Non-ST elevation (NSTEMI) myocardial infarction (principal); Z51.89 Encounter for other specified aftercare | CPT/HCPCS: S9472 ==

== ENCOUNTER 2024-01-29 08:24 | Outpatient (RCR) | payer BC, SELFPAY | END 2024-02-01 23:59 | disposition home or self-care (01) | LOC: CR 08:24 | PROVIDERS: PCP Nurse Practitioner Family; Visit Provider Internal Medicine Cardiovascular Disease | DX: I21.4 Non-ST elevation (NSTEMI) myocardial infarction (principal); Z51.89 Encounter for other specified aftercare | CPT/HCPCS: S9472 ==

== ENCOUNTER 2024-02-15 18:48 | Emergency (ER) | payer BC, SELFPAY ==
[2024-02-15] VITALS (28 sets, daily range): BP systolic 140–160; BP diastolic 86–110; PULSE 62–95; RESP 12–30; TEMP 36.9; O2SAT 93–100
--- NOTE | 2024-02-15 18:45 | RT.EKG_ITS ---
APPROVED REPORT Exam: Resting ECG Reason for Exam: Chest Pain Patient Location: E HR:78 bpm ECG Measurements Heart Rate 78 AXIS TN 171 P 28 QRSd 85 QRS 5 QT 376 T 59 QTc 429 Conclusion Sinus rhythm, rate 78 No STEMI No interval abnormalities Compared to priors, anterolateral T wave inversion has resolved
[2024-02-15 19:11] LABS: Abs Immature Grans 0.03 10^3/uL (0.0-0.06); Absolute Basophil Count 0.08 10^3/uL (0.0-0.2); Absolute Eosinophil Count 0.07 10^3/uL (0.0-0.7); Absolute Lymphocyte Count 3.43 10^3/uL (1.2-3.4); Absolute Monocyte Count 0.82 10^3/uL (0.1-0.8); Basophils % 0.9 %; Eosinophils % 0.8 %; HCT 41.3 % (36.0-46.0); HGB 13.3 g/dL (11.2-15.7); Immature Grans % 0.3 %; Lymphocytes % 38.8 %; MCH 26.2 pg (27.0-33.0); MCHC 32.2 % (32.0-36.0); MCV 81 fL (80-95); MPV 9.9 fL (8.0-11.0); Monocytes % 9.3 %; Neutrophils % 49.9 %; Platelet Count 263 10^3/uL (130-400); RBC 5.08 10^6/uL (3.93-5.22); RDW 14.3 % (11.7-14.6); RDW-SD 41.8 fL; WBC 8.83 10^3/uL (4.4-10.8)
[2024-02-15] MEDS: traMADol 50 MG TAB PO (19:22)
[2024-02-15 19:33] LABS: ALT 51 U/L (14-59); AST 39 U/L (15-37); Albumin 4.5 g/dL (3.4-5.0); Alkaline Phosphatase 134 U/L (46-116); Anion Gap 10.5 mmol/L (3-11); BUN 12 mg/dL (7-18); Bilirubin, Total 0.38 mg/dL (0.2-1.0); CO2 26.5 mmol/L (21.0-32.0); CREATININE 1.1 mg/dL (0.55-1.02); Calcium 9.1 mg/dL (8.5-10.1); Chloride 104 mmol/L (98-107); Estimated GFR 58.24 (mL/min/1.73m2); Glucose 112 mg/dL (74-106); NT-proBNP 66 pg/mL (<300); Potassium 3.2 mmol/L (3.5-5.1); Sodium 141 mmol/L (136-145); Total Protein 8.4 g/dL (6.4-8.2); Troponin I 7 ng/L (<or=51)
--- NOTE | 2024-02-15 19:36 | DI.RAD_ITS ---
Exam(s) XR CHEST 2V PA LATERAL EXAM: XR CHEST 2V PA LATERAL CLINICAL HISTORY: Chest pain. TECHNIQUE: 2D digital imaging was performed. COMPARISON: CR XR PORTABLE CHEST AP from 10/12/2023 FINDINGS: 2 views: Again noted are sternotomy wires and evidence of previous CABG. Heart size is normal. The mediastinum is not widened. Lungs are clear. No infiltrates nor pleural effusions. No evidence of pulmonary edema. No fractures. IMPRESSION: No acute pulmonary findings.Previous sternotomy and CABG. DATA REPOSITORY: RADIATION DOSE DELIVERED:
[2024-02-15] MEDS: Potassium Chloride 20 MEQ TABCR 40 MEQ PO (19:54)
--- NOTE | 2024-02-15 20:03 | ED.GENADUL_ITS ---
Discharge Plan Disposition Patient Disposition: Home Condition: Stable Discharge Details Clinical Impression: Myocarditis, Essential hypertension, Benign paroxysmal positional vertigo, Pre- diabetes, Nonalcoholic steatohepatitis (CAMARA), Coronary artery disease, Ischemic cardiomyopathy, Hypertension, GERD (gastroesophageal reflux disease), Hyperlipidemia Primary Care Provider: Ricardo Rdz ED Provider: Rosario Meneses Home Meds and New Rx's Prescriptions: No Action magnesium citrate 125 mg capsule 125 mg PO DAILY lidocaine 5 % adhesive patch,medicated 1 patch topical DAILY Qty: 30 6RF Rx Instructions: leave on most painful area for up to 12 hrs Zyrtec 10 mg capsule 10 mg PO DAILY PRN atorvastatin 80 mg tablet 80 mg PO DAILY Qty: 90 3RF clopidogrel 75 mg tablet 75 mg PO DAILY Qty: 90 3RF Rx Instructions: For 1 year dapagliflozin propanediol 10 mg tablet 10 mg PO DAILY Qty: 90 3RF losartan 25 mg tablet 25 mg PO DAILY Qty: 90 3RF metoprolol succinate 50 mg tablet extended release 24 hr 50 mg PO DAILY Qty: 90 3RF spironolactone 25 mg tablet 12.5 mg PO DAILY Qty: 45 3RF famotidine 40 mg tablet 40 mg PO Q12H PRN (Reason: indigestion) Qty: 60 4RF estradiol 0.01 % (0.1 mg/gram) cream 1 appful vaginal .2-3 times per week Qty: 42.5 12RF Rx Instructions: 2 g vaginally daily. Skips first week of the month. meclizine [Motion Sickness (meclizine)] 25 MG tablet 25 mg PO BID PRNQty: 50 colchicine 0.6 mg tablet 0.6 mg PO BID aspirin 325 mg tablet,delayed release (DR/EC) 650 mg PO TID Rx Instructions: Started 10/15/23- to take for 2 weeks and then taper down. Discharge Instructions Instructions: Myocarditis Additional Instructions: You were seen in the emergency department today for evaluation of chest pain, consistent with your myocarditis. This likely occurred as a result of your recent heart attack. You are already taking the appropriate protective medications which include aspirin and colchicine. I am providing you with a short course of tramadol to make you through the weekend, you can call your outpatient providers to discuss next steps. Please return to care if you have w orsening of your chest pain, shortness of breath, weight gain or swelling, or any other symptoms that cause you concern. Your out-patient providers can follow up on your Lyme test. Thank you for allowing us to be part of your care HPI General Mode of arrival: ambulatory . Date/Time Provider Initiated Documentation: 02/15/24 18:55 . Limitations to Documentation: no limitations . Information obtained by: patient, family and old records reviewed . HPI Narrative: HPI: This is a 58-year-old female patient with a past medical history most notable for NSTEMI in 2023, most recently in September of 2023, complicated by myocarditis for which she has received colchicine and high-dose aspirin. She has been experiencing chest pain for the last 3 months, but immediately above- noted changes in her chest pain, specifically lightheadedness worsened, and now occurs with exertion, whereas previously she was able to exercise. The patient feels more comfortable sitting up, states that she has been taking all of her medications as prescribed. She has not had any fevers, has not changed shortness of breath has had intermittent cough. She reports that she has not noted any improvement from the admitting. She had an MRI performed at a few days ago, and is waiting for the results of that study. The patient reports that she has had some dizziness and intermittent headaches, has been diagnosed as BPPV. She is prescribed meclizine. Has not had any dizziness, numbness, vision changes, gait abnormalities. Exam: Gen: awake and alert, in no apparent distress. Appears well nourished. HEENT: PERRL, EOMs full and without nystagmus. External ears and nose normal, mucous membranes moist. Neck: Supple, full range of motion, no observable masses Lungs: No increased work of breathing, lung sounds clear and equal bilaterally without wheezes, rhonchi, or rales. CV: Heart with regular rate and rhythm, no murmurs auscultated. Strong and symmetrical radial pulses. Midline sternotomy scar well-healing Abdomen: Soft, nondistended, non-tended to palpation. No rigidity, rebound tenderness, or guarding. MSK: No joint swelling, no redness. Full ROM without limitation, no external tr aumatic findings. Skin: No rashes or lesions to visualized skin. Normal color, warm, and dry. Neuro: Cranial nerves II-XII intact and symmetrical bilaterally. 5/5 strength in all muscle groups x4 extremities. No sensory deficits. Ambulates with steady gait. Psych: Appropriate for situation. MDM: This is a 58-year-old female patient who is presenting for evaluation of chest pain. Differential includes but is not limited to myocarditis, pericarditis, ACS including STEMI, NSTEMI, unstable angina. Certainly considered pleurisy, as well as other pulmonary abnormality including pneumonia, edema, pneumothorax, pulmonary edema and pleural effusion. Considered heart failure. I was able to maintain imaging studies, which showed preserved systolic function, and was most consistent with myocarditis. We will obtain an EKG, chest x-ray, and laboratory studies to include CBC, CMP, magnesium, BNP, and troponin. I will provide the patient with a dose of tramadol, and will provide her with her nighttime colchicine and ASA as scheduled. ED Course: Reviewed patient's EKG, which shows a normal sinus rhythm without ischemia, interval abnormalities, or ectopy. I independently interpreted the laboratory studies, which show no significant leukocytosis, anemia, or thrombocytopenia. The chemistry panel is without evidence of electrolyte abnormality, kidney dysfunction, or liver injury, With the exception of a mildly low potassium to 3.1 which was repleted orally. Initial troponin was negative, and the BNP is low. Repeat troponin with no delta change, remains low at 7, making active ischemia unlikely. CXR without abnormalities to explain symptoms. I paged [facility] [place] for recommendations regarding medication management and ongoing cardiac surveillance, and unfortunately they were unable to discuss this patient's case for several hours. She was desiring of discharge, understanding the risks associated with a potentially incomplete treatment plan, though I am quite reassured that she is not experiencing any dire complications of her myocarditis which would require her to stay in the hospital, or to complete an AMA. We did have an extended conversation about return precautions and she knows to come back to the emergency department immediately if her chest pain worsens or she has any other concerning symptoms. She did request a Lyme test, which was sent. I was able to speak with the cardiology team after she was discharged, who will ensure that her outpatient territory sales manager will call her on Saturday. They recommend an outpatient stress test to assess for unstable angina. At this time, the patient has had a full medical evaluation and is safe for discharge to home. They are hemodynamically stable, ambulatory, and tolerating PO. They are understanding of the follow-up plan and return precautions. They left our facility without incident. Rosario Meneses MD Related Data Home Medications ?Medication ?Instructions ?Recorded ?Confirmed meclizine 25 mg tablet (Motion 25 mg PO BID PRN #50 tab-caps 06/06/15 02/15/24 Sickness (meclizine)) magnesium citrate 125 mg capsule 125 mg PO DAILY 06/04/23 02/15/24 lidocaine 5 % topical patch 1 patch topical DAILY #30 ea 09/10/23 02/15/24 atorvastatin 80 mg tablet 80 mg PO DAILY #90 tabs 10/07/23 02/15/24 cetirizine 10 mg capsule (Zyrtec) 10 mg PO DAILY PRN 10/07/23 02/15/24 clopidogrel 75 mg tablet 75 mg PO DAILY #90 tabs 10/07/23 02/15/24 dapagliflozin propanediol 10 mg 10 mg PO DAILY #90 tabs 10/07/23 02/15/24 tablet losartan 25 mg tablet 25 mg PO DAILY #90 tabs 10/07/23 02/15/24 metoprolol succinate 50 mg 50 mg PO DAILY #90 tabs 10/07/23 02/15/24 tablet,extended release 24 hr spironolactone 25 mg tablet 12.5 mg (1/2 x 25 mg) PO DAILY #45 10/07/23 02/15/24 tabs aspirin 325 mg tablet,delayed 650 mg PO TID 10/24/23 02/15/24 release colchicine 0.6 mg tablet 0.6 mg PO BID 10/24/23 02/15/24 estradiol 0.01% (0.1 mg/gram) 1 appful vaginal .2-3 times per 01/06/24 02/15/24 vaginal cream week #42.5 grams famotidine 40 mg tablet 40 mg PO Q12H PRN indigestion #60 01/06/24 02/15/24 tabs Previous Rx's ?Medication ?Instructions ?Recorded lidocaine 5 % topical patch 1 patch topical DAILY #30 ea 09/10/23 atorvastatin 80 mg tablet 80 mg PO DAILY #90 tabs 10/07/23 clopidogrel 75 mg tablet 75 mg PO DAILY #90 tabs 10/07/23 dapagliflozin propanediol 10 mg 10 mg PO DAILY #90 tabs 10/07/23 tablet losartan 25 mg tablet 25 mg PO DAILY #90 tabs 10/07/23 metoprolol succinate 50 mg 50 mg PO DAILY #90 tabs 10/07/23 tablet,extended release 24 hr spironolactone 25 mg tablet 12.5 mg (1/2 x 25 mg) PO DAILY #45 10/07/23 tabs estradiol 0.01% (0.1 mg/gram) 1 appful vaginal .2-3 times per 01/06/24 vaginal cream week #42.5 grams famotidine 40 mg tablet 40 mg PO Q12H PRN indigestion #60 01/06/24 tabs Allergies Allergy/AdvReac Type Severity Reaction Status Date / Time meperidine Allergy Severe Other (See Verified 02/15/24 19:02 Comment) promethazine Allergy Intermediate HIVES Verified 02/15/24 19:02 Penicillins Allergy Unknown Other (See Verified 02/15/24 19:02 Comment) Sulfa (Sulfonamide Allergy Unknown Other (See Verified 02/15/24 19:02 Antibiotics) Comment) lisinopril AdvReac Intermediate COUGH Verified 02/15/24 19:02 General Stated Complaint: Chest Pain COURTNEY: 3 Course Vital Signs Vital signs: Vital Signs Temperature 36.9 C 02/15/24 18:59 Pulse 95 H 02/15/24 18:59 Respiratory Rate 26 H 02/15/24 18:59 Blood Pressure 153/96 H 02/15/24 18:59 Pulse Oximetry 100 02/15/24 18:59 Temperature 36.9 C 02/15/24 18:59 Temperature Source Temporal Artery Scan 02/15/24 18:59 Pulse 65 02/15/24 19:52 Pulse 75 02/15/24 19:52 Respiratory Rate 18 02/15/24 19:52 Respiratory Effort Short of Breath 02/15/24 19:04 Respiratory Depth Normal 02/15/24 19:04 Respiratory Pattern Normal 02/15/24 19:04 Blood Pressure 148/98 H 02/15/24 19:52 Blood Pressure Mean 116 02/15/24 19:52 Blood Pressure Position Sitting 02/15/24 18:59 Pulse Oximetry 97 02/15/24 19:52 Oxygen Delivery Method Room Air 02/15/24 18:59 Oxygen Flow Rate 0 02/15/24 18:59 Pain Level 5 02/15/24 18:59 Lab/Test Results Lab/Test Results: Laboratory Tests Range/Units 02/15/24 18:58 WBC (4.4-10.8) 10^3/uL 8.83 RBC (3.93-5.22) 10^6/uL 5.08 Hgb (11.2-15.7) g/dL 13.3 Hct (36.0-46.0) % 41.3 MCV (80-95) fL 81 MCH (27.0-33.0) pg 26.2 L MCHC (32.0-36.0) % 32.2 RDW (11.7-14.6) % 14.3 Plt Count (130-400) 10^3/uL 263 MPV (8.0-11.0) fL 9.9 Immature Gran % % 0.3 Neutrophils % % 49.9 Lymphocytes % % 38.8 Monocytes % % 9.3 Eosinophils % % 0.8 Basophils % % 0.9 Nucleated RBC % (0.0-0.3) % 0.0 Absolute Neutrophils (1.2-6.7) 10^3/uL 4.40 Absolute Lymphocytes (1.2-3.4) 10^3/uL 3.43 H Absolute Monocytes (0.1-0.8) 10^3/uL 0.82 H Absolute Eosinophils (0.0-0.7) 10^3/uL 0.07 Absolute Basophils (0.0-0.2) 10^3/uL 0.08 Sodium (136-145) mmol/L 141 Potassium (3.5-5.1) mmol/L 3.2 L Chloride (98-107) mmol/L 104 Carbon Dioxide (21.0-32.0) mmol/L 26.5 Anion Gap (3-11) mmol/L 10.5 BUN (7-18) mg/dL 12 Creatinine (0.55-1.02) mg/dL 1.1 H Est GFR (CKD-EPI 2020) (mL/min/1.73m2) 58.24 Glucose (74-106) mg/dL 112 H Calcium (8.5-10.1) mg/dL 9.1 Total Bilirubin (0.2-1.0) mg/dL 0.38 AST (15-37) U/L 39 H ALT (14-59) U/L 51 Alkaline Phosphatase (46-116) U/L 134 H Troponin I (<or=51) ng/L 7 NT-Pro-B Natriuret Pep (<300) pg/mL 66 Total Protein (6.4-8.2) g/dL 8.4 H Albumin (3.4-5.0) g/dL 4.5 Medical Decision Making Quality:SDOH Health Related Social Needs: Health related social needs housing instability, house d, with risk of homelessness(Z59.811) PFSH All Active Problems (Updated 02/15/24 @ 21:40 by Rosario Meneses MD) Myocarditis (Acute) Blepharitis (Acute) GERD (gastroesophageal reflux disease) (Chronic) Pericarditis (Acute) Diabetes (Chronic) Hypertension (Chronic) Unstable angina (Acute) Ischemic cardiomyopathy (Acute) Groin pain (Acute) Non-ST elevation [place] (NSTEMI) (Acute ~09/2023) 04/17/23 and 09/25/23 Unstable angina (Acute) TMJ arthralgia (Acute) Musculoskeletal chest pain (Acute) Coronary artery disease (Chronic) CABG x 3 04/2023, [place] to [facility] 09/2023 Non-ST elevation [place] (NSTEMI) (Acute) Gallbladder polyp (Acute) Nonalcoholic steatohepatitis (CAMARA) (Acute) Beau's lines of nails (Acute) left thumb Elevated ferritin (Acute) Pre-diabetes (Acute) Osteopenia (Acute) Benign paroxysmal positional vertigo (Acute) intermittent Essential hypertension (Acute 12/19/12) off meds after weight loss Hyperlipidemia (Acute) Migraine (Acute) only one in 2020 Vaginal atrophy (Acute 01/07/17) Medical History COVID-19 (~02/13/22) Elevated C-reactive protein (11/17/07) Cardiac murmur Chondromalacia of patella Pilonidal cyst (12/06/14) TMJ (temporomandibular joint disorder) (11/19/13) July 2020-[facility]; s/p surgeries now seeing Dr Dari Noguera, software engineering project manager, [place] 12/2020- doing great Surgical History S/P CABG x 3 (04/19/23) History of mandibular surgery 06/22 Rotator Cuff Repair (~2004) LEFT Family History Mother Diabetes Essential hypertension Dementia Depression Heart disease Hyperlipidemia Myocardial infarction Father , age 72 Essential hypertension Hyperlipidemia Bladder cancer Sister Essential hypertension Endometrial cancer Brother Essential hypertension Maternal Grandfather , age 78 Essential hypertension Heart disease Paternal Grandfather Heart disease Maternal Grandmother , age 76 No problems noted. Paternal Grandmother , age 94 No problems noted. Sister No problems noted. Son No problems noted. Son No problems noted. Daughter No problems noted. Daughter No problems noted. 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 Housing: house Communication Needs: None Do you need help understanding health information?: Never Pets and animals: Yes Pets and animals: cat(s), dog(s) and other Details: bunny Sexually active: Yes Do you think of yourself as: straight/heterosexual Current gender identity: female What is your relationship status?: How often do you talk on the phone with friends or family?: three or more times per week How often do you get together with friends or relatives?: three or more times per week How often do you attend temple or protestant services?: 4 or more times per year Panel score (0-1 are the most socially isolated patients): 3 Dolly/Religious: Muslim Special dolly needs: No Seatbelt use: always Helmet use: Yes Helmet use: always Drive intox or ride w/intox coach driver: No Do you feel safe at home: Yes Do you feel safe in your relationship?: Yes
--- NOTE | 2024-02-15 20:31 | DI.VRAD_ITS ---
PROCEDURE INFORMATION: Exam: XR Chest Exam date and time: 02/15/2024 7:35 PM Age: 58 years old Clinical indication: Other: Chest pain; Prior surgery; Surgery date: 6+ months; Surgery type: Stent placement and triple bypass less than 1 year ago TECHNIQUE: Imaging protocol: Radiologic exam of the chest. Views: 2 views. COMPARISON: CR XR PORTABLE CHEST AP 10/12/2023 5:26 PM FINDINGS: Lungs: There is no evidence of focal pulmonary consolidation. The pulmonary vasculature is normal. Pleural spaces: There is no evidence of pneumothorax. There are no pleural effusions present. Heart/Mediastinum: The cardiac silhouette is within normal limits. The mediastinum is normal. Vasculature: The aorta is ectatic and tortuous. Bones/joints: Sternotomy wires and mediastinal surgical clips are present, consistent with previous coronary arterial bypass grafting. The spine, sternum, ribs, and pectoral girdles show no evidence of acute abnormality Soft tissues: There are no soft tissue masses or calcifications. IMPRESSION: Postoperative changes otherwise no active cardiopulmonary disease. Dictated and Authenticated by: Ralph Gamble MD. Ordering:LION Calle MD
[2024-02-15 20:45] LABS: Troponin I 7 ng/L (<or=51)
[2024-02-15] MEDS: Colchicine 0.6 MG TAB PO (21:05)
[2024-02-15] MEDS: Famotidine 20 MG TAB 40 MG PO (21:05)
[2024-02-15] MEDS: Aspirin 325 MG TAB 650 MG PO (21:05)
[2024-02-15] MEDS: traMADol 50 MG TAB 150 MG PO (21:41)
[2024-02-17 09:30] LABS: Lyme Ab w Rflx to Lyme Confirm Negative (Negative)
[2024-02-18 23:44] LABS: Anaplasma phagocytophilum Negative (Negative); B. miyamotoi PCR Negative (Negative); Babesia divergens/MO-1 Negative (Negative); Babesia duncani Negative (Negative); Babesia microti Negative (Negative); Ehrlichia chaffeensis Negative (Negative); Ehrlichia ewingii/canis Negative (Negative); Ehrlichia muris eauclairensis Negative (Negative)
== END 2024-02-15 21:46 | disposition home or self-care (01) ==
PROVIDERS: Emergency Provider Emergency Medicine; PCP Nurse Practitioner Family
DX: I51.4 Myocarditis, unspecified (principal); H81.10 Benign paroxysmal vertigo, unspecified ear; I10 Essential (primary) hypertension; E78.5 Hyperlipidemia, unspecified; I25.10 Atherosclerotic heart disease of native coronary artery without angina pectoris; I25.2 Old myocardial infarction; E11.9 Type 2 diabetes mellitus without complications; Z79.01 Long term (current) use of anticoagulants; Z79.82 Long term (current) use of aspirin
CPT/HCPCS: 80053; 87798; 93005; 99285; 71046; 83880; 84484; 85025; 86618; 93010; 99284

== ENCOUNTER 2024-09-03 02:58 | Outpatient (CLI) | payer BC, SELFPAY ==
[2024-09-03 12:50] LABS: Hemoglobin A1C 6.5 % (<5.7)
[2024-09-03 12:59] LABS: Albumin 4.3 g/dL (3.4-5.0); Alkaline Phosphatase 144 U/L (46-116); BUN 10 mg/dL (7-18); Bilirubin, Total 0.6 mg/dL (0.2-1.0); Calcium 9.2 mg/dL (8.5-10.1); Calculated LDL 82 mg/dL (<100); Cholesterol 141 mg/dL (<200); Estimated GFR 100.19 (mL/min/1.73m2); Glucose 109 mg/dL (74-106); HDL Cholesterol 32 mg/dL (>or=50); Potassium 4.0 mmol/L (3.5-5.1); Sodium 140 mmol/L (136-145); Total Protein 7.6 g/dL (6.4-8.2); Triglyceride 137 mg/dL (<150)
[2024-09-03 13:00] LABS: ALT 39 U/L (14-59); AST 43 U/L (15-37); Anion Gap 8.0 mmol/L (3-11); CO2 28.0 mmol/L (21.0-32.0); Chloride 104 mmol/L (98-107)
== END 2024-09-03 02:59 | disposition home or self-care (01) ==
LOC: LOS 02:58
PROVIDERS: PCP Nurse Practitioner Family; Visit Provider Nurse Practitioner Family
DX: I25.10 Atherosclerotic heart disease of native coronary artery without angina pectoris (principal); E78.5 Hyperlipidemia, unspecified; R73.03 Prediabetes; K75.81 Nonalcoholic steatohepatitis (NASH)
CPT/HCPCS: 36415; 80053; 80061; 83036

== ENCOUNTER 2024-12-22 00:06 | Outpatient (CLI) | payer BC, SELFPAY ==
[2024-12-22 15:54] LABS: ESR 15 mm/hr (0-30)
[2024-12-22 15:55] LABS: HCT 36.1 % (36.0-46.0); HGB 11.2 g/dL (11.2-15.7); MCH 24.0 pg (27.0-33.0); MCHC 31.0 % (32.0-36.0); MCV 77 fL (80-95); MPV 9.5 fL (8.0-11.0); Platelet Count 270 10^3/uL (130-400); RBC 4.67 10^6/uL (3.93-5.22); RDW 15.5 % (11.7-14.6); RDW-SD 43.3 fL; WBC 6.68 10^3/uL (4.4-10.8)
[2024-12-22 15:56] LABS: Abs Immature Grans 0.01 10^3/uL (0.0-0.06); Immature Grans % 0.1 %
[2024-12-22 17:31] LABS: ALT 49 U/L (14-59); AST 47 U/L (15-37); Albumin 4.1 g/dL (3.4-5.0); Alkaline Phosphatase 146 U/L (46-116); Anion Gap 11.6 mmol/L (3-11); BUN 17 mg/dL (7-18); Bilirubin, Total 0.4 mg/dL (0.2-1.0); CO2 25.4 mmol/L (21.0-32.0); Calcium 9.2 mg/dL (8.5-10.1); Calculated LDL 63 mg/dL (<100); Chloride 100 mmol/L (98-107); Cholesterol 118 mg/dL (<200); Estimated GFR 84.82 (mL/min/1.73m2); Glucose 100 mg/dL (74-106); HDL Cholesterol 24 mg/dL (>or=50); Potassium 3.8 mmol/L (3.5-5.1); Sodium 137 mmol/L (136-145); Total Protein 7.6 g/dL (6.4-8.2); Triglyceride 157 mg/dL (<150)
[2024-12-22 17:33] LABS: ALT 51 U/L (14-59); AST 49 U/L (15-37); Albumin 4.2 g/dL (3.4-5.0); Alkaline Phosphatase 151 U/L (46-116); Bilirubin, Direct 0.1 mg/dL (0.0-0.2); Bilirubin, Total 0.5 mg/dL (0.2-1.0); Total Protein 7.7 g/dL (6.4-8.2)
[2024-12-22 17:46] LABS: Hemoglobin A1C 6.5 % (<5.7)
[2024-12-23 17:35] LABS: CRP, High Sensitivity 0.42 mg/L (See Note)
== END 2024-12-22 00:07 | disposition home or self-care (01) ==
LOC: LBO 00:06
PROVIDERS: Internal Medicine Cardiovascular Disease; PCP Nurse Practitioner Family; Visit Provider Nurse Practitioner Family
DX: I31.9 Disease of pericardium, unspecified (principal); R06.00 Dyspnea, unspecified; I25.10 Atherosclerotic heart disease of native coronary artery without angina pectoris; I25.5 Ischemic cardiomyopathy; I21.4 Non-ST elevation (NSTEMI) myocardial infarction
CPT/HCPCS: 36415; 80053; 80061; 80076; 85652; 86141; 83036; 85025